=== PATIENT | female | born 1945 | race African-American/Black ===

== ENCOUNTER 2016-11-29 17:57 | Inpatient (IN) | payer MEDICARE, MEDICAID ==
[~2016-11-29] VITALS: Ht 157.5 cm; Wt 49.0 kg
[~2016-11-29 17:57] MED LIST: ACETAMINOPHEN-1 EAC1 ORAL; AMLODIPINE BESYL5 MG ORAL; APRESOLINE50 MG ORAL; ASPIR 8181 MG ORAL; ASPIRIN EC81 MG ORAL; ATIVAN1 MG ORAL; AUGMENTIN 875-1 EAC1 ORAL; CATAPRES0.1 MG ORAL; CLONIDINE 0.2M0.2 MG GT; CLONIDINE HCL0.1 M1 PO; CLOPIDOGREL75 MG ORAL; DILAUDID2 MG ORAL; DIOVAN160 MG ORAL; DIOVAN80 MG ORAL; HYDRALAZINE HC100 MG PO; HYDRALAZINE HCL10 MG ORAL; HYDROCHLOROTH12.5 M2 ORAL; HYDROCHLOROTHIA25 MG ORAL; HYDROCHLOROTHIA50 MG ORAL; HYDROCODON-ACE1 EAC4 ORAL; JANUVIA25 MG ORAL; JANUVIA50 MG PO; LORATADINE10 M1 PO; LORAZEPAM1 MG ORAL; LOSARTAN POTAS100 MG ORAL; LOSARTAN POTASS50 MG ORAL; METOPROLOL SUCC25 MG ORAL; METOPROLOL TAR100 MG ORAL; METOPROLOL TART25 MG ORAL; METOPROLOL TART50 MG ORAL; NORVASC10 MG ORAL; NORVASC2.5 MG ORAL; NORVASC5 MG ORAL; REGLAN10 MG ORAL; RENAGEL400 MG ORAL; TRAMADOL HCL50 MG ORAL; UNOBMED; VANCOMYCIN1 GM/2502 IVPB; ZANTAC150 MG ORAL; [UNRECOGNIZED DRUG - REMARK]
[2016-11-29 20:50] VITALS: BP 166/76
[2016-11-30 00:40] VITALS: BP 147/73
[2016-11-30 04:00] VITALS: BP 180/85
[2016-11-30] MEDS ORDERED: METOPROLOL TART50 M1 ORAL (04:52)
[2016-11-30] MEDS ORDERED: APRESOLINE50 MG ORAL (04:52)
[2016-11-30] MEDS ORDERED: CLONIDINE HCL0.1 MG PO (04:52)
[2016-11-30] MEDS: HydrALAZINE 50mg tab ORAL SCH ×3 (06:22→21:38)
[2016-11-30] MEDS: sitaGLIPtin 25mg tab ORAL SCH (06:23)
[2016-11-30] MEDS: NovoLOG Insulin Flexpen SUBQ SCH ×4 (06:27→20:57)
[2016-11-30 08:01] VITALS: BP 161/87
[2016-11-30] MEDS ORDERED: Metoprolol Tartrate 50mg tab ORAL SCH (09:00)
[2016-11-30] MEDS: Aspirin Baby 81mg ORAL SCH (09:10)
[2016-11-30] MEDS: Dyna-Hex 2% Top Sol 2oz TOPIC SCH (09:11)
[2016-11-30 09:54] LABS: BASOPHILS % (AUTO) 1.6 % (0.0-2.0); EOSINOPHILS % (AUTO) 4.7 % (0.0-3.0); LYMPHOCYTES % (AUTO) 20.5 % (20.0-45.0); MEAN CORPUSCULAR HEMOGLOBIN 32.2 PG (27.0-31.0); MEAN CORPUSCULAR HGB CONC 31.4 G/DL (32.0-36.0); MEAN CORPUSCULAR VOLUME 103 FL (80-99); MEAN PLATELET VOLUME 7.6 FL (6.5-10.1); MONOCYTES % (AUTO) 13.8 % (1.0-10.0); NEUTROPHILS % (AUTO) 59.4 % (45.0-75.0); PLATELET COUNT 151 K/UL (150-450); RED BLOOD COUNT 3.47 M/UL (4.20-5.40); RED CELL DISTRIBUTION WIDTH 15.8 % (11.6-14.8); WHITE BLOOD COUNT 4.5 K/UL (4.8-10.8)
[2016-11-30 10:00] LABS: ALANINE AMINOTRANSFERASE 8 U/L (3-33); ASPARTATE AMINO TRANSFERASE 22 U/L (5-40); CARBON DIOXIDE 22 mEQ/L (20-30); CHLORIDE 95 mEQ/L (98-107); CREATININE 7.1 mg/dL (0.5-0.9); HEMOLYSIS 0; MAGNESIUM 1.9 mg/dL (1.7-2.5); PHOSPHORUS 6.7 mg/dL (2.5-4.8); SODIUM 136 mEQ/L (135-145); TOTAL PROTEIN 7.8 g/dL (6.6-8.7)
[2016-11-30 10:06] LABS: ANION GAP 19 (5-15); POTASSIUM 5.9 mEQ/L (3.4-4.9)
[2016-11-30 10:23] LABS: CALCIUM 10.2 mg/dL (8.6-10.2); CHOLESTEROL 137 mg/dL (< 200); CHOLESTEROL/HDL RATIO 2.3 (3.3-4.4); LDL CHOLESTEROL CALC 61 mg/dL (60-99)
--- NOTE | 2016-11-30 11:25 | History & Physical ---
History and Physical History & Physicial Dictated for Int Med-Dr Alford no. [id number]. JENI SALAS Nov 30, 2016 11:25
[2016-11-30 11:52] VITALS: BP 143/64
--- NOTE | 2016-11-30 12:13 | Consultation ---
History of Present Illness General Date patient seen: Nov 30, 2016 Referring physician: Dr. mcnair Reason for Consultation: chest pain Present Illness HPI 71 year old male with hx of ESRF on HD, HTN, was taken to [facility] with CC of acuute onset of chest pain. she [place] [facility] [place] Pt was recently hospitalized and worked up extensively for chest pain. Allergies: Coded Allergies: No Known Allergies (Verified , 03/07/09) Medication History Scheduled Amlodipine Besylate (Norvasc), 10 MG ORAL DAILY Aspirin* (Aspir 81*), 81 MG ORAL DAILY, (Reported) Clopidogrel* (Clopidogrel*), 75 MG ORAL DAILY, (Reported) Hydralazine HCl (Hydralazine HCl), Unknown Dose ORAL DAILY, (Reported) Metoprolol Tartrate* (Metoprolol Tartrate*), 50 MG ORAL DAILY, (Reported) Sitagliptin* (Januvia*), 25 MG ORAL DAILY, (Reported) Scheduled PRN Clonidine Hcl (Clonidine Hcl), 0.1 MG PO EVERY 6 HOURS PRN for For High Blood Pressure, (Reported) Loratadine (Loratadine), 10 MG PO DAILY PRN for Itching, (Reported) Discontinued Medications Acetaminophen With Codeine (T#3) (Tylenol #3 Tab*), 1 TAB ORAL DAILY PRN for For Pain, (Reported) Discontinued Reason: Pt stopped taking med Amlodipine Besylate (Norvasc), 10 MG ORAL DAILY Discontinued Reason: Pt stopped taking med Clonidine Hcl* (Catapres*), Unknown Dose ORAL EVERY 6 HOURS, (Reported) Discontinued Reason: Medication dose changed Clonidine Hcl* (Catapres*), 0.1 MG ORAL EVERY 8 HOURS Discontinued Reason: Medication dose changed Hydralazine HCl (Hydralazine HCl), 50 MG ORAL Q8HR Discontinued Reason: Medication dose changed Hydralazine Hcl* (Hydralazine Hcl*), 10 MG ORAL EVERY 6 HOURS, (Reported) Discontinued Reason: Medication dose changed Hydrochlorothiazide* (Hydrochlorothiazide*), 50 MG ORAL DAILY, (Reported) Discontinued Reason: MD discontinued med Losartan Potassium* (Losartan Potassium*), 50 MG ORAL DAILY Discontinued Reason: MD discontinued med Metoprolol Tartrate* (Metoprolol Tartrate*), 50 MG ORAL Q12HR Discontinued Reason: Medication dose changed Metoprolol Tartrate* (Metoprolol Tartrate*), 25 MG ORAL EVERY 12 HOURS, ( Reported) Discontinued Reason: Medication dose changed Ranitidine Hcl* (Zantac*), 150 MG ORAL DAILY, (Reported) Discontinued Reason: MD discontinued med Sevelamer HCl (Renagel), 400 MG ORAL THREE TIMES A DAY, (Reported) Discontinued Reason: MD discontinued med Unable to Obtain Medications (Unable To Obtain Meds), (Reported) Discontinued Reason: Medication dose changed Valsartan (Diovan), 160 MG ORAL BID, (Reported) Discontinued Reason: MD discontinued med Patient History Healthcare decision maker N Resuscitation status Full Code Advanced Directive on File Past Medical/Surgical History Past Medical/Surgical History: (1) ESRD (end stage renal disease) on dialysis (2) DM (diabetes mellitus) (3) Congestive heart failure (CHF) Review of Systems All Other Systems: negative except mentioned in HPI Physical Exam General Appearance: cachetic Lines, tubes and drains: peripheral HEENT: normocephalic, atraumatic Neck: non-tender, normal alignment, supple Respiratory/Chest: chest wall non-tender, lungs clear Breasts: no masses Cardiovascular/Chest: normal peripheral pulses Abdomen: normal bowel sounds Genitourinary/Rectal: normal genital exam Skin Exam: normal pigmentation 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 Last 24 Hour Vital Signs Date Time Temp Pulse Resp B/P (MAP) Pulse Ox O2 Delivery O2 Flow Rate FiO2 11/30/16 11:52 96.9 83 18 143/64 100 Room Air 11/30/16 09:00 96 161/87 11/30/16 09:00 96 161/87 11/30/16 08:01 96.1 96 18 161/87 100 Room Air 11/30/16 08:00 88 11/30/16 06:22 149/74 11/30/16 04:15 180/85 11/30/16 04:00 80 11/30/16 04:00 97.0 87 20 180/85 99 Room Air 11/30/16 00:40 97.8 79 20 147/73 98 Room Air 11/30/16 00:00 79 11/29/16 21:00 85 11/29/16 20:50 97.2 82 16 166/76 96 Room Air Intake and Output 11/30/16 12/01/16 19:00 07:00 Intake Total 120 ml Balance 120 ml Intake Oral 120 ml Laboratory Tests Test 11/30/16 09:35 White Blood Count 4.5 K/UL (4.8-10.8) L Red Blood Count 3.47 M/UL (4.20-5.40) L Hemoglobin 11.2 G/DL (12.0-16.0) L Hematocrit 35.6 % (37.0-47.0) L Mean Corpuscular Volume 103 FL (80-99) H Mean Corpuscular Hemoglobin 32.2 PG (27.0-31.0) H Mean Corpuscular Hemoglobin Concent 31.4 G/DL (32.0-36.0) L Red Cell Distribution Width 15.8 % (11.6-14.8) H Platelet Count 151 K/UL (150-450) Mean Platelet Volume 7.6 FL (6.5-10.1) Neutrophils (%) (Auto) 59.4 % (45.0-75.0) Lymphocytes (%) (Auto) 20.5 % (20.0-45.0) Monocytes (%) (Auto) 13.8 % (1.0-10.0) H Eosinophils (%) (Auto) 4.7 % (0.0-3.0) H Basophils (%) (Auto) 1.6 % (0.0-2.0) Sodium Level 136 mEQ/L (135-145) Potassium Level 5.9 mEQ/L (3.4-4.9) H Chloride Level 95 mEQ/L (98-107) L Carbon Dioxide Level 22 mEQ/L (20-30) Anion Gap 19 (5-15) H Blood Urea Nitrogen 50 mg/dL (7-23) H Creatinine 7.1 mg/dL (0.5-0.9) H Estimat Glomerular Filtration Rate mL/min (>60) Glucose Level 117 mg/dL (74-106) H Calcium Level 10.2 mg/dL (8.6-10.2) Phosphorus Level 6.7 mg/dL (2.5-4.8) H Magnesium Level 1.9 mg/dL (1.7-2.5) Total Bilirubin 0.3 mg/dL (0.0-1.2) Aspartate Amino Transf (AST/SGOT) 22 U/L (5-40) Alanine Aminotransferase (ALT/SGPT) 8 U/L (3-33) Alkaline Phosphatase 79 U/L (35-104) Troponin I 0.014 ng/mL (0.000-0.056) Total Protein 7.8 g/dL (6.6-8.7) Albumin 4.0 g/dL (3.5-5.2) Globulin 3.8 g/dL Albumin/Globulin Ratio 1.0 (1.0-2.7) Triglycerides Level 81 mg/dL (< 150) Cholesterol Level 137 mg/dL (< 200) LDL Cholesterol 61 mg/dL (60-99) HDL Cholesterol 60 mg/dL (> 60) Cholesterol/HDL Ratio 2.3 (3.3-4.4) L Height (Feet): 5 Height (Inches): 2.00 Weight (Pounds): 107 Medications Current Medications Medications (Trade) Dose Ordered Sig/Sarwat Route PRN Reason Start Time Stop Time Status Last Admin Dose Admin Acetaminophen (Tylenol) 650 mg Q6H PRN ORAL Mild Pain/Temp > 100.5 11/30/16 00:45 12/30/16 00:44 Amlodipine Besylate (Norvasc) 10 mg DAILY ORAL 11/30/16 09:00 12/30/16 08:59 Aspirin (ASA) 81 mg DAILY ORAL 11/30/16 09:00 12/30/16 08:59 11/30/16 09:10 Chlorhexidine Gluconate (Magaly-Hex 2%) 1 applic DAILY TOPIC 11/30/16 09:00 12/30/16 08:59 11/30/16 09:11 Clonidine HCl (Catapres) 0.1 mg Q6H PRN ORAL For High Blood Pressure 11/30/16 00:45 12/30/16 00:44 11/30/16 04:15 Clopidogrel Bisulfate (Plavix) 75 mg DAILY ORAL 11/30/16 09:00 12/30/16 08:59 11/30/16 09:10 Dextrose (Dextrose 50%) STAT PRN IV Hypoglycemia 11/29/16 23:15 12/29/16 23:14 Fexofenadine HCl (Nunu) 60 mg BID PRN ORAL allergies 11/30/16 01:24 12/30/16 01:23 Heparin Sodium (Porcine) (Heparin 5000 units/ml) 5,000 units EVERY 8 HOURS SUBQ 11/30/16 14:00 12/30/16 13:59 Hydralazine HCl (Apresoline) 50 mg Q8HR ORAL 11/30/16 06:00 12/30/16 05:59 11/30/16 06:22 Insulin Aspart (NovoLOG) BEFORE MEALS AND HS SUBQ 11/30/16 06:30 12/30/16 06:29 Metoprolol Tartrate (Lopressor) 50 mg DAILY ORAL 11/30/16 09:00 12/30/16 08:59 Ondansetron HCl (Zofran) 4 mg EVERY 4 HOURS PRN IVP Nausea & Vomiting 11/29/16 23:15 12/29/16 23:14 Sitagliptin Phosphate (Januvia) 25 mg ACBREAKFAST ORAL 11/30/16 06:30 12/30/16 06:29 11/30/16 06:23 Assessment/Plan Problem List: (1) ACS (acute coronary syndrome) ICD Codes: I24.9 - ACS (acute coronary syndrome) SNOMED: 591979638 (2) DM (diabetes mellitus) ICD Codes: E11.9 - Type 2 diabetes mellitus without complications SNOMED: 06800972 (3) Hypertension (4) ESRD (end stage renal disease) on dialysis ICD Codes: N18.6 - End stage renal disease; Z99.2 - Dependence on renal dialysis SNOMED: 897316763 Assessment/Plan serial ekg, troponin, echo cardiology evaluation sliding scale cardiac diet symptomatic treatment. CATHIE GIL Nov 30, 2016 12:13
[2016-11-30] MEDS: Heparin 5000 units/ml inj SUBQ SCH ×2 (14:00→21:39)
[2016-11-30] MEDS ORDERED: DiphenhydrAMINE 50mg/ml Inj IVP PRN (14:15)
[2016-11-30] MEDS ORDERED: Nitroglycerin Subl 0.4mg tab SL PRN (14:15)
[2016-11-30] MEDS ORDERED: HYDROmorphone 1mg/ml Carpuject IVP PRN (14:15)
--- NOTE | 2016-11-30 14:57 | Cardiac Electrophysiology PN ---
Subjective Subjective Dicated [id number] Objective Last 24 Hour Vital Signs Date Time Temp Pulse Resp B/P (MAP) Pulse Ox O2 Delivery O2 Flow Rate FiO2 11/30/16 14:00 143/64 11/30/16 12:00 81 11/30/16 11:52 96.9 83 18 143/64 100 Room Air 11/30/16 09:00 96 161/87 11/30/16 09:00 96 161/87 11/30/16 08:01 96.1 96 18 161/87 100 Room Air 11/30/16 08:00 88 11/30/16 06:22 149/74 11/30/16 04:15 180/85 11/30/16 04:00 80 11/30/16 04:00 97.0 87 20 180/85 99 Room Air 11/30/16 00:40 97.8 79 20 147/73 98 Room Air 11/30/16 00:00 79 11/29/16 21:00 85 11/29/16 20:50 97.2 82 16 166/76 96 Room Air Intake and Output 11/30/16 12/01/16 19:00 07:00 Intake Total 120 ml Balance 120 ml Intake Oral 120 ml Laboratory Tests Test 11/30/16 09:35 White Blood Count 4.5 K/UL (4.8-10.8) L Red Blood Count 3.47 M/UL (4.20-5.40) L Hemoglobin 11.2 G/DL (12.0-16.0) L Hematocrit 35.6 % (37.0-47.0) L Mean Corpuscular Volume 103 FL (80-99) H Mean Corpuscular Hemoglobin 32.2 PG (27.0-31.0) H Mean Corpuscular Hemoglobin Concent 31.4 G/DL (32.0-36.0) L Red Cell Distribution Width 15.8 % (11.6-14.8) H Platelet Count 151 K/UL (150-450) Mean Platelet Volume 7.6 FL (6.5-10.1) Neutrophils (%) (Auto) 59.4 % (45.0-75.0) Lymphocytes (%) (Auto) 20.5 % (20.0-45.0) Monocytes (%) (Auto) 13.8 % (1.0-10.0) H Eosinophils (%) (Auto) 4.7 % (0.0-3.0) H Basophils (%) (Auto) 1.6 % (0.0-2.0) Sodium Level 136 mEQ/L (135-145) Potassium Level 5.9 mEQ/L (3.4-4.9) H Chloride Level 95 mEQ/L (98-107) L Carbon Dioxide Level 22 mEQ/L (20-30) Anion Gap 19 (5-15) H Blood Urea Nitrogen 50 mg/dL (7-23) H Creatinine 7.1 mg/dL (0.5-0.9) H Estimat Glomerular Filtration Rate mL/min (>60) Glucose Level 117 mg/dL (74-106) H Calcium Level 10.2 mg/dL (8.6-10.2) Phosphorus Level 6.7 mg/dL (2.5-4.8) H Magnesium Level 1.9 mg/dL (1.7-2.5) Total Bilirubin 0.3 mg/dL (0.0-1.2) Aspartate Amino Transf (AST/SGOT) 22 U/L (5-40) Alanine Aminotransferase (ALT/SGPT) 8 U/L (3-33) Alkaline Phosphatase 79 U/L (35-104) Troponin I 0.014 ng/mL (0.000-0.056) Total Protein 7.8 g/dL (6.6-8.7) Albumin 4.0 g/dL (3.5-5.2) Globulin 3.8 g/dL Albumin/Globulin Ratio 1.0 (1.0-2.7) Triglycerides Level 81 mg/dL (< 150) Cholesterol Level 137 mg/dL (< 200) LDL Cholesterol 61 mg/dL (60-99) HDL Cholesterol 60 mg/dL (> 60) Cholesterol/HDL Ratio 2.3 (3.3-4.4) ARTIS GUAMAN Nov 30, 2016 14:57
[2016-11-30 15:42] VITALS: BP 160/77
--- NOTE | 2016-11-30 16:18 | Nephrology Progress Note ---
Assessment/Plan Problem List: (1) Hyperkalemia (2) ESRD (end stage renal disease) on dialysis (3) Hypertension (4) ACS (acute coronary syndrome) (5) DM (diabetes mellitus) (6) Chest pain Plan consult note dictated # [id number] Subjective Constitutional: Denies: no symptoms, chills, diaphoresis, fever, malaise, weakness, other HEENT: Denies: no symptoms, eye pain, blurred vision, tearing, double vision, ear pain, ear discharge, nose pain, nose congestion, throat pain, throat swelling, mouth pain, mouth swelling, other Genitourinary: Denies: no symptoms, burning, discharge, frequency, flank pain, hematuria, incontinence, pain, urgency, other Neurologic/Psychiatric: Denies: no symptoms, anxiety, depressed, emotional problems, headache, numbness, paresthesia, pre-existing deficit, seizure, tingling, tremors, weakness, other Subjective In bed, in no apparent distress Objective Objective Last 24 Hour Vital Signs Date Time Temp Pulse Resp B/P (MAP) Pulse Ox O2 Delivery O2 Flow Rate FiO2 11/30/16 15:42 96.3 100 18 160/77 98 Room Air 11/30/16 14:00 143/64 11/30/16 12:00 81 11/30/16 11:52 96.9 83 18 143/64 100 Room Air 11/30/16 09:00 96 161/87 11/30/16 09:00 96 161/87 11/30/16 08:01 96.1 96 18 161/87 100 Room Air 11/30/16 08:00 88 11/30/16 06:22 149/74 11/30/16 04:15 180/85 11/30/16 04:00 80 11/30/16 04:00 97.0 87 20 180/85 99 Room Air 11/30/16 00:40 97.8 79 20 147/73 98 Room Air 11/30/16 00:00 79 11/29/16 21:00 85 11/29/16 20:50 97.2 82 16 166/76 96 Room Air Intake and Output 11/30/16 12/01/16 19:00 07:00 Intake Total 240 ml Balance 240 ml Intake Oral 240 ml Laboratory Tests 11/30/16 09:35: White Blood Count 4.5L, Red Blood Count 3.47L, Hemoglobin 11.2L, Hematocrit 35.6L, Mean Corpuscular Volume 103H, Mean Corpuscular Hemoglobin 32.2H, Mean Corpuscular Hemoglobin Concent 31.4L, Red Cell Distribution Width 15.8H, Platelet Count 151, Mean Platelet Volume 7.6, Neutrophils (%) (Auto) 59.4, Lymphocytes (%) (Auto) 20.5, Monocytes (%) (Auto) 13.8H, Eosinophils (%) (Auto) 4.7H, Basophils (%) (Auto) 1.6, Sodium Level 136, Potassium Level 5.9H, Chloride Level 95L, Carbon Dioxide Level 22, Anion Gap 19H, Blood Urea Nitrogen 50H, Creatinine 7.1H, Estimat Glomerular Filtration Rate , Glucose Level 117H, Calcium Level 10.2, Phosphorus Level 6.7H, Magnesium Level 1.9, Total Bilirubin 0.3, Aspartate Amino Transf (AST/SGOT) 22, Alanine Aminotransferase (ALT/SGPT) 8 , Alkaline Phosphatase 79, Troponin I 0.014, Total Protein 7.8, Albumin 4.0, Globulin 3.8, Albumin/Globulin Ratio 1.0, Triglycerides Level 81, Cholesterol Level 137, LDL Cholesterol 61, HDL Cholesterol 60, Cholesterol/HDL Ratio 2.3L Height (Feet): 5 Height (Inches): 2.00 Weight (Pounds): 107 General Appearance: no apparent distress, alert EENT: normal ENT inspection Neck: normal alignment Cardiovascular: normal rate, regular rhythm Respiratory/Chest: decreased breath sounds Abdomen: non tender, soft Extremities: non-tender, normal inspection Neurologic: alert, oriented x 3, responsive, normal mood/affect Sharlene Velasco N.P. Nov 30, 2016 16:18
[2016-11-30] MEDS: Metoprolol Tartrate 50mg tab ORAL SCH (17:44)
[2016-11-30] MEDS: Renagel 400mg cap ORAL SCH (18:00)
[2016-11-30 20:00] VITALS: BP_SYST 150; BP_SYST 163; BP_DIAS 77; BP_DIAS 80
--- NOTE | 2016-11-30 21:45 | Consultation ---
DATE OF CONSULTATION: CARDIOLOGY CONSULTATION CONSULTING PHYSICIAN: Nate Magallanes M.D. REFERRING PHYSICIAN: Fidel Alford M.D. REASON FOR CONSULTATION: Chest pain. History Of Present Illness: The patient is a 71-year-old lady with history of hypertension, end-stage renal disease on hemodialysis, as well as anemia, who was just recently at [facility] and underwent a nuclear stress test. Her ejection fraction was 65%. At that time, she was ruled out for myocardial infarction. The patient presented to the emergency room complaining of chest pain at [facility]. The patient was then transferred to [facility] for further evaluation and management. PAST MEDICAL HISTORY: 1. Hypertension. 2. End-stage renal disease, on hemodialysis. 3. Chest pain for which she underwent a nuclear stress test that showed no evidence of ischemia on 11/11/2016. SOCIAL HISTORY: Denies smoking or drinking alcohol. FAMILY HISTORY: Noncontributory. Review Of Systems: Review of systems was performed and was negative other than what was mentioned in the history of present illness. PHYSICAL EXAMINATION: Vital Signs: Blood pressure is 142/64, pulse 81, respirations 18, and temperature 97 degrees. HEAD AND NECK: Showed no JVD or carotid bruits. LUNGS: Clear. Cardiovascular: Shows regular S1 and S2 with no gallop or murmur. Dialysis catheter in the left subclavian. ABDOMEN: Soft. EXTREMITIES: No pitting edema. Laboratory Data: Her labs show a white count of 4.5, hemoglobin 11.2, hematocrit 35.6, and platelet count of 151,000. Sodium 136, potassium 5.9, BUN of , creatinine 7.1, and glucose of 117. ASSESSMENT AND PLAN: 1. Chest pain. The patient had similar presentation on the previous admission. She was ruled out for myocardial infarction. Echocardiogram showed ejection fraction of 70% and nuclear stress test showed no evidence of ischemia. Continue p.r.n. sublingual nitroglycerin. The patient also stays on aspirin, Plavix, and metoprolol. 2. Hypertension, on Norvasc 10 mg daily, metoprolol 50 mg b.i.d., and hydralazine 50 mg every 8 hours. The patient is also on p.r.n. clonidine. 3. End-stage renal disease, on hemodialysis. Thank you very much, Dr. Alford, for allowing me to participate in the care of this patient. Please do not hesitate to contact me for any questions regarding my evaluation. aNte Magallanes M.D. DR: CHAGO JOB#: [id number] CC:
--- NOTE | 2016-11-30 22:15 | History and Physical Report ---
DATE OF ADMISSION: 11/29/2016 Chief Complaint: The patient is a 71-year-old female who presents with chief complaint of chest pain. History Of Present Illness: The patient has a history of end-stage renal disease. The patient is followed as an outpatient by Dr. Blaze Plascencia for dialysis. The patient states on , 11/28/2016, she began to experience chest pain during dialysis. The patient states it then resolved. The patient went home. The patient states the chest pain returned on evening. The patient presented to [facility] emergency room on Friday11/29/2016. The patient was complaining of chest pain. Chest pain is substernal. There is no radiation to the left arm or to the jaw. The patient is transferred to [facility] for insurance purposes. The patient is admitted for chest pain to rule out acute coronary syndrome. Review Of Systems: Constitutional: The patient denies weight loss or weight gain. The patient denies fevers or chills. HEENT: The patient denies ear or throat pain. The patient denies headache. Cardiovascular: The patient complains of chest pain as above. The patient denies palpitations. Chest: The patient denies wheeze or shortness of breath. Abdominal: The patient denies nausea, vomiting, diarrhea, or constipation. Genitourinary: The patient denies dysuria, increased frequency of urination. Neuromuscular: The patient denies seizures or generalized weakness. PAST MEDICAL HISTORY: Significant for: 1. End-stage renal disease, on hemodialysis every Friday, , and Friday. The patient's last dialysis was on 11/28/2016. 2. Hypertension. 3. Diabetes type 2. 4. History of cerebrovascular disease, status post cerebrovascular accident. PAST SURGICAL HISTORY: Significant for left Port-A-Cath placement. CURRENT MEDICATIONS: 1. Aspirin 81 mg one tablet p.o. daily. 2. Amlodipine 10 mg one tablet p.o. daily. 3. Plavix 75 mg one tablet p.o. daily. 4. Januvia 25 mg one tablet p.o. daily. 5. Claritin 10 mg one tablet p.o. daily. 6. Clonidine 0.1 mg one tablet p.o. q.6 hours p.r.n. hypertension. 7. Lopressor 50 mg one tablet p.o. daily. 8. Hydralazine of an unknown dose. ALLERGIES: No known drug allergies. Social History: The patient is and lives with her two grown daughters. The patient denies tobacco or alcohol use. PHYSICAL EXAMINATION: Vital Signs: Temperature 97.0, respirations 20, pulse 80 to 87, blood pressure 180/85. General: The patient is thin-appearing female, in no apparent distress. HEENT: Eyes, pupils are equal and responsive to light and accommodation. Extraocular movements are intact. NECK: Supple without lymphadenopathy. Chest: Lungs are clear to auscultation bilaterally without wheezes or rales. Cardiovascular: Regular rhythm and rate. S1 and S2 are normal without murmurs, rubs, or gallops Abdomen: Soft, nontender, and nondistended. Positive bowel sounds. No evidence of hepatosplenomegaly. Currently, no rebound or guarding noted. EXTREMITIES: Negative for clubbing, cyanosis, or edema. RECTAL/GENITAL: Refused. Neurologic: Cranial nerves II to XII are grossly intact without focal deficits. Motor strength is 5/5 bilaterally. Deep tendon reflexes are 2+ bilaterally. Laboratory Studies: WBC 4.5, hemoglobin 11.2, hematocrit 35.6, platelets 151,000. Sodium 136, potassium 5.9, chloride 95, CO2 22, BUN 50, creatinine 7.1, glucose 117. Troponin 0.014. ASSESSMENT: This is a 71-year-old female. 1. Chest pain. 2. End-stage renal disease. 3. Hypertension. 4. Diabetes type 2. 5. Cerebrovascular disease. TREATMENT: 1. Chest pain. A Cardiology consultation obtained with Dr. Nate Magallanes. Serial troponin levels will be run. The patient may require cardiology stress test. We will follow recommendation of Cardiology. 2. End-stage renal disease. A Nephrology consultation obtained with Dr. Blaze Plascencia. The patient is currently scheduled for dialysis today 11/30/2016. We will follow recommendations of Nephrology. 3. Hypertension. Continue amlodipine as above. Clonidine has been ordered as needed for systolic greater than 150 or diastolic greater than 100. 4. Diabetes type 2. The patient is currently on a NovoLog sliding scale. 5. History of cerebrovascular disease. Continue Plavix and aspirin as above. Bernard Mckeon M.D. DR: Justo JOB#: [id number] CC:
[2016-12-01] VITALS (7 sets, daily range): BP systolic 119–183; BP diastolic 55–92
--- NOTE | 2016-12-01 03:15 | Consultation ---
DATE OF CONSULTATION: 11/30/2016 NEPHROLOGY CONSULTATION REQUESTING PHYSICIAN: Fidel Alford M.D. Reason For Consult: End-stage renal disease, on hemodialysis and hyperkalemia. History Of Present Illness: The patient is a 71-year-old female, well known to me from previous hospitalizations with a past medical history significant for end-stage renal disease, on hemodialysis, hypertension, history of acute coronary syndrome, and diabetes mellitus, who presented to the hospital with chest pain. She stated that the pain started on after hemodialysis and she went home, but the pain got increasingly worse on Friday, which prompted her visit to the hospital. She stated that the pain was radiating to her left shoulder earlier, but is nonradiating at this time. Pain is pressure like. She stated that shortness of breath was minimal. No shortness of breath at this time. She denies fever or chills. No nausea. No vomiting. She denies dizziness or loss of consciousness. She is lying in bed at this time in no apparent distress. Past Medical History: Significant for end-stage renal disease, on hemodialysis every Tuesdays, and Saturdays, history of hypertension, acute coronary syndrome, recurrent chest pains, and diabetes. Home Medications: Includes amlodipine 10 mg p.o. daily, aspirin 81 mg p.o. daily, clonidine 0.1 mg p.o. q.6 hours p.r.n., Plavix 75 mg p.o. daily, hydralazine 50 mg p.o. daily, loratadine 10 mg p.o. daily, metoprolol 50 mg p.o. daily, and Januvia 25 mg p.o. daily. ALLERGIES: She has no known allergies. Social History: She lives at home. Denies any smoking. No alcohol use and no illicit drug use. Review Of Systems: A full 12-point review of system was reviewed with the patient and positives as stated in the history of present illness. PHYSICAL EXAMINATION: General: This is a 71-year-old female, in no apparent distress. Vital Signs: Blood pressure 160/77, heart rate is 100, respiratory rate is 18, temp is 96.3 degrees, and O2 saturation is 98% on room air. HEENT: Head is normocephalic and atraumatic. Pupils are equal, round, and reactive to light and accommodation. NECK: Supple. No jugular venous distention noted. LUNGS: Diminished bilaterally. No crackles. No wheezing. CARDIOVASCULAR: Regular rate and rhythm. Abdomen: Soft, nontender, and nondistended. Positive bowel sounds in all 4 quadrants. EXTREMITIES: No edema. No cyanosis. No clubbing. Neurologic: The patient is awake, alert, and oriented x3 with no focal deficits. Laboratory Data: CBC, white count 4.5, hemoglobin 11.2, hematocrit 35.6, and a platelet count of 151,000. BMP, sodium 136, potassium 5.9, chloride of 95, bicarb 22, BUN 50, creatinine 7.1, and blood glucose is 117. Troponin is negative. Radiologic Findings: None yet on this admission, however, the echocardiogram done on 11/11/2016 showed an estimated ejection fraction to be 60% to 65%. Also Cardiolite stress test impression, nonischemic clinical response to pharmacological stress per cardiology report. No imaging findings to suggest ischemia at the level of stress achieved. Calculated post-stress ejection fraction greater than 70%. This was done on 11/11/2016. ASSESSMENT: 1. Atypical chest pain. 2. End-stage renal disease, on hemodialysis. 3. Accelerated hypertension. 4. Shortness of breath. Plan: We will continue hemodialysis as scheduled. The patient is currently undergoing hemodialysis. We will follow up post procedure. We will monitor electrolytes and correct with hemodialysis. We will monitor hemoglobin and hematocrit and transfuse p.r.n. Pain management as needed. We will follow up with the patient and make further recommendations as necessary. Blaze Plascencia M.D. Sharlene Velasco DR: TUCKER JOB#: [id number] CC:
[2016-12-01] MEDS: NovoLOG Insulin Flexpen SUBQ SCH ×4 (06:30→20:46)
[2016-12-01] MEDS: sitaGLIPtin 25mg tab ORAL SCH (06:37)
[2016-12-01] MEDS: HydrALAZINE 50mg tab ORAL SCH ×3 (06:40→20:47)
[2016-12-01] MEDS: Heparin 5000 units/ml inj SUBQ SCH ×3 (06:42→20:49)
[2016-12-01] MEDS: Aspirin Baby 81mg ORAL SCH (09:00)
[2016-12-01 09:19] LABS: BASOPHILS % (AUTO) 0.5 % (0.0-2.0); EOSINOPHILS % (AUTO) 0.1 % (0.0-3.0); MEAN CORPUSCULAR HEMOGLOBIN 32.8 PG (27.0-31.0); MEAN CORPUSCULAR HGB CONC 31.7 G/DL (32.0-36.0); MEAN CORPUSCULAR VOLUME 104 FL (80-99); MEAN PLATELET VOLUME 7.7 FL (6.5-10.1); NEUTROPHILS % (AUTO) 75.5 % (45.0-75.0); PLATELET COUNT 140 K/UL (150-450); RED BLOOD COUNT 3.72 M/UL (4.20-5.40); RED CELL DISTRIBUTION WIDTH 15.9 % (11.6-14.8); WHITE BLOOD COUNT 3.8 K/UL (4.8-10.8)
[2016-12-01 09:22] LABS: ALANINE AMINOTRANSFERASE 11 U/L (3-33); ALBUMIN/GLOBULIN RATIO 0.8 (1.0-2.7); ANION GAP 19 (5-15); ASPARTATE AMINO TRANSFERASE 18 U/L (5-40); CALCIUM 11.3 mg/dL (8.6-10.2); CARBON DIOXIDE 33 mEQ/L (20-30); CHLORIDE 97 mEQ/L (98-107); CREATININE 4.6 mg/dL (0.5-0.9); HEMOLYSIS 7; POTASSIUM 5.3 mEQ/L (3.4-4.9); SODIUM 149 mEQ/L (135-145); TOTAL PROTEIN 10.5 g/dL (6.6-8.7)
[2016-12-01] MEDS: Dyna-Hex 2% Top Sol 2oz TOPIC SCH (09:55)
[2016-12-01] MEDS: Renagel 400mg cap ORAL SCH ×3 (09:56→17:32)
[2016-12-01] MEDS: Metoprolol Tartrate 50mg tab ORAL SCH ×2 (10:00→17:33)
--- NOTE | 2016-12-01 11:28 | Pulmonology Progress Note ---
Assessment/Plan Problems: (1) ACS (acute coronary syndrome) (2) DM (diabetes mellitus) (3) Hypertension (4) ESRD (end stage renal disease) on dialysis Respiratory: monitor respiratory rate, adjust FIO2, CXR Cardiac: continue to monitor HR/BP Renal: F/U I&O Infectious Disease: check cultures, continue antibiotics Gastrointestinal: hold feedings Endocrine: monitor blood sugar, continue sliding scale insulin Hematologic: monitor H/H, transfuse if hgb<8.5 Neurologic: PRN Ativan, PRN Morphine, keep patient comfortable Affect: PRN ativan Prophylaxis: Protonix Notes Reviewed: cardio Discussed with: consultants, disability case manager Subjective ROS Limited/Unobtainable: No Constitutional: Reports: no symptoms HEENT: Repors: no symptoms Respiratory: Reports: no symptoms Cardiovascular: Reports: no symptoms Allergies: Coded Allergies: No Known Allergies (Verified , 03/07/09) Objective Last 24 Hour Vital Signs Date Time Temp Pulse Resp B/P (MAP) Pulse Ox O2 Delivery O2 Flow Rate FiO2 12/01/16 11:24 98.1 88 18 169/77 98 Room Air 12/01/16 10:00 90 178/92 12/01/16 09:59 90 178/90 12/01/16 07:47 98.1 90 18 178/92 95 Room Air 12/01/16 06:40 177/87 12/01/16 04:00 86 12/01/16 04:00 92.8 90 155/70 Room Air 12/01/16 01:59 150/74 12/01/16 00:22 183/89 12/01/16 00:00 98.1 88 18 183/89 98 Room Air 12/01/16 00:00 80 11/30/16 21:38 157/74 11/30/16 20:00 96.3 89 20 150/80 96 Room Air 11/30/16 20:00 98.2 88 18 163/77 98 Room Air 11/30/16 20:00 81 11/30/16 17:44 106 147/80 11/30/16 17:27 Room Air 11/30/16 16:30 118 11/30/16 15:42 96.3 100 18 160/77 98 Room Air 11/30/16 14:00 143/64 11/30/16 12:00 81 11/30/16 11:52 96.9 83 18 143/64 100 Room Air 11/30/16 11:30 Room Air Intake and Output 12/01/16 12/02/16 19:00 07:00 Intake Total 120 ml Balance 120 ml Intake Oral 120 ml General Appearance: WD/WN HEENT: normocephalic, atraumatic Respiratory/Chest: chest wall non-tender, lungs clear Cardiovascular: normal peripheral pulses Abdomen: normal bowel sounds, soft, non tender Genitourinary: normal external genitalia Skin: no rash 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 Lymphatic: no neck adenopathy Laboratory Tests 12/01/16 08:50: White Blood Count 3.8L, Red Blood Count 3.72L, Hemoglobin 12.2, Hematocrit 38.5 , Mean Corpuscular Volume 104H, Mean Corpuscular Hemoglobin 32.8H, Mean Corpuscular Hemoglobin Concent 31.7L, Red Cell Distribution Width 15.9H, Platelet Count 140L, Mean Platelet Volume 7.7, Neutrophils (%) (Auto) 75.5H, Lymphocytes (%) (Auto) 11.0L, Monocytes (%) (Auto) 13.0H, Eosinophils (%) (Auto ) 0.1, Basophils (%) (Auto) 0.5, Sodium Level 149#H, Potassium Level 5.3H, Chloride Level 97L, Carbon Dioxide Level 33H, Anion Gap 19H, Blood Urea Nitrogen 26H, Creatinine 4.6H, Estimat Glomerular Filtration Rate , Glucose Level 84, Calcium Level 11.3H, Total Bilirubin 0.4, Aspartate Amino Transf (AST/ SGOT) 18, Alanine Aminotransferase (ALT/SGPT) 11, Alkaline Phosphatase 82, Troponin I 0.016, Pro-B-Type Natriuretic Peptide 36084K, Total Protein 10.5#H, Albumin 4.7, Globulin 5.8, Albumin/Globulin Ratio 0.8L Current Medications Medications (Trade) Dose Ordered Sig/Sarwat Route PRN Reason Start Time Stop Time Status Last Admin Dose Admin Acetaminophen (Tylenol) 650 mg Q6H PRN ORAL Mild Pain/Temp > 100.5 11/30/16 00:45 12/30/16 00:44 12/01/16 10:03 Amlodipine Besylate (Norvasc) 10 mg DAILY ORAL 11/30/16 09:00 12/30/16 08:59 12/01/16 09:59 Aspirin (ASA) 81 mg DAILY ORAL 11/30/16 09:00 12/30/16 08:59 12/01/16 09:00 Chlorhexidine Gluconate (Magaly-Hex 2%) 1 applic DAILY@2000 TOPIC 12/02/16 20:00 01/01/17 19:59 Clonidine HCl (Catapres) 0.1 mg Q6H PRN ORAL For High Blood Pressure 11/30/16 00:45 12/30/16 00:44 12/01/16 00:22 Clopidogrel Bisulfate (Plavix) 75 mg DAILY ORAL 11/30/16 09:00 12/30/16 08:59 12/01/16 09:56 Dextrose (Dextrose 50%) STAT PRN IV Hypoglycemia 11/29/16 23:15 12/29/16 23:14 Diphenhydramine HCl (Benadryl) 25 mg Q4HR PRN IVP Itching 11/30/16 14:15 12/30/16 14:14 11/30/16 14:29 Fexofenadine HCl (Nunu) 60 mg BID PRN ORAL allergies 11/30/16 01:24 12/30/16 01:23 12/01/16 10:00 Heparin Sodium (Porcine) (Heparin 5000 units/ml) 5,000 units EVERY 8 HOURS SUBQ 11/30/16 14:00 12/30/16 13:59 12/01/16 06:42 Hydralazine HCl (Apresoline) 50 mg Q8HR ORAL 11/30/16 06:00 12/30/16 05:59 12/01/16 06:40 Hydromorphone HCl (Dilaudid) 1 mg Q4H PRN IVP For Pain 11/30/16 14:30 12/07/16 14:29 11/30/16 21:18 Insulin Aspart (NovoLOG) BEFORE MEALS AND HS SUBQ 11/30/16 06:30 12/30/16 06:29 11/30/16 17:46 Metoprolol Tartrate (Lopressor) 50 mg BID ORAL 11/30/16 18:00 12/30/16 08:59 12/01/16 10:00 Nitroglycerin (Ntg) 0.4 mg Q5M PRN SL Prn Chest Pain 11/30/16 14:15 12/30/16 14:14 Ondansetron HCl (Zofran) 4 mg EVERY 4 HOURS PRN IVP Nausea & Vomiting 11/29/16 23:15 12/29/16 23:14 11/30/16 21:59 Sevelamer HCl (Renagel) 400 mg THREE TIMES A DAY ORAL 11/30/16 18:00 12/30/16 17:59 12/01/16 09:56 Sitagliptin Phosphate (Januvia) 25 mg ACBREAKFAST ORAL 11/30/16 06:30 12/30/16 06:29 12/01/16 06:37 CATHIE GIL Dec 01, 2016 11:28
--- NOTE | 2016-12-01 12:55 | Nephrology Progress Note ---
Assessment/Plan Problem List: (1) Hyperkalemia (2) ESRD (end stage renal disease) on dialysis (3) Hypertension (4) ACS (acute coronary syndrome) (5) DM (diabetes mellitus) (6) Chest pain Plan Continue HD as scheduled Monitor lytes, correct prn with HD Pain management prn Cardio following Echo pending DVT/PPI - prophylaxis AM labs Subjective Constitutional: Denies: no symptoms, chills, diaphoresis, fever, malaise, weakness, other HEENT: Denies: no symptoms, eye pain, blurred vision, tearing, double vision, ear pain, ear discharge, nose pain, nose congestion, throat pain, throat swelling, mouth pain, mouth swelling, other Genitourinary: Denies: no symptoms, burning, discharge, frequency, flank pain, hematuria, incontinence, pain, urgency, other Neurologic/Psychiatric: Denies: no symptoms, anxiety, depressed, emotional problems, headache, numbness, paresthesia, pre-existing deficit, seizure, tingling, tremors, weakness, other Subjective In bed, in no apparent distress, stated that she only wants tylenol for pain because she got sick from the IV pain med Objective Objective Last 24 Hour Vital Signs Date Time Temp Pulse Resp B/P (MAP) Pulse Ox O2 Delivery O2 Flow Rate FiO2 12/01/16 11:24 98.1 88 18 169/77 98 Room Air 12/01/16 10:00 90 178/92 12/01/16 09:59 90 178/90 12/01/16 07:47 98.1 90 18 178/92 95 Room Air 12/01/16 06:40 177/87 12/01/16 04:00 86 12/01/16 04:00 92.8 90 155/70 Room Air 12/01/16 01:59 150/74 12/01/16 00:22 183/89 12/01/16 00:00 98.1 88 18 183/89 98 Room Air 12/01/16 00:00 80 11/30/16 21:38 157/74 11/30/16 20:00 96.3 89 20 150/80 96 Room Air 11/30/16 20:00 98.2 88 18 163/77 98 Room Air 11/30/16 20:00 81 11/30/16 17:44 106 147/80 11/30/16 17:27 Room Air 11/30/16 16:30 118 11/30/16 15:42 96.3 100 18 160/77 98 Room Air 11/30/16 14:00 143/64 Intake and Output 12/01/16 12/02/16 19:00 07:00 Intake Total 120 ml Balance 120 ml Intake Oral 120 ml Laboratory Tests 12/01/16 08:50: White Blood Count 3.8L, Red Blood Count 3.72L, Hemoglobin 12.2, Hematocrit 38.5 , Mean Corpuscular Volume 104H, Mean Corpuscular Hemoglobin 32.8H, Mean Corpuscular Hemoglobin Concent 31.7L, Red Cell Distribution Width 15.9H, Platelet Count 140L, Mean Platelet Volume 7.7, Neutrophils (%) (Auto) 75.5H, Lymphocytes (%) (Auto) 11.0L, Monocytes (%) (Auto) 13.0H, Eosinophils (%) (Auto ) 0.1, Basophils (%) (Auto) 0.5, Sodium Level 149#H, Potassium Level 5.3H, Chloride Level 97L, Carbon Dioxide Level 33H, Anion Gap 19H, Blood Urea Nitrogen 26H, Creatinine 4.6H, Estimat Glomerular Filtration Rate , Glucose Level 84, Calcium Level 11.3H, Total Bilirubin 0.4, Aspartate Amino Transf (AST/ SGOT) 18, Alanine Aminotransferase (ALT/SGPT) 11, Alkaline Phosphatase 82, Troponin I 0.016, Pro-B-Type Natriuretic Peptide 64087D, Total Protein 10.5#H, Albumin 4.7, Globulin 5.8, Albumin/Globulin Ratio 0.8L Height (Feet): 5 Height (Inches): 2.00 Weight (Pounds): 105 General Appearance: no apparent distress, alert EENT: normal ENT inspection Neck: normal alignment, supple Cardiovascular: normal rate, regular rhythm, no JVD Respiratory/Chest: normal breath sounds, no respiratory distress Abdomen: soft, no organomegaly Extremities: non-tender, normal inspection Neurologic: alert, oriented x 3, responsive, normal mood/affect Sharlene Velasco N.P. Dec 01, 2016 12:55
--- NOTE | 2016-12-01 13:15 | Internal Med Progress Note ---
Subjective Date of Service: Dec 01, 2016 Physician Name Jeni Salas Attending Physician Fidel Alford MD Current Medications Medications (Trade) Dose Ordered Sig/Sarwat Route PRN Reason Start Time Stop Time Status Last Admin Dose Admin Acetaminophen (Tylenol) 650 mg Q6H PRN ORAL Mild Pain/Temp > 100.5 11/30/16 00:45 12/30/16 00:44 12/01/16 10:03 Acetaminophen/ Hydrocodone Bitart ([place] 5/325) 1 tab Q4H PRN ORAL Moderate Pain (Pain Scale 4-6) 12/01/16 13:00 12/08/16 12:59 UNV Amlodipine Besylate (Norvasc) 10 mg DAILY ORAL 11/30/16 09:00 12/30/16 08:59 12/01/16 09:59 Aspirin (ASA) 81 mg DAILY ORAL 11/30/16 09:00 12/30/16 08:59 12/01/16 09:00 Chlorhexidine Gluconate (Magaly-Hex 2%) 1 applic DAILY@2000 TOPIC 12/02/16 20:00 01/01/17 19:59 Clonidine HCl (Catapres) 0.1 mg Q6H PRN ORAL For High Blood Pressure 11/30/16 00:45 12/30/16 00:44 12/01/16 13:07 Clopidogrel Bisulfate (Plavix) 75 mg DAILY ORAL 11/30/16 09:00 12/30/16 08:59 12/01/16 09:56 Dextrose (Dextrose 50%) STAT PRN IV Hypoglycemia 11/29/16 23:15 12/29/16 23:14 Diphenhydramine HCl (Benadryl) 25 mg Q4HR PRN IVP Itching 11/30/16 14:15 12/30/16 14:14 11/30/16 14:29 Fexofenadine HCl (Nunu) 60 mg BID PRN ORAL allergies 11/30/16 01:24 12/30/16 01:23 12/01/16 10:00 Heparin Sodium (Porcine) (Heparin 5000 units/ml) 5,000 units EVERY 8 HOURS SUBQ 11/30/16 14:00 12/30/16 13:59 12/01/16 06:42 Hydralazine HCl (Apresoline) 50 mg Q8HR ORAL 11/30/16 06:00 11/6/17 05:59 12/01/16 13:07 Insulin Aspart (NovoLOG) BEFORE MEALS AND HS SUBQ 11/30/16 06:30 12/30/16 06:29 11/30/16 17:46 Metoprolol Tartrate (Lopressor) 50 mg BID ORAL 11/30/16 18:00 12/30/16 08:59 12/01/16 10:00 Nitroglycerin (Ntg) 0.4 mg Q5M PRN SL Prn Chest Pain 11/30/16 14:15 12/30/16 14:14 Ondansetron HCl (Zofran) 4 mg EVERY 4 HOURS PRN IVP Nausea & Vomiting 11/29/16 23:15 12/29/16 23:14 11/30/16 21:59 Ondansetron HCl (Zofran) 4 mg Q6H PRN IVP Nausea & Vomiting 12/01/16 13:00 12/31/16 12:59 UNV Sevelamer HCl (Renagel) 800 mg THREE TIMES A DAY ORAL 12/01/16 13:00 12/31/16 12:59 UNV Sitagliptin Phosphate (Januvia) 25 mg ACBREAKFAST ORAL 11/30/16 06:30 12/30/16 06:29 12/01/16 06:37 Allergies: Coded Allergies: No Known Allergies (Verified , 03/07/09) ROS Limited/Unobtainable: No Constitutional: Reports: no symptoms HEENT: Reports: no symptoms Cardiovascular: Reports: chest pain Respiratory: Reports: no symptoms Gastrointestinal/Abdominal: Reports: no symptoms Genitourinary: Reports: no symptoms Neurologic/Psychiatric: Reports: no symptoms Subjective 71 YO F admitted with chest pain. Cover for Vy Alford. 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, no motor/sensory deficits Skin: normal pigmentation, warm/dry Laboratory Tests Test 12/01/16 08:50 White Blood Count 3.8 K/UL (4.8-10.8) L Red Blood Count 3.72 M/UL (4.20-5.40) L Hemoglobin 12.2 G/DL (12.0-16.0) Hematocrit 38.5 % (37.0-47.0) Mean Corpuscular Volume 104 FL (80-99) H Mean Corpuscular Hemoglobin 32.8 PG (27.0-31.0) H Mean Corpuscular Hemoglobin Concent 31.7 G/DL (32.0-36.0) L Red Cell Distribution Width 15.9 % (11.6-14.8) H Platelet Count 140 K/UL (150-450) L Mean Platelet Volume 7.7 FL (6.5-10.1) Neutrophils (%) (Auto) 75.5 % (45.0-75.0) H Lymphocytes (%) (Auto) 11.0 % (20.0-45.0) L Monocytes (%) (Auto) 13.0 % (1.0-10.0) H Eosinophils (%) (Auto) 0.1 % (0.0-3.0) Basophils (%) (Auto) 0.5 % (0.0-2.0) Sodium Level 149 mEQ/L (135-145) #H Potassium Level 5.3 mEQ/L (3.4-4.9) H Chloride Level 97 mEQ/L (98-107) L Carbon Dioxide Level 33 mEQ/L (20-30) H Anion Gap 19 (5-15) H Blood Urea Nitrogen 26 mg/dL (7-23) H Creatinine 4.6 mg/dL (0.5-0.9) H Estimat Glomerular Filtration Rate mL/min (>60) Glucose Level 84 mg/dL (74-106) Calcium Level 11.3 mg/dL (8.6-10.2) H Total Bilirubin 0.4 mg/dL (0.0-1.2) Aspartate Amino Transf (AST/SGOT) 18 U/L (5-40) Alanine Aminotransferase (ALT/SGPT) 11 U/L (3-33) Alkaline Phosphatase 82 U/L (35-104) Troponin I 0.016 ng/mL (0.000-0.056) Pro-B-Type Natriuretic Peptide 67544 pg/mL (0-125) H Total Protein 10.5 g/dL (6.6-8.7) #H Albumin 4.7 g/dL (3.5-5.2) Globulin 5.8 g/dL Albumin/Globulin Ratio 0.8 (1.0-2.7) L Intake and Output 12/01/16 12/02/16 19:00 07:00 Intake Total 270 ml Balance 270 ml Intake Oral 270 ml Assessment/Plan Problem List: (1) Cerebral vascular disease (2) Congestive heart failure (CHF) Assessment & Plan: Await echocardiogram. See Cardiology note. (3) Chest pain (4) ESRD (end stage renal disease) on dialysis Assessment & Plan: Last hemodialysis 11/30/16. See nephrology note (5) Hypertension Assessment & Plan: Cont metoprolol and norvasc. (6) DM (diabetes mellitus) Assessment & Plan: Cont novolog sliding scale. (7) Hyperkalemia Assessment & Plan: Improving with dialysis JENI SALAS Dec 01, 2016 13:15
[2016-12-01] MEDS ORDERED: Norco 5mg/325mg tab ORAL PRN (13:30)
[2016-12-02 00:13] VITALS: BP 136/67
[2016-12-02 04:00] VITALS: BP 156/74
[2016-12-02] MEDS: HydrALAZINE 50mg tab ORAL SCH ×2 (05:59→14:20)
[2016-12-02] MEDS: sitaGLIPtin 25mg tab ORAL SCH (05:59)
[2016-12-02] MEDS: Heparin 5000 units/ml inj SUBQ SCH ×2 (06:00→14:20)
[2016-12-02] MEDS: NovoLOG Insulin Flexpen SUBQ SCH ×2 (06:00→11:20)
[2016-12-02 07:57] VITALS: BP 156/72
[2016-12-02] MEDS: Metoprolol Tartrate 50mg tab ORAL SCH (08:21)
[2016-12-02] MEDS: Aspirin Baby 81mg ORAL SCH (08:21)
[2016-12-02] MEDS: Renagel 400mg cap ORAL SCH (08:21)
[2016-12-02 09:07] LABS: BASOPHILS % (AUTO) 1.2 % (0.0-2.0); EOSINOPHILS % (AUTO) 2.3 % (0.0-3.0); LYMPHOCYTES % (AUTO) 22.5 % (20.0-45.0); MEAN CORPUSCULAR HEMOGLOBIN 32.8 PG (27.0-31.0); MEAN CORPUSCULAR HGB CONC 32.1 G/DL (32.0-36.0); MEAN CORPUSCULAR VOLUME 102 FL (80-99); MEAN PLATELET VOLUME 10.3 FL (6.5-10.1); MONOCYTES % (AUTO) 12.4 % (1.0-10.0); NEUTROPHILS % (AUTO) 61.6 % (45.0-75.0); PLATELET COUNT 172 K/UL (150-450); RED CELL DISTRIBUTION WIDTH 15.7 % (11.6-14.8); WHITE BLOOD COUNT 5.5 K/UL (4.8-10.8)
[2016-12-02 10:00] LABS: ANION GAP 13 (5-15); CALCIUM 10.4 MG/DL (8.5-10.1); CARBON DIOXIDE 28 MMOL/L (21-32); CHLORIDE 93 MMOL/L (98-107); CREATININE 7.1 MG/DL (0.55-1.30); POTASSIUM 4.9 MMOL/L (3.5-5.1); SODIUM 134 MMOL/L (136-145)
--- NOTE | 2016-12-02 10:12 | Internal Med Progress Note ---
Subjective Date of Service: Dec 02, 2016 Physician Name Jeni Salas Attending Physician Fidel Alford MD Current Medications Medications (Trade) Dose Ordered Sig/Sarwat Route PRN Reason Start Time Stop Time Status Last Admin Dose Admin Acetaminophen (Tylenol) 650 mg Q6H PRN ORAL Mild Pain/Temp > 100.5 11/30/16 00:45 12/30/16 00:44 12/01/16 10:03 Acetaminophen/ Hydrocodone Bitart ([place] 5/325) 1 tab Q4H PRN ORAL Moderate Pain (Pain Scale 4-6) 12/01/16 13:30 12/08/16 13:29 Amlodipine Besylate (Norvasc) 10 mg DAILY ORAL 11/30/16 09:00 12/30/16 08:59 12/02/16 08:21 Aspirin (ASA) 81 mg DAILY ORAL 11/30/16 09:00 12/30/16 08:59 12/02/16 08:21 Chlorhexidine Gluconate (Magaly-Hex 2%) 1 applic DAILY@2000 TOPIC 12/02/16 20:00 01/01/17 19:59 Clonidine HCl (Catapres) 0.1 mg Q6H PRN ORAL For High Blood Pressure 11/30/16 00:45 12/30/16 00:44 12/01/16 13:07 Clopidogrel Bisulfate (Plavix) 75 mg DAILY ORAL 11/30/16 09:00 12/30/16 08:59 12/02/16 08:21 Dextrose (Dextrose 50%) STAT PRN IV Hypoglycemia 11/29/16 23:15 12/29/16 23:14 Diphenhydramine HCl (Benadryl) 25 mg Q4HR PRN IVP Itching 11/30/16 14:15 12/30/16 14:14 11/30/16 14:29 Fexofenadine HCl (Nunu) 60 mg BID PRN ORAL allergies 11/30/16 01:24 12/30/16 01:23 12/01/16 10:00 Heparin Sodium (Porcine) (Heparin 5000 units/ml) 5,000 units EVERY 8 HOURS SUBQ 11/30/16 14:00 12/30/16 13:59 12/02/16 06:00 Hydralazine HCl (Apresoline) 50 mg Q8HR ORAL 11/30/16 06:00 12/30/16 05:59 12/02/16 05:59 Insulin Aspart (NovoLOG) BEFORE MEALS AND HS SUBQ 11/30/16 06:30 12/30/16 06:29 11/30/16 17:46 Metoprolol Tartrate (Lopressor) 50 mg BID ORAL 11/30/16 18:00 12/30/16 08:59 12/02/16 08:21 Nitroglycerin (Ntg) 0.4 mg Q5M PRN SL Prn Chest Pain 11/30/16 14:15 12/30/16 14:14 Ondansetron HCl (Zofran) 4 mg EVERY 4 HOURS PRN IVP Nausea & Vomiting 11/29/16 23:15 12/29/16 23:14 11/30/16 21:59 Ondansetron HCl (Zofran) 4 mg Q6H PRN IVP Nausea & Vomiting 12/01/16 13:30 12/31/16 13:29 Sevelamer HCl (Renagel) 800 mg THREE TIMES A DAY ORAL 12/01/16 13:30 12/31/16 13:29 12/02/16 08:21 Sitagliptin Phosphate (Januvia) 25 mg ACBREAKFAST ORAL 11/30/16 06:30 12/30/16 06:29 12/02/16 05:59 Allergies: Coded Allergies: No Known Allergies (Verified , 03/07/09) ROS Limited/Unobtainable: No Constitutional: Reports: no symptoms HEENT: Reports: no symptoms Cardiovascular: Reports: no symptoms Respiratory: Reports: no symptoms Gastrointestinal/Abdominal: Reports: no symptoms Genitourinary: Reports: no symptoms Neurologic/Psychiatric: Reports: no symptoms Subjective 71 YO F admitted with chest pain. Cover for Int Cristobal-Dr Alford. Objective Last Vital Signs Date Time Temp Pulse Resp B/P (MAP) Pulse Ox O2 Delivery O2 Flow Rate FiO2 12/02/16 08:21 78 156/72 12/02/16 07:57 97.3 18 93 12/02/16 04:00 Room Air Laboratory Tests Test 12/02/16 08:40 White Blood Count 5.5 K/UL (4.8-10.8) Red Blood Count 3.70 M/UL (4.20-5.40) L Hemoglobin 12.1 G/DL (12.0-16.0) Hematocrit 37.7 % (37.0-47.0) Mean Corpuscular Volume 102 FL (80-99) H Mean Corpuscular Hemoglobin 32.8 PG (27.0-31.0) H Mean Corpuscular Hemoglobin Concent 32.1 G/DL (32.0-36.0) Red Cell Distribution Width 15.7 % (11.6-14.8) H Platelet Count 172 K/UL (150-450) Mean Platelet Volume 10.3 FL (6.5-10.1) H Neutrophils (%) (Auto) 61.6 % (45.0-75.0) Lymphocytes (%) (Auto) 22.5 % (20.0-45.0) Monocytes (%) (Auto) 12.4 % (1.0-10.0) H Eosinophils (%) (Auto) 2.3 % (0.0-3.0) Basophils (%) (Auto) 1.2 % (0.0-2.0) Sodium Level 134 MMOL/L (136-145) L Potassium Level 4.9 MMOL/L (3.5-5.1) Chloride Level 93 MMOL/L (98-107) L Carbon Dioxide Level 28 MMOL/L (21-32) Anion Gap 13 (5-15) Blood Urea Nitrogen 39 mg/dL (7-18) H Creatinine 7.1 MG/DL (0.55-1.30) H Estimat Glomerular Filtration Rate mL/min (>60) Glucose Level 138 MG/DL (74-106) H Calcium Level 10.4 MG/DL (8.5-10.1) H Pro-B-Type Natriuretic Peptide 05901 (0-125) H Intake and Output 12/02/16 12/03/16 19:00 07:00 Intake Total 240 ml Balance 240 ml Intake Oral 240 ml Objective General Appearance: alert, mild distress, thin EENT: PERRL/EOMI, normal ENT inspection Neck: non-tender, normal alignment, supple Cardiovascular: normal peripheral pulses, normal rate, regular rhythm, no gallop/murmur, no JVD Respiratory/Chest: chest wall non-tender, lungs clear, normal breath sounds, no respiratory distress, no accessory muscle use Abdomen: normal bowel sounds, non tender, soft, no organomegaly, no mass 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 See Cardiology note. (3) Chest pain Assessment & Plan: See cardiology note. (4) ESRD (end stage renal disease) on dialysis Assessment & Plan: Last hemodialysis 11/30/16. See nephrology note (5) Hypertension Assessment & Plan: Cont metoprolol and norvasc. (6) DM (diabetes mellitus) Assessment & Plan: Cont novolog sliding scale. (7) Hyperkalemia Assessment & Plan: Improving with dialysis Status: unchanged JENI SALAS Dec 02, 2016 10:12
[2016-12-02 11:45] VITALS: BP 125/59
--- NOTE | 2016-12-02 12:26 | Pulmonology Progress Note ---
Assessment/Plan Problems: (1) ACS (acute coronary syndrome) (2) DM (diabetes mellitus) (3) Hypertension (4) ESRD (end stage renal disease) on dialysis Assessment/Plan no new complains BP is still high tolerating diet sliding scale diabetic diet. Subjective ROS Limited/Unobtainable: No Constitutional: Reports: no symptoms HEENT: Repors: no symptoms Respiratory: Reports: no symptoms Allergies: Coded Allergies: No Known Allergies (Verified , 03/07/09) Objective Last 24 Hour Vital Signs Date Time Temp Pulse Resp B/P (MAP) Pulse Ox O2 Delivery O2 Flow Rate FiO2 12/02/16 11:45 98.1 72 18 125/59 97 Room Air 12/02/16 09:00 75 12/02/16 08:21 78 156/72 12/02/16 08:21 78 156/72 12/02/16 07:57 97.3 78 18 156/72 93 12/02/16 05:59 162/75 12/02/16 04:00 97.7 74 20 156/74 94 Room Air 12/02/16 03:42 72 12/02/16 01:32 75 12/02/16 00:13 98.1 78 20 136/67 97 Room Air 78 12/01/16 20:47 147/66 12/01/16 20:11 72 12/01/16 19:58 98.7 73 18 147/66 97 Room Air 73 12/01/16 17:33 76 119/55 12/01/16 16:00 81 12/01/16 15:23 99.0 76 18 119/55 98 Room Air 12/01/16 13:07 166/77 12/01/16 13:07 169/77 Intake and Output 12/02/16 12/03/16 19:00 07:00 Intake Total 240 ml Balance 240 ml Intake Oral 240 ml General Appearance: cachetic HEENT: normocephalic, atraumatic Respiratory/Chest: chest wall non-tender, lungs clear Breasts: no masses Cardiovascular: normal peripheral pulses Abdomen: normal bowel sounds, soft, non tender Genitourinary: normal external genitalia Extremities: no cyanosis 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 Lymphatic: no neck adenopathy Laboratory Tests 12/02/16 08:40: White Blood Count 5.5, Red Blood Count 3.70L, Hemoglobin 12.1, Hematocrit 37.7, Mean Corpuscular Volume 102H, Mean Corpuscular Hemoglobin 32.8H, Mean Corpuscular Hemoglobin Concent 32.1, Red Cell Distribution Width 15.7H, Platelet Count 172, Mean Platelet Volume 10.3H, Neutrophils (%) (Auto) 61.6, Lymphocytes (%) (Auto) 22.5, Monocytes (%) (Auto) 12.4H, Eosinophils (%) (Auto) 2.3, Basophils (%) (Auto) 1.2, Sodium Level 134L, Potassium Level 4.9, Chloride Level 93L, Carbon Dioxide Level 28, Anion Gap 13, Blood Urea Nitrogen 39H, Creatinine 7.1H, Estimat Glomerular Filtration Rate , Glucose Level 138H, Calcium Level 10.4H, Pro-B-Type Natriuretic Peptide 48341J Current Medications Medications (Trade) Dose Ordered Sig/Sarwat Route PRN Reason Start Time Stop Time Status Last Admin Dose Admin Acetaminophen (Tylenol) 650 mg Q6H PRN ORAL Mild Pain/Temp > 100.5 11/30/16 00:45 12/30/16 00:44 12/01/16 10:03 Acetaminophen/ Hydrocodone Bitart ([place] 5/325) 1 tab Q4H PRN ORAL Moderate Pain (Pain Scale 4-6) 12/01/16 13:30 12/08/16 13:29 Amlodipine Besylate (Norvasc) 10 mg DAILY ORAL 11/30/16 09:00 12/30/16 08:59 12/02/16 08:21 Aspirin (ASA) 81 mg DAILY ORAL 11/30/16 09:00 12/30/16 08:59 12/02/16 08:21 Chlorhexidine Gluconate (Magaly-Hex 2%) 1 applic DAILY@2000 TOPIC 12/02/16 20:00 01/01/17 19:59 Clonidine HCl (Catapres) 0.1 mg Q6H PRN ORAL For High Blood Pressure 11/30/16 00:45 12/30/16 00:44 12/01/16 13:07 Clopidogrel Bisulfate (Plavix) 75 mg DAILY ORAL 11/30/16 09:00 12/30/16 08:59 12/02/16 08:21 Dextrose (Dextrose 50%) STAT PRN IV Hypoglycemia 11/29/16 23:15 12/29/16 23:14 Diphenhydramine HCl (Benadryl) 25 mg Q4HR PRN IVP Itching 11/30/16 14:15 12/30/16 14:14 11/30/16 14:29 Fexofenadine HCl (Nunu) 60 mg BID PRN ORAL allergies 11/30/16 01:24 12/30/16 01:23 12/01/16 10:00 Heparin Sodium (Porcine) (Heparin 5000 units/ml) 5,000 units EVERY 8 HOURS SUBQ 11/30/16 14:00 12/30/16 13:59 12/02/16 06:00 Hydralazine HCl (Apresoline) 50 mg Q8HR ORAL 11/30/16 06:00 12/30/16 05:59 12/02/16 05:59 Insulin Aspart (NovoLOG) BEFORE MEALS AND HS SUBQ 11/30/16 06:30 12/30/16 06:29 11/30/16 17:46 Metoprolol Tartrate (Lopressor) 50 mg BID ORAL 11/30/16 18:00 12/30/16 08:59 12/02/16 08:21 Nitroglycerin (Ntg) 0.4 mg Q5M PRN SL Prn Chest Pain 11/30/16 14:15 12/30/16 14:14 Ondansetron HCl (Zofran) 4 mg EVERY 4 HOURS PRN IVP Nausea & Vomiting 11/29/16 23:15 12/29/16 23:14 11/30/16 21:59 Ondansetron HCl (Zofran) 4 mg Q6H PRN IVP Nausea & Vomiting 12/01/16 13:30 12/31/16 13:29 Sevelamer Carbonate (Renvela) 800 mg THREE TIMES A DAY ORAL 12/02/16 13:00 12/31/16 12:59 Sitagliptin Phosphate (Januvia) 25 mg ACBREAKFAST ORAL 11/30/16 06:30 12/30/16 06:29 12/02/16 05:59 CATHIE GIL Dec 02, 2016 12:26
[2016-12-02] MEDS ORDERED: Nitroglycerin Subl 0.4mg tab SL PRN (15:00)
[2016-12-02 16:15] VITALS: BP 163/91
[2016-12-02] MEDS ORDERED: NovoLOG Insulin Flexpen SUBQ SCH (16:30)
--- NOTE | 2016-12-02 16:45 | Cardiac Electrophysiology PN ---
Assessment/Plan Assessment/Plan 1. Chest pain. The patient had similar presentation on the previous admission. She was ruled out for myocardial infarction. Echocardiogram showed ejection fraction of 70% and nuclear stress test showed no evidence of ischemia. Continue p.r.n. sublingual nitroglycerin. Continue aspirin, Plavix, and metoprolol. 2. Hypertension, on Norvasc 10 mg daily, metoprolol 50 mg b.i.d., and hydralazine 50 mg every 8 hours. 3. End-stage renal disease, on hemodialysis. JOHN RN DC to [facility] today Subjective Subjective Comfortable in NAD. DC planning today. Objective Last 24 Hour Vital Signs Date Time Temp Pulse Resp B/P (MAP) Pulse Ox O2 Delivery O2 Flow Rate FiO2 12/02/16 14:20 125/59 12/02/16 12:00 74 12/02/16 11:45 98.1 72 18 125/59 97 Room Air 12/02/16 09:00 75 12/02/16 08:21 78 156/72 12/02/16 08:21 78 156/72 12/02/16 07:57 97.3 78 18 156/72 93 12/02/16 05:59 162/75 12/02/16 04:00 97.7 74 20 156/74 94 Room Air 12/02/16 03:42 72 12/02/16 01:32 75 12/02/16 00:13 98.1 78 20 136/67 97 Room Air 78 12/01/16 20:47 147/66 12/01/16 20:11 72 12/01/16 19:58 98.7 73 18 147/66 97 Room Air 73 12/01/16 17:33 76 119/55 Intake and Output 12/02/16 12/03/16 19:00 07:00 Intake Total 480 ml Balance 480 ml Intake Oral 480 ml Laboratory Tests Test 12/02/16 08:40 White Blood Count 5.5 K/UL (4.8-10.8) Red Blood Count 3.70 M/UL (4.20-5.40) L Hemoglobin 12.1 G/DL (12.0-16.0) Hematocrit 37.7 % (37.0-47.0) Mean Corpuscular Volume 102 FL (80-99) H Mean Corpuscular Hemoglobin 32.8 PG (27.0-31.0) H Mean Corpuscular Hemoglobin Concent 32.1 G/DL (32.0-36.0) Red Cell Distribution Width 15.7 % (11.6-14.8) H Platelet Count 172 K/UL (150-450) Mean Platelet Volume 10.3 FL (6.5-10.1) H Neutrophils (%) (Auto) 61.6 % (45.0-75.0) Lymphocytes (%) (Auto) 22.5 % (20.0-45.0) Monocytes (%) (Auto) 12.4 % (1.0-10.0) H Eosinophils (%) (Auto) 2.3 % (0.0-3.0) Basophils (%) (Auto) 1.2 % (0.0-2.0) Sodium Level 134 MMOL/L (136-145) L Potassium Level 4.9 MMOL/L (3.5-5.1) Chloride Level 93 MMOL/L (98-107) L Carbon Dioxide Level 28 MMOL/L (21-32) Anion Gap 13 (5-15) Blood Urea Nitrogen 39 mg/dL (7-18) H Creatinine 7.1 MG/DL (0.55-1.30) H Estimat Glomerular Filtration Rate mL/min (>60) Glucose Level 138 MG/DL (74-106) H Calcium Level 10.4 MG/DL (8.5-10.1) H Pro-B-Type Natriuretic Peptide 42294 (0-125) H Objective HEAD AND NECK: Showed no JVD or carotid bruits. LUNGS: Clear. Cardiovascular: Shows regular S1 and S2 with no gallop or murmur. Dialysis catheter in the left subclavian. ABDOMEN: Soft. EXTREMITIES: No pitting edema. ARTIS TEE Dec 02, 2016 16:45
--- NOTE | 2016-12-02 16:58 | Nephrology Progress Note ---
Assessment/Plan Problem List: (1) Hyperkalemia (2) ESRD (end stage renal disease) on dialysis (3) Hypertension (4) ACS (acute coronary syndrome) (5) DM (diabetes mellitus) (6) Chest pain Plan Discussed with cardio - ok to dc home Continue home meds Continue HD as scheduled F/U with PCP outpt Subjective Constitutional: Denies: no symptoms, chills, diaphoresis, fever, malaise, weakness, other HEENT: Denies: no symptoms, eye pain, blurred vision, tearing, double vision, ear pain, ear discharge, nose pain, nose congestion, throat pain, throat swelling, mouth pain, mouth swelling, other Genitourinary: Denies: no symptoms, burning, discharge, frequency, flank pain, hematuria, incontinence, pain, urgency, other Neurologic/Psychiatric: Denies: no symptoms, anxiety, depressed, emotional problems, headache, numbness, paresthesia, pre-existing deficit, seizure, tingling, tremors, weakness, other Subjective In bed, in no apparent distress, stated that she only wants tylenol for pain because she got sick from the IV pain med Objective Objective Last 24 Hour Vital Signs Date Time Temp Pulse Resp B/P (MAP) Pulse Ox O2 Delivery O2 Flow Rate FiO2 12/02/16 14:20 125/59 12/02/16 12:00 74 12/02/16 11:45 98.1 72 18 125/59 97 Room Air 12/02/16 09:00 75 12/02/16 08:21 78 156/72 12/02/16 08:21 78 156/72 12/02/16 07:57 97.3 78 18 156/72 93 12/02/16 05:59 162/75 12/02/16 04:00 97.7 74 20 156/74 94 Room Air 12/02/16 03:42 72 12/02/16 01:32 75 12/02/16 00:13 98.1 78 20 136/67 97 Room Air 78 12/01/16 20:47 147/66 12/01/16 20:11 72 12/01/16 19:58 98.7 73 18 147/66 97 Room Air 73 12/01/16 17:33 76 119/55 Intake and Output 12/02/16 12/03/16 19:00 07:00 Intake Total 480 ml Balance 480 ml Intake Oral 480 ml Laboratory Tests 12/02/16 08:40: White Blood Count 5.5, Red Blood Count 3.70L, Hemoglobin 12.1, Hematocrit 37.7, Mean Corpuscular Volume 102H, Mean Corpuscular Hemoglobin 32.8H, Mean Corpuscular Hemoglobin Concent 32.1, Red Cell Distribution Width 15.7H, Platelet Count 172, Mean Platelet Volume 10.3H, Neutrophils (%) (Auto) 61.6, Lymphocytes (%) (Auto) 22.5, Monocytes (%) (Auto) 12.4H, Eosinophils (%) (Auto) 2.3, Basophils (%) (Auto) 1.2, Sodium Level 134L, Potassium Level 4.9, Chloride Level 93L, Carbon Dioxide Level 28, Anion Gap 13, Blood Urea Nitrogen 39H, Creatinine 7.1H, Estimat Glomerular Filtration Rate , Glucose Level 138H, Calcium Level 10.4H, Pro-B-Type Natriuretic Peptide [id number] Height (Feet): 5 Height (Inches): 2.00 Weight (Pounds): 108 General Appearance: no apparent distress, alert EENT: normal ENT inspection Neck: non-tender, normal alignment Cardiovascular: normal rate, regular rhythm, no JVD Respiratory/Chest: normal breath sounds, no respiratory distress Abdomen: non tender, soft, no organomegaly, no mass Extremities: non-tender, normal inspection, no calf tenderness, normal capillary refill Neurologic: alert, oriented x 3, responsive, normal mood/affect Sharlene Velasco N.P. Dec 02, 2016 16:58
[2016-12-02] MEDS ORDERED: DiphenhydrAMINE 50mg/ml Inj IVP PRN (17:00)
[2016-12-02] MEDS ORDERED: Norco 5mg/325mg tab ORAL PRN (17:30)
[2016-12-02 17:43] VITALS: BP 163/91
[2016-12-02] MEDS ORDERED: Metoprolol Tartrate 50mg tab ORAL SCH (18:00)
[2016-12-02] MEDS ORDERED: Dyna-Hex 2% Top Sol 2oz TOPIC SCH ×2 (20:00)
[2016-12-02] MEDS ORDERED: HydrALAZINE 50mg tab ORAL SCH (22:00)
[2016-12-02] MEDS ORDERED: Heparin 5000 units/ml inj SUBQ SCH (22:00)
[2016-12-03] MEDS ORDERED: sitaGLIPtin 25mg tab ORAL SCH (06:30)
[2016-12-03] MEDS ORDERED: Aspirin Baby 81mg ORAL SCH (09:00)
[2016-12-04] MEDS ORDERED: APRESOLINE50 MG ORAL (08:04)
[2016-12-04] MEDS ORDERED: METOPROLOL TART50 M1 ORAL (08:04)
--- NOTE | 2016-12-04 08:43 | Discharge Summary ---
Discharge Summary Hospital Course Date of Admission Nov 29, 2016 at 20:25 Date of Discharge Dec 02, 2016 at 18:53 Admitting Diagnosis HPI Linda Orellana is a 71 year old female who was admitted on Nov 29, 2016 at 20:25 for Chest Pain Hospital Course dc summary #[id number] Discharge Medications Changed Medications: Hydralazine HCl (Hydralazine HCl) 50 Mg Tablet 50 MG ORAL Q8HR, #90 TAB (Changed from: Unknown Dose ; DAILY) Metoprolol Tartrate* (Metoprolol Tartrate*) 50 Mg Tablet 50 MG ORAL BID, #60 TAB (Changed from: DAILY) Continued Medications: Amlodipine Besylate (Norvasc) 10 Mg Tab 10 MG ORAL DAILY, #30 MG Aspirin* (Aspir 81*) 81 Mg Tablet.dr 81 MG ORAL DAILY, TAB Clonidine Hcl (Clonidine Hcl) 0.1 Mg Tablet 0.1 MG PO EVERY 6 HOURS PRN for For High Blood Pressure, TAB Clopidogrel* (Clopidogrel*) 75 Mg Tablet 75 MG ORAL DAILY, TAB Loratadine (Loratadine) 10 Mg Tab.rapdis 10 MG PO DAILY PRN for Itching, TAB Sitagliptin* (Januvia*) 25 Mg Tablet 25 MG ORAL DAILY, TAB Discharge Condition Upon Discharge: stable Discharge Disposition Patient was discharged to Home with Home Health(06) Discharge Diagnoses: Discharge Instructions Discharge Instructions Special Instructions I have been assigned to complete a D/C Summary on this account. I was not involved in the patient management Monica Estrada NP (Vanchtein) Dec 04, 2016 08:43
--- NOTE | 2016-12-05 00:02 | Discharge Summary 2 SIG ---
DATE OF ADMISSION: 11/29/2016 DATE OF DISCHARGE: 12/02/2016 REASON FOR ADMISSION: 71 years old female with past medical history significant for hypertension, diabetes, end-stage renal disease, on hemodialysis, and cerebrovascular disease, presented with chest pain. Initially experienced chest pain on hemodialysis on 11/28/2016, which resolved, then chest pain returned the next day. She was brought by sheet metal supervisor to [facility]. Initial evaluation was negative for acute myocardial infarction. The patient was transferred to [facility] for further workup. Troponin was negative. The patient was admitted for further management. ADMITTING DIAGNOSES: 1. Chest pain. 2. End-stage renal disease. 3. Hypertension. 4. Diabetes. 5. Cerebrovascular disease. HOSPITAL STAY: The patient was admitted to telemetry floor. Cardiology consult was requested. The patient had chest pain with similar presentation on previous admission. At that time, echocardiogram revealed preserved ejection fracture of 60% to 65%, severe tricuspid regurgitation, and severe pulmonary hypertension with right ventricular systolic pressure of 69. Director Of Recruitment closely followed. Stress test was done on previous admission and revealed no evidence of myocardial ischemia. Blood pressure was managed with beta-alfie and calcium-channel alfie and hydralazine. Clonidine added as needed. Blood pressure was overall stable with current medication regimen. There was a question of possible noncompliance with medications at home. Blood sugar was managed with sliding scale of insulin. Pullman Car Clerk followed. Hemodialysis done as per practice business asst orders with close monitoring of renal parameters and electrolytes. Continue with the hemodialysis as outpatient. Aspirin and Plavix were continued. The patient was stable for discharge home with home health services for blood pressure management and to ensure compliance with medication regimen. The patient was reminded to follow up with the primary medical doctor next week. FINAL DIAGNOSES: 1. Chest pain, possibly related to elevated blood pressure. 2. End-stage renal disease. 3. Hypertension. 4. Diabetes. 5. Cerebrovascular disease. DISCHARGE MEDICATIONS: See medication reconciliation list. DISCHARGE INSTRUCTIONS: The patient was discharged home with home health services. Followup with outpatient hemodialysis. The patient was strongly recommended to follow up with the primary medical doctor next week. Fidel Prashanth, M.D. I have been assigned to dictate discharge summary on this account and I was not involved in the patient's management. Monica Estrada N.P. (Vanchtein) DR: GUILLERMO JOB#: [id number] CC: MAHIN
== END 2016-12-02 18:53 | disposition home health service (06) | DRG 682 ==
LOC: MERGE 20:25 → 2E 20:25 → 4E 12-02 15:00
PROC: 5A1D70Z Performance of Urinary Filtration, Intermittent, Less than 6 Hours Per Day (ICD-10-PCS; principal; 2016-11-30)
DX: I12.0 Hypertensive chronic kidney disease with stage 5 chronic kidney disease or end stage renal disease (principal); N18.6 End stage renal disease; E11.22 Type 2 diabetes mellitus with diabetic chronic kidney disease; I50.9 Heart failure, unspecified; I27.20 Pulmonary hypertension, unspecified; I36.1 Nonrheumatic tricuspid (valve) insufficiency; Z99.2 Dependence on renal dialysis; E87.5 Hyperkalemia; Z86.73 Personal history of transient ischemic attack (TIA), and cerebral infarction without residual deficits; Z79.02 Long term (current) use of antithrombotics/antiplatelets; I67.9 Cerebrovascular disease, unspecified; R07.89 Other chest pain
CPT/HCPCS: 36415; 80048; 80053; 80061; 82962; 83735; 83880; 84100; 84484; 85025; 87081; J1815; J2405

== ENCOUNTER 2016-12-24 02:41 | Inpatient (IN) | payer MEDICARE, MEDICAID ==
[2016-12-24] VITALS (10 sets, daily range): BP systolic 115–159; BP diastolic 55–79
[~2016-12-24] VITALS: Ht 157.5 cm; Wt 53.2 kg
[~2016-12-24 02:41] MED LIST changes: +CLONIDINE HCL0.1 MG PO; +METOPROLOL TART50 M1 ORAL
--- NOTE | 2016-12-24 02:53 | Emergency Room Report ---
History of Present Illness General Chief Complaint: Chest Pain Source: Patient, EMS Present Illness HPI The patient is eating this evening. She started having pain in her chest and vomiting. She states she's been taking Pepto-Bismol and her stools have been dark in color but not black and tarry. She denies vomiting any blood or melena. She's been treated here for chest pain in the past. She is a dialysis patient and is status post stroke. Paramedics treated the patient with aspirin 162 and nitroglycerin. The patient' s pain went from a 10 down to a 7. She stills feels nauseated at this time. She denies any fevers, chills, cough. She has not produced urine at this time. She is due to have dialysis today which is Friday. Allergies: Coded Allergies: No Known Allergies (Verified , 03/07/09) Patient History Past Medical History: see triage record, old chart reviewed Past Surgical History: other - dialysis shunt RUE and Vascath Social History: Reports: alcohol use, drug use, Denies: smoking Social History Narrative at home Last Menstrual Period: none Now: No Reviewed Nursing Documentation: PMH: Agreed, PSxH: Agreed Nursing Documentation-PMH Hx Cardiac Problems: Yes - Acute coronary syndrome Hx Hypertension: Yes Hx Pacemaker: No Hx Asthma: No Hx COPD: No Hx Diabetes: Yes Hx Cancer: No Hx Gastrointestinal Problems: No Hx Dialysis: Yes - T, Th, Sat - Shunt on RUE; Kidney Failure Hx Neurological Problems: No Hx Cerebrovascular Accident: Yes Hx Transient Ischemic Attacks: Yes Hx Seizures: No Hx Dizziness: Yes Hx Syncope: Yes Hx Headaches: Yes Hx Weakness: Yes - BILATERAL LOWER EXTREMITIES Hx Fatigue: Yes Hx Neurologic Surgery: No Hx Brain Shunt: No Review of Systems All Other Systems: negative except mentioned in HPI Physical Exam Vital Signs Date Time Temp Pulse Resp B/P (MAP) Pulse Ox O2 Delivery O2 Flow Rate FiO2 12/24/16 02:40 97.0 79 18 141/79 96 Room Air Sp02 EP Interpretation: reviewed, normal General Appearance: no apparent distress, GCS 15, Chronically Ill Head: normocephalic Eyes: bilateral eye normal inspection, bilateral eye PERRL, bilateral eye conjunctivae pale, bilateral eye other - exopthalmous ENT: moist mucus membranes, other - hyperglossia Neck: supple Respiratory: chest non-tender, lungs clear, normal breath sounds, other - Vascath L chest Cardiovascular #1: regular rate, rhythm Cardiovascular #2: 2+ radial (R) Gastrointestinal: normal inspection, normal bowel sounds, non tender, no mass, non-distended Genitourinary: no CVA tenderness Musculoskeletal: back normal, gait/station normal, normal range of motion Neurologic: alert, oriented x3, motor strength/tone normal, DTRs symmetric, sensory intact, other - some athetoid movements, grossly normal Psychiatric: mood/affect normal Skin: normal inspection, warm/dry Medical Decision Making Diagnostic Impression: Primary Impression: Chest pain Qualified Codes: R07.9 - Chest pain, unspecified Additional Impressions: ESRD (end stage renal disease) on dialysis DM (diabetes mellitus) Qualified Codes: E11.8 - Type 2 diabetes mellitus with unspecified complications ER Course Patient with ESRD and high cardiac risk presents with chest pain. DDx: AMI, ACS, chest wall pain, GERD, CHF and electrolyte abnormalities amongst others. Emergent evaluation for cardiac cause with EKG, CXR and labs. Treated in the field with nitrates and aspirin with improvement. Treatment in ED with nitrates and morphine. EJ started by ERMD. EKG without acute injury. CXR with calcifications and Vascath. Labs with negative troponin, low bicarb and ESRD. Improved with treatment, however, needing continued cardiac monitoring and repeat troponins. Admit telemetry Dr. Plascencia (her identified MD). Laboratory Tests Test 12/24/16 03:30 White Blood Count 4.0 K/UL (4.8-10.8) L Red Blood Count 3.36 M/UL (4.20-5.40) L Hemoglobin 10.9 G/DL (12.0-16.0) L Hematocrit 34.1 % (37.0-47.0) L Mean Corpuscular Volume 101 FL (80-99) H Mean Corpuscular Hemoglobin 32.3 PG (27.0-31.0) H Mean Corpuscular Hemoglobin Concent 31.9 G/DL (32.0-36.0) L Red Cell Distribution Width 15.2 % (11.6-14.8) H Platelet Count 151 K/UL (150-450) Mean Platelet Volume 6.9 FL (6.5-10.1) Neutrophils (%) (Auto) 56.3 % (45.0-75.0) Lymphocytes (%) (Auto) 24.0 % (20.0-45.0) Monocytes (%) (Auto) 16.1 % (1.0-10.0) H Eosinophils (%) (Auto) 2.5 % (0.0-3.0) Basophils (%) (Auto) 1.1 % (0.0-2.0) Prothrombin Time 12.7 SEC (9.30-11.50) H Prothrombin Time INR 1.2 (0.9-1.1) H PTT 28 SEC (23-33) Sodium Level 135 MMOL/L (136-145) L Potassium Level 4.7 MMOL/L (3.5-5.1) Chloride Level 98 MMOL/L (98-107) Carbon Dioxide Level 17 MMOL/L (21-32) L Anion Gap 20 mmol/L (5-15) H Blood Urea Nitrogen 49 mg/dL (7-18) H Creatinine 9.2 MG/DL (0.55-1.30) H Estimate Glomerular Filtration Rate mL/min (>60) Glucose Level 91 MG/DL (74-106) Calcium Level 10.5 MG/DL (8.5-10.1) H Total Bilirubin 0.4 MG/DL (0.2-1.0) Aspartate Amino Transferase (AST) 15 U/L (15-37) Alanine Aminotransferase (ALT) 12 U/L (12-78) Alkaline Phosphatase 64 U/L (46-116) Total Creatine Kinase 24 U/L (26-308) L Troponin I 0.016 ng/mL (0.000-0.056) Pro-B-Type Natriuretic Peptide 54204 pg/mL (0-125) H Total Protein 7.6 G/DL (6.4-8.2) Albumin 3.8 G/DL (3.4-5.0) Globulin 3.8 g/dL Albumin/Globulin Ratio 1.0 (1.0-2.7) EKG Diagnostic Results Rate: normal Rhythm: NSR ST Segments: no acute changes ASA given to the pt in ED: No - given by EMS Rhythm Strip Diag. Results EP Interpretation: yes Rhythm: NSR, no PVC's, no ectopy Chest X-Ray Diagnostic Results Chest X-Ray Diagnostic Results : Chest X-Ray Ordered: Yes # of Views/Limited/Complete: 1 View Indication: Chest Pain EP Interpretation: Yes Interpretation: no consolidation, no effusion, no pneumothorax, other - Vas- Cath, tortuous aorta, aortic calcifications Impression: Other Electronically Signed by: Electronically signed by Kam Card MD Status: improved Disposition: ADMITTED INPATIENT Condition: Serious Kam Card M.D. Dec 24, 2016 02:53
[2016-12-24] MEDS ORDERED: Nitroglycerin 2% oint pkt TOPIC ONE (03:00)
[2016-12-24] MEDS ORDERED: Morphine Sulfate 4mg/ml Inj IVP ONE (03:00)
[2016-12-24 04:23] LABS: BASOPHILS % (AUTO) 1.1 % (0.0-2.0); EOSINOPHILS % (AUTO) 2.5 % (0.0-3.0); HEMATOCRIT 34.1 % (37.0-47.0); HEMOGLOBIN 10.9 G/DL (12.0-16.0); MEAN CORPUSCULAR VOLUME 101 FL (80-99); MONOCYTES % (AUTO) 16.1 % (1.0-10.0); NEUTROPHILS % (AUTO) 56.3 % (45.0-75.0); PLATELET COUNT 151 K/UL (150-450); RED BLOOD COUNT 3.36 M/UL (4.20-5.40); RED CELL DISTRIBUTION WIDTH 15.2 % (11.6-14.8)
[2016-12-24 04:40] LABS: INR 1.2 (0.9-1.1)
[2016-12-24 05:11] LABS: ALANINE AMINOTRANSFERASE 12 U/L (12-78); ALBUMIN 3.8 G/DL (3.4-5.0); ALKALINE PHOSPHATASE 64 U/L (46-116); ANION GAP 20 mmol/L (5-15); ASPARTATE AMINO TRANSFERASE 15 U/L (15-37); BILIRUBIN,TOTAL 0.4 MG/DL (0.2-1.0); BLOOD UREA NITROGEN 49 mg/dL (7-18); CALCIUM 10.5 MG/DL (8.5-10.1); CARBON DIOXIDE 17 MMOL/L (21-32); CHLORIDE 98 MMOL/L (98-107); CREATINE KINASE 24 U/L (26-308); CREATININE 9.2 MG/DL (0.55-1.30); POTASSIUM 4.7 MMOL/L (3.5-5.1); SODIUM 135 MMOL/L (136-145)
--- NOTE | 2016-12-24 10:22 | Cardiac Electrophysiology PN ---
Subjective Subjective Dictated [id number] 1. Chest pain. The patient had similar presentation on the previous admission. Will rule out for myocardial infarction. Echocardiogram showed ejection fraction of 70% and nuclear stress test in past showed no evidence of ischemia. Continue p.r.n. sublingual nitroglycerin. Continue aspirin, Plavix, and metoprolol. 2. Hypertension, on Norvasc 10 mg daily, metoprolol 50 mg b.i.d., and hydralazine 50 mg every 8 hours. 3. End-stage renal disease, on hemodialysis. Objective Last 24 Hour Vital Signs Date Time Temp Pulse Resp B/P (MAP) Pulse Ox O2 Delivery O2 Flow Rate FiO2 12/24/16 08:00 97.7 78 20 132/71 97 Room Air 12/24/16 06:46 97.5 75 18 146/74 100 Room Air 12/24/16 05:58 97.0 71 15 136/57 96 Room Air 96 12/24/16 05:45 97.0 71 15 136/57 96 Room Air 12/24/16 05:00 97.0 73 18 150/55 96 Room Air 12/24/16 04:00 97.0 70 13 159/67 97 Room Air 12/24/16 03:36 165/75 12/24/16 03:00 79 18 Room Air 96 12/24/16 03:00 97.0 79 18 141/79 96 Room Air 12/24/16 02:40 97.0 79 18 141/79 96 Room Air Laboratory Tests Test 12/24/16 03:30 White Blood Count 4.0 K/UL (4.8-10.8) L Red Blood Count 3.36 M/UL (4.20-5.40) L Hemoglobin 10.9 G/DL (12.0-16.0) L Hematocrit 34.1 % (37.0-47.0) L Mean Corpuscular Volume 101 FL (80-99) H Mean Corpuscular Hemoglobin 32.3 PG (27.0-31.0) H Mean Corpuscular Hemoglobin Concent 31.9 G/DL (32.0-36.0) L Red Cell Distribution Width 15.2 % (11.6-14.8) H Platelet Count 151 K/UL (150-450) Mean Platelet Volume 6.9 FL (6.5-10.1) Neutrophils (%) (Auto) 56.3 % (45.0-75.0) Lymphocytes (%) (Auto) 24.0 % (20.0-45.0) Monocytes (%) (Auto) 16.1 % (1.0-10.0) H Eosinophils (%) (Auto) 2.5 % (0.0-3.0) Basophils (%) (Auto) 1.1 % (0.0-2.0) Prothrombin Time 12.7 SEC (9.30-11.50) H Prothromb Time International Ratio 1.2 (0.9-1.1) H Activated Partial Thromboplast Time 28 SEC (23-33) Sodium Level 135 MMOL/L (136-145) L Potassium Level 4.7 MMOL/L (3.5-5.1) Chloride Level 98 MMOL/L (98-107) Carbon Dioxide Level 17 MMOL/L (21-32) L Anion Gap 20 mmol/L (5-15) H Blood Urea Nitrogen 49 mg/dL (7-18) H Creatinine 9.2 MG/DL (0.55-1.30) H Estimat Glomerular Filtration Rate mL/min (>60) Glucose Level 91 MG/DL (74-106) Calcium Level 10.5 MG/DL (8.5-10.1) H Total Bilirubin 0.4 MG/DL (0.2-1.0) Aspartate Amino Transf (AST/SGOT) 15 U/L (15-37) Alanine Aminotransferase (ALT/SGPT) 12 U/L (12-78) Alkaline Phosphatase 64 U/L (46-116) Total Creatine Kinase 24 U/L (26-308) L Troponin I 0.016 ng/mL (0.000-0.056) Pro-B-Type Natriuretic Peptide 68835 pg/mL (0-125) H Total Protein 7.6 G/DL (6.4-8.2) Albumin 3.8 G/DL (3.4-5.0) Globulin 3.8 g/dL Albumin/Globulin Ratio 1.0 (1.0-2.7) ARTIS TEE Dec 24, 2016 10:22
--- NOTE | 2016-12-24 11:05 | Diagnostic Imaging Report ---
Indication: Chest pain Comparison: 09/03/16 A single view chest radiograph was obtained. Findings: There is a left jugular permacath in good position. There is a SVC stent noted. Cardiomegaly is stable. Lungs remain clear. Cholecystectomy clips noted. Impression: No acute disease
--- NOTE | 2016-12-24 15:30 | Cardiology Report ---
APPROVED REPORT EKG Measurement Heart [id number] Normal sinus rhythm Normal ECG
--- NOTE | 2016-12-24 15:30 | Cardiology Report ---
APPROVED REPORT EKG Measurement Heart [id number] 186P70 [id number] Normal sinus rhythm Normal ECG
--- NOTE | 2016-12-24 15:30 | Cardiology Report ---
APPROVED REPORT EKG Measurement Heart [id number] CT [id number] Normal sinus rhythm Normal ECG
[2016-12-24] MEDS ORDERED: HYDROmorphone 1mg/ml Carpuject IVP PRN (16:15)
[2016-12-24] MEDS: Metoprolol Tartrate 50mg tab ORAL SCH (21:00)
[2016-12-24] MEDS: HydrALAZINE 50mg tab ORAL SCH (22:00)
[2016-12-24] MEDS: Acetaminophen 500mg (ES) tab ORAL PRN (23:11)
[2016-12-25] VITALS: BP 136/72
[2016-12-25 04:00] VITALS: BP 145/81
[2016-12-25] MEDS: sitaGLIPtin 25mg tab ORAL SCH (06:24)
[2016-12-25] MEDS: HydrALAZINE 50mg tab ORAL SCH ×3 (06:24→22:15)
--- NOTE | 2016-12-25 09:45 | Consultation ---
DATE OF CONSULTATION: 12/24/2016 CARDIOLOGY CONSULTATION CONSULTING PHYSICIAN: Nate Magallanes M.D. REFERRING PHYSICIAN: Blaze Plascencia M.D. ATTENDING PHYSICIAN: REASON FOR CONSULTATION: Chest pain. HISTORY OF PRESENT ILLNESS: The patient is a 71-year-old lady, who came to the emergency room complaining of chest pain. The patient has been here in the hospital before for chest pain. The patient also has end-stage renal disease, on hemodialysis and has a history of prior stroke. Apparently, the patient received aspirin and nitroglycerin and pain went from 10 to 7. The patient was admitted to telemetry and a Cardiology consultation was obtained for further evaluation and management. PAST MEDICAL HISTORY: 1. Hypertension. 2. End-stage renal disease, on hemodialysis. 3. History of chest pain, for which she underwent a nuclear stress test, which showed no evidence of ischemia and echocardiogram showed ejection fraction of 70%. FAMILY HISTORY: Noncontributory. SOCIAL HISTORY: She lives in a skilled nursing. Does not smoke or drink alcohol. REVIEW OF SYSTEMS: Review of systems was thoroughly performed and was negative other than what was mentioned in the history of present illness. PHYSICAL EXAMINATION: VITAL SIGNS: Blood pressure is 132/71, pulse 70, respirations 18, and temperature 97.7 degrees. HEAD AND NECK: No JVD. LUNGS: Clear. CARDIOVASCULAR: Regular. S1 and S2 with no gallop or murmur. ABDOMEN: Soft. EXTREMITIES: Pitting edema. Dialysis access in the right arm, and also she has a PermCath in the left chest. LABORATORY AND DIAGNOSTIC DATA: Her EKG showed normal sinus rhythm, normal electrocardiogram. Her labs show white count of 4, hemoglobin of 10.9, hematocrit of 34, and platelet count is 151,000. Sodium is 135, potassium 4.7, BUN of 49, and creatinine 9.2. Troponin is negative. BNP is 10,465. INR is 1.2. ASSESSMENT AND PLAN: 1. Chest pain. First set of cardiac enzymes are negative and EKG is nonischemic and is completely normal. Her last stress test showed no evidence of ischemia. Ejection fraction is within normal range of 70%. We will completely rule out myocardial infarction protocol and give aspirin and nitroglycerin. 2. Hypertension. I will resume metoprolol 50 mg b.i.d., Norvasc 10 mg daily, and hydralazine 50 mg every 8 hours. 3. End-stage renal disease, on hemodialysis. Thank you very much, Dr. Plascencia, for allowing me to participate in the care of this patient. Please do not hesitate to contact me if you have any questions regarding my evaluation. Nate Magallanes M.D. DR: JHONY JOB#: [id number] CC:
--- NOTE | 2016-12-25 10:05 | Diagnostic Imaging Report ---
Indication: Abdominal pain Technique: Supine view of the abdomen Comparison: 06/28/2013 Findings: Bowel gas pattern is unremarkable. Calcifications in the pelvis are consistent with degenerative fibroids, also evident previously. There are right upper quadrant surgical clips. Findings are unchanged Impression: No acute process
--- NOTE | 2016-12-25 10:25 | GI Initial Consult Note ---
Chrissie Artis N.P. 12/25/16 1025: History of Present Illness General Date patient seen: Dec 25, 2016 Time patient seen: 10:13 Reason for Hospitalization: Chest Pain Referring physician: TIGRE FULLER Reason for Consultation: VOMITTING Present Illness HPI The patient is eating this evening. She started having pain in her chest and vomiting. She states she's been taking Pepto-Bismol in her stools have been dark in color but not black and tarry. She denies vomiting any blood. She's been treated here for chest pain in the past. She is a dialysis patient and is status post stroke. Paramedics treated the patient with aspirin 162 and nitroglycerin. The patient' s pain went from a 10 down to a 7. She stills feels nauseated at this time. She denies any fevers, chills, cough. She has not produced urine at this time. She is due to have dialysis today which is Friday. GI consulted for vomiting. HPI as noted above. Pt seen on floor, awake A&Ox4 NAD with no active s/sx of N/V/D. Patient denies any CP at this time, c/o of abdominal pain. Abdomen soft, non tender to touch. Last BM yesterday. Patient presents with history of anemia, previous work up unremarkable. Patient had KUB today also unremarkable. The patient cannot remember her last endoscopy/colonoscopy. Home Meds Active Scripts Metoprolol Tartrate* (METOPROLOL TARTRATE*) 50 Mg Tablet, 50 MG ORAL BID, #60 TAB Prov:Sean (Jayla)Monica NP 12/04/16 Hydralazine HCl (Hydralazine HCl) 50 Mg Tablet, 50 MG ORAL Q8HR, #90 TAB Prov:Sean (DuyhtMonica garza NP 12/04/16 Amlodipine Besylate (Norvasc) 10 Mg Tab, 10 MG ORAL DAILY, #30 MG Prov:ABELARDO AGEE P.Krystal 06/30/13 Reported Medications Clonidine Hcl (CLONIDINE HCL) 0.1 Mg Tablet, 0.1 MG PO EVERY 6 HOURS Y for For High Blood Pressure, TAB 11/30/16 Sitagliptin* (JANUVIA*) 25 Mg Tablet, 25 MG ORAL DAILY, TAB 09/03/16 Loratadine (LORATADINE) 10 Mg Tab.rapdis, 10 MG PO DAILY Y for Itching, TAB 09/03/16 Clopidogrel* (CLOPIDOGREL*) 75 Mg Tablet, 75 MG ORAL DAILY, TAB 09/03/16 Aspirin* (ASPIR 81*) 81 Mg Tablet.dr, 81 MG ORAL DAILY, TAB 03/24/16 Med list reviewed/reconciled: Yes Allergies: Coded Allergies: No Known Allergies (Verified , 03/07/09) Patient History Limited by: age History Provided By: Patient, Medical Record PMH Narrative Hx Cardiac Problems: Yes - Acute coronary syndrome Hx Hypertension: Yes Hx Pacemaker: No Hx Asthma: No Hx COPD: No Hx Diabetes: Yes Hx Cancer: No Hx Gastrointestinal Problems: No Hx Dialysis: Yes - T, Th, Sat - Shunt on RUE; Kidney Failure Hx Neurological Problems: No Hx Cerebrovascular Accident: Yes Hx Transient Ischemic Attacks: Yes Hx Seizures: No Hx Dizziness: Yes Hx Syncope: Yes Hx Headaches: Yes Hx Weakness: Yes - BILATERAL LOWER EXTREMITIES Hx Fatigue: Yes Hx Neurologic Surgery: No Hx Brain Shunt: No Social History: Denies: smoking, alcohol use, drug use, other Review of Systems All Other Systems: limited Physical Exam Vital Signs Date Time Temp Pulse Resp B/P (MAP) Pulse Ox O2 Delivery O2 Flow Rate FiO2 12/24/16 02:40 97.0 79 18 141/79 96 Room Air 12/24/16 03:00 96 Sp02 EP Interpretation: reviewed, normal Labs Laboratory Tests Test 12/25/16 05:40 Troponin I 0.017 ng/mL (0.000-0.056) Pro-B-Type Natriuretic Peptide 74666 pg/mL (0-125) H General Appearance: well appearing, no apparent distress, alert, thin Head: normocephalic EENT: PERRL/EOMI, normal ENT inspection Neck: supple Respiratory: normal breath sounds, no respiratory distress Cardiovascular: normal rate Gastrointestinal: normal inspection, non tender, soft, normal bowel sounds, non -distended Rectal: deferred Neurologic: normal inspection, alert, oriented x3, responsive Psychiatric: normal inspection, judgement/insight normal, memory normal Skin: normal inspection, normal color, no rash, warm/dry, palpation normal, well hydrated Lymphatic: normal inspection, no adenopathy Current Medications Current Medications Medications (Trade) Dose Ordered Sig/Sarwat Route PRN Reason Start Time Stop Time Status Last Admin Dose Admin Acetaminophen (Tylenol) 500 mg Q6H PRN ORAL Mild Pain/Temp > 100.5 12/24/16 22:45 01/23/17 22:44 12/24/16 23:11 Amlodipine Besylate (Norvasc) 10 mg DAILY ORAL 12/25/16 09:00 01/24/17 08:59 Aspirin (ASA) 81 mg DAILY ORAL 12/25/16 09:00 01/24/17 08:59 Clonidine HCl (Catapres) 0.1 mg Q6H PRN ORAL SBP > 160 12/24/16 14:30 01/23/17 14:29 Clopidogrel Bisulfate (Plavix) 75 mg DAILY ORAL 12/25/16 09:00 01/24/17 08:59 Hydralazine HCl (Apresoline) 50 mg Q8HR ORAL 12/24/16 22:00 01/23/17 21:59 12/25/16 06:24 Hydromorphone HCl (Dilaudid) 1 mg Q4H PRN IVP For Moderate to Severe Pain 12/24/16 16:15 12/31/16 16:14 Metoprolol Tartrate (Lopressor) 50 mg Q12HR ORAL 12/24/16 21:00 01/23/17 20:59 Ondansetron HCl (Zofran) 4 mg Q4H PRN IVP Nausea & Vomiting 12/24/16 16:15 01/23/17 16:14 12/24/16 17:12 Sitagliptin Phosphate (Januvia) 25 mg ACBREAKFAST ORAL 12/25/16 06:30 01/24/17 06:29 12/25/16 06:24 GI: Plan Problems: (1) Abdominal pain (2) Vomiting (3) Nausea (4) ESRD (end stage renal disease) on dialysis (5) Anemia in chronic kidney disease (CKD) Plan KUB reviewed >> no acute process symptomatic treatment at this time zofran prn bowel regime >> colace + miralax fu labs note pt on plavix, must be dc min 48-72 hours prior any procedure Discussed with Dr. English. Thank you for this patient referral, we will follow. CESAR ENGLISH 12/27/16 0935: History of Present Illness General Reason for Hospitalization: Chest Pain Present Illness Home Meds Active Scripts Metoprolol Tartrate* (METOPROLOL TARTRATE*) 50 Mg Tablet, 50 MG ORAL BID, #60 TAB Prov:Sean (Jayla)Monica CUSTOMER EXPERIENCE ANALYST 12/04/16 Hydralazine HCl (Hydralazine HCl) 50 Mg Tablet, 50 MG ORAL Q8HR, #90 TAB Prov:Sean (Duyhtein),Monica CUSTOMER EXPERIENCE ANALYST 12/04/16 Amlodipine Besylate (Norvasc) 10 Mg Tab, 10 MG ORAL DAILY, #30 MG Prov:ANUELABELARDO P.A. 06/30/13 Reported Medications Clonidine Hcl (CLONIDINE HCL) 0.1 Mg Tablet, 0.1 MG PO EVERY 6 HOURS Y for For High Blood Pressure, TAB 11/30/16 Sitagliptin* (JANUVIA*) 25 Mg Tablet, 25 MG ORAL DAILY, TAB 09/03/16 Loratadine (LORATADINE) 10 Mg Tab.rapdis, 10 MG PO DAILY Y for Itching, TAB 09/03/16 Clopidogrel* (CLOPIDOGREL*) 75 Mg Tablet, 75 MG ORAL DAILY, TAB 09/03/16 Aspirin* (ASPIR 81*) 81 Mg Tablet.dr, 81 MG ORAL DAILY, TAB 03/24/16 Allergies: Coded Allergies: No Known Allergies (Verified , 03/07/09) GI: Plan Plan The patient was seen and examined at bedside and all new and available data was reviewed in the patients chart. I agree with the above findings, impression and plan. (Patient seen earlier today. Signature stamp does not reflect patient encounter time.). - MD Ste[facility] Roberto NLuPLu Dec 25, 2016 10:25 CESAR ENGLISH Dec 27, 2016 09:35
[2016-12-25] MEDS: Aspirin Baby 81mg ORAL SCH (11:10)
[2016-12-25] MEDS: Acetaminophen 500mg (ES) tab ORAL PRN (11:11)
[2016-12-25] MEDS: Metoprolol Tartrate 50mg tab ORAL SCH ×2 (11:22→21:13)
[2016-12-25] MEDS: Docusate 100mg cap ORAL SCH ×2 (13:00→17:49)
--- NOTE | 2016-12-25 13:35 | Cardiac Electrophysiology PN ---
Assessment/Plan Assessment/Plan 1. Chest pain. Ruled out for [place]. EKG is nonischemic and is completely normal. Her last stress test showed no evidence of ischemia. Ejection fraction is within normal range of 70%. 2. Hypertension. On metoprolol 50 mg b.i.d., Norvasc 10 mg daily, and hydralazine 50 mg every 8 hours. 3. End-stage renal disease, on hemodialysis. 4. Vomiting and abdominal pain. Follow up Dr Diana LOPEZ rN Subjective Subjective Is having projectile vomitus. Expecting HD today. RN at bedside. Objective Last 24 Hour Vital Signs Date Time Temp Pulse Resp B/P (MAP) Pulse Ox O2 Delivery O2 Flow Rate FiO2 12/25/16 11:23 79 154/68 12/25/16 11:22 79 154/68 12/25/16 06:24 164/77 12/25/16 04:00 97.9 76 18 145/81 96 Room Air 12/25/16 04:00 69 12/25/16 00:00 97.8 72 18 136/72 98 Room Air 12/25/16 00:00 75 12/24/16 22:00 115/61 12/24/16 20:00 98.0 65 21 115/64 99 Room Air 12/24/16 20:00 70 12/24/16 16:00 97.2 75 21 133/66 97 Room Air 12/24/16 16:00 78 Laboratory Tests Test 12/25/16 05:40 Troponin I 0.017 ng/mL (0.000-0.056) Pro-B-Type Natriuretic Peptide 42320 pg/mL (0-125) H Objective HEAD AND NECK: No JVD. LUNGS: Clear. CARDIOVASCULAR: Regular. S1 and S2 with no gallop or murmur. ABDOMEN: Soft. EXTREMITIES: Pitting edema. Dialysis access in the right arm, and also she has a PermCath in the left chest. ARTIS TEE Dec 25, 2016 13:35
--- NOTE | 2016-12-25 13:35 | Cardiac Electrophysiology PN ---
Assessment/Plan Assessment/Plan 1. Chest pain. Ruled out for [place]. EKG is nonischemic and is completely normal. Her last stress test showed no evidence of ischemia. Ejection fraction is within normal range of 70%. 2. Hypertension. On metoprolol 50 mg b.i.d., Norvasc 10 mg daily, and hydralazine 50 mg every 8 hours. 3. End-stage renal disease, on hemodialysis. 4. Vomiting and abdominal pain. Follow up Dr Diana LOPEZ rN Subjective Subjective Is having projectile vomitus. Expecting HD today. RN at bedside. Objective Last 24 Hour Vital Signs Date Time Temp Pulse Resp B/P (MAP) Pulse Ox O2 Delivery O2 Flow Rate FiO2 12/25/16 11:23 79 154/68 12/25/16 11:22 79 154/68 12/25/16 06:24 164/77 12/25/16 04:00 97.9 76 18 145/81 96 Room Air 12/25/16 04:00 69 12/25/16 00:00 97.8 72 18 136/72 98 Room Air 12/25/16 00:00 75 12/24/16 22:00 115/61 12/24/16 20:00 98.0 65 21 115/64 99 Room Air 12/24/16 20:00 70 12/24/16 16:00 97.2 75 21 133/66 97 Room Air 12/24/16 16:00 78 Laboratory Tests Test 12/25/16 05:40 Troponin I 0.017 ng/mL (0.000-0.056) Pro-B-Type Natriuretic Peptide 02824 pg/mL (0-125) H Objective HEAD AND NECK: No JVD. LUNGS: Clear. CARDIOVASCULAR: Regular. S1 and S2 with no gallop or murmur. ABDOMEN: Soft. EXTREMITIES: Pitting edema. Dialysis access in the right arm, and also she has a PermCath in the left chest. ARTIS TEE Dec 25, 2016 13:35
--- NOTE | 2016-12-25 13:35 | Cardiac Electrophysiology PN ---
Assessment/Plan Assessment/Plan 1. Chest pain. Ruled out for [place]. EKG is nonischemic and is completely normal. Her last stress test showed no evidence of ischemia. Ejection fraction is within normal range of 70%. 2. Hypertension. On metoprolol 50 mg b.i.d., Norvasc 10 mg daily, and hydralazine 50 mg every 8 hours. 3. End-stage renal disease, on hemodialysis. 4. Vomiting and abdominal pain. Follow up Dr Diana LOPEZ rN Subjective Subjective Is having projectile vomitus. Expecting HD today. RN at bedside. Objective Last 24 Hour Vital Signs Date Time Temp Pulse Resp B/P (MAP) Pulse Ox O2 Delivery O2 Flow Rate FiO2 12/25/16 11:23 79 154/68 12/25/16 11:22 79 154/68 12/25/16 06:24 164/77 12/25/16 04:00 97.9 76 18 145/81 96 Room Air 12/25/16 04:00 69 12/25/16 00:00 97.8 72 18 136/72 98 Room Air 12/25/16 00:00 75 12/24/16 22:00 115/61 12/24/16 20:00 98.0 65 21 115/64 99 Room Air 12/24/16 20:00 70 12/24/16 16:00 97.2 75 21 133/66 97 Room Air 12/24/16 16:00 78 Laboratory Tests Test 12/25/16 05:40 Troponin I 0.017 ng/mL (0.000-0.056) Pro-B-Type Natriuretic Peptide 11134 pg/mL (0-125) H Objective HEAD AND NECK: No JVD. LUNGS: Clear. CARDIOVASCULAR: Regular. S1 and S2 with no gallop or murmur. ABDOMEN: Soft. EXTREMITIES: Pitting edema. Dialysis access in the right arm, and also she has a PermCath in the left chest. ARTIS TEE Dec 25, 2016 13:35
[2016-12-25 16:00] VITALS: BP 149/44
[2016-12-25 20:00] VITALS: BP 149/71
[2016-12-25] MEDS: Miralax 17gm pkt ORAL SCH (21:13)
--- NOTE | 2016-12-25 22:33 | History and Physical ---
History of Present Illness General Reason for Hospitalization: Chest Pain Present Illness HPI Ms Calzada is a 71 yrs old AA female well known to me from previous admissions with a PMHx significant for ESRD on HD, HTN, recurrent cp, who presented to the ED with chest pain and vomiting.Apparently, the patient received aspirin and nitroglycerin. The patient was admitted to telemetry for further evaluation, Cardiology consultation was requested for further evaluation. Allergies: Coded Allergies: No Known Allergies (Verified , 03/07/09) Medication History Scheduled Amlodipine Besylate (Norvasc), 10 MG ORAL DAILY Aspirin* (Aspir 81*), 81 MG ORAL DAILY, (Reported) Clopidogrel* (Clopidogrel*), 75 MG ORAL DAILY, (Reported) Hydralazine HCl (Hydralazine HCl), 50 MG ORAL Q8HR Metoprolol Tartrate* (Metoprolol Tartrate*), 50 MG ORAL BID Sitagliptin* (Januvia*), 25 MG ORAL DAILY, (Reported) Scheduled PRN Clonidine Hcl (Clonidine Hcl), 0.1 MG PO EVERY 6 HOURS PRN for For High Blood Pressure, (Reported) Loratadine (Loratadine), 10 MG PO DAILY PRN for Itching, (Reported) Patient History Healthcare decision maker Resuscitation status Full Code Advanced Directive on File Past Medical/Surgical History Past Medical/Surgical History: (1) Pulmonary edema (2) Syncope (3) Arrhythmia (4) Generalized weakness (5) ESRD (end stage renal disease) on dialysis (6) Hypertension (7) Cerebral vascular disease (8) Anemia in chronic kidney disease (CKD) (9) Accelerated hypertension (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 infection (11) Chest pain Social History Social History: (1) Non-smoker (2) No history of alcohol use (3) No illicit drug use Review of Systems All Other Systems: negative except mentioned in HPI Physical Exam General Appearance: no apparent distress, alert Lines, tubes and drains: peripheral HEENT: normocephalic, atraumatic Neck: normal alignment, supple, normal inspection Respiratory/Chest: normal breath sounds, no respiratory distress Cardiovascular/Chest: normal rate, regular rhythm Abdomen: soft, no organomegaly, no mass Genitourinary/Rectal: other - anuric Neurologic: alert, oriented x 3, responsive, normal mood/affect Last 24 Hour Vital Signs Date Time Temp Pulse Resp B/P (MAP) Pulse Ox O2 Delivery O2 Flow Rate FiO2 11/1/17 22:15 158/79 12/25/16 21:13 85 165/78 12/25/16 20:00 98.1 93 22 149/71 97 Room Air 12/25/16 18:00 Room Air 12/25/16 16:00 97 12/25/16 16:00 97.0 78 20 149/44 98 Room Air 12/25/16 13:55 Room Air 12/25/16 11:23 79 154/68 12/25/16 11:22 79 154/68 12/25/16 06:24 164/77 12/25/16 04:00 97.9 76 18 145/81 96 Room Air 12/25/16 04:00 69 12/25/16 00:00 97.8 72 18 136/72 98 Room Air 12/25/16 00:00 75 Intake and Output 12/25/16 12/26/16 19:00 07:00 Output Total 2777 ml Balance -2777 ml Output Hemodialysis UF 2777 ml Laboratory Tests Test 12/25/16 05:40 Troponin I 0.017 ng/mL (0.000-0.056) Pro-B-Type Natriuretic Peptide 96440 pg/mL (0-125) H Height (Feet): 5 Height (Inches): 2.00 Weight (Pounds): 110 Medications Current Medications Medications (Trade) Dose Ordered Sig/Sarwat Route PRN Reason Start Time Stop Time Status Last Admin Dose Admin Acetaminophen (Tylenol) 500 mg Q6H PRN ORAL Mild Pain/Temp > 100.5 12/24/16 22:45 01/23/17 22:44 12/25/16 11:11 Amlodipine Besylate (Norvasc) 10 mg DAILY ORAL 12/25/16 09:00 01/24/17 08:59 12/25/16 11:23 Aspirin (ASA) 81 mg DAILY ORAL 12/25/16 09:00 01/24/17 08:59 12/25/16 11:10 Clonidine HCl (Catapres) 0.1 mg Q6H PRN ORAL SBP > 160 12/24/16 14:30 01/23/17 14:29 Clopidogrel Bisulfate (Plavix) 75 mg DAILY ORAL 12/25/16 09:00 01/24/17 08:59 12/25/16 11:10 Docusate Sodium (Colace) 100 mg THREE TIMES A DAY ORAL 12/25/16 13:00 01/24/17 12:59 12/25/16 17:49 Hydralazine HCl (Apresoline) 50 mg Q8HR ORAL 12/24/16 22:00 01/23/17 21:59 12/25/16 22:15 Hydromorphone HCl (Dilaudid) 1 mg Q4H PRN IVP For Moderate to Severe Pain 12/24/16 16:15 12/31/16 16:14 Lorazepam (Ativan 2mg/ml 1ml) 2 mg Q4H PRN IV For Anxiety 12/25/16 19:15 01/01/17 19:14 Metoprolol Tartrate (Lopressor) 50 mg Q12HR ORAL 12/24/16 21:00 01/23/17 20:59 12/25/16 21:13 Ondansetron HCl (Zofran) 4 mg Q4H PRN IVP Nausea & Vomiting 12/24/16 16:15 01/23/17 16:14 12/25/16 13:25 Polyethylene Glycol (Miralax) 17 gm BEDTIME ORAL 12/25/16 21:00 01/24/17 20:59 12/25/16 21:13 Sitagliptin Phosphate (Januvia) 25 mg ACBREAKFAST ORAL 12/25/16 06:30 01/24/17 06:29 12/25/16 06:24 Assessment/Plan Problem List: (1) Hypertension ICD Codes: I10 - Essential (primary) hypertension SNOMED: 00463318 (2) ESRD (end stage renal disease) on dialysis ICD Codes: N18.6 - End stage renal disease; Z99.2 - Dependence on renal dialysis SNOMED: 119686680 (3) Congestive heart failure (CHF) ICD Codes: I50.9 - Heart failure, unspecified SNOMED: 71568175 (4) Chest pain ICD Codes: R07.9 - Chest pain, unspecified SNOMED: 47566145 Qualifiers: Qualified Codes: R07.9 - Chest pain, unspecified (5) ESRD (end stage renal disease) on dialysis ICD Codes: N18.6 - End stage renal disease; Z99.2 - Dependence on renal dialysis SNOMED: 027139422 (6) Nausea ICD Codes: R11.0 - Nausea SNOMED: 045100007 (7) Vomiting (8) Anemia in chronic kidney disease (CKD) ICD Codes: D63.1 - Anemia in chronic kidney disease; N03.9 - Anemia in chronic kidney disease (CKD) SNOMED: 797412398 (9) Generalized weakness ICD Codes: R53.1 - Weakness SNOMED: 75848748 Assessment/Plan Admit to telemetry Pain management Cardio following, f/u with recs Continue home meds Monitor lytes, correct prn Continue HD as scheduled Monitor H&H, correct prn PPI, DVT prophylaxis AM labs Sharlene Velasco N.P. Dec 25, 2016 22:33
--- NOTE | 2016-12-25 22:33 | History and Physical ---
History of Present Illness General Reason for Hospitalization: Chest Pain Present Illness HPI Ms Calzada is a 71 yrs old AA female well known to me from previous admissions with a PMHx significant for ESRD on HD, HTN, recurrent cp, who presented to the ED with chest pain and vomiting.Apparently, the patient received aspirin and nitroglycerin. The patient was admitted to telemetry for further evaluation, Cardiology consultation was requested for further evaluation. Allergies: Coded Allergies: No Known Allergies (Verified , 03/07/09) Medication History Scheduled Amlodipine Besylate (Norvasc), 10 MG ORAL DAILY Aspirin* (Aspir 81*), 81 MG ORAL DAILY, (Reported) Clopidogrel* (Clopidogrel*), 75 MG ORAL DAILY, (Reported) Hydralazine HCl (Hydralazine HCl), 50 MG ORAL Q8HR Metoprolol Tartrate* (Metoprolol Tartrate*), 50 MG ORAL BID Sitagliptin* (Januvia*), 25 MG ORAL DAILY, (Reported) Scheduled PRN Clonidine Hcl (Clonidine Hcl), 0.1 MG PO EVERY 6 HOURS PRN for For High Blood Pressure, (Reported) Loratadine (Loratadine), 10 MG PO DAILY PRN for Itching, (Reported) Patient History Healthcare decision maker Resuscitation status Full Code Advanced Directive on File Past Medical/Surgical History Past Medical/Surgical History: (1) Pulmonary edema (2) Syncope (3) Arrhythmia (4) Generalized weakness (5) ESRD (end stage renal disease) on dialysis (6) Hypertension (7) Cerebral vascular disease (8) Anemia in chronic kidney disease (CKD) (9) Accelerated hypertension (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 infection (11) Chest pain Social History Social History: (1) Non-smoker (2) No history of alcohol use (3) No illicit drug use Review of Systems All Other Systems: negative except mentioned in HPI Physical Exam General Appearance: no apparent distress, alert Lines, tubes and drains: peripheral HEENT: normocephalic, atraumatic Neck: normal alignment, supple, normal inspection Respiratory/Chest: normal breath sounds, no respiratory distress Cardiovascular/Chest: normal rate, regular rhythm Abdomen: soft, no organomegaly, no mass Genitourinary/Rectal: other - anuric Neurologic: alert, oriented x 3, responsive, normal mood/affect Last 24 Hour Vital Signs Date Time Temp Pulse Resp B/P (MAP) Pulse Ox O2 Delivery O2 Flow Rate FiO2 11/1/17 22:15 158/79 12/25/16 21:13 85 165/78 12/25/16 20:00 98.1 93 22 149/71 97 Room Air 12/25/16 18:00 Room Air 12/25/16 16:00 97 12/25/16 16:00 97.0 78 20 149/44 98 Room Air 12/25/16 13:55 Room Air 12/25/16 11:23 79 154/68 12/25/16 11:22 79 154/68 12/25/16 06:24 164/77 12/25/16 04:00 97.9 76 18 145/81 96 Room Air 12/25/16 04:00 69 12/25/16 00:00 97.8 72 18 136/72 98 Room Air 12/25/16 00:00 75 Intake and Output 12/25/16 12/26/16 19:00 07:00 Output Total 2777 ml Balance -2777 ml Output Hemodialysis UF 2777 ml Laboratory Tests Test 12/25/16 05:40 Troponin I 0.017 ng/mL (0.000-0.056) Pro-B-Type Natriuretic Peptide 71917 pg/mL (0-125) H Height (Feet): 5 Height (Inches): 2.00 Weight (Pounds): 110 Medications Current Medications Medications (Trade) Dose Ordered Sig/Sarwat Route PRN Reason Start Time Stop Time Status Last Admin Dose Admin Acetaminophen (Tylenol) 500 mg Q6H PRN ORAL Mild Pain/Temp > 100.5 12/24/16 22:45 01/23/17 22:44 12/25/16 11:11 Amlodipine Besylate (Norvasc) 10 mg DAILY ORAL 12/25/16 09:00 01/24/17 08:59 12/25/16 11:23 Aspirin (ASA) 81 mg DAILY ORAL 12/25/16 09:00 01/24/17 08:59 12/25/16 11:10 Clonidine HCl (Catapres) 0.1 mg Q6H PRN ORAL SBP > 160 12/24/16 14:30 01/23/17 14:29 Clopidogrel Bisulfate (Plavix) 75 mg DAILY ORAL 12/25/16 09:00 01/24/17 08:59 12/25/16 11:10 Docusate Sodium (Colace) 100 mg THREE TIMES A DAY ORAL 12/25/16 13:00 01/24/17 12:59 12/25/16 17:49 Hydralazine HCl (Apresoline) 50 mg Q8HR ORAL 12/24/16 22:00 01/23/17 21:59 12/25/16 22:15 Hydromorphone HCl (Dilaudid) 1 mg Q4H PRN IVP For Moderate to Severe Pain 12/24/16 16:15 12/31/16 16:14 Lorazepam (Ativan 2mg/ml 1ml) 2 mg Q4H PRN IV For Anxiety 12/25/16 19:15 01/01/17 19:14 Metoprolol Tartrate (Lopressor) 50 mg Q12HR ORAL 12/24/16 21:00 01/23/17 20:59 12/25/16 21:13 Ondansetron HCl (Zofran) 4 mg Q4H PRN IVP Nausea & Vomiting 12/24/16 16:15 01/23/17 16:14 12/25/16 13:25 Polyethylene Glycol (Miralax) 17 gm BEDTIME ORAL 12/25/16 21:00 01/24/17 20:59 12/25/16 21:13 Sitagliptin Phosphate (Januvia) 25 mg ACBREAKFAST ORAL 12/25/16 06:30 01/24/17 06:29 12/25/16 06:24 Assessment/Plan Problem List: (1) Hypertension ICD Codes: I10 - Essential (primary) hypertension SNOMED: 12058416 (2) ESRD (end stage renal disease) on dialysis ICD Codes: N18.6 - End stage renal disease; Z99.2 - Dependence on renal dialysis SNOMED: 404697148 (3) Congestive heart failure (CHF) ICD Codes: I50.9 - Heart failure, unspecified SNOMED: 54592329 (4) Chest pain ICD Codes: R07.9 - Chest pain, unspecified SNOMED: 52521680 Qualifiers: Qualified Codes: R07.9 - Chest pain, unspecified (5) ESRD (end stage renal disease) on dialysis ICD Codes: N18.6 - End stage renal disease; Z99.2 - Dependence on renal dialysis SNOMED: 990677560 (6) Nausea ICD Codes: R11.0 - Nausea SNOMED: 122116805 (7) Vomiting (8) Anemia in chronic kidney disease (CKD) ICD Codes: D63.1 - Anemia in chronic kidney disease; N03.9 - Anemia in chronic kidney disease (CKD) SNOMED: 572205892 (9) Generalized weakness ICD Codes: R53.1 - Weakness SNOMED: 93299957 Assessment/Plan Admit to telemetry Pain management Cardio following, f/u with recs Continue home meds Monitor lytes, correct prn Continue HD as scheduled Monitor H&H, correct prn PPI, DVT prophylaxis AM labs Sharlene Velasco N.P. Dec 25, 2016 22:33
--- NOTE | 2016-12-25 22:33 | History and Physical ---
History of Present Illness General Reason for Hospitalization: Chest Pain Present Illness HPI Ms Calzada is a 71 yrs old AA female well known to me from previous admissions with a PMHx significant for ESRD on HD, HTN, recurrent cp, who presented to the ED with chest pain and vomiting.Apparently, the patient received aspirin and nitroglycerin. The patient was admitted to telemetry for further evaluation, Cardiology consultation was requested for further evaluation. Allergies: Coded Allergies: No Known Allergies (Verified , 03/07/09) Medication History Scheduled Amlodipine Besylate (Norvasc), 10 MG ORAL DAILY Aspirin* (Aspir 81*), 81 MG ORAL DAILY, (Reported) Clopidogrel* (Clopidogrel*), 75 MG ORAL DAILY, (Reported) Hydralazine HCl (Hydralazine HCl), 50 MG ORAL Q8HR Metoprolol Tartrate* (Metoprolol Tartrate*), 50 MG ORAL BID Sitagliptin* (Januvia*), 25 MG ORAL DAILY, (Reported) Scheduled PRN Clonidine Hcl (Clonidine Hcl), 0.1 MG PO EVERY 6 HOURS PRN for For High Blood Pressure, (Reported) Loratadine (Loratadine), 10 MG PO DAILY PRN for Itching, (Reported) Patient History Healthcare decision maker Resuscitation status Full Code Advanced Directive on File Past Medical/Surgical History Past Medical/Surgical History: (1) Pulmonary edema (2) Syncope (3) Arrhythmia (4) Generalized weakness (5) ESRD (end stage renal disease) on dialysis (6) Hypertension (7) Cerebral vascular disease (8) Anemia in chronic kidney disease (CKD) (9) Accelerated hypertension (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 infection (11) Chest pain Social History Social History: (1) Non-smoker (2) No history of alcohol use (3) No illicit drug use Review of Systems All Other Systems: negative except mentioned in HPI Physical Exam General Appearance: no apparent distress, alert Lines, tubes and drains: peripheral HEENT: normocephalic, atraumatic Neck: normal alignment, supple, normal inspection Respiratory/Chest: normal breath sounds, no respiratory distress Cardiovascular/Chest: normal rate, regular rhythm Abdomen: soft, no organomegaly, no mass Genitourinary/Rectal: other - anuric Neurologic: alert, oriented x 3, responsive, normal mood/affect Last 24 Hour Vital Signs Date Time Temp Pulse Resp B/P (MAP) Pulse Ox O2 Delivery O2 Flow Rate FiO2 11/1/17 22:15 158/79 12/25/16 21:13 85 165/78 12/25/16 20:00 98.1 93 22 149/71 97 Room Air 12/25/16 18:00 Room Air 12/25/16 16:00 97 12/25/16 16:00 97.0 78 20 149/44 98 Room Air 12/25/16 13:55 Room Air 12/25/16 11:23 79 154/68 12/25/16 11:22 79 154/68 12/25/16 06:24 164/77 12/25/16 04:00 97.9 76 18 145/81 96 Room Air 12/25/16 04:00 69 12/25/16 00:00 97.8 72 18 136/72 98 Room Air 12/25/16 00:00 75 Intake and Output 12/25/16 12/26/16 19:00 07:00 Output Total 2777 ml Balance -2777 ml Output Hemodialysis UF 2777 ml Laboratory Tests Test 12/25/16 05:40 Troponin I 0.017 ng/mL (0.000-0.056) Pro-B-Type Natriuretic Peptide 28253 pg/mL (0-125) H Height (Feet): 5 Height (Inches): 2.00 Weight (Pounds): 110 Medications Current Medications Medications (Trade) Dose Ordered Sig/Sarwat Route PRN Reason Start Time Stop Time Status Last Admin Dose Admin Acetaminophen (Tylenol) 500 mg Q6H PRN ORAL Mild Pain/Temp > 100.5 12/24/16 22:45 01/23/17 22:44 12/25/16 11:11 Amlodipine Besylate (Norvasc) 10 mg DAILY ORAL 12/25/16 09:00 01/24/17 08:59 12/25/16 11:23 Aspirin (ASA) 81 mg DAILY ORAL 12/25/16 09:00 01/24/17 08:59 12/25/16 11:10 Clonidine HCl (Catapres) 0.1 mg Q6H PRN ORAL SBP > 160 12/24/16 14:30 01/23/17 14:29 Clopidogrel Bisulfate (Plavix) 75 mg DAILY ORAL 12/25/16 09:00 01/24/17 08:59 12/25/16 11:10 Docusate Sodium (Colace) 100 mg THREE TIMES A DAY ORAL 12/25/16 13:00 01/24/17 12:59 12/25/16 17:49 Hydralazine HCl (Apresoline) 50 mg Q8HR ORAL 12/24/16 22:00 01/23/17 21:59 12/25/16 22:15 Hydromorphone HCl (Dilaudid) 1 mg Q4H PRN IVP For Moderate to Severe Pain 12/24/16 16:15 12/31/16 16:14 Lorazepam (Ativan 2mg/ml 1ml) 2 mg Q4H PRN IV For Anxiety 12/25/16 19:15 01/01/17 19:14 Metoprolol Tartrate (Lopressor) 50 mg Q12HR ORAL 12/24/16 21:00 01/23/17 20:59 12/25/16 21:13 Ondansetron HCl (Zofran) 4 mg Q4H PRN IVP Nausea & Vomiting 12/24/16 16:15 01/23/17 16:14 12/25/16 13:25 Polyethylene Glycol (Miralax) 17 gm BEDTIME ORAL 12/25/16 21:00 01/24/17 20:59 12/25/16 21:13 Sitagliptin Phosphate (Januvia) 25 mg ACBREAKFAST ORAL 12/25/16 06:30 01/24/17 06:29 12/25/16 06:24 Assessment/Plan Problem List: (1) Hypertension ICD Codes: I10 - Essential (primary) hypertension SNOMED: 85058888 (2) ESRD (end stage renal disease) on dialysis ICD Codes: N18.6 - End stage renal disease; Z99.2 - Dependence on renal dialysis SNOMED: 221678714 (3) Congestive heart failure (CHF) ICD Codes: I50.9 - Heart failure, unspecified SNOMED: 24709217 (4) Chest pain ICD Codes: R07.9 - Chest pain, unspecified SNOMED: 39942631 Qualifiers: Qualified Codes: R07.9 - Chest pain, unspecified (5) ESRD (end stage renal disease) on dialysis ICD Codes: N18.6 - End stage renal disease; Z99.2 - Dependence on renal dialysis SNOMED: 594625698 (6) Nausea ICD Codes: R11.0 - Nausea SNOMED: 340586304 (7) Vomiting (8) Anemia in chronic kidney disease (CKD) ICD Codes: D63.1 - Anemia in chronic kidney disease; N03.9 - Anemia in chronic kidney disease (CKD) SNOMED: 386574280 (9) Generalized weakness ICD Codes: R53.1 - Weakness SNOMED: 65620456 Assessment/Plan Admit to telemetry Pain management Cardio following, f/u with recs Continue home meds Monitor lytes, correct prn Continue HD as scheduled Monitor H&H, correct prn PPI, DVT prophylaxis AM labs Sharlene Velasco N.P. Dec 25, 2016 22:33
[2016-12-26 00:39] VITALS: BP 159/79
[2016-12-26] MEDS: LORazepam Inj 2mg/ml 1ml IV PRN (02:30)
[2016-12-26 04:00] VITALS: BP 140/72
[2016-12-26] MEDS: sitaGLIPtin 25mg tab ORAL SCH (06:20)
[2016-12-26] MEDS: HydrALAZINE 50mg tab ORAL SCH ×3 (06:20→21:53)
[2016-12-26 08:00] VITALS: BP 155/77
[2016-12-26 08:41] LABS: BASOPHILS % (AUTO) 0.8 % (0.0-2.0); EOSINOPHILS % (AUTO) 1.3 % (0.0-3.0); HEMATOCRIT 39.7 % (37.0-47.0); HEMOGLOBIN 12.8 G/DL (12.0-16.0); LYMPHOCYTES % (AUTO) 14.5 % (20.0-45.0); MEAN CORPUSCULAR VOLUME 101 FL (80-99); MONOCYTES % (AUTO) 15.1 % (1.0-10.0); NEUTROPHILS % (AUTO) 68.4 % (45.0-75.0); PLATELET COUNT 169 K/UL (150-450); RED BLOOD COUNT 3.92 M/UL (4.20-5.40); RED CELL DISTRIBUTION WIDTH 14.6 % (11.6-14.8); WHITE BLOOD COUNT 6.5 K/UL (4.8-10.8)
[2016-12-26 09:00] LABS: ANION GAP 12 mmol/L (5-15); BLOOD UREA NITROGEN 30 mg/dL (7-18); CALCIUM 10.5 MG/DL (8.5-10.1); CARBON DIOXIDE 30 MMOL/L (21-32); CHLORIDE 94 MMOL/L (98-107); CREATININE 6.8 MG/DL (0.55-1.30); SODIUM 135 MMOL/L (136-145)
--- NOTE | 2016-12-26 10:18 | GI Progress Note ---
Assessment/Plan Problems: (1) DM (diabetes mellitus) ICD Codes: E11.9 - Type 2 diabetes mellitus without complications SNOMED: 75181484 Qualifiers: Qualified Codes: E11.8 - Type 2 diabetes mellitus with unspecified complications (2) ESRD (end stage renal disease) on dialysis ICD Codes: N18.6 - End stage renal disease; Z99.2 - Dependence on renal dialysis SNOMED: 688393973 (3) Congestive heart failure (CHF) ICD Codes: I50.9 - Heart failure, unspecified SNOMED: 00854165 (4) ESRD (end stage renal disease) on dialysis ICD Codes: N18.6 - ESRD (end stage renal disease) on dialysis; Z99.2 - Dependence on renal dialysis SNOMED: 875829392 (5) Anemia in chronic kidney disease (CKD) ICD Codes: D63.1 - Anemia in chronic kidney disease; N03.9 - Anemia in chronic kidney disease (CKD) SNOMED: 494327027 (6) Failure to thrive in adult ICD Codes: R62.7 - Adult failure to thrive SNOMED: 528582306 Status: unchanged Status Narrative Discussed with Dr. Ortiz. Assessment/Plan KUB reviewed >> no acute process symptomatic treatment at this time hold reglan/erythromycin given renal hx, zofran prn bowel regime >> colace + miralax pain mgmt fu labs note pt on plavix, must be dc min 48-72 hours prior any procedure Subjective Subjective had an episode of vomiting last night abdominal pain still present, but improved Objective Last 24 Hour Vital Signs Date Time Temp Pulse Resp B/P (MAP) Pulse Ox O2 Delivery O2 Flow Rate FiO2 12/26/16 08:00 96.8 78 19 155/77 96 Room Air 12/26/16 06:20 139/100 12/26/16 04:00 97.6 82 20 140/72 100 Room Air 140.0 12/26/16 04:00 80 12/26/16 00:39 98.0 81 20 159/79 99 Room Air 12/26/16 00:00 84 12/25/16 22:15 158/79 12/25/16 21:13 85 165/78 12/25/16 20:00 80 12/25/16 20:00 98.1 93 22 149/71 97 Room Air 12/25/16 18:00 Room Air 12/25/16 16:00 97 12/25/16 16:00 97.0 78 20 149/44 98 Room Air 12/25/16 13:55 Room Air 12/25/16 11:23 79 154/68 12/25/16 11:22 79 154/68 Laboratory Tests Test 12/26/16 07:50 White Blood Count 6.5 K/UL (4.8-10.8) Red Blood Count 3.92 M/UL (4.20-5.40) L Hemoglobin 12.8 G/DL (12.0-16.0) Hematocrit 39.7 % (37.0-47.0) Mean Corpuscular Volume 101 FL (80-99) H Mean Corpuscular Hemoglobin 32.7 PG (27.0-31.0) H Mean Corpuscular Hemoglobin Concent 32.3 G/DL (32.0-36.0) Red Cell Distribution Width 14.6 % (11.6-14.8) Platelet Count 169 K/UL (150-450) Mean Platelet Volume 9.2 FL (6.5-10.1) Neutrophils (%) (Auto) 68.4 % (45.0-75.0) Lymphocytes (%) (Auto) 14.5 % (20.0-45.0) L Monocytes (%) (Auto) 15.1 % (1.0-10.0) H Eosinophils (%) (Auto) 1.3 % (0.0-3.0) Basophils (%) (Auto) 0.8 % (0.0-2.0) Sodium Level 135 MMOL/L (136-145) L Potassium Level 5.0 MMOL/L (3.5-5.1) Chloride Level 94 MMOL/L (98-107) L Carbon Dioxide Level 30 MMOL/L (21-32) Anion Gap 12 mmol/L (5-15) Blood Urea Nitrogen 30 mg/dL (7-18) H Creatinine 6.8 MG/DL (0.55-1.30) H Estimat Glomerular Filtration Rate mL/min (>60) Glucose Level 78 MG/DL (74-106) Calcium Level 10.5 MG/DL (8.5-10.1) H Height (Feet): 5 Height (Inches): 2.00 Weight (Pounds): 110 General Appearance: WD/WN, no apparent distress, alert, thin Cardiovascular: normal rate Respiratory/Chest: normal breath sounds, no respiratory distress Abdominal Exam: normal bowel sounds, non tender, soft Chrissie Artis N.P. Dec 26, 2016 10:18
--- NOTE | 2016-12-26 10:18 | GI Progress Note ---
Assessment/Plan Problems: (1) DM (diabetes mellitus) ICD Codes: E11.9 - Type 2 diabetes mellitus without complications SNOMED: 25473039 Qualifiers: Qualified Codes: E11.8 - Type 2 diabetes mellitus with unspecified complications (2) ESRD (end stage renal disease) on dialysis ICD Codes: N18.6 - End stage renal disease; Z99.2 - Dependence on renal dialysis SNOMED: 579374343 (3) Congestive heart failure (CHF) ICD Codes: I50.9 - Heart failure, unspecified SNOMED: 76714808 (4) ESRD (end stage renal disease) on dialysis ICD Codes: N18.6 - ESRD (end stage renal disease) on dialysis; Z99.2 - Dependence on renal dialysis SNOMED: 670119715 (5) Anemia in chronic kidney disease (CKD) ICD Codes: D63.1 - Anemia in chronic kidney disease; N03.9 - Anemia in chronic kidney disease (CKD) SNOMED: 633849947 (6) Failure to thrive in adult ICD Codes: R62.7 - Adult failure to thrive SNOMED: 980263545 Status: unchanged Status Narrative Discussed with Dr. Ortiz. Assessment/Plan KUB reviewed >> no acute process symptomatic treatment at this time hold reglan/erythromycin given renal hx, zofran prn bowel regime >> colace + miralax pain mgmt fu labs note pt on plavix, must be dc min 48-72 hours prior any procedure Subjective Subjective had an episode of vomiting last night abdominal pain still present, but improved Objective Last 24 Hour Vital Signs Date Time Temp Pulse Resp B/P (MAP) Pulse Ox O2 Delivery O2 Flow Rate FiO2 12/26/16 08:00 96.8 78 19 155/77 96 Room Air 12/26/16 06:20 139/100 12/26/16 04:00 97.6 82 20 140/72 100 Room Air 140.0 12/26/16 04:00 80 12/26/16 00:39 98.0 81 20 159/79 99 Room Air 12/26/16 00:00 84 12/25/16 22:15 158/79 12/25/16 21:13 85 165/78 12/25/16 20:00 80 12/25/16 20:00 98.1 93 22 149/71 97 Room Air 12/25/16 18:00 Room Air 12/25/16 16:00 97 12/25/16 16:00 97.0 78 20 149/44 98 Room Air 12/25/16 13:55 Room Air 12/25/16 11:23 79 154/68 12/25/16 11:22 79 154/68 Laboratory Tests Test 12/26/16 07:50 White Blood Count 6.5 K/UL (4.8-10.8) Red Blood Count 3.92 M/UL (4.20-5.40) L Hemoglobin 12.8 G/DL (12.0-16.0) Hematocrit 39.7 % (37.0-47.0) Mean Corpuscular Volume 101 FL (80-99) H Mean Corpuscular Hemoglobin 32.7 PG (27.0-31.0) H Mean Corpuscular Hemoglobin Concent 32.3 G/DL (32.0-36.0) Red Cell Distribution Width 14.6 % (11.6-14.8) Platelet Count 169 K/UL (150-450) Mean Platelet Volume 9.2 FL (6.5-10.1) Neutrophils (%) (Auto) 68.4 % (45.0-75.0) Lymphocytes (%) (Auto) 14.5 % (20.0-45.0) L Monocytes (%) (Auto) 15.1 % (1.0-10.0) H Eosinophils (%) (Auto) 1.3 % (0.0-3.0) Basophils (%) (Auto) 0.8 % (0.0-2.0) Sodium Level 135 MMOL/L (136-145) L Potassium Level 5.0 MMOL/L (3.5-5.1) Chloride Level 94 MMOL/L (98-107) L Carbon Dioxide Level 30 MMOL/L (21-32) Anion Gap 12 mmol/L (5-15) Blood Urea Nitrogen 30 mg/dL (7-18) H Creatinine 6.8 MG/DL (0.55-1.30) H Estimat Glomerular Filtration Rate mL/min (>60) Glucose Level 78 MG/DL (74-106) Calcium Level 10.5 MG/DL (8.5-10.1) H Height (Feet): 5 Height (Inches): 2.00 Weight (Pounds): 110 General Appearance: WD/WN, no apparent distress, alert, thin Cardiovascular: normal rate Respiratory/Chest: normal breath sounds, no respiratory distress Abdominal Exam: normal bowel sounds, non tender, soft Chrissie Artsi N.P. Dec 26, 2016 10:18
--- NOTE | 2016-12-26 10:18 | GI Progress Note ---
Assessment/Plan Problems: (1) DM (diabetes mellitus) ICD Codes: E11.9 - Type 2 diabetes mellitus without complications SNOMED: 38715684 Qualifiers: Qualified Codes: E11.8 - Type 2 diabetes mellitus with unspecified complications (2) ESRD (end stage renal disease) on dialysis ICD Codes: N18.6 - End stage renal disease; Z99.2 - Dependence on renal dialysis SNOMED: 314011022 (3) Congestive heart failure (CHF) ICD Codes: I50.9 - Heart failure, unspecified SNOMED: 81358338 (4) ESRD (end stage renal disease) on dialysis ICD Codes: N18.6 - ESRD (end stage renal disease) on dialysis; Z99.2 - Dependence on renal dialysis SNOMED: 276703935 (5) Anemia in chronic kidney disease (CKD) ICD Codes: D63.1 - Anemia in chronic kidney disease; N03.9 - Anemia in chronic kidney disease (CKD) SNOMED: 015693095 (6) Failure to thrive in adult ICD Codes: R62.7 - Adult failure to thrive SNOMED: 870979429 Status: unchanged Status Narrative Discussed with Dr. Ortiz. Assessment/Plan KUB reviewed >> no acute process symptomatic treatment at this time hold reglan/erythromycin given renal hx, zofran prn bowel regime >> colace + miralax pain mgmt fu labs note pt on plavix, must be dc min 48-72 hours prior any procedure Subjective Subjective had an episode of vomiting last night abdominal pain still present, but improved Objective Last 24 Hour Vital Signs Date Time Temp Pulse Resp B/P (MAP) Pulse Ox O2 Delivery O2 Flow Rate FiO2 12/26/16 08:00 96.8 78 19 155/77 96 Room Air 12/26/16 06:20 139/100 12/26/16 04:00 97.6 82 20 140/72 100 Room Air 140.0 12/26/16 04:00 80 12/26/16 00:39 98.0 81 20 159/79 99 Room Air 12/26/16 00:00 84 12/25/16 22:15 158/79 12/25/16 21:13 85 165/78 12/25/16 20:00 80 12/25/16 20:00 98.1 93 22 149/71 97 Room Air 12/25/16 18:00 Room Air 12/25/16 16:00 97 12/25/16 16:00 97.0 78 20 149/44 98 Room Air 12/25/16 13:55 Room Air 12/25/16 11:23 79 154/68 12/25/16 11:22 79 154/68 Laboratory Tests Test 12/26/16 07:50 White Blood Count 6.5 K/UL (4.8-10.8) Red Blood Count 3.92 M/UL (4.20-5.40) L Hemoglobin 12.8 G/DL (12.0-16.0) Hematocrit 39.7 % (37.0-47.0) Mean Corpuscular Volume 101 FL (80-99) H Mean Corpuscular Hemoglobin 32.7 PG (27.0-31.0) H Mean Corpuscular Hemoglobin Concent 32.3 G/DL (32.0-36.0) Red Cell Distribution Width 14.6 % (11.6-14.8) Platelet Count 169 K/UL (150-450) Mean Platelet Volume 9.2 FL (6.5-10.1) Neutrophils (%) (Auto) 68.4 % (45.0-75.0) Lymphocytes (%) (Auto) 14.5 % (20.0-45.0) L Monocytes (%) (Auto) 15.1 % (1.0-10.0) H Eosinophils (%) (Auto) 1.3 % (0.0-3.0) Basophils (%) (Auto) 0.8 % (0.0-2.0) Sodium Level 135 MMOL/L (136-145) L Potassium Level 5.0 MMOL/L (3.5-5.1) Chloride Level 94 MMOL/L (98-107) L Carbon Dioxide Level 30 MMOL/L (21-32) Anion Gap 12 mmol/L (5-15) Blood Urea Nitrogen 30 mg/dL (7-18) H Creatinine 6.8 MG/DL (0.55-1.30) H Estimat Glomerular Filtration Rate mL/min (>60) Glucose Level 78 MG/DL (74-106) Calcium Level 10.5 MG/DL (8.5-10.1) H Height (Feet): 5 Height (Inches): 2.00 Weight (Pounds): 110 General Appearance: WD/WN, no apparent distress, alert, thin Cardiovascular: normal rate Respiratory/Chest: normal breath sounds, no respiratory distress Abdominal Exam: normal bowel sounds, non tender, soft Chrissie Artis N.P. Dec 26, 2016 10:18
[2016-12-26] MEDS: Aspirin Baby 81mg ORAL SCH (10:34)
[2016-12-26] MEDS: Metoprolol Tartrate 50mg tab ORAL SCH ×2 (10:34→21:14)
[2016-12-26] MEDS: Docusate 100mg cap ORAL SCH ×3 (10:34→17:40)
--- NOTE | 2016-12-26 10:42 | Cardiac Electrophysiology PN ---
Assessment/Plan Assessment/Plan 1. Chest pain. Ruled out for DE. EKG is nonischemic and is completely normal. Her last stress test showed no evidence of ischemia. Ejection fraction is within normal range of 70%. 2. Hypertension. On metoprolol 50 mg b.i.d., Norvasc 10 mg daily, and hydralazine 50 mg every 8 hours. 3. End-stage renal disease, on hemodialysis. 4. Vomiting and abdominal pain. Resolved. Follow up Dr Diana LOPEZ RN Subjective Subjective Had HD yesterday and feeling better. Not vomiting today. RN at bedside. Objective Last 24 Hour Vital Signs Date Time Temp Pulse Resp B/P (MAP) Pulse Ox O2 Delivery O2 Flow Rate FiO2 12/26/16 10:34 78 155/77 12/26/16 10:33 78 155/77 12/26/16 08:00 96.8 78 19 155/77 96 Room Air 12/26/16 06:20 139/100 12/26/16 04:00 97.6 82 20 140/72 100 Room Air 140.0 12/26/16 04:00 80 12/26/16 00:39 98.0 81 20 159/79 99 Room Air 12/26/16 00:00 84 12/25/16 22:15 158/79 12/25/16 21:13 85 165/78 12/25/16 20:00 80 12/25/16 20:00 98.1 93 22 149/71 97 Room Air 12/25/16 18:00 Room Air 12/25/16 16:00 97 12/25/16 16:00 97.0 78 20 149/44 98 Room Air 12/25/16 13:55 Room Air 12/25/16 11:23 79 154/68 12/25/16 11:22 79 154/68 Laboratory Tests Test 12/26/16 07:50 White Blood Count 6.5 K/UL (4.8-10.8) Red Blood Count 3.92 M/UL (4.20-5.40) L Hemoglobin 12.8 G/DL (12.0-16.0) Hematocrit 39.7 % (37.0-47.0) Mean Corpuscular Volume 101 FL (80-99) H Mean Corpuscular Hemoglobin 32.7 PG (27.0-31.0) H Mean Corpuscular Hemoglobin Concent 32.3 G/DL (32.0-36.0) Red Cell Distribution Width 14.6 % (11.6-14.8) Platelet Count 169 K/UL (150-450) Mean Platelet Volume 9.2 FL (6.5-10.1) Neutrophils (%) (Auto) 68.4 % (45.0-75.0) Lymphocytes (%) (Auto) 14.5 % (20.0-45.0) L Monocytes (%) (Auto) 15.1 % (1.0-10.0) H Eosinophils (%) (Auto) 1.3 % (0.0-3.0) Basophils (%) (Auto) 0.8 % (0.0-2.0) Sodium Level 135 MMOL/L (136-145) L Potassium Level 5.0 MMOL/L (3.5-5.1) Chloride Level 94 MMOL/L (98-107) L Carbon Dioxide Level 30 MMOL/L (21-32) Anion Gap 12 mmol/L (5-15) Blood Urea Nitrogen 30 mg/dL (7-18) H Creatinine 6.8 MG/DL (0.55-1.30) H Estimat Glomerular Filtration Rate mL/min (>60) Glucose Level 78 MG/DL (74-106) Calcium Level 10.5 MG/DL (8.5-10.1) H Microbiology Date/Time Source Procedure Growth Status 12/24/16 06:00 Nasal Nares MRSA Culture - Final NO METHICILLIN RESISTANT STAPH AUREUS... Complete 12/24/16 06:00 Rectum VRE Culture - Final NO VANCOMYCIN RESISTANT ENTEROCOCCUS ... Complete Objective HEAD AND NECK: No JVD. LUNGS: Clear. CARDIOVASCULAR: Regular. S1 and S2 with no gallop or murmur. ABDOMEN: Soft. EXTREMITIES: Pitting edema. Dialysis access in the right arm, and also she has a PermCath in the left chest. ARTIS TEE Dec 26, 2016 10:42
[2016-12-26 12:00] VITALS: BP 146/77
[2016-12-26 16:00] VITALS: BP 151/58
[2016-12-26 20:00] VITALS: BP 161/80
[2016-12-26] MEDS: Miralax 17gm pkt ORAL SCH (21:14)
--- NOTE | 2016-12-26 23:07 | Consultation ---
History of Present Illness General Date patient seen: Dec 25, 2016 Chief Complaint: Chest Pain Referring physician: TIGRE FULLER Reason for Consultation: VOMITTING Present Illness HPI 71 yrs old AA female well known to me from previous admissions with a PMHx significant for ESRD on HD, HTN, recurrent cp, who presented to the ED with chest pain and vomiting.Apparently, the patient received aspirin and nitroglycerin. the pt was alert and oriented to self and year. she has been agitated and pw waxing and waning of consciousness. the pt has memory impairment Allergies: Coded Allergies: No Known Allergies (Verified , 03/07/09) Medication History Scheduled Amlodipine Besylate (Norvasc), 10 MG ORAL DAILY Aspirin* (Aspir 81*), 81 MG ORAL DAILY, (Reported) Clopidogrel* (Clopidogrel*), 75 MG ORAL DAILY, (Reported) Hydralazine HCl (Hydralazine HCl), 50 MG ORAL Q8HR Metoprolol Tartrate* (Metoprolol Tartrate*), 50 MG ORAL BID Sitagliptin* (Januvia*), 25 MG ORAL DAILY, (Reported) Scheduled PRN Clonidine Hcl (Clonidine Hcl), 0.1 MG PO EVERY 6 HOURS PRN for For High Blood Pressure, (Reported) Loratadine (Loratadine), 10 MG PO DAILY PRN for Itching, (Reported) Patient History Healthcare decision maker Resuscitation status Full Code Advanced Directive on File Past Medical/Surgical History Past Medical/Surgical History: (1) Diverticulosis (2) Gastritis (3) Hypotension (4) Head trauma (5) Internal hemorrhoid (6) Tubular adenoma of colon (7) Elevated lipase (8) [id number] (9) [id number] (10) Gastritis (11) Infection of arteriovenous fistula (12) Sinusitis (13) 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, not intractable, without status epilepticus (14) Infection of arteriovenous fistula (15) Headache (16) Hypertensive urgency, malignant (17) Renal failure (18) Seizure disorder, complex partial (19) Abdominal pain (20) Headache (21) Headache (22) Renal failure (23) Headache (24) Headache (25) Injury of upper extremity (26) Cellulitis (27) Hypertension (28) ESRD (end stage renal disease) on dialysis (29) Cellulitis (30) ESRD (end stage renal disease) on dialysis (31) Thrombocytopenia (32) Dizziness (33) Dizziness (34) Diabetes (35) Renal failure (36) Weakness (37) Unable to ambulate (38) Hypertensive urgency, malignant (39) General medical exam (40) Dyspnea (41) Weakness (42) Hypertension (43) Pancytopenia (44) Hyperkalemia (45) Hypertension (46) ACS (acute coronary syndrome) (47) Hypertension (48) Abdominal pain (49) Nausea (50) Vomiting (51) ESRD (end stage renal disease) on dialysis (52) Anemia in chronic kidney disease (CKD) (53) Arrhythmia (54) Generalized weakness (55) Pulmonary edema (56) Syncope (57) Chest pain (58) Hypertension (59) Accelerated hypertension (60) Cerebral vascular disease (61) ESRD (end stage renal disease) on dialysis (62) AV fistula infection (63) Hypertension (64) Congestive heart failure (CHF) (65) ESRD (end stage renal disease) on dialysis (66) Chest pain (67) DM (diabetes mellitus) (68) ESRD (end stage renal disease) on dialysis (69) Failure to thrive in adult Review of Systems Psychiatric: Reports: prior hx, anxiety, depressed feelings, emotional problems , hallucinations Physical Exam General Appearance: alert, confused, agitated Neurologic: alert, responsive, disoriented, depressed affect Last 24 Hour Vital Signs Date Time Temp Pulse Resp B/P (MAP) Pulse Ox O2 Delivery O2 Flow Rate FiO2 12/26/16 21:53 161/80 12/26/16 21:14 79 161/80 12/26/16 20:00 97.3 79 16 161/80 100 79 12/26/16 20:00 76 12/26/16 16:00 97.1 75 19 151/58 95 Room Air 12/26/16 16:00 77 12/26/16 13:35 146/77 12/26/16 12:00 77 12/26/16 12:00 97.9 77 20 146/77 95 Room Air 12/26/16 10:34 78 155/77 12/26/16 10:33 78 155/77 12/26/16 08:00 96.8 78 19 155/77 96 Room Air 12/26/16 08:00 77 12/26/16 06:20 139/100 12/26/16 04:00 97.6 82 20 140/72 100 Room Air 140.0 12/26/16 04:00 80 12/26/16 00:39 98.0 81 20 159/79 99 Room Air 12/26/16 00:00 84 Intake and Output 12/26/16 12/27/16 19:00 07:00 Intake Total 450 ml Balance 450 ml Intake Oral 450 ml Laboratory Tests Test 12/26/16 07:50 White Blood Count 6.5 K/UL (4.8-10.8) Red Blood Count 3.92 M/UL (4.20-5.40) L Hemoglobin 12.8 G/DL (12.0-16.0) Hematocrit 39.7 % (37.0-47.0) Mean Corpuscular Volume 101 FL (80-99) H Mean Corpuscular Hemoglobin 32.7 PG (27.0-31.0) H Mean Corpuscular Hemoglobin Concent 32.3 G/DL (32.0-36.0) Red Cell Distribution Width 14.6 % (11.6-14.8) Platelet Count 169 K/UL (150-450) Mean Platelet Volume 9.2 FL (6.5-10.1) Neutrophils (%) (Auto) 68.4 % (45.0-75.0) Lymphocytes (%) (Auto) 14.5 % (20.0-45.0) L Monocytes (%) (Auto) 15.1 % (1.0-10.0) H Eosinophils (%) (Auto) 1.3 % (0.0-3.0) Basophils (%) (Auto) 0.8 % (0.0-2.0) Sodium Level 135 MMOL/L (136-145) L Potassium Level 5.0 MMOL/L (3.5-5.1) Chloride Level 94 MMOL/L (98-107) L Carbon Dioxide Level 30 MMOL/L (21-32) Anion Gap 12 mmol/L (5-15) Blood Urea Nitrogen 30 mg/dL (7-18) H Creatinine 6.8 MG/DL (0.55-1.30) H Estimat Glomerular Filtration Rate mL/min (>60) Glucose Level 78 MG/DL (74-106) Calcium Level 10.5 MG/DL (8.5-10.1) H Height (Feet): 5 Height (Inches): 2.00 Weight (Pounds): 110 Medications Current Medications Medications (Trade) Dose Ordered Sig/Sarwat Route PRN Reason Start Time Stop Time Status Last Admin Dose Admin Acetaminophen (Tylenol) 500 mg Q6H PRN ORAL Mild Pain/Temp > 100.5 12/24/16 22:45 01/23/17 22:44 12/25/16 11:11 Amlodipine Besylate (Norvasc) 10 mg DAILY ORAL 12/25/16 09:00 01/24/17 08:59 12/26/16 10:33 Aspirin (ASA) 81 mg DAILY ORAL 12/25/16 09:00 01/24/17 08:59 12/26/16 10:34 Clonidine HCl (Catapres) 0.1 mg Q6H PRN ORAL SBP > 160 12/24/16 14:30 01/23/17 14:29 Clopidogrel Bisulfate (Plavix) 75 mg DAILY ORAL 12/25/16 09:00 01/24/17 08:59 12/26/16 10:32 Docusate Sodium (Colace) 100 mg THREE TIMES A DAY ORAL 12/25/16 13:00 01/24/17 12:59 12/26/16 17:40 Hydralazine HCl (Apresoline) 50 mg Q8HR ORAL 12/24/16 22:00 01/23/17 21:59 12/26/16 21:53 Hydromorphone HCl (Dilaudid) 1 mg Q4H PRN IVP For Moderate to Severe Pain 12/24/16 16:15 12/31/16 16:14 Lorazepam (Ativan 2mg/ml 1ml) 2 mg Q4H PRN IV For Anxiety 12/25/16 19:15 01/01/17 19:14 12/26/16 02:30 Metoprolol Tartrate (Lopressor) 50 mg Q12HR ORAL 12/24/16 21:00 01/23/17 20:59 12/26/16 21:14 Ondansetron HCl (Zofran) 4 mg Q4H PRN IVP Nausea & Vomiting 12/24/16 16:15 01/23/17 16:14 12/26/16 22:16 Pantoprazole (Protonix) 40 mg DAILY ORAL 12/26/16 09:00 12/2/17 08:59 12/26/16 10:33 Polyethylene Glycol (Miralax) 17 gm BEDTIME ORAL 12/25/16 21:00 01/24/17 20:59 12/26/16 21:14 Sitagliptin Phosphate (Januvia) 25 mg ACBREAKFAST ORAL 12/25/16 06:30 01/24/17 06:29 12/26/16 06:20 Assessment/Plan Status: stable Assessment/Plan encephalopathy -ativan prn -risperdal 1mg po qhs Maritza López M.D. Dec 26, 2016 23:07
--- NOTE | 2016-12-26 23:16 | General Progress Note ---
Assessment/Plan Status: stable, progressing Subjective Date patient seen: Dec 26, 2016 Neurologic/Psychiatric: Reports: anxiety Allergies: Coded Allergies: No Known Allergies (Verified , 03/07/09) Subjective the pt is calmer today. Ativan helps nausea Objective Last 24 Hour Vital Signs Date Time Temp Pulse Resp B/P (MAP) Pulse Ox O2 Delivery O2 Flow Rate FiO2 12/26/16 21:53 161/80 12/26/16 21:14 79 161/80 12/26/16 20:00 97.3 79 16 161/80 100 79 12/26/16 20:00 76 12/26/16 16:00 97.1 75 19 151/58 95 Room Air 12/26/16 16:00 77 12/26/16 13:35 146/77 12/26/16 12:00 77 12/26/16 12:00 97.9 77 20 146/77 95 Room Air 12/26/16 10:34 78 155/77 12/26/16 10:33 78 155/77 12/26/16 08:00 96.8 78 19 155/77 96 Room Air 12/26/16 08:00 77 12/26/16 06:20 139/100 12/26/16 04:00 97.6 82 20 140/72 100 Room Air 140.0 12/26/16 04:00 80 12/26/16 00:39 98.0 81 20 159/79 99 Room Air 12/26/16 00:00 84 Intake and Output 12/26/16 12/27/16 19:00 07:00 Intake Total 450 ml Balance 450 ml Intake Oral 450 ml Laboratory Tests 12/26/16 07:50: White Blood Count 6.5, Red Blood Count 3.92L, Hemoglobin 12.8, Hematocrit 39.7, Mean Corpuscular Volume 101H, Mean Corpuscular Hemoglobin 32.7H, Mean Corpuscular Hemoglobin Concent 32.3, Red Cell Distribution Width 14.6, Platelet Count 169, Mean Platelet Volume 9.2, Neutrophils (%) (Auto) 68.4, Lymphocytes (% ) (Auto) 14.5L, Monocytes (%) (Auto) 15.1H, Eosinophils (%) (Auto) 1.3, Basophils (%) (Auto) 0.8, Sodium Level 135L, Potassium Level 5.0, Chloride Level 94L, Carbon Dioxide Level 30, Anion Gap 12, Blood Urea Nitrogen 30H, Creatinine 6.8H, Estimat Glomerular Filtration Rate , Glucose Level 78, Calcium Level 10.5H Height (Feet): 5 Height (Inches): 2.00 Weight (Pounds): 110 General Appearance: no apparent distress, alert Neurologic: alert, responsive, disoriented, depressed affect Maritza López M.D. Dec 26, 2016 23:16
[2016-12-27] VITALS (8 sets, daily range): BP systolic 110–170; BP diastolic 53–80
[2016-12-27] MEDS: Acetaminophen 500mg (ES) tab ORAL PRN (00:22)
[2016-12-27] MEDS: sitaGLIPtin 25mg tab ORAL SCH (06:24)
[2016-12-27] MEDS: HydrALAZINE 50mg tab ORAL SCH ×3 (06:24→22:00)
[2016-12-27] MEDS: Metoprolol Tartrate 50mg tab ORAL SCH ×3 (09:00→21:00)
[2016-12-27] MEDS: Docusate 100mg cap ORAL SCH ×3 (09:13→17:38)
[2016-12-27] MEDS: Aspirin Baby 81mg ORAL SCH (09:14)
[2016-12-27 09:58] LABS: BASOPHILS % (AUTO) 0.9 % (0.0-2.0); EOSINOPHILS % (AUTO) 2.5 % (0.0-3.0); HEMATOCRIT 42.7 % (37.0-47.0); HEMOGLOBIN 13.3 G/DL (12.0-16.0); LYMPHOCYTES % (AUTO) 21.3 % (20.0-45.0); MEAN CORPUSCULAR VOLUME 102 FL (80-99); MONOCYTES % (AUTO) 14.4 % (1.0-10.0); NEUTROPHILS % (AUTO) 60.9 % (45.0-75.0); PLATELET COUNT 171 K/UL (150-450); RED BLOOD COUNT 4.17 M/UL (4.20-5.40); RED CELL DISTRIBUTION WIDTH 14.6 % (11.6-14.8); WHITE BLOOD COUNT 5.3 K/UL (4.8-10.8)
[2016-12-27 10:36] LABS: ANION GAP 15 mmol/L (5-15); BLOOD UREA NITROGEN 45 mg/dL (7-18); CALCIUM 10.7 MG/DL (8.5-10.1); CARBON DIOXIDE 29 MMOL/L (21-32); CHLORIDE 93 MMOL/L (98-107); CREATININE 9.5 MG/DL (0.55-1.30); POTASSIUM 5.7 MMOL/L (3.5-5.1); SODIUM 137 MMOL/L (136-145)
--- NOTE | 2016-12-27 10:36 | GI Progress Note ---
Assessment/Plan Problems: (1) DM (diabetes mellitus) ICD Codes: E11.9 - Type 2 diabetes mellitus without complications SNOMED: 32126413 Qualifiers: Qualified Codes: E11.8 - Type 2 diabetes mellitus with unspecified complications (2) ESRD (end stage renal disease) on dialysis ICD Codes: N18.6 - End stage renal disease; Z99.2 - Dependence on renal dialysis SNOMED: 418311642 (3) Congestive heart failure (CHF) ICD Codes: I50.9 - Heart failure, unspecified SNOMED: 44136259 (4) ESRD (end stage renal disease) on dialysis ICD Codes: N18.6 - ESRD (end stage renal disease) on dialysis; Z99.2 - Dependence on renal dialysis SNOMED: 270318578 (5) Anemia in chronic kidney disease (CKD) ICD Codes: D63.1 - Anemia in chronic kidney disease; N03.9 - Anemia in chronic kidney disease (CKD) SNOMED: 475656720 (6) Failure to thrive in adult ICD Codes: R62.7 - Adult failure to thrive SNOMED: 938022664 Status: stable Status Narrative Discussed with Dr. Ortiz. Assessment/Plan KUB reviewed >> no acute process okay for DC per GI standpoint symptomatic treatment at this time hold reglan/erythromycin given renal hx, zofran prn bowel regime >> colace + miralax pain mgmt fu labs note pt on plavix, must be dc min 48-72 hours prior any procedure The patient was seen and examined at bedside and all new and available data was reviewed in the patients chart. I agree with the above findings, impression and plan. (Patient seen earlier today. Signature stamp does not reflect patient encounter time.). - Briseyda Ortiz MD Subjective Subjective emesis resolved abdominal pain improved Objective Last 24 Hour Vital Signs Date Time Temp Pulse Resp B/P (MAP) Pulse Ox O2 Delivery O2 Flow Rate FiO2 12/27/16 09:37 83 132/66 12/27/16 09:37 83 132/66 12/27/16 08:00 97.5 83 19 132/66 99 Room Air 12/27/16 06:24 148/71 12/27/16 05:01 78 12/27/16 04:51 170/80 12/27/16 04:00 97.5 76 16 170/80 100 Room Air 76 12/27/16 04:00 78 12/27/16 00:00 82 12/27/16 00:00 97.0 74 16 155/75 100 Room Air 74 12/26/16 21:53 161/80 12/26/16 21:14 79 161/80 12/26/16 20:00 97.3 79 16 161/80 100 79 12/26/16 20:00 76 12/26/16 16:00 97.1 75 19 151/58 95 Room Air 12/26/16 16:00 77 12/26/16 13:35 146/77 12/26/16 12:00 77 12/26/16 12:00 97.9 77 20 146/77 95 Room Air Laboratory Tests Test 12/27/16 09:05 White Blood Count 5.3 K/UL (4.8-10.8) Red Blood Count 4.17 M/UL (4.20-5.40) L Hemoglobin 13.3 G/DL (12.0-16.0) Hematocrit 42.7 % (37.0-47.0) Mean Corpuscular Volume 102 FL (80-99) H Mean Corpuscular Hemoglobin 31.8 PG (27.0-31.0) H Mean Corpuscular Hemoglobin Concent 31.0 G/DL (32.0-36.0) L Red Cell Distribution Width 14.6 % (11.6-14.8) Platelet Count 171 K/UL (150-450) Mean Platelet Volume 8.4 FL (6.5-10.1) Neutrophils (%) (Auto) 60.9 % (45.0-75.0) Lymphocytes (%) (Auto) 21.3 % (20.0-45.0) Monocytes (%) (Auto) 14.4 % (1.0-10.0) H Eosinophils (%) (Auto) 2.5 % (0.0-3.0) Basophils (%) (Auto) 0.9 % (0.0-2.0) Sodium Level Pending Potassium Level Pending Chloride Level Pending Carbon Dioxide Level Pending Blood Urea Nitrogen Pending Creatinine Pending Estimat Glomerular Filtration Rate Pending Glucose Level Pending Calcium Level Pending Height (Feet): 5 Height (Inches): 2.00 Weight (Pounds): 106 General Appearance: WD/WN, no apparent distress, alert, thin Cardiovascular: normal rate Respiratory/Chest: normal breath sounds, no respiratory distress Abdominal Exam: normal bowel sounds, non tender, soft Extremities: non-tender Chrissie Artis N.P. Dec 27, 2016 10:36 CESAR ORTIZ Dec 30, 2016 09:20
--- NOTE | 2016-12-27 10:36 | GI Progress Note ---
Assessment/Plan Problems: (1) DM (diabetes mellitus) ICD Codes: E11.9 - Type 2 diabetes mellitus without complications SNOMED: 31045029 Qualifiers: Qualified Codes: E11.8 - Type 2 diabetes mellitus with unspecified complications (2) ESRD (end stage renal disease) on dialysis ICD Codes: N18.6 - End stage renal disease; Z99.2 - Dependence on renal dialysis SNOMED: 291085883 (3) Congestive heart failure (CHF) ICD Codes: I50.9 - Heart failure, unspecified SNOMED: 11969455 (4) ESRD (end stage renal disease) on dialysis ICD Codes: N18.6 - ESRD (end stage renal disease) on dialysis; Z99.2 - Dependence on renal dialysis SNOMED: 800632808 (5) Anemia in chronic kidney disease (CKD) ICD Codes: D63.1 - Anemia in chronic kidney disease; N03.9 - Anemia in chronic kidney disease (CKD) SNOMED: 840027363 (6) Failure to thrive in adult ICD Codes: R62.7 - Adult failure to thrive SNOMED: 918531828 Status: stable Status Narrative Discussed with Dr. Ortiz. Assessment/Plan KUB reviewed >> no acute process okay for DC per GI standpoint symptomatic treatment at this time hold reglan/erythromycin given renal hx, zofran prn bowel regime >> colace + miralax pain mgmt fu labs note pt on plavix, must be dc min 48-72 hours prior any procedure The patient was seen and examined at bedside and all new and available data was reviewed in the patients chart. I agree with the above findings, impression and plan. (Patient seen earlier today. Signature stamp does not reflect patient encounter time.). - Briseyda Ortiz MD Subjective Subjective emesis resolved abdominal pain improved Objective Last 24 Hour Vital Signs Date Time Temp Pulse Resp B/P (MAP) Pulse Ox O2 Delivery O2 Flow Rate FiO2 12/27/16 09:37 83 132/66 12/27/16 09:37 83 132/66 12/27/16 08:00 97.5 83 19 132/66 99 Room Air 12/27/16 06:24 148/71 12/27/16 05:01 78 12/27/16 04:51 170/80 12/27/16 04:00 97.5 76 16 170/80 100 Room Air 76 12/27/16 04:00 78 12/27/16 00:00 82 12/27/16 00:00 97.0 74 16 155/75 100 Room Air 74 12/26/16 21:53 161/80 12/26/16 21:14 79 161/80 12/26/16 20:00 97.3 79 16 161/80 100 79 12/26/16 20:00 76 12/26/16 16:00 97.1 75 19 151/58 95 Room Air 12/26/16 16:00 77 12/26/16 13:35 146/77 12/26/16 12:00 77 12/26/16 12:00 97.9 77 20 146/77 95 Room Air Laboratory Tests Test 12/27/16 09:05 White Blood Count 5.3 K/UL (4.8-10.8) Red Blood Count 4.17 M/UL (4.20-5.40) L Hemoglobin 13.3 G/DL (12.0-16.0) Hematocrit 42.7 % (37.0-47.0) Mean Corpuscular Volume 102 FL (80-99) H Mean Corpuscular Hemoglobin 31.8 PG (27.0-31.0) H Mean Corpuscular Hemoglobin Concent 31.0 G/DL (32.0-36.0) L Red Cell Distribution Width 14.6 % (11.6-14.8) Platelet Count 171 K/UL (150-450) Mean Platelet Volume 8.4 FL (6.5-10.1) Neutrophils (%) (Auto) 60.9 % (45.0-75.0) Lymphocytes (%) (Auto) 21.3 % (20.0-45.0) Monocytes (%) (Auto) 14.4 % (1.0-10.0) H Eosinophils (%) (Auto) 2.5 % (0.0-3.0) Basophils (%) (Auto) 0.9 % (0.0-2.0) Sodium Level Pending Potassium Level Pending Chloride Level Pending Carbon Dioxide Level Pending Blood Urea Nitrogen Pending Creatinine Pending Estimat Glomerular Filtration Rate Pending Glucose Level Pending Calcium Level Pending Height (Feet): 5 Height (Inches): 2.00 Weight (Pounds): 106 General Appearance: WD/WN, no apparent distress, alert, thin Cardiovascular: normal rate Respiratory/Chest: normal breath sounds, no respiratory distress Abdominal Exam: normal bowel sounds, non tender, soft Extremities: non-tender Chrissie Artis N.P. Dec 27, 2016 10:36 CESAR ORTIZ Dec 30, 2016 09:20
--- NOTE | 2016-12-27 10:36 | GI Progress Note ---
Assessment/Plan Problems: (1) DM (diabetes mellitus) ICD Codes: E11.9 - Type 2 diabetes mellitus without complications SNOMED: 01671406 Qualifiers: Qualified Codes: E11.8 - Type 2 diabetes mellitus with unspecified complications (2) ESRD (end stage renal disease) on dialysis ICD Codes: N18.6 - End stage renal disease; Z99.2 - Dependence on renal dialysis SNOMED: 881822994 (3) Congestive heart failure (CHF) ICD Codes: I50.9 - Heart failure, unspecified SNOMED: 80830356 (4) ESRD (end stage renal disease) on dialysis ICD Codes: N18.6 - ESRD (end stage renal disease) on dialysis; Z99.2 - Dependence on renal dialysis SNOMED: 290305708 (5) Anemia in chronic kidney disease (CKD) ICD Codes: D63.1 - Anemia in chronic kidney disease; N03.9 - Anemia in chronic kidney disease (CKD) SNOMED: 805727685 (6) Failure to thrive in adult ICD Codes: R62.7 - Adult failure to thrive SNOMED: 702238575 Status: stable Status Narrative Discussed with Dr. Ortiz. Assessment/Plan KUB reviewed >> no acute process okay for DC per GI standpoint symptomatic treatment at this time hold reglan/erythromycin given renal hx, zofran prn bowel regime >> colace + miralax pain mgmt fu labs note pt on plavix, must be dc min 48-72 hours prior any procedure The patient was seen and examined at bedside and all new and available data was reviewed in the patients chart. I agree with the above findings, impression and plan. (Patient seen earlier today. Signature stamp does not reflect patient encounter time.). - Briseyda Ortiz MD Subjective Subjective emesis resolved abdominal pain improved Objective Last 24 Hour Vital Signs Date Time Temp Pulse Resp B/P (MAP) Pulse Ox O2 Delivery O2 Flow Rate FiO2 12/27/16 09:37 83 132/66 12/27/16 09:37 83 132/66 12/27/16 08:00 97.5 83 19 132/66 99 Room Air 12/27/16 06:24 148/71 12/27/16 05:01 78 12/27/16 04:51 170/80 12/27/16 04:00 97.5 76 16 170/80 100 Room Air 76 12/27/16 04:00 78 12/27/16 00:00 82 12/27/16 00:00 97.0 74 16 155/75 100 Room Air 74 12/26/16 21:53 161/80 12/26/16 21:14 79 161/80 12/26/16 20:00 97.3 79 16 161/80 100 79 12/26/16 20:00 76 12/26/16 16:00 97.1 75 19 151/58 95 Room Air 12/26/16 16:00 77 12/26/16 13:35 146/77 12/26/16 12:00 77 12/26/16 12:00 97.9 77 20 146/77 95 Room Air Laboratory Tests Test 12/27/16 09:05 White Blood Count 5.3 K/UL (4.8-10.8) Red Blood Count 4.17 M/UL (4.20-5.40) L Hemoglobin 13.3 G/DL (12.0-16.0) Hematocrit 42.7 % (37.0-47.0) Mean Corpuscular Volume 102 FL (80-99) H Mean Corpuscular Hemoglobin 31.8 PG (27.0-31.0) H Mean Corpuscular Hemoglobin Concent 31.0 G/DL (32.0-36.0) L Red Cell Distribution Width 14.6 % (11.6-14.8) Platelet Count 171 K/UL (150-450) Mean Platelet Volume 8.4 FL (6.5-10.1) Neutrophils (%) (Auto) 60.9 % (45.0-75.0) Lymphocytes (%) (Auto) 21.3 % (20.0-45.0) Monocytes (%) (Auto) 14.4 % (1.0-10.0) H Eosinophils (%) (Auto) 2.5 % (0.0-3.0) Basophils (%) (Auto) 0.9 % (0.0-2.0) Sodium Level Pending Potassium Level Pending Chloride Level Pending Carbon Dioxide Level Pending Blood Urea Nitrogen Pending Creatinine Pending Estimat Glomerular Filtration Rate Pending Glucose Level Pending Calcium Level Pending Height (Feet): 5 Height (Inches): 2.00 Weight (Pounds): 106 General Appearance: WD/WN, no apparent distress, alert, thin Cardiovascular: normal rate Respiratory/Chest: normal breath sounds, no respiratory distress Abdominal Exam: normal bowel sounds, non tender, soft Extremities: non-tender Chrissie Artis N.P. Dec 27, 2016 10:36 CESAR ORTIZ Dec 30, 2016 09:20
--- NOTE | 2016-12-27 12:09 | Cardiac Electrophysiology PN ---
Assessment/Plan Assessment/Plan 1. Chest pain. Ruled out for PA. EKG is completely normal. Her last stress test showed no evidence of ischemia. Ejection fraction is within normal range of 70%. 2. Hypertension. On metoprolol 50 mg b.i.d., Norvasc 10 mg daily, and hydralazine 50 mg every 8 hours. 3. End-stage renal disease, on hemodialysis. 4. Vomiting and abdominal pain. Resolved. Follow up Dr Diana LOPEZ RN OK to DC from cardiac standpoint Subjective Subjective Expecting HD today and DC afterwards. Not vomiting today. RN at bedside. Objective Last 24 Hour Vital Signs Date Time Temp Pulse Resp B/P (MAP) Pulse Ox O2 Delivery O2 Flow Rate FiO2 12/27/16 11:51 97.7 67 20 113/66 93 Room Air 12/27/16 09:37 83 132/66 12/27/16 09:37 83 132/66 12/27/16 08:00 97.5 83 19 132/66 99 Room Air 12/27/16 06:24 148/71 12/27/16 05:01 78 12/27/16 04:51 170/80 12/27/16 04:00 97.5 76 16 170/80 100 Room Air 76 12/27/16 04:00 78 12/27/16 00:00 82 12/27/16 00:00 97.0 74 16 155/75 100 Room Air 74 12/26/16 21:53 161/80 12/26/16 21:14 79 161/80 12/26/16 20:00 97.3 79 16 161/80 100 79 12/26/16 20:00 76 12/26/16 16:00 97.1 75 19 151/58 95 Room Air 12/26/16 16:00 77 12/26/16 13:35 146/77 Laboratory Tests Test 12/27/16 09:05 White Blood Count 5.3 K/UL (4.8-10.8) Red Blood Count 4.17 M/UL (4.20-5.40) L Hemoglobin 13.3 G/DL (12.0-16.0) Hematocrit 42.7 % (37.0-47.0) Mean Corpuscular Volume 102 FL (80-99) H Mean Corpuscular Hemoglobin 31.8 PG (27.0-31.0) H Mean Corpuscular Hemoglobin Concent 31.0 G/DL (32.0-36.0) L Red Cell Distribution Width 14.6 % (11.6-14.8) Platelet Count 171 K/UL (150-450) Mean Platelet Volume 8.4 FL (6.5-10.1) Neutrophils (%) (Auto) 60.9 % (45.0-75.0) Lymphocytes (%) (Auto) 21.3 % (20.0-45.0) Monocytes (%) (Auto) 14.4 % (1.0-10.0) H Eosinophils (%) (Auto) 2.5 % (0.0-3.0) Basophils (%) (Auto) 0.9 % (0.0-2.0) Sodium Level 137 MMOL/L (136-145) Potassium Level 5.7 MMOL/L (3.5-5.1) H Chloride Level 93 MMOL/L (98-107) L Carbon Dioxide Level 29 MMOL/L (21-32) Anion Gap 15 mmol/L (5-15) Blood Urea Nitrogen 45 mg/dL (7-18) H Creatinine 9.5 MG/DL (0.55-1.30) H Estimat Glomerular Filtration Rate mL/min (>60) Glucose Level 136 MG/DL (74-106) H Calcium Level 10.7 MG/DL (8.5-10.1) H Objective HEAD AND NECK: No JVD. LUNGS: Clear. CARDIOVASCULAR: Regular. S1 and S2 with no gallop or murmur. ABDOMEN: Soft. EXTREMITIES: Pitting edema. Dialysis access in the right arm and PermCath in the left chest. ARTIS TEE Dec 27, 2016 12:09
[2016-12-27] MEDS: LORazepam Inj 2mg/ml 1ml IV PRN (15:30)
[2016-12-27] MEDS: Miralax 17gm pkt ORAL SCH (22:16)
--- NOTE | 2016-12-27 23:22 | General Progress Note ---
Subjective Neurologic/Psychiatric: Reports: anxiety, depressed, emotional problems Allergies: Coded Allergies: No Known Allergies (Verified , 03/07/09) Subjective the pt is calmer today. Objective Last 24 Hour Vital Signs Date Time Temp Pulse Resp B/P (MAP) Pulse Ox O2 Delivery O2 Flow Rate FiO2 12/27/16 22:00 112/59 12/27/16 21:07 96.8 72 20 110/55 Room Air 12/27/16 21:01 Room Air 12/27/16 21:00 79 125/62 12/27/16 20:00 70 12/27/16 20:00 97.0 70 18 116/53 91 Room Air 12/27/16 16:00 73 12/27/16 16:00 97.0 63 18 134/59 94 Room Air 12/27/16 16:00 97.0 69 20 125/60 Room Air 12/27/16 12:00 66 12/27/16 11:51 97.7 67 20 113/66 93 Room Air 12/27/16 09:37 83 132/66 12/27/16 09:37 83 132/66 12/27/16 08:00 74 12/27/16 08:00 97.5 83 19 132/66 99 Room Air 12/27/16 06:24 148/71 12/27/16 05:01 78 12/27/16 04:51 170/80 12/27/16 04:00 97.5 76 16 170/80 100 Room Air 76 12/27/16 04:00 78 12/27/16 00:00 82 12/27/16 00:00 97.0 74 16 155/75 100 Room Air 74 Intake and Output 12/27/16 12/28/16 19:00 07:00 Intake Total 240 ml Output Total 2180 ml Balance 240 ml -2180 ml Intake Oral 240 ml Output Hemodialysis UF 2180 ml Laboratory Tests 12/27/16 09:05: White Blood Count 5.3, Red Blood Count 4.17L, Hemoglobin 13.3, Hematocrit 42.7, Mean Corpuscular Volume 102H, Mean Corpuscular Hemoglobin 31.8H, Mean Corpuscular Hemoglobin Concent 31.0L, Red Cell Distribution Width 14.6, Platelet Count 171, Mean Platelet Volume 8.4, Neutrophils (%) (Auto) 60.9, Lymphocytes (%) (Auto) 21.3, Monocytes (%) (Auto) 14.4H, Eosinophils (%) (Auto) 2.5, Basophils (%) (Auto) 0.9, Sodium Level 137, Potassium Level 5.7H, Chloride Level 93L, Carbon Dioxide Level 29, Anion Gap 15, Blood Urea Nitrogen 45H, Creatinine 9.5H, Estimat Glomerular Filtration Rate , Glucose Level 136H, Calcium Level 10.7H Height (Feet): 5 Height (Inches): 2.00 Weight (Pounds): 106 General Appearance: no apparent distress, alert, confused Maritza López M.D. Dec 27, 2016 23:22
[2016-12-27] MEDS ORDERED: DiphenhydrAMINE 50mg/ml Inj IVP PRN (23:30)
--- NOTE | 2016-12-27 23:58 | Nephrology Progress Note ---
Assessment/Plan Problem List: (1) Hypertension (2) ESRD (end stage renal disease) on dialysis (3) Congestive heart failure (CHF) (4) Chest pain (5) ESRD (end stage renal disease) on dialysis (6) Nausea (7) Vomiting (8) Anemia in chronic kidney disease (CKD) (9) Generalized weakness Plan Pain management prn Cardio following, f/u with recs Psychiatrist following Continue home meds Monitor lytes, correct prn Continue HD as scheduled Monitor H&H, correct prn PPI, DVT prophylaxis AM labs Subjective Constitutional: Denies: no symptoms, chills, diaphoresis, fever, malaise, weakness, other HEENT: Denies: no symptoms, eye pain, blurred vision, tearing, double vision, ear pain, ear discharge, nose pain, nose congestion, throat pain, throat swelling, mouth pain, mouth swelling, other Genitourinary: Denies: no symptoms, burning, discharge, frequency, flank pain, hematuria, incontinence, pain, urgency, other Neurologic/Psychiatric: Denies: no symptoms, anxiety, depressed, emotional problems, headache, numbness, paresthesia, pre-existing deficit, seizure, tingling, tremors, weakness, other Subjective In no apparent distress Objective Objective Last 24 Hour Vital Signs Date Time Temp Pulse Resp B/P (MAP) Pulse Ox O2 Delivery O2 Flow Rate FiO2 12/27/16 23:47 97.3 87 18 127/71 91 Room Air 12/27/16 22:00 112/59 12/27/16 21:07 96.8 72 20 110/55 Room Air 12/27/16 21:01 Room Air 12/27/16 21:00 79 125/62 12/27/16 20:00 70 12/27/16 20:00 97.0 70 18 116/53 91 Room Air 12/27/16 16:00 73 12/27/16 16:00 97.0 63 18 134/59 94 Room Air 12/27/16 16:00 97.0 69 20 125/60 Room Air 12/27/16 12:00 66 12/27/16 11:51 97.7 67 20 113/66 93 Room Air 12/27/16 09:37 83 132/66 12/27/16 09:37 83 132/66 12/27/16 08:00 74 12/27/16 08:00 97.5 83 19 132/66 99 Room Air 12/27/16 06:24 148/71 12/27/16 05:01 78 12/27/16 04:51 170/80 12/27/16 04:00 97.5 76 16 170/80 100 Room Air 76 12/27/16 04:00 78 12/27/16 00:00 82 12/27/16 00:00 97.0 74 16 155/75 100 Room Air 74 Intake and Output 12/27/16 12/28/16 19:00 07:00 Intake Total 240 ml Output Total 2180 ml Balance 240 ml -2180 ml Intake Oral 240 ml Output Hemodialysis UF 2180 ml Laboratory Tests 12/27/16 09:05: White Blood Count 5.3, Red Blood Count 4.17L, Hemoglobin 13.3, Hematocrit 42.7, Mean Corpuscular Volume 102H, Mean Corpuscular Hemoglobin 31.8H, Mean Corpuscular Hemoglobin Concent 31.0L, Red Cell Distribution Width 14.6, Platelet Count 171, Mean Platelet Volume 8.4, Neutrophils (%) (Auto) 60.9, Lymphocytes (%) (Auto) 21.3, Monocytes (%) (Auto) 14.4H, Eosinophils (%) (Auto) 2.5, Basophils (%) (Auto) 0.9, Sodium Level 137, Potassium Level 5.7H, Chloride Level 93L, Carbon Dioxide Level 29, Anion Gap 15, Blood Urea Nitrogen 45H, Creatinine 9.5H, Estimat Glomerular Filtration Rate , Glucose Level 136H, Calcium Level 10.7H Height (Feet): 5 Height (Inches): 2.00 Weight (Pounds): 106 General Appearance: no apparent distress, alert EENT: normal ENT inspection Neck: normal alignment, supple Cardiovascular: normal rate, regular rhythm, no JVD Respiratory/Chest: normal breath sounds, no respiratory distress Abdomen: soft Extremities: non-tender Neurologic: alert, oriented x 3, responsive Sharlene Velasco N.P. Dec 27, 2016 23:58
[2016-12-28] MEDS: LORazepam Inj 2mg/ml 1ml IV PRN (01:11)
[2016-12-28 04:00] VITALS: BP 119/60
[2016-12-28] MEDS: HydrALAZINE 50mg tab ORAL SCH (06:42)
[2016-12-28] MEDS: sitaGLIPtin 25mg tab ORAL SCH (06:42)
[2016-12-28 08:39] VITALS: BP 122/63
--- NOTE | 2016-12-28 22:09 | General Progress Note ---
Subjective Allergies: Coded Allergies: No Known Allergies (Verified , 03/07/09) Subjective the pt is calmer today. Objective Last 24 Hour Vital Signs Date Time Temp Pulse Resp B/P (MAP) Pulse Ox O2 Delivery O2 Flow Rate FiO2 12/28/16 08:39 97.5 91 20 122/63 95 Room Air 12/28/16 06:42 123/59 12/28/16 04:00 97.0 71 18 119/60 91 Room Air 12/27/16 23:47 97.3 87 18 127/71 91 Room Air Intake and Output 12/28/16 12/29/16 19:00 07:00 Intake Total 120 ml Balance 120 ml Intake Oral 120 ml Height (Feet): 5 Height (Inches): 2.00 Weight (Pounds): 117 Maritza López M.D. Dec 28, 2016 22:08
--- NOTE | 2016-12-30 15:02 | Discharge Summary ---
Discharge Summary Hospital Course Date of Admission Dec 24, 2016 at 03:09 Date of Discharge Dec 28, 2016 at 09:00 Admitting Diagnosis Chest pain HPI Lindaphil Orellana is a 71 year old female who was admitted on Dec 24, 2016 at 03:09 for Chest Pain Hospital Course dc summary #[id number] Discharge Medications Continued Medications: Amlodipine Besylate (Norvasc) 10 Mg Tab 10 MG ORAL DAILY, #30 MG Aspirin* (Aspir 81*) 81 Mg Tablet.dr 81 MG ORAL DAILY, TAB Clonidine Hcl (Clonidine Hcl) 0.1 Mg Tablet 0.1 MG PO EVERY 6 HOURS PRN for For High Blood Pressure, TAB Clopidogrel* (Clopidogrel*) 75 Mg Tablet 75 MG ORAL DAILY, TAB Hydralazine HCl (Hydralazine HCl) 50 Mg Tablet 50 MG ORAL Q8HR, #90 TAB Loratadine (Loratadine) 10 Mg Tab.rapdis 10 MG PO DAILY PRN for Itching, TAB Metoprolol Tartrate* (Metoprolol Tartrate*) 50 Mg Tablet 50 MG ORAL BID, #60 TAB Sitagliptin* (Januvia*) 25 Mg Tablet 25 MG ORAL DAILY, TAB Discharge Condition Upon Discharge: stable Discharge Disposition Patient was discharged to Home (01) Discharge Diagnoses: Discharge Instructions Discharge Instructions Special Instructions I have been assigned to complete a D/C Summary on this account. I was not involved in the patient management Monica Estrada NP ([place]te[place]) Dec 30, 2016 15:02
--- NOTE | 2016-12-31 00:15 | Discharge Summary 2 SIG ---
DATE OF ADMISSION: 12/24/2016 DATE OF DISCHARGE: 12/28/2016 REASON FOR ADMISSION: 71-year-old female with past medical history of end-stage renal disease, on hemodialysis, diabetes, CVA, CHF, and hypertension, presented to the emergency department with complaint of chest pain. She also reported nausea and vomiting after having episodes of chest pain. She denies any blood in the stool. She denies any blood in the emesis. She was taking Pepto-Bismol and reported dark colored stools, but not black or tarry. The patient was given aspirin and nitroglycerin by paramedics with improvement in chest pain. However, the patient still felt nauseated. Workup in the emergency room revealed stable vital signs. Pulse oximetry was stable on room air. The patient was normotensive. Initial troponin was negative. Hemoglobin and hematocrit with mild anemia, hemoglobin - 10.9 and hematocrit -34.1. Troponin was negative. Pro BNP -10,465. EKG revealed no acute changes. Chest x-ray showed aortic calcification with tortuous aorta, otherwise no acute cardiopulmonary issues. The patient was admitted for further management for chest pain, end-stage renal disease, and diabetes. HOSPITAL COURSE: The patient was admitted to the telemetry floor. Cardiology consult along with GI and psychiatric consults were requested. Serial troponin were negative. EKG revealed no acute ischemic changes, therefore the patient was ruled out for acute myocardial infarction. Echocardiogram revealed preserved ejection fraction of 60% to 65%, right ventricular systolic pressure of 69 consistent with severe pulmonary hypertension as well as severe tricuspid regurgitation. The patient was treated for chest pain in the past. Last chest x-ray revealed no evidence of ischemia. Blood pressure was managed with beta-alfie, calcium channel alfie, and hydralazine, and was stable. Vomiting and abdominal pain resolved. GI specialist closely followed. KUB was negative. GI specialist recommended symptomatic treatment. Bowel regimen was instituted. GI recommended to hold Reglan and erythromycin, given chronic end-stage renal disease and continue with Zofran as needed. Hemoglobin and hematocrit were closely monitored. Remained at baseline. Pain management was provided. Hemodialysis was provided as per professional services consultant/primary care provider orders. The patient was on aspirin and Plavix. Pain was managed with morphine and nitroglycerin and was effective. Blood sugar was managed with Januvia. Psychiatrist seen and evaluated the patient and diagnosed the patient with encephalopathy. Psychiatrist optimized psychiatric medication regimen. Supervisor Power Reactor cleared for discharge. Chest pain probably atypical. GI cleared for discharge, recommended symptomatic treatment. The patient was stable for discharge home. DISCHARGE DIAGNOSES: 1. Chest pain, likely atypical 2. End-stage renal disease, on hemodialysis. 3. Diabetes mellitus. 4. Hypertension. 5. Encephalopathy. 6. Congestive heart failure with diastolic dysfunction. 7. Anemia of chronic renal disease. DISCHARGE MEDICATIONS: See medication reconciliation list. DISCHARGE INSTRUCTIONS: The patient was discharged home. Follow up with primary medical doctor next week, follow up with outpatient hemodialysis, encouraged compliance. . Blaze Plascencia M.D. I have been assigned to dictate discharge summary on this account and I was not involved in the patient's management. Monica HawkN[facility] HospitalJeromy N.PLu DR: DAQUAN JOB#: [id number] CC: MAHIN
--- NOTE | 2016-12-31 00:15 | Discharge Summary 2 SIG ---
DATE OF ADMISSION: 12/24/2016 DATE OF DISCHARGE: 12/28/2016 REASON FOR ADMISSION: 71-year-old female with past medical history of end-stage renal disease, on hemodialysis, diabetes, CVA, CHF, and hypertension, presented to the emergency department with complaint of chest pain. She also reported nausea and vomiting after having episodes of chest pain. She denies any blood in the stool. She denies any blood in the emesis. She was taking Pepto-Bismol and reported dark colored stools, but not black or tarry. The patient was given aspirin and nitroglycerin by paramedics with improvement in chest pain. However, the patient still felt nauseated. Workup in the emergency room revealed stable vital signs. Pulse oximetry was stable on room air. The patient was normotensive. Initial troponin was negative. Hemoglobin and hematocrit with mild anemia, hemoglobin - 10.9 and hematocrit -34.1. Troponin was negative. Pro BNP -10,465. EKG revealed no acute changes. Chest x-ray showed aortic calcification with tortuous aorta, otherwise no acute cardiopulmonary issues. The patient was admitted for further management for chest pain, end-stage renal disease, and diabetes. HOSPITAL COURSE: The patient was admitted to the telemetry floor. Cardiology consult along with GI and psychiatric consults were requested. Serial troponin were negative. EKG revealed no acute ischemic changes, therefore the patient was ruled out for acute myocardial infarction. Echocardiogram revealed preserved ejection fraction of 60% to 65%, right ventricular systolic pressure of 69 consistent with severe pulmonary hypertension as well as severe tricuspid regurgitation. The patient was treated for chest pain in the past. Last chest x-ray revealed no evidence of ischemia. Blood pressure was managed with beta-alfie, calcium channel alfie, and hydralazine, and was stable. Vomiting and abdominal pain resolved. GI specialist closely followed. KUB was negative. GI specialist recommended symptomatic treatment. Bowel regimen was instituted. GI recommended to hold Reglan and erythromycin, given chronic end-stage renal disease and continue with Zofran as needed. Hemoglobin and hematocrit were closely monitored. Remained at baseline. Pain management was provided. Hemodialysis was provided as per backside grinder/primary care provider orders. The patient was on aspirin and Plavix. Pain was managed with morphine and nitroglycerin and was effective. Blood sugar was managed with Januvia. Psychiatrist seen and evaluated the patient and diagnosed the patient with encephalopathy. Psychiatrist optimized psychiatric medication regimen. Chief Of Hospital Medicine cleared for discharge. Chest pain probably atypical. GI cleared for discharge, recommended symptomatic treatment. The patient was stable for discharge home. DISCHARGE DIAGNOSES: 1. Chest pain, likely atypical 2. End-stage renal disease, on hemodialysis. 3. Diabetes mellitus. 4. Hypertension. 5. Encephalopathy. 6. Congestive heart failure with diastolic dysfunction. 7. Anemia of chronic renal disease. DISCHARGE MEDICATIONS: See medication reconciliation list. DISCHARGE INSTRUCTIONS: The patient was discharged home. Follow up with primary medical doctor next week, follow up with outpatient hemodialysis, encouraged compliance. . Blaze Plascencia M.D. I have been assigned to dictate discharge summary on this account and I was not involved in the patient's management. Monica HawkMaria [facility] HospitalJeromy N.PLu DR: DAQUAN JOB#: [id number] CC: MAHIN
== END 2016-12-28 09:00 | disposition home or self-care (01) | DRG 313 ==
LOC: EDBD 02:41 → EMR 03:04 → MERGE 03:09 → 2E 03:09 → EDBEDREQ 03:38 → 2E 12-25 14:08
PROC: 5A1D70Z Performance of Urinary Filtration, Intermittent, Less than 6 Hours Per Day (ICD-10-PCS; principal; 2016-12-25)
DX: R07.89 Other chest pain (principal); G93.40 Encephalopathy, unspecified; I50.30 Unspecified diastolic (congestive) heart failure; I12.0 Hypertensive chronic kidney disease with stage 5 chronic kidney disease or end stage renal disease; N18.6 End stage renal disease; I27.20 Pulmonary hypertension, unspecified; E11.22 Type 2 diabetes mellitus with diabetic chronic kidney disease; Z99.2 Dependence on renal dialysis; D63.1 Anemia in chronic kidney disease; K57.90 Diverticulosis of intestine, part unspecified, without perforation or abscess without bleeding; R11.2 Nausea with vomiting, unspecified; R10.9 Unspecified abdominal pain; I36.1 Nonrheumatic tricuspid (valve) insufficiency; I70.0 Atherosclerosis of aorta; R62.7 Adult failure to thrive; Z79.82 Long term (current) use of aspirin; I67.9 Cerebrovascular disease, unspecified
CPT/HCPCS: 36415; 71010; 74020; 80048; 80053; 82550; 82962; 83880; 84484; 85025; 85610; 85730; 87081; 93005; 99285; J2405

== ENCOUNTER 2017-03-03 00:18 | Inpatient (IN) | payer MEDICARE, MEDICAID ==
[~2017-03-03] VITALS: Ht 157.5 cm; Wt 40.8 kg
[2017-03-03] VITALS (8 sets, daily range): BP systolic 107–171; BP diastolic 49–74
[2017-03-03 01:55] LABS: ANION GAP 14 mmol/L (5-15); BLOOD UREA NITROGEN 40 mg/dL (7-18); CARBON DIOXIDE 24 MMOL/L (21-32); CHLORIDE 96 MMOL/L (98-107); CREATININE 7.1 MG/DL (0.55-1.30); POTASSIUM 5.1 MMOL/L (3.5-5.1); SODIUM 134 MMOL/L (136-145)
[2017-03-03 02:10] LABS: ALANINE AMINOTRANSFERASE 21 U/L (12-78); ALBUMIN 4.1 G/DL (3.4-5.0); ALBUMIN/GLOBULIN RATIO 0.8 (1.0-2.7); ALKALINE PHOSPHATASE 75 U/L (46-116); ASPARTATE AMINO TRANSFERASE 23 U/L (15-37); BILIRUBIN,TOTAL 0.4 MG/DL (0.2-1.0); CREATINE KINASE 53 U/L (26-308)
[2017-03-03 02:14] LABS: BASOPHILS % (AUTO) 1.4 % (0.0-2.0); EOSINOPHILS % (AUTO) 2.6 % (0.0-3.0); HEMATOCRIT 42.7 % (37.0-47.0); HEMOGLOBIN 13.3 G/DL (12.0-16.0); LYMPHOCYTES % (AUTO) 22.3 % (20.0-45.0); MEAN CORPUSCULAR VOLUME 98 FL (80-99); MONOCYTES % (AUTO) 13.3 % (1.0-10.0); NEUTROPHILS % (AUTO) 60.5 % (45.0-75.0); PLATELET COUNT 156 K/UL (150-450); RED BLOOD COUNT 4.33 M/UL (4.20-5.40); RED CELL DISTRIBUTION WIDTH 13.8 % (11.6-14.8); WHITE BLOOD COUNT 4.5 K/UL (4.8-10.8)
[2017-03-03] MEDS ORDERED: Nitroglycerin Subl 0.4mg tab SL PRN (02:30)
--- NOTE | 2017-03-03 05:16 | Emergency Room Report ---
History of Present Illness General Chief Complaint: Chest Pain Source: Patient Present Illness HPI Patient is a 71-year-old female presented after increased chest pain. Patient gradual onset of symptoms. She associated shortness of breath. Patient prior history of end-stage renal disease. She is normally dialyzed Friday and Friday. The patient followed by Dr. Blaze Boswell. Patient any cough. She reported having some epigastric abdominal pain. Allergies: Coded Allergies: No Known Allergies (Verified , 03/07/09) Patient History Past Medical History: see triage record Now: No Reviewed Nursing Documentation: PMH: Agreed, PSxH: Agreed Nursing Documentation-PMH Past Medical History: No History, Except For Hx Cardiac Problems: Yes - Acute coronary syndrome Hx Hypertension: Yes Hx Pacemaker: No Hx Asthma: No Hx COPD: No Hx Diabetes: Yes Hx Cancer: Yes Hx Gastrointestinal Problems: No Hx Dialysis: Yes - T, Th, Sat - Shunt on RUE; Kidney Failure Hx Neurological Problems: Yes Hx Cerebrovascular Accident: Yes Hx Transient Ischemic Attacks: Yes Hx Seizures: No Hx Dizziness: Yes Hx Syncope: Yes Hx Headaches: Yes Hx Weakness: Yes - BILATERAL LOWER EXTREMITIES Hx Fatigue: Yes Hx Neurologic Surgery: No Hx Brain Shunt: No Review of Systems All Other Systems: negative except mentioned in HPI Physical Exam Vital Signs Date Time Temp Pulse Resp B/P (MAP) Pulse Ox O2 Delivery O2 Flow Rate FiO2 03/03/17 00:24 97.5 112 18 158/79 96 Room Air Sp02 EP Interpretation: reviewed, normal General Appearance: normal inspection, well appearing, alert, GCS 15, mild distress Head: atraumatic ENT: normal ENT inspection, hearing grossly normal, normal voice, tonsillar swelling Neck: normal inspection, full range of motion, supple, no bony tend Respiratory: normal inspection, lungs clear, normal breath sounds, no respiratory distress, no retraction, no wheezing Cardiovascular #1: regular rate, rhythm, no edema Gastrointestinal: normal inspection, normal bowel sounds, non tender, soft, no guarding, no hernia Genitourinary: no CVA tenderness Musculoskeletal: normal inspection, back normal, normal range of motion Neurologic: normal inspection, alert, oriented x3, responsive, speech normal Psychiatric: normal inspection, judgement/insight normal, mood/affect normal Skin: normal inspection, normal color, no rash Medical Decision Making Diagnostic Impression: Primary Impression: Anemia in chronic kidney disease (CKD) Additional Impressions: ACS (acute coronary syndrome) Hyperkalemia ESRD (end stage renal disease) on dialysis ER Course Patient is a for chest pain. Differential diagnosis included but was not limited to acute coronary syndrome, pulmonary embolism, pneumonia, aortic dissection, shingles, pneumothorax, aortic dissection, esophageal rupture, pericarditis. Because of complexity of patient's case laboratory testing and imaging studies were ordered. EKG interpreted by me showed normal sinus rhythm with a rate of [address] or T wave changes. The patient noted have hyperkalemia. Patient was noted to have evidence of pancreatitis on laboratory testing. Due to patient's comorbidities patient will be admitted as an inpatient. Dr. Blaze Boswell was contacted for inpatient management Labs Test 03/03/17 01:10 03/03/17 02:00 Sodium Level 134 MMOL/L (136-145) Potassium Level 5.1 MMOL/L (3.5-5.1) Chloride Level 96 MMOL/L (98-107) Carbon Dioxide Level 24 MMOL/L (21-32) Anion Gap 14 mmol/L (5-15) Blood Urea Nitrogen 40 mg/dL (7-18) Creatinine 7.1 MG/DL (0.55-1.30) Estimat Glomerular Filtration Rate mL/min (>60) Glucose Level 87 MG/DL (74-106) Calcium Level 11.0 MG/DL (8.5-10.1) Total Bilirubin 0.4 MG/DL (0.2-1.0) Aspartate Amino Transf (AST/SGOT) 23 U/L (15-37) Alanine Aminotransferase (ALT/SGPT) 21 U/L (12-78) Alkaline Phosphatase 75 U/L (46-116) Total Creatine Kinase 53 U/L (26-308) Creatine Kinase MB 1.0 NG/ML (0.0-3.6) Creatine Kinase MB Relative Index 1.8 Troponin I 0.017 ng/mL (0.000-0.056) Pro-B-Type Natriuretic Peptide 9656 pg/mL (0-125) Total Protein 9.4 G/DL (6.4-8.2) Albumin 4.1 G/DL (3.4-5.0) Globulin 5.3 g/dL Albumin/Globulin Ratio 0.8 (1.0-2.7) Lipase 586 U/L (73-393) White Blood Count 4.5 K/UL (4.8-10.8) Red Blood Count 4.33 M/UL (4.20-5.40) Hemoglobin 13.3 G/DL (12.0-16.0) Hematocrit 42.7 % (37.0-47.0) Mean Corpuscular Volume 98 FL (80-99) Mean Corpuscular Hemoglobin 30.7 PG (27.0-31.0) Mean Corpuscular Hemoglobin Concent 31.2 G/DL (32.0-36.0) Red Cell Distribution Width 13.8 % (11.6-14.8) Platelet Count 156 K/UL (150-450) Mean Platelet Volume 7.9 FL (6.5-10.1) Neutrophils (%) (Auto) 60.5 % (45.0-75.0) Lymphocytes (%) (Auto) 22.3 % (20.0-45.0) Monocytes (%) (Auto) 13.3 % (1.0-10.0) Eosinophils (%) (Auto) 2.6 % (0.0-3.0) Basophils (%) (Auto) 1.4 % (0.0-2.0) EKG Diagnostic Results Rate: normal Rhythm: NSR ST Segments: no acute changes Rhythm Strip Diag. Results EP Interpretation: yes Rhythm: NSR, no PVC's Last Vital Signs Date Time Temp Pulse Resp B/P (MAP) Pulse Ox O2 Delivery O2 Flow Rate FiO2 03/03/17 03:56 97.5 98 24 153/70 96 Room Air Status: unchanged Disposition: ADMITTED INPATIENT Condition: Serious Referrals: NON PHYSICIAN (PCP) Geoffrey Cote Mar 03, 2017 05:16
[2017-03-03] MEDS: Metoprolol Tartrate 50mg tab ORAL SCH ×2 (10:27→18:34)
[2017-03-03] MEDS: Aspirin EC 81mg tab ORAL SCH (10:28)
[2017-03-03] MEDS: sitaGLIPtin 25mg tab ORAL SCH (10:35)
--- NOTE | 2017-03-03 13:24 | Cardiac Electrophysiology PN ---
Subjective Subjective [id number] Objective Last 24 Hour Vital Signs Date Time Temp Pulse Resp B/P (MAP) Pulse Ox O2 Delivery O2 Flow Rate FiO2 03/03/17 12:55 96.4 76 20 142/74 98 Room Air 03/03/17 12:32 79 20 148/62 100 Room Air 03/03/17 12:08 79 20 148/62 100 Room Air 03/03/17 10:27 79 150/57 03/03/17 10:27 79 150/57 03/03/17 10:08 78 22 150/57 100 Room Air 03/03/17 03:56 97.5 98 24 153/70 96 Room Air 03/03/17 02:33 97.5 87 18 171/66 96 Room Air 03/03/17 02:32 171/66 03/03/17 01:44 112 18 Room Air 03/03/17 00:24 97.5 112 18 158/79 96 Room Air Laboratory Tests Test 03/03/17 01:10 03/03/17 02:00 Sodium Level 134 MMOL/L (136-145) L Potassium Level 5.1 MMOL/L (3.5-5.1) Chloride Level 96 MMOL/L (98-107) L Carbon Dioxide Level 24 MMOL/L (21-32) Anion Gap 14 mmol/L (5-15) Blood Urea Nitrogen 40 mg/dL (7-18) H Creatinine 7.1 MG/DL (0.55-1.30) H Estimat Glomerular Filtration Rate mL/min (>60) Glucose Level 87 MG/DL (74-106) Calcium Level 11.0 MG/DL (8.5-10.1) H Total Bilirubin 0.4 MG/DL (0.2-1.0) Aspartate Amino Transf (AST/SGOT) 23 U/L (15-37) Alanine Aminotransferase (ALT/SGPT) 21 U/L (12-78) Alkaline Phosphatase 75 U/L (46-116) Total Creatine Kinase 53 U/L (26-308) Creatine Kinase MB 1.0 NG/ML (0.0-3.6) Creatine Kinase MB Relative Index 1.8 Troponin I 0.017 ng/mL (0.000-0.056) Pro-B-Type Natriuretic Peptide 9656 pg/mL (0-125) H Total Protein 9.4 G/DL (6.4-8.2) H Albumin 4.1 G/DL (3.4-5.0) Globulin 5.3 g/dL Albumin/Globulin Ratio 0.8 (1.0-2.7) L Lipase 586 U/L (73-393) H White Blood Count 4.5 K/UL (4.8-10.8) L Red Blood Count 4.33 M/UL (4.20-5.40) Hemoglobin 13.3 G/DL (12.0-16.0) Hematocrit 42.7 % (37.0-47.0) Mean Corpuscular Volume 98 FL (80-99) Mean Corpuscular Hemoglobin 30.7 PG (27.0-31.0) Mean Corpuscular Hemoglobin Concent 31.2 G/DL (32.0-36.0) L Red Cell Distribution Width 13.8 % (11.6-14.8) Platelet Count 156 K/UL (150-450) Mean Platelet Volume 7.9 FL (6.5-10.1) Neutrophils (%) (Auto) 60.5 % (45.0-75.0) Lymphocytes (%) (Auto) 22.3 % (20.0-45.0) Monocytes (%) (Auto) 13.3 % (1.0-10.0) H Eosinophils (%) (Auto) 2.6 % (0.0-3.0) Basophils (%) (Auto) 1.4 % (0.0-2.0) ARTIS TEE Mar 03, 2017 13:24
[2017-03-03] MEDS: HydrALAZINE 50mg tab ORAL SCH ×2 (15:22→22:28)
--- NOTE | 2017-03-03 17:00 | Consultation ---
DATE OF CONSULTATION: 03/03/2017 CARDIAC ELECTROPHYSIOLOGY CONSULTATION CONSULTING PHYSICIAN: Nate Magallanes M.D. REFERRING PHYSICIAN: Blaze Plascencia M.D. REASON FOR CONSULTATION: Chest pain. HISTORY OF PRESENT ILLNESS: The patient is a 71-year-old lady with history of hypertension and end-stage renal disease, on hemodialysis who presented to the emergency room with increasing sudden chest pain associated with shortness of breath. The patient usually dialyzed on Friday, Friday, and Friday. The patient had an EKG that was completely normal and was admitted to telemetry for further evaluation and management. PAST MEDICAL HISTORY: 1. Hypertension. 2. End-stage renal disease, on hemodialysis. 3. History of hyperkalemia. MEDICATIONS: Her medications at home include metoprolol 50 mg b.i.d., Norvasc 10 mg, and hydralazine 50 mg every 8 hours. FAMILY HISTORY: Noncontributory. SOCIAL HISTORY: She lives in a residential home. Does not smoke or drink alcohol. REVIEW OF SYSTEMS: Review of systems was performed and was negative other than what was mentioned in the history of present illness. PHYSICAL EXAMINATION: VITAL SIGNS: Blood pressure is 142/74, pulse 76, respirations 20, and she is afebrile. HEAD AND NECK: Shows no JVD or carotid bruits. LUNGS: Clear. CARDIOVASCULAR: Shows regular S1 and S2 with no gallop or murmur. The dialysis line is in the left subclavian. ABDOMEN: Soft. EXTREMITIES: No pitting edema. It is of note, the patient's most recent echocardiogram in December showed EF of 70%. Her most recent stress test on previous admission also showed no evidence of ischemia. LABORATORY AND DIAGNOSTIC DATA: Her labs show white count of 4.5, hemoglobin of 13.7, hematocrit 42.7, and platelet count of 156. Sodium is 134, potassium 5.1, BUN of 40, creatinine 7.1, and glucose of 87. Troponin is 0.17. ASSESSMENT AND PLAN: 1. Chest pain. The pain is atypical. The patient will be ruled out for myocardial infarction. The patient had a stress test on her last admission that showed no evidence of ischemia and her EKG is completely normal. Her echocardiogram also showed ejection fraction of 60%. Pain may be due to the patient's uncontrolled hypertension. 2. Hypertension. Resume the patient's antihypertensive agents including hydralazine 50 mg every 8 hours, Norvasc 10 mg daily, and metoprolol 50 mg b.i.d. 3. End-stage renal disease, on hemodialysis. 4. It is of note that the patient is also on aspirin and Plavix. Thank you very much, Dr. Plascencia, for allowing me to participate in the care of this patient. Please do not hesitate to contact me for any questions regarding my evaluation. Nate Magallanes M.D. DR: SWETA JOB#: [id number] CC:
--- NOTE | 2017-03-03 17:12 | Nephrology Progress Note ---
Assessment/Plan Problem List: (1) ESRD (end stage renal disease) on dialysis (2) Chest pain (3) Hypertension (4) Congestive heart failure (CHF) (5) DM (diabetes mellitus) (6) Chest pain (7) ACS (acute coronary syndrome) Plan H&P dictated # [id number] Subjective Constitutional: Denies: no symptoms, chills, diaphoresis, fever, malaise, weakness, other HEENT: Denies: no symptoms, eye pain, blurred vision, tearing, double vision, ear pain, ear discharge, nose pain, nose congestion, throat pain, throat swelling, mouth pain, mouth swelling, other Genitourinary: Denies: no symptoms, burning, discharge, frequency, flank pain, hematuria, incontinence, pain, urgency, other Neurologic/Psychiatric: Denies: no symptoms, anxiety, depressed, emotional problems, headache, numbness, paresthesia, pre-existing deficit, seizure, tingling, tremors, weakness, other Subjective In no apparent distress Objective Objective Last 24 Hour Vital Signs Date Time Temp Pulse Resp B/P (MAP) Pulse Ox O2 Delivery O2 Flow Rate FiO2 03/03/17 15:22 142/74 03/03/17 12:55 96.4 76 20 142/74 98 Room Air 03/03/17 12:32 79 20 148/62 100 Room Air 03/03/17 12:08 79 20 148/62 100 Room Air 03/03/17 10:27 79 150/57 03/03/17 10:27 79 150/57 03/03/17 10:08 78 22 150/57 100 Room Air 03/03/17 03:56 97.5 98 24 153/70 96 Room Air 03/03/17 02:33 97.5 87 18 171/66 96 Room Air 03/03/17 02:32 171/66 03/03/17 01:44 112 18 Room Air 03/03/17 00:24 97.5 112 18 158/79 96 Room Air Laboratory Tests 03/03/17 01:10: Sodium Level 134L, Potassium Level 5.1, Chloride Level 96L, Carbon Dioxide Level 24, Anion Gap 14, Blood Urea Nitrogen 40H, Creatinine 7.1H, Estimat Glomerular Filtration Rate , Glucose Level 87, Calcium Level 11.0H, Total Bilirubin 0.4, Aspartate Amino Transf (AST/SGOT) 23, Alanine Aminotransferase ( ALT/SGPT) 21, Alkaline Phosphatase 75, Total Creatine Kinase 53, Creatine Kinase MB 1.0, Creatine Kinase MB Relative Index 1.8, Troponin I 0.017, Pro-B- Type Natriuretic Peptide 9656H, Total Protein 9.4H, Albumin 4.1, Globulin 5.3, Albumin/Globulin Ratio 0.8L, Lipase 586H 03/03/17 02:00: White Blood Count 4.5L, Red Blood Count 4.33, Hemoglobin 13.3, Hematocrit 42.7, Mean Corpuscular Volume 98, Mean Corpuscular Hemoglobin 30.7, Mean Corpuscular Hemoglobin Concent 31.2L, Red Cell Distribution Width 13.8, Platelet Count 156, Mean Platelet Volume 7.9, Neutrophils (%) (Auto) 60.5, Lymphocytes (%) (Auto) 22.3, Monocytes (%) (Auto) 13.3H, Eosinophils (%) (Auto) 2.6, Basophils (%) ( Auto) 1.4 Height (Feet): 5 Height (Inches): 2.00 Weight (Pounds): 90 General Appearance: no apparent distress, alert EENT: normal ENT inspection Neck: normal alignment, supple Cardiovascular: regular rhythm, no JVD Respiratory/Chest: normal breath sounds, no respiratory distress Abdomen: soft, no organomegaly Extremities: non-tender, normal inspection Neurologic: alert, oriented x 3, responsive, normal mood/affect Sharlene Velasco N.P. Mar 03, 2017 17:12
--- NOTE | 2017-03-03 18:15 | HX and Phyl Repo 2 Sig ---
DATE OF ADMISSION: 03/03/2017 HISTORY OF PRESENT ILLNESS: The patient is a 71-year-old female, well known to me from previous hospitalization, who presented to the emergency room with the chest pain, left-sided, nonradiating. The patient has been having recurrent chest pain, which has resulted in frequent admissions. She has also a history of congestive heart failure, end-stage renal disease, on hemodialysis every Mondays, Wednesdays, and Friday and history of hypertension. According to the patient, the chest pain started yesterday, which got increasingly worse, but she stated that she has been having chest pain off and on with shortness of breath. She stated that she has been compliant with her hemodialysis, stated that the pain is 4/10 at this time and is constant. She denies any fever or chills. Denies nausea or vomiting. Denies abdominal pain. She stated that she is not short of breath at this time. She is lying comfortably in bed at this time in no apparent distress. PAST MEDICAL HISTORY: Significant for recurrent chest pain, end-stage renal disease, on hemodialysis, congestive heart failure and hypertension. MEDICATIONS: Home medications includes amlodipine 10 mg p.o. daily, aspirin 81 mg p.o. daily, clonidine 0.1 mg p.o. q.6 h. p.r.n., Plavix 75 mg p.o. daily, hydralazine 50 mg p.o. t.i.d., Claritin 10 mg p.o. daily, metoprolol tartrate 50 mg p.o. b.i.d., and Januvia 25 mg p.o. daily. ALLERGIES: She has no known allergies. SOCIAL HISTORY: She lives at home with family. Denies any smoking. No history of alcohol use and no illicit drug use. FAMILY HISTORY: Noncontributory. REVIEW OF SYSTEMS: A full 12-point review of system was reviewed with the patient and positives as stated in history of present illness. PHYSICAL EXAMINATION: GENERAL: This is a 71-year-old female, in no apparent distress, lying comfortably in bed. VITAL SIGNS: Blood pressure 142/74, heart rate is 76, respiratory rate 20, temperature is 96.4 degrees, and O2 saturation is 98% on room air. HEENT: Head is normocephalic and atraumatic with moist mucous membranes. Pupils are equal, round, and reactive to light and accommodation. NECK: Supple. No JVD noted. LUNGS: Clear to auscultation bilaterally. No wheezing. No crackles. CARDIOVASCULAR: Regular. ABDOMEN: Soft, nontender, and nondistended. Positive bowel sounds in all four quadrants. EXTREMITIES: No edema. No cyanosis. No clubbing. NEUROLOGIC: She is awake, alert, and oriented x3 with no focal deficits. LABORATORY AND DIAGNOSTIC DATA: CBC, white count 4.5, hemoglobin 13.3, hematocrit 42.7, and a platelet count of 156. BMP, sodium 134, potassium 5.1, chloride 96, bicarbonate 24, BUN 40, creatinine 7.1, and blood glucose is 87. Troponin is negative at 0.017. BNP 9656. Radiologic findings none at this time. ASSESSMENT: 1. Chest pain, rule out acute coronary syndrome. 2. Shortness of breath. 3. Congestive heart failure. 4. End-stage renal disease, on hemodialysis. 5. Hyponatremia. 6. Hypertension. 7. Diabetes. PLAN: We will continue hemodialysis as scheduled. The patient is currently being dialyzed at this time. We will follow up postprocedure. Dr. Magallanes has been asked to see this patient is to follow up with this consult. We will monitor electrolytes and correct with hemodialysis. We will continue hemodialysis every Mondays, Wednesdays, and Fridays. We will monitor vitals. Glycemic control. Pain management as needed. We will monitor the patient's overall response to treatment. Blaze Plascencia M.D. Sharlene Velasco DR: HARSHIL JOB#: [id number] CC:
--- NOTE | 2017-03-03 21:47 | Diagnostic Imaging Report ---
Indication: Dyspnea Comparison: 12/24/2016 A single view chest radiograph was obtained. Findings: Lungs are clear. The heart is enlarged. Surgical clips in the right upper quadrant abdomen. Left permacath noted. There is a SVC stent present. IMPRESSION: No acute disease
--- NOTE | 2017-03-03 21:49 | Cardiology Report ---
APPROVED REPORT EXAM: Two-dimensional and M-mode echocardiogram with Doppler and color Doppler. INDICATION Chest Pain M-Mode DIMENSIONS IVSd1.6 (0.7-1.1cm)Left Atrium (MM)3.6 (1.6-4.0cm) LVDd3.5 (3.5-5.6cm)Aortic Root2.0 (2.0-3.7cm) PWd1.0 (0.7-1.1cm)Aortic Cusp Exc.1.6 (1.5-2.0cm) LVDs1.9 (2.5-4.0cm) PWs1.8 cm Normal left ventricular chamber size, systolic function and wall motion. Left ventricular ejection fraction estimated to be 65 %. Mild left ventricular hypertrophy. No evidence of pericardial effusion. All other cardiac chamber sizes are within normal limits. Mild focal aortic valve sclerosis with adequate cusp excursion. Heavy thickened mitral valve leaflets with normal excursion. Echogenic material noted on anterior mitral valve leaflet, likely calcification. Heavy mitral annulus and aortic root calcification. Pulmonic valve not visualized. Normal tricuspid valve structure. IVC at normal size with physiologic collapse. A color flow and spectral Doppler study was performed and revealed: Trace aortic regurgitation. Peak aortic valve gradient of 18 mmHg and a mean of 7 mmHg. Aortic valve area 1.6 cm2 calculated by continuity equation. Trace mitral regurgitation. Mitral diastolic velocities suggest moderate left ventricular dysfunction or pseudo-normal LV pattern (Grade II ). Moderate tricuspid regurgitation. Tricuspid systolic velocities suggests peak right ventricular systolic pressure of 82 mmHg, consistent with severe pulmonary hypertension. No pulmonic regurgitation present.
--- NOTE | 2017-03-03 21:49 | Cardiology Report ---
APPROVED REPORT EKG Measurement Heart [id number] Normal sinus rhythm Normal ECG
[2017-03-04] VITALS (7 sets, daily range): BP systolic 98–149; BP diastolic 53–83
[2017-03-04] MEDS ORDERED: DiphenhydrAMINE 50mg/ml Inj IVP PRN (02:45)
[2017-03-04] MEDS ORDERED: Zolpidem 5mg tab ORAL PRN (02:45)
[2017-03-04] MEDS: HydrALAZINE 50mg tab ORAL SCH ×3 (06:23→21:42)
[2017-03-04] MEDS: Heparin 5000 units/ml inj SUBQ SCH ×3 (09:00→21:43)
[2017-03-04] MEDS: Metoprolol Tartrate 50mg tab ORAL SCH ×2 (09:15→18:00)
[2017-03-04] MEDS: Aspirin EC 81mg tab ORAL SCH (09:15)
[2017-03-04] MEDS: sitaGLIPtin 25mg tab ORAL SCH (09:16)
--- NOTE | 2017-03-04 12:27 | Nephrology Progress Note ---
Assessment/Plan Problem List: (1) ESRD (end stage renal disease) on dialysis (2) DM (diabetes mellitus) (3) Hypertension (4) Chest pain (5) ACS (acute coronary syndrome) (6) Anemia in chronic kidney disease (CKD) Plan HD as scheduled. monitor labs. PT/OT. Subjective Subjective had HD yesterday. feels ok. C/o itchiness. Also has intermittent back pain. Objective Objective Last 24 Hour Vital Signs Date Time Temp Pulse Resp B/P (MAP) Pulse Ox O2 Delivery O2 Flow Rate FiO2 03/04/17 09:16 84 131/69 03/04/17 09:15 84 131/69 03/04/17 08:00 97.1 84 18 131/69 100 Room Air 03/04/17 08:00 92 03/04/17 06:23 138/69 03/04/17 04:46 97.7 84 21 149/62 94 Room Air 84 03/04/17 04:00 89 03/04/17 00:00 96.8 87 20 129/58 97 Room Air 03/04/17 00:00 88 03/03/17 22:28 130/68 03/03/17 20:32 Room Air 03/03/17 20:30 98.8 88 20 107/49 Room Air 03/03/17 20:00 77 03/03/17 20:00 97.0 60 24 107/49 89 Room Air 03/03/17 18:34 77 124/65 03/03/17 17:00 99.5 77 20 124/65 Room Air 03/03/17 17:00 Room Air 03/03/17 16:00 74 03/03/17 15:22 142/74 03/03/17 12:55 96.4 76 20 142/74 98 Room Air 03/03/17 12:48 80 03/03/17 12:32 79 20 148/62 100 Room Air Intake and Output 03/03/17 03/04/17 19:00 07:00 Intake Total 120 ml Output Total 1758 ml Balance 120 ml -1758 ml Intake Oral 120 ml Output Urine Total 300 ml Hemodialysis UF 1458 ml # Bowel Movements 1 Laboratory Tests 03/04/17 08:50: Troponin I 0.027 Height (Feet): 5 Height (Inches): 2.00 Weight (Pounds): 90 General Appearance: no apparent distress Cardiovascular: normal rate, regular rhythm Respiratory/Chest: lungs clear Abdomen: non tender, soft Extremities: non-pitting Neurologic: alert, oriented x 3 ABELARDO AGEE Mar 04, 2017 12:27
--- NOTE | 2017-03-04 15:26 | Cardiac Electrophysiology PN ---
Assessment/Plan Assessment/Plan 1. Chest pain. The pain is atypical. Ruled out for myocardial infarction. The patient had a stress test on her last admission that showed no evidence of ischemia and her EKG is completely normal. Her echocardiogram also showed ejection fraction of 60%. Pain may be due to the patient's uncontrolled hypertension.On Aspirin, Plavix, Lopressor 2. Hypertension. Better on hydralazine 50 mg every 8 hours, Norvasc 10 mg daily , and metoprolol 50 mg b.i.d. 3. End-stage renal disease, on hemodialysis. DC tele RN Subjective Subjective Feeling better. No chest pain or SOB. Objective Last 24 Hour Vital Signs Date Time Temp Pulse Resp B/P (MAP) Pulse Ox O2 Delivery O2 Flow Rate FiO2 03/04/17 14:31 144/83 03/04/17 12:00 97.3 72 18 144/83 100 Room Air 03/04/17 09:16 84 131/69 03/04/17 09:15 84 131/69 03/04/17 08:00 97.1 84 18 131/69 100 Room Air 03/04/17 08:00 92 03/04/17 06:23 138/69 03/04/17 04:46 97.7 84 21 149/62 94 Room Air 84 03/04/17 04:00 89 03/04/17 00:00 96.8 87 20 129/58 97 Room Air 03/04/17 00:00 88 03/03/17 22:28 130/68 03/03/17 20:32 Room Air 03/03/17 20:30 98.8 88 20 107/49 Room Air 03/03/17 20:00 77 03/03/17 20:00 97.0 60 24 107/49 89 Room Air 03/03/17 18:34 77 124/65 03/03/17 17:00 99.5 77 20 124/65 Room Air 03/03/17 17:00 Room Air 03/03/17 16:00 74 Intake and Output 03/03/17 03/04/17 19:00 07:00 Intake Total 120 ml Output Total 1758 ml Balance 120 ml -1758 ml Intake Oral 120 ml Output Urine Total 300 ml Hemodialysis UF 1458 ml # Bowel Movements 1 Laboratory Tests Test 03/04/17 08:50 Troponin I 0.027 ng/mL (0.000-0.056) Objective HEAD AND NECK: No JVD or carotid bruits. LUNGS: Clear. CARDIOVASCULAR: Regular S1 and S2 with no gallop or murmur. The dialysis line is in the left subclavian. ABDOMEN: Soft. EXTREMITIES: No pitting edema. ARTIS TEE Mar 04, 2017 15:26
[2017-03-04] MEDS ORDERED: Hydromorphone 0.5mg/0.5ml inj IVP PRN ×2 (20:00→20:30)
[2017-03-04] MEDS ORDERED: LORazepam Inj 2mg/ml 1ml IV PRN (20:00)
[2017-03-05] VITALS (8 sets, daily range): BP systolic 128–170; BP diastolic 56–82
[2017-03-05] MEDS: HydrALAZINE 50mg tab ORAL SCH ×3 (06:10→22:00)
[2017-03-05] MEDS: sitaGLIPtin 25mg tab ORAL SCH (08:04)
[2017-03-05] MEDS: Aspirin EC 81mg tab ORAL SCH (08:04)
[2017-03-05] MEDS: Heparin 5000 units/ml inj SUBQ SCH ×3 (08:05→20:02)
[2017-03-05] MEDS: Metoprolol Tartrate 50mg tab ORAL SCH ×2 (08:33→18:00)
[2017-03-05] MEDS ORDERED: Zolpidem 5mg tab ORAL PRN (10:00)
[2017-03-05] MEDS ORDERED: LORazepam Inj 2mg/ml 1ml IV PRN (10:00)
--- NOTE | 2017-03-05 13:10 | Internal Med Progress Note ---
Subjective Date of Service: Mar 05, 2017 Physician Name Bernard Mckeon Attending Physician Blaze Plascencia Current Medications Medications (Trade) Dose Ordered Sig/[place] Route PRN Reason Start Time Stop Time Status Last Admin Dose Admin Acetaminophen (Tylenol) 650 mg Q4H PRN ORAL Mild Pain (Pain Scale 1-3) 03/05/17 10:00 04/02/17 09:59 Amlodipine Besylate (Norvasc) 10 mg DAILY ORAL 03/06/17 09:00 04/05/17 08:59 Aspirin (Ecotrin) 81 mg DAILY ORAL 03/06/17 09:00 04/05/17 08:59 Clonidine HCl (Catapres Tab) 0.1 mg Q6H PRN ORAL SBP>160 03/05/17 10:00 04/02/17 09:59 Clopidogrel Bisulfate (Plavix) 75 mg DAILY ORAL 03/06/17 09:00 04/05/17 08:59 Dextrose (Dextrose 50%) STAT PRN IV Hypoglycemia 03/06/17 08:30 04/02/17 08:29 Diphenhydramine HCl (Benadryl) 25 mg Q6H PRN IVP Itching 03/05/17 10:00 04/03/17 09:59 Heparin Sodium (Porcine) (Heparin 5000 units/ml) 5,000 units Q12HR SUBQ 03/05/17 09:00 04/03/17 08:59 Hydralazine HCl (Apresoline) 50 mg Q8HR ORAL 03/05/17 14:00 04/02/17 13:59 Hydromorphone HCl (Dilaudid) 1 mg Q6H PRN IVP PAIN 4-10 03/05/17 10:00 03/11/17 09:59 Lorazepam (Ativan 2mg/ml 1ml) 1 mg Q6H PRN IV For Anxiety 03/05/17 10:00 03/11/17 09:59 Metoprolol Tartrate (Lopressor) 50 mg BID ORAL 03/05/17 18:00 04/04/17 17:59 Ondansetron HCl (Zofran) 4 mg Q6H PRN IVP Nausea & Vomiting 03/05/17 10:00 04/02/17 09:59 Sitagliptin Phosphate (Januvia) 25 mg DAILY ORAL 03/06/17 09:00 04/05/17 08:59 Zolpidem Tartrate (Ambien) 5 mg HSPRN PRN ORAL Insomnia 03/05/17 10:00 03/12/17 09:59 Allergies: Coded Allergies: No Known Allergies (Unverified , 10/24/14) ROS Limited/Unobtainable: No HEENT: Reports: no symptoms Cardiovascular: Reports: chest pain Respiratory: Reports: shortness of breath Gastrointestinal/Abdominal: Reports: no symptoms Genitourinary: Reports: no symptoms Neurologic/Psychiatric: Reports: no symptoms Subjective 71 YO F admitted with chest pain. Cover for Internal medicine-Dr Alford Objective Last Vital Signs Date Time Temp Pulse Resp B/P (MAP) Pulse Ox O2 Delivery O2 Flow Rate FiO2 03/05/17 11:13 98.1 71 21 128/56 92 Room Air General Appearance: WD/WN, no apparent distress, alert EENT: PERRL/EOMI, normal ENT inspection Neck: non-tender, normal alignment, supple, normal inspection Cardiovascular: normal peripheral pulses, normal rate, regular rhythm, no gallop/murmur, no JVD Respiratory/Chest: chest wall non-tender, lungs clear, normal breath sounds, no respiratory distress, no accessory muscle use Abdomen: normal bowel sounds, non tender, soft, no organomegaly, no mass Extremities: normal range of motion 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 Complete 03/03/17 05:12 Rectum VRE Culture - Final NO VANCOMYCIN RESISTANT ENTEROCOCCUS ... Complete Intake and Output 03/04/17 03/05/17 19:00 07:00 Intake Total 510 ml Output Total 0 ml Balance 510 ml 0 ml Intake Oral 510 ml Stool Total 0 ml Assessment/Plan Problem List: (1) ESRD (end stage renal disease) on dialysis Assessment & Plan: Last dialysis Friday03/03/17. Next dialysis today 03/05/17- see nephrology note. (2) Congestive heart failure (CHF) Assessment & Plan: See cardiology note. (3) Hypertension Assessment & Plan: continue amlodipine, hydralazine and lopressor (4) Chest pain Assessment & Plan: Ruled out for acute myocardial infarction-see cardiology note. (5) DM (diabetes mellitus) Assessment & Plan: continue BERNARD Nunn Mar 05, 2017 13:10
[2017-03-05] MEDS: Hydromorphone 0.5mg/0.5ml inj IVP PRN (15:39)
--- NOTE | 2017-03-05 16:14 | Nephrology Progress Note ---
Assessment/Plan Problem List: (1) ESRD (end stage renal disease) on dialysis (2) Chest pain (3) Hypertension (4) Congestive heart failure (CHF) (5) DM (diabetes mellitus) (6) Chest pain (7) ACS (acute coronary syndrome) Plan Continue HD every MWF Monitor lytes, correct with HD Pt is scheduled for HD today 03/05/17 Cardio following Monitor H&H, transfuse prn Pain management prn Free water restriction DVT proph PPI daily AM labs Subjective Constitutional: Denies: no symptoms, chills, diaphoresis, fever, malaise, weakness, other HEENT: Denies: no symptoms, eye pain, blurred vision, tearing, double vision, ear pain, ear discharge, nose pain, nose congestion, throat pain, throat swelling, mouth pain, mouth swelling, other Genitourinary: Denies: no symptoms, burning, discharge, frequency, flank pain, hematuria, incontinence, pain, urgency, other Neurologic/Psychiatric: Denies: no symptoms, anxiety, depressed, emotional problems, headache, numbness, paresthesia, pre-existing deficit, seizure, tingling, tremors, weakness, other Subjective In no apparent distress, denies chest pain at this time, no SOB Objective Objective Last 24 Hour Vital Signs Date Time Temp Pulse Resp B/P (MAP) Pulse Ox O2 Delivery O2 Flow Rate FiO2 03/05/17 13:53 145/67 03/05/17 13:51 72 145/67 03/05/17 11:13 98.1 71 21 128/56 92 Room Air 03/05/17 08:33 80 130/60 03/05/17 08:33 80 130/60 03/05/17 08:14 97.3 80 24 130/60 94 Room Air 03/05/17 06:10 132/67 03/05/17 04:26 97.3 78 24 132/67 94 Room Air 03/05/17 04:26 Room Air 03/05/17 00:58 97.7 Room Air 03/05/17 00:48 100.0 75 20 130/57 90 Room Air 03/04/17 21:42 138/54 03/04/17 20:43 Room Air 03/04/17 20:43 97.2 75 21 138/54 95 Room Air 03/04/17 20:42 97.0 128 22 98/53 100 Room Air 03/04/17 18:00 75 113/55 Intake and Output 03/04/17 03/05/17 19:00 07:00 Intake Total 510 ml Output Total 0 ml Balance 510 ml 0 ml Intake Oral 510 ml Stool Total 0 ml Laboratory Tests 03/05/17 05:10: Troponin I 0.029 03/05/17 05:30: Hemoglobin A1c 5.5 Height (Feet): 5 Height (Inches): 2.00 Weight (Pounds): 90 General Appearance: no apparent distress EENT: normal ENT inspection Neck: normal alignment, supple Cardiovascular: normal rate Respiratory/Chest: normal breath sounds, no respiratory distress Abdomen: soft Extremities: non-tender Neurologic: alert, oriented x 3, responsive, normal mood/affect Sharlene Velasco N.P. Mar 05, 2017 16:14
[2017-03-05] MEDS: NovoLOG Insulin Flexpen SUBQ SCH ×2 (16:30→21:00)
--- NOTE | 2017-03-05 16:57 | Cardiac Electrophysiology PN ---
Assessment/Plan Assessment/Plan 1. Atypical Chest pain. Ruled out for myocardial infarction.Stress test on her last admission showed no evidence of ischemia and her EKG is completely normal. Her echocardiogram also showed ejection fraction of 60%. On Aspirin, Plavix, Lopressor 2. Hypertension. Better on hydralazine 50 mg every 8 hours, Norvasc 10 mg daily , and metoprolol 50 mg b.i.d. 3. End-stage renal disease, on hemodialysis. JOHN RN Subjective Subjective Feeling better. No chest pain or SOB.Awaiting HD today. Objective Last 24 Hour Vital Signs Date Time Temp Pulse Resp B/P (MAP) Pulse Ox O2 Delivery O2 Flow Rate FiO2 03/05/17 16:00 97.6 71 20 136/56 95 Room Air 03/05/17 13:53 145/67 03/05/17 13:51 72 145/67 03/05/17 11:13 98.1 71 21 128/56 92 Room Air 03/05/17 08:33 80 130/60 03/05/17 08:33 80 130/60 03/05/17 08:14 97.3 80 24 130/60 94 Room Air 03/05/17 06:10 132/67 03/05/17 04:26 97.3 78 24 132/67 94 Room Air 03/05/17 04:26 Room Air 03/05/17 00:58 97.7 Room Air 03/05/17 00:48 100.0 75 20 130/57 90 Room Air 03/04/17 21:42 138/54 03/04/17 20:43 Room Air 03/04/17 20:43 97.2 75 21 138/54 95 Room Air 03/04/17 20:42 97.0 128 22 98/53 100 Room Air 03/04/17 18:00 75 113/55 Intake and Output 03/04/17 03/05/17 19:00 07:00 Intake Total 510 ml Output Total 0 ml Balance 510 ml 0 ml Intake Oral 510 ml Stool Total 0 ml Laboratory Tests Test 03/05/17 05:10 03/05/17 05:30 Troponin I 0.029 ng/mL (0.000-0.056) Hemoglobin A1c 5.5 % (4.3-6.0) Microbiology Date/Time Source Procedure Growth Status 03/03/17 05:12 Nasal Nares MRSA Culture - Final NO METHICILLIN RESISTANT STAPH AUREUS... Complete 03/03/17 05:12 Rectum VRE Culture - Final NO VANCOMYCIN RESISTANT ENTEROCOCCUS ... Complete Objective HEAD AND NECK: No JVD or carotid bruits. LUNGS: Clear. CARDIOVASCULAR: Regular S1 and S2 with no gallop or murmur. The dialysis line is in the left subclavian. ABDOMEN: Soft. EXTREMITIES: No pitting edema. ARTIS TEE Mar 05, 2017 16:57
--- NOTE | 2017-03-05 21:00 | Consultation ---
DATE OF CONSULTATION: 03/05/2017 MEDICAL CONSULTATION TIME SEEN: 11 a.m. CONSULTING PHYSICIAN: Lavell Santana M.D. CHIEF COMPLAINT: Chest pain and shortness of breath. BRIEF HISTORY: This is a 71-year-old female, who presents to the [facility] with history of chest pain and shortness of breath from one day, substernal. No loss of consciousness. The patient was diagnosed with above and admitted to the medical floor for further treatment. Currently, calm in bed. Slight chest pain. Slight short of breath. No other complaint. REVIEW OF SYSTEMS: Slight chest pain. Slight short of breath. No nausea, vomiting, or diarrhea. PAST MEDICAL HISTORY: ESRD, hyperkalemia, hypertension, and diabetes. PAST SURGICAL HISTORY: Shunt placement. ALLERGIES: Denies. MEDICATIONS: Norvasc, Ecotrin, Plavix, Januvia, Lopressor, Apresoline, Catapres, Benadryl, Ativan, and Zofran. SOCIAL HISTORY: No smoking. No alcohol. No intravenous drug abuse. FAMILY HISTORY: Noncontributory. PHYSICAL EXAMINATION: GENERAL: Slightly anxious in bed, oriented x2, in no acute distress. VITAL SIGNS: Temperature is 98 degrees, pulse 71, respiratory rate 21, and blood pressure 128/56. CARDIOVASCULAR: No murmur. LUNGS: Poor air exchange. ABDOMEN: Bowel sounds distant. EXTREMITIES: No cyanosis, clubbing, or edema. NEUROLOGIC: The patient moves all extremities, slightly weak. LABORATORY DATA: Labs at this time show a white count 4.5, otherwise CBC is normal. BMP shows sodium 134, chloride 96, BUN and creatinine 40/7.1, and glucose 87. Troponin 0.017, 0.027, and 0.029. BNP is 9656. ASSESSMENT: 1. Chest pain. 2. End-stage renal disease. 3. Hyperkalemia. 4. Hypertension. 5. Diabetes. PLAN: Blood pressure and blood sugar control. Pain control. Dietary followup. Dialysis p.r.n. OT/PT. Dietary evaluation. CBC and BMP in morning. Cardiology followup. Troponin q.8 h. x3. Lavell Santana D.O. DR: GABRIELLE JOB#: [id number] CC:
[2017-03-05] MEDS: DiphenhydrAMINE 50mg/ml Inj IVP PRN (23:33)
[2017-03-06] VITALS (7 sets, daily range): BP systolic 118–148; BP diastolic 69–86
[2017-03-06] MEDS: Hydromorphone 0.5mg/0.5ml inj IVP PRN (01:05)
[2017-03-06] MEDS: HydrALAZINE 50mg tab ORAL SCH ×3 (05:43→21:42)
[2017-03-06] MEDS: NovoLOG Insulin Flexpen SUBQ SCH ×4 (06:03→20:32)
[2017-03-06 07:29] LABS: BASOPHILS % (AUTO) 0.5 % (0.0-2.0); EOSINOPHILS % (AUTO) 0.2 % (0.0-3.0); HEMATOCRIT 47.9 % (37.0-47.0); HEMOGLOBIN 15.1 G/DL (12.0-16.0); MEAN CORPUSCULAR VOLUME 100 FL (80-99); MONOCYTES % (AUTO) 12.3 % (1.0-10.0); PLATELET COUNT 208 K/UL (150-450); WHITE BLOOD COUNT 8.6 K/UL (4.8-10.8)
[2017-03-06 08:03] LABS: ANION GAP 14 mmol/L (5-15); BLOOD UREA NITROGEN 26 mg/dL (7-18); CARBON DIOXIDE 34 MMOL/L (21-32); CHLORIDE 94 MMOL/L (98-107); CREATININE 5.7 MG/DL (0.55-1.30); POTASSIUM 4.2 MMOL/L (3.5-5.1); SODIUM 142 MMOL/L (136-145)
[2017-03-06] MEDS: sitaGLIPtin 25mg tab ORAL SCH (08:41)
[2017-03-06] MEDS: Aspirin EC 81mg tab ORAL SCH (08:41)
[2017-03-06] MEDS: Metoprolol Tartrate 50mg tab ORAL SCH ×2 (08:41→18:08)
[2017-03-06] MEDS: Heparin 5000 units/ml inj SUBQ SCH ×2 (08:43→20:05)
--- NOTE | 2017-03-06 13:40 | General Progress Note ---
Assessment/Plan Problem List: (1) ESRD (end stage renal disease) on dialysis ICD Codes: N18.6 - End stage renal disease; Z99.2 - Dependence on renal dialysis SNOMED: 629972288 (2) Hypertension ICD Codes: I10 - Essential (primary) hypertension SNOMED: 48785556 (3) Hyperkalemia ICD Codes: E87.5 - Hyperkalemia SNOMED: 52044352 (4) ACS (acute coronary syndrome) ICD Codes: I24.9 - ACS (acute coronary syndrome) SNOMED: 305731169 (5) DM (diabetes mellitus) ICD Codes: E11.9 - Type 2 diabetes mellitus without complications SNOMED: 64928578 Status: stable, progressing, tolerating diet Assessment/Plan ot pt diet dialysis cardio f/u cbc bmp am Subjective Constitutional: Reports: weakness Allergies: Coded Allergies: No Known Allergies (Unverified , 10/24/14) All Systems: reviewed and negative except above Subjective sleepy calm in bed Objective Last 24 Hour Vital Signs Date Time Temp Pulse Resp B/P (MAP) Pulse Ox O2 Delivery O2 Flow Rate FiO2 03/06/17 12:53 129/72 03/06/17 12:00 97.5 86 18 129/72 94 03/06/17 08:00 97.7 84 20 138/86 94 03/06/17 05:43 131/74 03/06/17 04:00 97.6 95 18 131/74 92 03/06/17 01:35 96.8 03/06/17 00:00 96.8 90 19 148/84 100 03/05/17 23:00 Room Air 03/05/17 23:00 96.2 74 20 170/82 Room Air 03/05/17 22:00 159/69 03/05/17 19:59 98.0 75 18 153/69 100 03/05/17 16:00 97.6 71 20 136/56 95 Room Air 03/05/17 13:53 145/67 03/05/17 13:51 72 145/67 Intake and Output 03/05/17 03/06/17 19:00 07:00 Intake Total 150 ml Output Total 40 ml Balance 110 ml Intake Oral 150 ml Emesis 40 ml # Voids 2 Laboratory Tests 03/06/17 05:10: White Blood Count 8.6, Red Blood Count 4.80, Hemoglobin 15.1, Hematocrit 47.9H, Mean Corpuscular Volume 100H, Mean Corpuscular Hemoglobin 31.4H, Mean Corpuscular Hemoglobin Concent 31.4L, Red Cell Distribution Width 14.0, Platelet Count 208, Mean Platelet Volume 8.0, Neutrophils (%) (Auto) 79.0H, Lymphocytes (%) (Auto) 8.0L, Monocytes (%) (Auto) 12.3H, Eosinophils (%) (Auto) 0.2, Basophils (%) (Auto) 0.5, Sodium Level 142, Potassium Level 4.2, Chloride Level 94L, Carbon Dioxide Level 34H, Anion Gap 14, Blood Urea Nitrogen 26H, Creatinine 5.7H, Estimat Glomerular Filtration Rate , Glucose Level 118H, Calcium Level 11.0H Height (Feet): 5 Height (Inches): 2.00 Weight (Pounds): 90 General Appearance: lethargic EENT: normal ENT inspection Neck: normal alignment Cardiovascular: normal peripheral pulses, normal rate, regular rhythm Respiratory/Chest: chest wall non-tender, lungs clear, normal breath sounds Abdomen: normal bowel sounds, non tender, soft Extremities: normal inspection Edema: no edema noted Arm (L), no edema noted Arm (R), no edema noted Leg (L), no edema noted Leg (R), no edema noted Pedal (L), no edema noted Pedal (R), no edema noted Generalized Neurologic: motor weakness Skin: normal pigmentation, warm/dry SHIELA GALEANA Mar 06, 2017 13:40
--- NOTE | 2017-03-06 16:45 | Cardiac Electrophysiology PN ---
Assessment/Plan Assessment/Plan 1. Atypical Chest pain. Ruled out for myocardial infarction.Stress test last admission showed no evidence of ischemia and her EKG is completely normal. Echocardiogram also showed ejection fraction of 60%. On Aspirin, Plavix, Lopressor 2. Hypertension. Better on hydralazine 50 mg every 8 hours, Norvasc 10 mg daily , and metoprolol 50 mg b.i.d. 3. End-stage renal disease, on hemodialysis. JOHN RN Subjective Subjective . No chest pain or SOB.Had HD . Awaiting SNIF Objective Last 24 Hour Vital Signs Date Time Temp Pulse Resp B/P (MAP) Pulse Ox O2 Delivery O2 Flow Rate FiO2 03/06/17 16:00 97.7 95 18 133/72 94 03/06/17 12:53 129/72 03/06/17 12:00 97.5 86 18 129/72 94 03/06/17 08:00 97.7 84 20 138/86 94 03/06/17 05:43 131/74 03/06/17 04:00 97.6 95 18 131/74 92 03/06/17 01:35 96.8 03/06/17 00:00 96.8 90 19 148/84 100 03/05/17 23:00 Room Air 03/05/17 23:00 96.2 74 20 170/82 Room Air 03/05/17 22:00 159/69 03/05/17 19:59 98.0 75 18 153/69 100 Intake and Output 03/05/17 03/06/17 19:00 07:00 Intake Total 150 ml Output Total 40 ml Balance 110 ml Intake Oral 150 ml Emesis 40 ml # Voids 2 Laboratory Tests Test 03/06/17 05:10 White Blood Count 8.6 K/UL (4.8-10.8) Red Blood Count 4.80 M/UL (4.20-5.40) Hemoglobin 15.1 G/DL (12.0-16.0) Hematocrit 47.9 % (37.0-47.0) H Mean Corpuscular Volume 100 FL (80-99) H Mean Corpuscular Hemoglobin 31.4 PG (27.0-31.0) H Mean Corpuscular Hemoglobin Concent 31.4 G/DL (32.0-36.0) L Red Cell Distribution Width 14.0 % (11.6-14.8) Platelet Count 208 K/UL (150-450) Mean Platelet Volume 8.0 FL (6.5-10.1) Neutrophils (%) (Auto) 79.0 % (45.0-75.0) H Lymphocytes (%) (Auto) 8.0 % (20.0-45.0) L Monocytes (%) (Auto) 12.3 % (1.0-10.0) H Eosinophils (%) (Auto) 0.2 % (0.0-3.0) Basophils (%) (Auto) 0.5 % (0.0-2.0) Sodium Level 142 MMOL/L (136-145) Potassium Level 4.2 MMOL/L (3.5-5.1) Chloride Level 94 MMOL/L (98-107) L Carbon Dioxide Level 34 MMOL/L (21-32) H Anion Gap 14 mmol/L (5-15) Blood Urea Nitrogen 26 mg/dL (7-18) H Creatinine 5.7 MG/DL (0.55-1.30) H Estimat Glomerular Filtration Rate mL/min (>60) Glucose Level 118 MG/DL (74-106) H Calcium Level 11.0 MG/DL (8.5-10.1) H Objective HEAD AND NECK: No JVD or carotid bruits. LUNGS: Clear. CARDIOVASCULAR: Regular S1 and S2 with no gallop or murmur. The dialysis line is in the left subclavian. ABDOMEN: Soft. EXTREMITIES: No pitting edema. ARTIS TEE Mar 06, 2017 16:45
--- NOTE | 2017-03-06 17:55 | GI Initial Consult Note ---
SteffChrissie Singhoi N.P. 03/06/17 1755: History of Present Illness General Date patient seen: Mar 06, 2017 Time patient seen: 17:42 Reason for Hospitalization: Chest Pain Referring physician: BLAZE FULLER Reason for Consultation: COFFEE GROUNDS Present Illness HPI Patient is a 71-year-old female presented after increased chest pain. Patient gradual onset of symptoms. She associated shortness of breath. Patient prior history of end-stage renal disease. She is normally dialyzed Friday and Friday. The patient followed by Dr. Blaze Boswell. Patient any cough. She reported having some epigastric abdominal pain. GI consulted for coffee grounds. HPI noted above. Pt seen on floor, awake A& Ox4 NAD with no active s/sx of N/V/D. Per RN report, the patient had multiple episodes of coffee ground emesis and was placed NPO. Unknown history of endoscopies / colonoscopies. Home Meds Active Scripts Metoprolol Tartrate* (METOPROLOL TARTRATE*) 50 Mg Tablet, 50 MG ORAL BID, #60 TAB Prov:Sean (Vanchtein)Monica [employer] 12/04/16 Hydralazine HCl (Hydralazine HCl) 50 Mg Tablet, 50 MG ORAL Q8HR, #90 TAB Prov:Sean HudsonhtMonica garza NP 12/04/16 Amlodipine Besylate (Norvasc) 10 Mg Tab, 10 MG ORAL DAILY, #30 MG Prov:ABELARDO AGEE 06/30/13 Reported Medications Clonidine Hcl (CLONIDINE HCL) 0.1 Mg Tablet, 0.1 MG PO EVERY 6 HOURS Y for For High Blood Pressure, TAB 11/30/16 Sitagliptin* (JANUVIA*) 25 Mg Tablet, 25 MG ORAL DAILY, TAB 09/03/16 Loratadine (LORATADINE) 10 Mg Tab.rapdis, 10 MG PO DAILY Y for Itching, TAB 09/03/16 Clopidogrel* (CLOPIDOGREL*) 75 Mg Tablet, 75 MG ORAL DAILY, TAB 09/03/16 Aspirin* (ASPIR 81*) 81 Mg Tablet.dr 81 MG ORAL DAILY, TAB 03/24/16 Sitagliptin* (JANUVIA*) 25 Mg Tablet, 25 MG ORAL DAILY, TAB 08/19/15 Amlodipine Besylate (Norvasc) 10 Mg Tablet, 10 MG ORAL DAILY, TAB 08/19/15 Hydrochlorothiazide* (HYDROCHLOROTHIAZIDE*) 12.5 Mg Capsule, ORAL DAILY, CAP 08/19/15 Clonidine HCl (Clonidine HCl ER) 0.1 Mg Tab.er.12h, 0.1 MG PO, TAB 08/19/15 Med list reviewed/reconciled: Yes Allergies: Coded Allergies: No Known Allergies (Unverified , 10/24/14) Patient History History Provided By: Patient, Medical Record PMH Narrative Past Medical History: see triage record Now: No Reviewed Nursing Documentation: PMH: Agreed, PSxH: Agreed Nursing Documentation-PMH Past Medical History: No History, Except For Hx Cardiac Problems: Yes - Acute coronary syndrome Hx Hypertension: Yes Hx Pacemaker: No Hx Asthma: No Hx COPD: No Hx Diabetes: Yes Hx Cancer: Yes Hx Gastrointestinal Problems: No Hx Dialysis: Yes - T, Th, Sat - Shunt on RUE; Kidney Failure Hx Neurological Problems: Yes Hx Cerebrovascular Accident: Yes Hx Transient Ischemic Attacks: Yes Hx Seizures: No Hx Dizziness: Yes Hx Syncope: Yes Hx Headaches: Yes Hx Weakness: Yes - BILATERAL LOWER EXTREMITIES Hx Fatigue: Yes Hx Neurologic Surgery: No Hx Brain Shunt: No Review of Systems All Other Systems: negative except mentioned in HPI Physical Exam Vital Signs Date Time Temp Pulse Resp B/P (MAP) Pulse Ox O2 Delivery O2 Flow Rate FiO2 03/03/17 00:24 97.5 112 18 158/79 96 Room Air Sp02 EP Interpretation: reviewed, normal Labs Laboratory Tests Test 03/06/17 05:10 White Blood Count 8.6 K/UL (4.8-10.8) Red Blood Count 4.80 M/UL (4.20-5.40) Hemoglobin 15.1 G/DL (12.0-16.0) Hematocrit 47.9 % (37.0-47.0) H Mean Corpuscular Volume 100 FL (80-99) H Mean Corpuscular Hemoglobin 31.4 PG (27.0-31.0) H Mean Corpuscular Hemoglobin Concent 31.4 G/DL (32.0-36.0) L Red Cell Distribution Width 14.0 % (11.6-14.8) Platelet Count 208 K/UL (150-450) Mean Platelet Volume 8.0 FL (6.5-10.1) Neutrophils (%) (Auto) 79.0 % (45.0-75.0) H Lymphocytes (%) (Auto) 8.0 % (20.0-45.0) L Monocytes (%) (Auto) 12.3 % (1.0-10.0) H Eosinophils (%) (Auto) 0.2 % (0.0-3.0) Basophils (%) (Auto) 0.5 % (0.0-2.0) Sodium Level 142 MMOL/L (136-145) Potassium Level 4.2 MMOL/L (3.5-5.1) Chloride Level 94 MMOL/L (98-107) L Carbon Dioxide Level 34 MMOL/L (21-32) H Anion Gap 14 mmol/L (5-15) Blood Urea Nitrogen 26 mg/dL (7-18) H Creatinine 5.7 MG/DL (0.55-1.30) H Estimat Glomerular Filtration Rate mL/min (>60) Glucose Level 118 MG/DL (74-106) H Calcium Level 11.0 MG/DL (8.5-10.1) H General Appearance: well appearing, no apparent distress, alert, thin Head: normocephalic EENT: PERRL/EOMI, normal ENT inspection Neck: supple Respiratory: normal breath sounds, no respiratory distress Cardiovascular: normal rate Gastrointestinal: normal inspection, non tender, soft, normal bowel sounds, non -distended Rectal: deferred Genitourinary: no CVA tenderness Musculoskeletal: normal inspection, back normal Neurologic: normal inspection, alert, oriented x3, responsive Psychiatric: normal inspection, judgement/insight normal, memory normal Skin: normal inspection, normal color, no rash, warm/dry, palpation normal, well hydrated Lymphatic: normal inspection, no adenopathy Current Medications Current Medications Medications (Trade) Dose Ordered Sig/Sarwat Route PRN Reason Start Time Stop Time Status Last Admin Dose Admin Acetaminophen (Tylenol) 650 mg Q4H PRN ORAL Mild Pain (Pain Scale 1-3) 03/05/17 10:00 04/02/17 09:59 Amlodipine Besylate (Norvasc) 10 mg DAILY ORAL 03/06/17 09:00 04/05/17 08:59 Aspirin (Ecotrin) 81 mg DAILY ORAL 03/06/17 09:00 04/05/17 08:59 Clonidine HCl (Catapres Tab) 0.1 mg Q6H PRN ORAL SBP>160 03/05/17 10:00 04/02/17 09:59 Dextrose (Dextrose 50%) STAT PRN IV Hypoglycemia 03/05/17 13:15 04/04/17 13:14 Diphenhydramine HCl (Benadryl) 25 mg Q6H PRN IVP Itching 03/05/17 10:00 04/03/17 09:59 03/05/17 23:33 Heparin Sodium (Porcine) (Heparin 5000 units/ml) 5,000 units Q12HR SUBQ 03/05/17 09:00 04/03/17 08:59 Hydralazine HCl (Apresoline) 50 mg Q8HR ORAL 03/05/17 14:00 04/02/17 13:59 03/06/17 12:53 Hydromorphone HCl (Dilaudid) 1 mg Q6H PRN IVP PAIN 4-10 03/05/17 10:00 03/11/17 09:59 03/06/17 01:05 Insulin Aspart (NovoLOG) BEFORE MEALS AND HS SUBQ 03/05/17 16:30 04/04/17 16:29 Lorazepam (Ativan 2mg/ml 1ml) 1 mg Q6H PRN IV For Anxiety 03/05/17 10:00 03/11/17 09:59 Metoprolol Tartrate (Lopressor) 50 mg BID ORAL 03/05/17 18:00 04/04/17 17:59 Ondansetron HCl (Zofran) 4 mg Q6H PRN IVP Nausea & Vomiting 03/05/17 10:00 04/02/17 09:59 03/06/17 08:30 Pantoprazole (Protonix) 40 mg DAILY ORAL 03/05/17 16:30 04/04/17 16:29 Sitagliptin Phosphate (Januvia) 25 mg DAILY ORAL 03/06/17 09:00 04/05/17 08:59 Zolpidem Tartrate (Ambien) 5 mg HSPRN PRN ORAL Insomnia 03/05/17 10:00 03/12/17 09:59 GI: Plan Problems: (1) Coffee ground emesis (2) Abdominal pain (3) Generalized weakness (4) Nausea Plan EGD scheduled for tomorrow. - CLD now, NPO @ [facility]. - hold plavix. monitor H&H, prn transfusions ppi fu labs Discussed with Dr. English. Thank you for this patient referral, we will follow. SOOARMANIStacieJUANITOD 03/10/17 1015: History of Present Illness General Reason for Hospitalization: Chest Pain Present Illness Home Meds Active Scripts Metoprolol Tartrate* (METOPROLOL TARTRATE*) 50 Mg Tablet, 50 MG ORAL BID, #60 TAB Prov:Sean (Vanchtein)Monica [employer] 12/04/16 Hydralazine HCl (Hydralazine HCl) 50 Mg Tablet, 50 MG ORAL Q8HR, #90 TAB Prov:Sean (Vanchtein)Monica [employer] 12/04/16 Amlodipine Besylate (Norvasc) 10 Mg Tab, 10 MG ORAL DAILY, #30 MG Prov:ABELARDO AGEE P.ALu 06/30/13 Reported Medications Clonidine Hcl (CLONIDINE HCL) 0.1 Mg Tablet, 0.1 MG PO EVERY 6 HOURS Y for For High Blood Pressure, TAB 11/30/16 Sitagliptin* (JANUVIA*) 25 Mg Tablet, 25 MG ORAL DAILY, TAB 09/03/16 Loratadine (LORATADINE) 10 Mg Tab.rapdis, 10 MG PO DAILY Y for Itching, TAB 09/03/16 Clopidogrel* (CLOPIDOGREL*) 75 Mg Tablet, 75 MG ORAL DAILY, TAB 09/03/16 Aspirin* (ASPIR 81*) 81 Mg Tablet.dr, 81 MG ORAL DAILY, TAB 03/24/16 Sitagliptin* (JANUVIA*) 25 Mg Tablet, 25 MG ORAL DAILY, TAB 08/19/15 Amlodipine Besylate (Norvasc) 10 Mg Tablet, 10 MG ORAL DAILY, TAB 08/19/15 Hydrochlorothiazide* (HYDROCHLOROTHIAZIDE*) 12.5 Mg Capsule, ORAL DAILY, CAP 08/19/15 Clonidine HCl (Clonidine HCl ER) 0.1 Mg Tab.er.12h, 0.1 MG PO, TAB 08/19/15 Allergies: Coded Allergies: No Known Allergies (Unverified , 10/24/14) GI: Plan Plan The patient was seen and examined at bedside and all new and available data was reviewed in the patients chart. I agree with the above findings, impression and plan. (Patient seen earlier today. Signature stamp does not reflect patient encounter time.). - [facility] Roberto Klein Mar 06, 2017 17:55 CESAR ENGLISH Mar 10, 2017 10:15
--- NOTE | 2017-03-06 19:39 | Internal Med Progress Note ---
Subjective Date of Service: Mar 06, 2017 Physician Name Bernard Salas Attending Physician Blaze Plascencia Current Medications Medications (Trade) Dose Ordered Sig/Sarwat Route PRN Reason Start Time Stop Time Status Last Admin Dose Admin Acetaminophen (Tylenol) 650 mg Q4H PRN ORAL Mild Pain (Pain Scale 1-3) 03/05/17 10:00 04/02/17 09:59 Amlodipine Besylate (Norvasc) 10 mg DAILY ORAL 03/06/17 09:00 04/05/17 08:59 Aspirin (Ecotrin) 81 mg DAILY ORAL 03/06/17 09:00 04/05/17 08:59 Clonidine HCl (Catapres Tab) 0.1 mg Q6H PRN ORAL SBP>160 03/05/17 10:00 04/02/17 09:59 Dextrose (Dextrose 50%) STAT PRN IV Hypoglycemia 03/05/17 13:15 04/04/17 13:14 Diphenhydramine HCl (Benadryl) 25 mg Q6H PRN IVP Itching 03/05/17 10:00 04/03/17 09:59 03/05/17 23:33 Heparin Sodium (Porcine) (Heparin 5000 units/ml) 5,000 units Q12HR SUBQ 03/05/17 09:00 04/03/17 08:59 Hydralazine HCl (Apresoline) 50 mg Q8HR ORAL 03/05/17 14:00 04/02/17 13:59 03/06/17 12:53 Hydromorphone HCl (Dilaudid) 1 mg Q6H PRN IVP PAIN 4-10 03/05/17 10:00 03/11/17 09:59 03/06/17 01:05 Insulin Aspart (NovoLOG) BEFORE MEALS AND HS SUBQ 03/05/17 16:30 04/04/17 16:29 Lorazepam (Ativan 2mg/ml 1ml) 1 mg Q6H PRN IV For Anxiety 03/05/17 10:00 03/11/17 09:59 Metoprolol Tartrate (Lopressor) 50 mg BID ORAL 03/05/17 18:00 04/04/17 17:59 03/06/17 18:08 Ondansetron HCl (Zofran) 4 mg Q6H PRN IVP Nausea & Vomiting 03/05/17 10:00 2/7/18 09:59 03/06/17 08:30 Pantoprazole (Protonix) 40 mg DAILY ORAL 03/05/17 16:30 04/04/17 16:29 Sitagliptin Phosphate (Januvia) 25 mg DAILY ORAL 03/06/17 09:00 04/05/17 08:59 Zolpidem Tartrate (Ambien) 5 mg HSPRN PRN ORAL Insomnia 03/05/17 10:00 03/12/17 09:59 Allergies: Coded Allergies: No Known Allergies (Unverified , 10/24/14) ROS Limited/Unobtainable: No Constitutional: Reports: no symptoms HEENT: Reports: no symptoms Cardiovascular: Reports: chest pain Respiratory: Reports: shortness of breath Gastrointestinal/Abdominal: Reports: no symptoms Genitourinary: Reports: no symptoms Neurologic/Psychiatric: Reports: no symptoms Subjective 71 YO F admitted with chest pain. Cover for Internal medicine-Dr Alford Objective Last Vital Signs Date Time Temp Pulse Resp B/P (MAP) Pulse Ox O2 Delivery O2 Flow Rate FiO2 03/06/17 18:08 95 133/72 03/06/17 16:00 97.7 18 94 03/05/17 23:00 Room Air Laboratory Tests Test 03/06/17 05:10 White Blood Count 8.6 K/UL (4.8-10.8) Red Blood Count 4.80 M/UL (4.20-5.40) Hemoglobin 15.1 G/DL (12.0-16.0) Hematocrit 47.9 % (37.0-47.0) H Mean Corpuscular Volume 100 FL (80-99) H Mean Corpuscular Hemoglobin 31.4 PG (27.0-31.0) H Mean Corpuscular Hemoglobin Concent 31.4 G/DL (32.0-36.0) L Red Cell Distribution Width 14.0 % (11.6-14.8) Platelet Count 208 K/UL (150-450) Mean Platelet Volume 8.0 FL (6.5-10.1) Neutrophils (%) (Auto) 79.0 % (45.0-75.0) H Lymphocytes (%) (Auto) 8.0 % (20.0-45.0) L Monocytes (%) (Auto) 12.3 % (1.0-10.0) H Eosinophils (%) (Auto) 0.2 % (0.0-3.0) Basophils (%) (Auto) 0.5 % (0.0-2.0) Sodium Level 142 MMOL/L (136-145) Potassium Level 4.2 MMOL/L (3.5-5.1) Chloride Level 94 MMOL/L (98-107) L Carbon Dioxide Level 34 MMOL/L (21-32) H Anion Gap 14 mmol/L (5-15) Blood Urea Nitrogen 26 mg/dL (7-18) H Creatinine 5.7 MG/DL (0.55-1.30) H Estimat Glomerular Filtration Rate mL/min (>60) Glucose Level 118 MG/DL (74-106) H Calcium Level 11.0 MG/DL (8.5-10.1) H Intake and Output 03/05/17 03/06/17 19:00 07:00 Intake Total 150 ml Output Total 40 ml Balance 110 ml Intake Oral 150 ml Emesis 40 ml # Voids 2 Objective General Appearance: WD/WN, no apparent distress, alert EENT: PERRL/EOMI, normal ENT inspection Neck: non-tender, normal alignment, supple, normal inspection Cardiovascular: normal peripheral pulses, normal rate, regular rhythm, no gallop/murmur, no JVD Respiratory/Chest: chest wall non-tender, lungs clear, normal breath sounds, no respiratory distress, no accessory muscle use Abdomen: normal bowel sounds, non tender, soft, no organomegaly, no mass Extremities: normal range of motion Neurologic: business mgr II-XII grossly normal, other - facial weakness Assessment/Plan Problem List: (1) ESRD (end stage renal disease) on dialysis Assessment & Plan: Last dialysis Friday03/03/17. Next dialysis today 03/05/17- see nephrology note. (2) Congestive heart failure (CHF) Assessment & Plan: See cardiology note. (3) Hypertension Assessment & Plan: continue amlodipine, hydralazine and lopressor (4) Chest pain Assessment & Plan: Ruled out for acute myocardial infarction-see cardiology note. (5) DM (diabetes mellitus) Assessment & Plan: continue febuv Status: not improved BERNARD SALAS Mar 06, 2017 19:39
--- NOTE | 2017-03-06 22:20 | Nephrology Progress Note ---
Assessment/Plan Problem List: (1) Coffee ground emesis (2) Nausea (3) Abdominal pain (4) Generalized weakness (5) ESRD (end stage renal disease) on dialysis (6) Hypertension (7) Hyperkalemia (8) ESRD (end stage renal disease) on dialysis Plan Pending EGD. Monitor labs. HD as scheduled. Subjective Subjective doing ok Objective Objective Last 24 Hour Vital Signs Date Time Temp Pulse Resp B/P (MAP) Pulse Ox O2 Delivery O2 Flow Rate FiO2 03/06/17 21:42 133/69 03/06/17 20:00 97.7 78 18 133/69 98 Room Air 03/06/17 20:00 Room Air 03/06/17 18:08 95 133/72 03/06/17 16:00 97.7 95 18 133/72 94 03/06/17 12:53 129/72 03/06/17 12:00 97.5 86 18 129/72 94 03/06/17 08:00 97.7 84 20 138/86 94 03/06/17 05:43 131/74 03/06/17 04:00 97.6 95 18 131/74 92 03/06/17 01:35 96.8 03/06/17 00:00 96.8 90 19 148/84 100 03/05/17 23:00 Room Air 03/05/17 23:00 96.2 74 20 170/82 Room Air Intake and Output 03/05/17 03/06/17 19:00 07:00 Intake Total 150 ml Output Total 40 ml Balance 110 ml Intake Oral 150 ml Emesis 40 ml # Voids 2 Laboratory Tests 03/06/17 05:10: White Blood Count 8.6, Red Blood Count 4.80, Hemoglobin 15.1, Hematocrit 47.9H, Mean Corpuscular Volume 100H, Mean Corpuscular Hemoglobin 31.4H, Mean Corpuscular Hemoglobin Concent 31.4L, Red Cell Distribution Width 14.0, Platelet Count 208, Mean Platelet Volume 8.0, Neutrophils (%) (Auto) 79.0H, Lymphocytes (%) (Auto) 8.0L, Monocytes (%) (Auto) 12.3H, Eosinophils (%) (Auto) 0.2, Basophils (%) (Auto) 0.5, Sodium Level 142, Potassium Level 4.2, Chloride Level 94L, Carbon Dioxide Level 34H, Anion Gap 14, Blood Urea Nitrogen 26H, Creatinine 5.7H, Estimat Glomerular Filtration Rate , Glucose Level 118H, Calcium Level 11.0H Height (Feet): 5 Height (Inches): 2.00 Weight (Pounds): 90 General Appearance: no apparent distress Cardiovascular: normal rate, regular rhythm Respiratory/Chest: lungs clear Abdomen: non tender, soft TIGRE FULLER Mar 06, 2017 22:20
[2017-03-07] VITALS (10 sets, daily range): BP systolic 136–186; BP diastolic 63–102
[2017-03-07] MEDS: DiphenhydrAMINE 50mg/ml Inj IVP PRN (00:17)
[2017-03-07] MEDS: HydrALAZINE 50mg tab ORAL SCH ×3 (05:55→21:16)
[2017-03-07 06:20] LABS: BASOPHILS % (AUTO) 0.6 % (0.0-2.0); EOSINOPHILS % (AUTO) 0.5 % (0.0-3.0); HEMATOCRIT 41.7 % (37.0-47.0); HEMOGLOBIN 13.9 G/DL (12.0-16.0); LYMPHOCYTES % (AUTO) 13.7 % (20.0-45.0); MEAN CORPUSCULAR VOLUME 97 FL (80-99); NEUTROPHILS % (AUTO) 71.2 % (45.0-75.0); PLATELET COUNT 201 K/UL (150-450); RED BLOOD COUNT 4.28 M/UL (4.20-5.40); RED CELL DISTRIBUTION WIDTH 13.7 % (11.6-14.8)
[2017-03-07] MEDS: NovoLOG Insulin Flexpen SUBQ SCH ×4 (06:29→20:22)
[2017-03-07 06:30] LABS: ANION GAP 15 mmol/L (5-15); BLOOD UREA NITROGEN 44 mg/dL (7-18); CALCIUM 11.5 MG/DL (8.5-10.1); CARBON DIOXIDE 31 MMOL/L (21-32); CHLORIDE 91 MMOL/L (98-107); CREATININE 7.2 MG/DL (0.55-1.30); POTASSIUM 4.2 MMOL/L (3.5-5.1); SODIUM 137 MMOL/L (136-145)
--- NOTE | 2017-03-07 07:00 | Anethesia Preoperative Eval ---
Anesthesia Pre-op PMH/ROS General Date of Evaluation: Mar 07, 2017 Time of Evaluation: 06:56 Anesthesiologist: rey ASA Score: ASA 4 Mallampati Score Class I : Soft palate, uvula, fauces, pillars visible Class II: Soft palate, uvula, fauces visible Class III: Soft palate, base of uvula visible Class IV: Only hard plate visible Mallampati Classification: Class II Surgeon: mo Diagnosis: coffee ground emesis Surgical Procedure: egd Anesthesia History: none Social History: alcohol use, drug use Family History: no anesthesia problems Allergies: Coded Allergies: No Known Allergies (Unverified , 10/24/14) Medications: see eMAR Past Medical History Cardiovascular: Reports: HTN, other - chest pain, acute coronary syndrome Gastrointestinal/Genitourinary: Reports: ESRD Neurologic/Psychiatric: Reports: CVA, other - headache, syncope, ble weakness, Endocrine: Reports: DM Hematology/Immune: Reports: other - cancer Anesthesia Pre-op Phys. Exam Physician Exam Last Vital Signs Date Time Temp Pulse Resp B/P (MAP) Pulse Ox O2 Delivery O2 Flow Rate FiO2 03/07/17 05:55 154/74 03/07/17 04:52 97.7 91 18 97 Room Air Constitutional: NAD Neurologic: CN 2-12 intact Cardiovascular: RRR Respiratory: CTA Gastrointestinal: S/NT/ND Airway Exam Mallampati Score: Class II MO: full Neck: supple TMD: 2fb ROM: limited Anesthesia Pre-op A/P Labs Hematology Test 03/07/17 03:15 White Blood Count 8.0 K/UL (4.8-10.8) Red Blood Count 4.28 M/UL (4.20-5.40) Hemoglobin 13.9 G/DL (12.0-16.0) Hematocrit 41.7 % (37.0-47.0) Mean Corpuscular Volume 97 FL (80-99) Mean Corpuscular Hemoglobin 32.6 PG (27.0-31.0) H Mean Corpuscular Hemoglobin Concent 33.5 G/DL (32.0-36.0) Red Cell Distribution Width 13.7 % (11.6-14.8) Platelet Count 201 K/UL (150-450) Mean Platelet Volume 8.1 FL (6.5-10.1) Neutrophils (%) (Auto) 71.2 % (45.0-75.0) Lymphocytes (%) (Auto) 13.7 % (20.0-45.0) L Monocytes (%) (Auto) 14.0 % (1.0-10.0) H Eosinophils (%) (Auto) 0.5 % (0.0-3.0) Basophils (%) (Auto) 0.6 % (0.0-2.0) Coagulation Test 03/07/17 03:15 Prothrombin Time Pending Prothromb Time International Ratio Pending Activated Partial Thromboplast Time Pending Chemistry Test 03/07/17 03:15 Sodium Level 137 MMOL/L (136-145) Potassium Level 4.2 MMOL/L (3.5-5.1) Chloride Level 91 MMOL/L (98-107) L Carbon Dioxide Level 31 MMOL/L (21-32) Anion Gap 15 mmol/L (5-15) Blood Urea Nitrogen 44 mg/dL (7-18) H Creatinine 7.2 MG/DL (0.55-1.30) H Estimat Glomerular Filtration Rate mL/min (>60) Glucose Level 86 MG/DL (74-106) Calcium Level 11.5 MG/DL (8.5-10.1) H Risk Assessment & Plan Assessment: asa4 Plan: mac Status Change Before Surgery: No Pre-Antibiotics Drug: LEONARDO Day Mar 07, 2017 07:00
[2017-03-07 07:16] LABS: INR 1.2 (0.9-1.1)
[2017-03-07] MEDS: Metoprolol Tartrate 50mg tab ORAL SCH ×2 (09:00→18:50)
[2017-03-07] MEDS ORDERED: Propofol 200mg/20ml IV ONE (09:00)
[2017-03-07] MEDS ORDERED: Lidocaine 1% MPF 10mg/ml 5ml ONE (09:00)
[2017-03-07] MEDS: sitaGLIPtin 25mg tab ORAL SCH (09:00)
[2017-03-07] MEDS ORDERED: NS 500ML ONE (09:00)
[2017-03-07] MEDS: Heparin 5000 units/ml inj SUBQ SCH ×2 (09:00→21:00)
[2017-03-07] MEDS: Aspirin EC 81mg tab ORAL SCH (09:00)
--- NOTE | 2017-03-07 10:26 | Pre-Procedure Note/Attestation ---
Pre-Procedure Note/Attestation Complete Prior to Procedure Planned Procedure: not applicable Procedure Narrative: egd Indications for Procedure Pre-Operative Diagnosis: gib Attestation I attest that I discussed the nature of the procedure; its benefits; risks and complications; and alternatives (and the risks and benefits of such alternatives ), prior to the procedure, with the patient (or the patient's legal contact center representative). I attest that, if there was a reasonable possibility of needing a blood transfusion, the patient (or the patient's legal contact center representative) was given the [facility] standardized written summary, pursuant to the [employer] Blood Safety Act ([place] Health and Safety Code # 1645, as amended). I attest that I re-evaluated the patient just prior to the surgery and that there has been no change in the patient's H&P, except as documented below: CESAR ENGLISH Mar 07, 2017 10:26
--- NOTE | 2017-03-07 10:27 | General Progress Note ---
Assessment/Plan Problem List: (1) Coffee ground emesis ICD Codes: K92.0 - Hematemesis SNOMED: 78251514, 313723764 (2) Abdominal pain ICD Codes: R10.9 - Unspecified abdominal pain SNOMED: 52562701 (3) ESRD (end stage renal disease) on dialysis ICD Codes: N18.6 - End stage renal disease; Z99.2 - Dependence on renal dialysis SNOMED: 393355256 (4) Hypertension ICD Codes: I10 - Essential (primary) hypertension SNOMED: 45019834 Assessment/Plan plan EGd today Subjective ROS Limited/Unobtainable: No Allergies: Coded Allergies: No Known Allergies (Unverified , 10/24/14) Objective Last 24 Hour Vital Signs Date Time Temp Pulse Resp B/P (MAP) Pulse Ox O2 Delivery O2 Flow Rate FiO2 03/07/17 09:00 99 136/69 03/07/17 09:00 99 136/69 03/07/17 08:00 97.9 99 18 136/69 97 03/07/17 05:55 154/74 03/07/17 04:52 97.7 91 18 154/74 97 Room Air 03/07/17 04:00 Room Air 03/07/17 00:00 Room Air 03/06/17 23:45 97.7 90 18 118/78 99 03/06/17 21:42 133/69 03/06/17 20:00 97.7 78 18 133/69 98 Room Air 03/06/17 20:00 Room Air 03/06/17 18:08 95 133/72 03/06/17 16:00 97.7 95 18 133/72 94 03/06/17 12:53 129/72 03/06/17 12:00 97.5 86 18 129/72 94 Intake and Output 03/06/17 03/07/17 19:00 07:00 Intake Total 50 ml Output Total 50 ml 0 ml Balance -50 ml 50 ml Intake Oral 50 ml Output Urine Total 0 ml Emesis 50 ml Laboratory Tests 03/07/17 03:15: White Blood Count 8.0, Red Blood Count 4.28, Hemoglobin 13.9, Hematocrit 41.7, Mean Corpuscular Volume 97, Mean Corpuscular Hemoglobin 32.6H, Mean Corpuscular Hemoglobin Concent 33.5, Red Cell Distribution Width 13.7, Platelet Count 201, Mean Platelet Volume 8.1, Neutrophils (%) (Auto) 71.2, Lymphocytes (%) (Auto) 13.7L, Monocytes (%) (Auto) 14.0H, Eosinophils (%) (Auto) 0.5, Basophils (%) ( Auto) 0.6, Prothrombin Time 12.7H, Prothromb Time International Ratio 1.2H, Activated Partial Thromboplast Time 27, Sodium Level 137, Potassium Level 4.2, Chloride Level 91L, Carbon Dioxide Level 31, Anion Gap 15, Blood Urea Nitrogen 44H, Creatinine 7.2H, Estimat Glomerular Filtration Rate , Glucose Level 86, Calcium Level 11.5H Height (Feet): 5 Height (Inches): 2.00 Weight (Pounds): 90 General Appearance: no apparent distress EENT: normal ENT inspection Neck: supple Cardiovascular: normal rate Respiratory/Chest: decreased breath sounds Abdomen: normal bowel sounds, non tender, soft Extremities: non-tender CESAR ENGLISH Mar 07, 2017 10:27
[2017-03-07] MEDS ORDERED: Atropine Inj 1mg/10ml Syr IV PRN (13:00)
[2017-03-07] MEDS ORDERED: DiphenhydrAMINE 50mg/ml Inj IVP PRN (13:00)
[2017-03-07] MEDS ORDERED: fentaNYL 100 mcg/2 mL IV PRN (13:00)
[2017-03-07] MEDS ORDERED: Midazolam 2mg/2ml Inj IVP PRN (13:00)
[2017-03-07] MEDS ORDERED: NS 500ML IV ONE (13:25)
--- NOTE | 2017-03-07 13:45 | Endoscopy Procedure Note ---
Endoscopy Procedure Note Indication for Procedure: GIB Procedures Performed: EGD Operative Findings/Diagnosis: GASTRITIS Specimen: yes Pt Tolerated Procedure Well: Yes Estimated Blood Loss: none Anesthesiologist: SERGEY Anesthesia: MAC Implant(s) used?: No 50 yrs or older w/o bx or poly: Not Applicable 10yrs. F/U not recommended: Not Applicable CESAR ENGLSIH Mar 07, 2017 13:45
--- NOTE | 2017-03-07 14:24 | Cardiac Electrophysiology PN ---
Assessment/Plan Assessment/Plan 1. Atypical Chest pain. Ruled out for myocardial infarction.Stress test last admission showed no evidence of ischemia and her EKG is completely normal. Echocardiogram showed ejection fraction of 60%. On Aspirin, Plavix, Lopressor 2. Hypertension. Better on hydralazine 50 mg every 8 hours, Norvasc 10 mg daily , and metoprolol 50 mg b.i.d. 3. End-stage renal disease, on hemodialysis. 4. [place] ground emesis. S/P EGD by Dr Ortiz today that showed gastritis DW RN Subjective Subjective Had EGD today that showed Gastritis. HD cancelled as pt was going for EGD. Objective Last 24 Hour Vital Signs Date Time Temp Pulse Resp B/P (MAP) Pulse Ox O2 Delivery O2 Flow Rate FiO2 03/07/17 14:02 98 13 148/74 99 Nasal Cannula 3.0 03/07/17 13:57 96 13 145/65 99 Nasal Cannula 3.0 03/07/17 13:52 97.8 104 19 142/63 99 Nasal Cannula 3.0 03/07/17 12:00 97.9 99 19 147/73 94 03/07/17 09:00 99 136/69 03/07/17 09:00 99 136/69 03/07/17 08:00 97.9 99 18 136/69 97 03/07/17 05:55 154/74 03/07/17 04:52 97.7 91 18 154/74 97 Room Air 03/07/17 04:00 Room Air 03/07/17 00:00 Room Air 03/06/17 23:45 97.7 90 18 118/78 99 03/06/17 21:42 133/69 03/06/17 20:00 97.7 78 18 133/69 98 Room Air 03/06/17 20:00 Room Air 03/06/17 18:08 95 133/72 03/06/17 16:00 97.7 95 18 133/72 94 Intake and Output 03/06/17 03/07/17 19:00 07:00 Intake Total 50 ml Output Total 50 ml 0 ml Balance -50 ml 50 ml Intake Oral 50 ml Output Urine Total 0 ml Emesis 50 ml Laboratory Tests Test 03/07/17 03:15 White Blood Count 8.0 K/UL (4.8-10.8) Red Blood Count 4.28 M/UL (4.20-5.40) Hemoglobin 13.9 G/DL (12.0-16.0) Hematocrit 41.7 % (37.0-47.0) Mean Corpuscular Volume 97 FL (80-99) Mean Corpuscular Hemoglobin 32.6 PG (27.0-31.0) H Mean Corpuscular Hemoglobin Concent 33.5 G/DL (32.0-36.0) Red Cell Distribution Width 13.7 % (11.6-14.8) Platelet Count 201 K/UL (150-450) Mean Platelet Volume 8.1 FL (6.5-10.1) Neutrophils (%) (Auto) 71.2 % (45.0-75.0) Lymphocytes (%) (Auto) 13.7 % (20.0-45.0) L Monocytes (%) (Auto) 14.0 % (1.0-10.0) H Eosinophils (%) (Auto) 0.5 % (0.0-3.0) Basophils (%) (Auto) 0.6 % (0.0-2.0) Prothrombin Time 12.7 SEC (9.30-11.50) H Prothromb Time International Ratio 1.2 (0.9-1.1) H Activated Partial Thromboplast Time 27 SEC (23-33) Sodium Level 137 MMOL/L (136-145) Potassium Level 4.2 MMOL/L (3.5-5.1) Chloride Level 91 MMOL/L (98-107) L Carbon Dioxide Level 31 MMOL/L (21-32) Anion Gap 15 mmol/L (5-15) Blood Urea Nitrogen 44 mg/dL (7-18) H Creatinine 7.2 MG/DL (0.55-1.30) H Estimat Glomerular Filtration Rate mL/min (>60) Glucose Level 86 MG/DL (74-106) Calcium Level 11.5 MG/DL (8.5-10.1) H Objective HEAD AND NECK: No JVD LUNGS: Clear. CARDIOVASCULAR: Regular S1 and S2 with no gallop or murmur. The dialysis line is in the left subclavian. ABDOMEN: Soft. EXTREMITIES: No pitting edema. ARTIS TEE Mar 07, 2017 14:23
--- NOTE | 2017-03-07 15:25 | General Progress Note ---
Assessment/Plan Problem List: (1) ESRD (end stage renal disease) on dialysis ICD Codes: N18.6 - End stage renal disease; Z99.2 - Dependence on renal dialysis SNOMED: 608480102 (2) Hypertension ICD Codes: I10 - Essential (primary) hypertension SNOMED: 11346130 (3) Hyperkalemia ICD Codes: E87.5 - Hyperkalemia SNOMED: 88877526 (4) ACS (acute coronary syndrome) ICD Codes: I24.9 - ACS (acute coronary syndrome) SNOMED: 411960090 (5) DM (diabetes mellitus) ICD Codes: E11.9 - Type 2 diabetes mellitus without complications SNOMED: 92156117 Status: stable, progressing, tolerating diet Assessment/Plan ot pt diet dialysis cardio f/u cbc bmp am Subjective Constitutional: Reports: weakness Allergies: Coded Allergies: No Known Allergies (Unverified , 10/24/14) All Systems: reviewed and negative except above Subjective 02nc calm in bed Objective Last 24 Hour Vital Signs Date Time Temp Pulse Resp B/P (MAP) Pulse Ox O2 Delivery O2 Flow Rate FiO2 03/07/17 15:03 98 16 186/82 99 Nasal Cannula 2.0 03/07/17 14:23 Room Air 3.0 03/07/17 14:02 98 13 148/74 99 Nasal Cannula 3.0 03/07/17 13:57 96 13 145/65 99 Nasal Cannula 3.0 03/07/17 13:52 97.8 104 19 142/63 99 Nasal Cannula 3.0 03/07/17 12:00 97.9 99 19 147/73 94 03/07/17 12:00 Room Air 03/07/17 11:15 Room Air 03/07/17 11:15 Room Air 03/07/17 09:00 99 136/69 03/07/17 09:00 99 136/69 03/07/17 08:00 97.9 99 18 136/69 97 03/07/17 08:00 Room Air 03/07/17 05:55 154/74 03/07/17 04:52 97.7 91 18 154/74 97 Room Air 03/07/17 04:00 Room Air 03/07/17 00:00 Room Air 03/06/17 23:45 97.7 90 18 118/78 99 03/06/17 21:42 133/69 03/06/17 20:00 97.7 78 18 133/69 98 Room Air 03/06/17 20:00 Room Air 03/06/17 18:08 95 133/72 03/06/17 16:00 97.7 95 18 133/72 94 Intake and Output 03/06/17 03/07/17 19:00 07:00 Intake Total 50 ml Output Total 50 ml 0 ml Balance -50 ml 50 ml Intake Oral 50 ml Output Urine Total 0 ml Emesis 50 ml Laboratory Tests 03/07/17 03:15: White Blood Count 8.0, Red Blood Count 4.28, Hemoglobin 13.9, Hematocrit 41.7, Mean Corpuscular Volume 97, Mean Corpuscular Hemoglobin 32.6H, Mean Corpuscular Hemoglobin Concent 33.5, Red Cell Distribution Width 13.7, Platelet Count 201, Mean Platelet Volume 8.1, Neutrophils (%) (Auto) 71.2, Lymphocytes (%) (Auto) 13.7L, Monocytes (%) (Auto) 14.0H, Eosinophils (%) (Auto) 0.5, Basophils (%) ( Auto) 0.6, Prothrombin Time 12.7H, Prothromb Time International Ratio 1.2H, Activated Partial Thromboplast Time 27, Sodium Level 137, Potassium Level 4.2, Chloride Level 91L, Carbon Dioxide Level 31, Anion Gap 15, Blood Urea Nitrogen 44H, Creatinine 7.2H, Estimat Glomerular Filtration Rate , Glucose Level 86, Calcium Level 11.5H Height (Feet): 5 Height (Inches): 2.00 Weight (Pounds): 90 General Appearance: lethargic EENT: normal ENT inspection Neck: normal alignment Cardiovascular: normal peripheral pulses, normal rate, regular rhythm Respiratory/Chest: decreased breath sounds Abdomen: normal bowel sounds, non tender, soft Extremities: normal inspection Edema: no edema noted Arm (L), no edema noted Arm (R), no edema noted Leg (L), no edema noted Leg (R), no edema noted Pedal (L), no edema noted Pedal (R), no edema noted Generalized Neurologic: responsive, motor weakness Skin: normal pigmentation, warm/dry SHIELA GALEANA Mar 07, 2017 15:25
--- NOTE | 2017-03-07 15:27 | Immediate Post-Op Evaluation ---
Immediate Post-Op Evalulation Immediate Post-Op Evalulation Procedure: egd Date of Evaluation: Mar 07, 2017 Time of Evaluation: 14:04 IV Fluids: 100 ml 0.9ns Blood Products: none Estimated Blood Loss: negligible Blood Pressure Systolic: 142 Blood Pressure Diastolic: 67 Pulse Rate: 103 Respiratory Rate: 18 O2 Sat by Pulse Oximetry: 99 Temperature (Fahrenheit): 97.8 Pain Score (1-10): 0 Nausea: No Vomiting: No Complications none Patient Status: awake, reacts, patent Hydration Status: adequate Drug: LEONARDO Day Mar 07, 2017 15:27
--- NOTE | 2017-03-07 15:30 | 48 Hour Post Anesthesia Eval ---
Post Anesthesia Evaluation Procedure: egd Date of Evaluation: Mar 07, 2017 Time of Evaluation: 14:06 Blood Pressure Systolic: 148 0: 71 Pulse Rate: 99 Respiratory Rate: 18 Temperature (Fahrenheit): 97.8 O2 Sat by Pulse Oximetry: 99 Airway: patent Nausea: No Vomiting: No Pain Intensity: 0 Hydration Status: adequate Cardiopulmonary Status: stable Mental Status/LOC: patient returned to baseline Post-Anesthesia Complications: none Follow-up care needed: N/A LEONARDO ORNELAS Mar 07, 2017 15:30
--- NOTE | 2017-03-07 16:12 | Nephrology Progress Note ---
Assessment/Plan Problem List: (1) ESRD (end stage renal disease) on dialysis (2) Chest pain (3) Hypertension (4) Congestive heart failure (CHF) (5) DM (diabetes mellitus) (6) Chest pain (7) ACS (acute coronary syndrome) Plan Continue HD every MWF rescheduled HD tomorrow 03/08/16 due to EGD Monitor lytes, correct with HD Cardio following Monitor H&H, transfuse prn Pain management prn Free water restriction DVT proph PPI daily Continue PT/OT AM labs Subjective Constitutional: Denies: no symptoms, chills, diaphoresis, fever, malaise, weakness, other HEENT: Denies: no symptoms, eye pain, blurred vision, tearing, double vision, ear pain, ear discharge, nose pain, nose congestion, throat pain, throat swelling, mouth pain, mouth swelling, other Genitourinary: Denies: no symptoms, burning, discharge, frequency, flank pain, hematuria, incontinence, pain, urgency, other Neurologic/Psychiatric: Denies: no symptoms, anxiety, depressed, emotional problems, headache, numbness, paresthesia, pre-existing deficit, seizure, tingling, tremors, weakness, other Subjective In no apparent distress, denies chest pain at this time, no SOB, s/p EGD Objective Objective Last 24 Hour Vital Signs Date Time Temp Pulse Resp B/P (MAP) Pulse Ox O2 Delivery O2 Flow Rate FiO2 03/07/17 16:06 97.7 102 18 144/102 99 Nasal Cannula 2.0 03/07/17 15:30 99 18 99 03/07/17 15:27 103 18 99 03/07/17 15:03 98 16 186/82 99 Nasal Cannula 2.0 03/07/17 14:23 Room Air 3.0 03/07/17 14:02 98 13 148/74 99 Nasal Cannula 3.0 03/07/17 13:57 96 13 145/65 99 Nasal Cannula 3.0 03/07/17 13:52 97.8 104 19 142/63 99 Nasal Cannula 3.0 03/07/17 12:00 97.9 99 19 147/73 94 03/07/17 12:00 Room Air 03/07/17 11:15 Room Air 03/07/17 11:15 Room Air 03/07/17 09:00 99 136/69 03/07/17 09:00 99 136/69 03/07/17 08:00 97.9 99 18 136/69 97 03/07/17 08:00 Room Air 03/07/17 05:55 154/74 03/07/17 04:52 97.7 91 18 154/74 97 Room Air 03/07/17 04:00 Room Air 03/07/17 00:00 Room Air 03/06/17 23:45 97.7 90 18 118/78 99 03/06/17 21:42 133/69 03/06/17 20:00 97.7 78 18 133/69 98 Room Air 03/06/17 20:00 Room Air 03/06/17 18:08 95 133/72 Intake and Output 03/06/17 03/07/17 19:00 07:00 Intake Total 50 ml Output Total 50 ml 0 ml Balance -50 ml 50 ml Intake Oral 50 ml Output Urine Total 0 ml Emesis 50 ml Laboratory Tests 03/07/17 03:15: White Blood Count 8.0, Red Blood Count 4.28, Hemoglobin 13.9, Hematocrit 41.7, Mean Corpuscular Volume 97, Mean Corpuscular Hemoglobin 32.6H, Mean Corpuscular Hemoglobin Concent 33.5, Red Cell Distribution Width 13.7, Platelet Count 201, Mean Platelet Volume 8.1, Neutrophils (%) (Auto) 71.2, Lymphocytes (%) (Auto) 13.7L, Monocytes (%) (Auto) 14.0H, Eosinophils (%) (Auto) 0.5, Basophils (%) ( Auto) 0.6, Prothrombin Time 12.7H, Prothromb Time International Ratio 1.2H, Activated Partial Thromboplast Time 27, Sodium Level 137, Potassium Level 4.2, Chloride Level 91L, Carbon Dioxide Level 31, Anion Gap 15, Blood Urea Nitrogen 44H, Creatinine 7.2H, Estimat Glomerular Filtration Rate , Glucose Level 86, Calcium Level 11.5H Height (Feet): 5 Height (Inches): 2.00 Weight (Pounds): 90 General Appearance: no apparent distress, alert EENT: normal ENT inspection Neck: normal alignment Cardiovascular: normal rate, no JVD Respiratory/Chest: normal breath sounds, no respiratory distress Abdomen: non tender, soft Extremities: non-tender, normal inspection Neurologic: alert, oriented x 3, responsive, normal mood/affect Sharlene Velasco N.P. Mar 07, 2017 16:12
--- NOTE | 2017-03-07 18:56 | Internal Med Progress Note ---
Subjective Date of Service: Mar 07, 2017 Physician Name Bernard Salas Attending Physician Blaze Plascencia Current Medications Medications (Trade) Dose Ordered Sig/Sarwat Route PRN Reason Start Time Stop Time Status Last Admin Dose Admin Acetaminophen (Tylenol) 650 mg Q4H PRN ORAL Mild Pain (Pain Scale 1-3) 03/05/17 10:00 04/02/17 09:59 Al Hydroxide/Mg Hydroxide (Mylanta) 15 ml Q1H PRN ORAL gi upset 03/07/17 13:00 03/07/17 19:00 Amlodipine Besylate (Norvasc) 10 mg DAILY ORAL 03/06/17 09:00 04/05/17 08:59 Aspirin (Ecotrin) 81 mg DAILY ORAL 03/06/17 09:00 04/05/17 08:59 Atropine Sulfate (Atropine) 0.5 mg Q5M PRN IV bpm less than 45 03/07/17 13:00 03/07/17 19:00 Clonidine HCl (Catapres Tab) 0.1 mg Q6H PRN ORAL SBP>160 03/05/17 10:00 04/02/17 09:59 Dextrose (Dextrose 50%) STAT PRN IV Hypoglycemia 03/05/17 13:15 04/04/17 13:14 Diphenhydramine HCl (Benadryl) 25 mg Q15M PRN IVP Itching 03/07/17 13:00 03/07/17 19:00 Diphenhydramine HCl (Benadryl) 25 mg Q6H PRN IVP Itching 03/05/17 10:00 04/03/17 09:59 03/05/17 23:33 Fentanyl Citrate (Sublimaze 100 mcg/2 mL) 25 mcg Q10M PRN IV Moderate Pain (Pain Scale 4-6) 03/07/17 13:00 03/07/17 19:00 Heparin Sodium (Porcine) (Heparin 5000 units/ml) 5,000 units Q12HR SUBQ 03/05/17 09:00 04/03/17 08:59 Hydralazine HCl (Apresoline) 5 mg Q30M PRN IV SBP>160 OR___/DBP>90 OR___ 03/07/17 13:00 03/07/17 19:00 Hydralazine HCl (Apresoline) 50 mg Q8HR ORAL 03/05/17 14:00 04/02/17 13:59 03/07/17 05:55 Hydromorphone HCl (Dilaudid) 1 mg Q6H PRN IVP PAIN 4-10 03/05/17 10:00 03/11/17 09:59 03/06/17 01:05 Insulin Aspart (NovoLOG) BEFORE MEALS AND HS SUBQ 03/05/17 16:30 04/04/17 16:29 Lorazepam (Ativan 2mg/ml 1ml) 1 mg Q6H PRN IV For Anxiety 03/05/17 10:00 03/11/17 09:59 Metoprolol Tartrate (Lopressor) 50 mg BID ORAL 03/05/17 18:00 04/04/17 17:59 03/07/17 18:50 Midazolam HCl (Versed 2mg/2ml vial) 1 mg Q15M PRN IVP For Anxiety 03/07/17 13:00 03/07/17 19:00 Ondansetron HCl (Zofran) 4 mg Q1H PRN IVP Nausea & Vomiting 03/07/17 13:00 03/07/17 19:00 Ondansetron HCl (Zofran) 4 mg Q6H PRN IVP Nausea & Vomiting 03/05/17 10:00 04/02/17 09:59 03/07/17 14:53 Pantoprazole (Protonix) 40 mg DAILY ORAL 03/05/17 16:30 04/04/17 16:29 Sitagliptin Phosphate (Januvia) 25 mg DAILY ORAL 03/06/17 09:00 04/05/17 08:59 Zolpidem Tartrate (Ambien) 5 mg HSPRN PRN ORAL Insomnia 03/05/17 10:00 03/12/17 09:59 Allergies: Coded Allergies: No Known Allergies (Unverified , 10/24/14) ROS Limited/Unobtainable: No Constitutional: Reports: no symptoms HEENT: Reports: no symptoms Cardiovascular: Reports: no symptoms Respiratory: Reports: shortness of breath Gastrointestinal/Abdominal: Reports: no symptoms Genitourinary: Reports: no symptoms Neurologic/Psychiatric: Reports: no symptoms Subjective 71 YO F admitted with chest pain. Cover for Internal medicine-Dr Alford. S/P endoscopy today 03/07/17. Objective Last Vital Signs Date Time Temp Pulse Resp B/P (MAP) Pulse Ox O2 Delivery O2 Flow Rate FiO2 03/07/17 18:50 102 144/102 03/07/17 16:06 97.7 18 99 Nasal Cannula 2.0 Laboratory Tests Test 03/07/17 03:15 White Blood Count 8.0 K/UL (4.8-10.8) Red Blood Count 4.28 M/UL (4.20-5.40) Hemoglobin 13.9 G/DL (12.0-16.0) Hematocrit 41.7 % (37.0-47.0) Mean Corpuscular Volume 97 FL (80-99) Mean Corpuscular Hemoglobin 32.6 PG (27.0-31.0) H Mean Corpuscular Hemoglobin Concent 33.5 G/DL (32.0-36.0) Red Cell Distribution Width 13.7 % (11.6-14.8) Platelet Count 201 K/UL (150-450) Mean Platelet Volume 8.1 FL (6.5-10.1) Neutrophils (%) (Auto) 71.2 % (45.0-75.0) Lymphocytes (%) (Auto) 13.7 % (20.0-45.0) L Monocytes (%) (Auto) 14.0 % (1.0-10.0) H Eosinophils (%) (Auto) 0.5 % (0.0-3.0) Basophils (%) (Auto) 0.6 % (0.0-2.0) Prothrombin Time 12.7 SEC (9.30-11.50) H Prothromb Time International Ratio 1.2 (0.9-1.1) H Activated Partial Thromboplast Time 27 SEC (23-33) Sodium Level 137 MMOL/L (136-145) Potassium Level 4.2 MMOL/L (3.5-5.1) Chloride Level 91 MMOL/L (98-107) L Carbon Dioxide Level 31 MMOL/L (21-32) Anion Gap 15 mmol/L (5-15) Blood Urea Nitrogen 44 mg/dL (7-18) H Creatinine 7.2 MG/DL (0.55-1.30) H Estimat Glomerular Filtration Rate mL/min (>60) Glucose Level 86 MG/DL (74-106) Calcium Level 11.5 MG/DL (8.5-10.1) H Intake and Output 03/06/17 03/07/17 19:00 07:00 Intake Total 50 ml Output Total 50 ml 0 ml Balance -50 ml 50 ml Intake Oral 50 ml Output Urine Total 0 ml Emesis 50 ml Objective General Appearance: WD/WN, no apparent distress, alert EENT: PERRL/EOMI, normal ENT inspection Neck: non-tender, normal alignment, supple, normal inspection Cardiovascular: normal peripheral pulses, normal rate, regular rhythm, no gallop/murmur, no JVD Respiratory/Chest: chest wall non-tender, lungs clear, normal breath sounds, no respiratory distress, no accessory muscle use Abdomen: normal bowel sounds, non tender, soft, no organomegaly, no mass Extremities: normal range of motion Neurologic: outfitter cabin II-XII grossly normal, other - facial weakness Assessment/Plan Problem List: (1) ESRD (end stage renal disease) on dialysis Assessment & Plan: Last dialysis Friday03/05/17. Next dialysis 03/08/17-see nephrology note. (2) Congestive heart failure (CHF) Assessment & Plan: See cardiology note. (3) Hypertension Assessment & Plan: continue amlodipine, hydralazine and lopressor (4) Chest pain Assessment & Plan: Ruled out for acute myocardial infarction-see cardiology note. (5) DM (diabetes mellitus) Assessment & Plan: continue januvia (6) Gastritis Assessment & Plan: S/P endoscopy 03/07/17-see GI note BERNARD SALAS Mar 07, 2017 18:56
[2017-03-08] VITALS: BP 138/49
[2017-03-08 04:57] VITALS: BP 139/76
[2017-03-08] MEDS: HydrALAZINE 50mg tab ORAL SCH ×3 (05:35→21:00)
[2017-03-08] MEDS: NovoLOG Insulin Flexpen SUBQ SCH ×4 (06:02→21:00)
[2017-03-08 07:07] LABS: BASOPHILS % (AUTO) 1.2 % (0.0-2.0); EOSINOPHILS % (AUTO) 1.4 % (0.0-3.0); HEMATOCRIT 39.5 % (37.0-47.0); HEMOGLOBIN 12.7 G/DL (12.0-16.0); LYMPHOCYTES % (AUTO) 22.3 % (20.0-45.0); MEAN CORPUSCULAR VOLUME 99 FL (80-99); MONOCYTES % (AUTO) 14.5 % (1.0-10.0); NEUTROPHILS % (AUTO) 60.6 % (45.0-75.0); PLATELET COUNT 186 K/UL (150-450); RED BLOOD COUNT 3.99 M/UL (4.20-5.40); RED CELL DISTRIBUTION WIDTH 13.6 % (11.6-14.8); WHITE BLOOD COUNT 7.3 K/UL (4.8-10.8)
--- NOTE | 2017-03-08 07:41 | General Progress Note ---
Assessment/Plan Problem List: (1) ESRD (end stage renal disease) on dialysis ICD Codes: N18.6 - End stage renal disease; Z99.2 - Dependence on renal dialysis SNOMED: 532474955 (2) Hypertension ICD Codes: I10 - Essential (primary) hypertension SNOMED: 99792987 (3) Hyperkalemia ICD Codes: E87.5 - Hyperkalemia SNOMED: 93593138 (4) ACS (acute coronary syndrome) ICD Codes: I24.9 - ACS (acute coronary syndrome) SNOMED: 280642840 (5) DM (diabetes mellitus) ICD Codes: E11.9 - Type 2 diabetes mellitus without complications SNOMED: 95277831 Status: unchanged Assessment/Plan ot pt diet dialysis cardio f/u cbc bmp am Subjective Constitutional: Reports: weakness Allergies: Coded Allergies: No Known Allergies (Unverified , 10/24/14) All Systems: reviewed and negative except above Subjective 02nc calm in bed Objective Last 24 Hour Vital Signs Date Time Temp Pulse Resp B/P (MAP) Pulse Ox O2 Delivery O2 Flow Rate FiO2 03/08/17 04:57 97.5 65 18 139/76 96 Room Air 03/08/17 00:00 98.0 87 18 138/49 98 Room Air 03/07/17 21:16 141/78 03/07/17 20:00 97.9 84 18 141/78 100 Nasal Cannula 2.0 03/07/17 18:50 102 144/102 03/07/17 16:06 97.7 102 18 144/102 99 Nasal Cannula 2.0 03/07/17 15:30 99 18 99 03/07/17 15:27 103 18 99 03/07/17 15:03 98 16 186/82 99 Nasal Cannula 2.0 03/07/17 14:23 Room Air 3.0 03/07/17 14:10 97.9 94 22 160/73 99 Nasal Cannula 3.0 03/07/17 14:02 98 13 148/74 99 Nasal Cannula 3.0 03/07/17 13:57 96 13 145/65 99 Nasal Cannula 3.0 03/07/17 13:52 97.8 104 19 142/63 99 Nasal Cannula 3.0 03/07/17 12:00 97.9 99 19 147/73 94 03/07/17 12:00 Room Air 03/07/17 11:15 Room Air 03/07/17 11:15 Room Air 03/07/17 09:00 99 136/69 03/07/17 09:00 99 136/69 03/07/17 08:00 97.9 99 18 136/69 97 03/07/17 08:00 Room Air Intake and Output 03/07/17 03/08/17 19:00 07:00 Intake Total 100 ml 120 ml Output Total 300 ml Balance -200 ml 120 ml Intake Oral 120 ml IV Total 100 ml Hemodialysis UF 300 ml Laboratory Tests 03/08/17 04:40: White Blood Count 7.3, Red Blood Count 3.99L, Hemoglobin 12.7, Hematocrit 39.5, Mean Corpuscular Volume 99, Mean Corpuscular Hemoglobin 31.9H, Mean Corpuscular Hemoglobin Concent 32.2, Red Cell Distribution Width 13.6, Platelet Count 186, Mean Platelet Volume 8.6, Neutrophils (%) (Auto) 60.6, Lymphocytes (%) (Auto) 22.3, Monocytes (%) (Auto) 14.5H, Eosinophils (%) (Auto) 1.4, Basophils (%) ( Auto) 1.2, Sodium Level [Pending], Potassium Level [Pending], Chloride Level [ Pending], Carbon Dioxide Level [Pending], Blood Urea Nitrogen [Pending], Creatinine [Pending], Estimat Glomerular Filtration Rate [Pending], Glucose Level [Pending], Calcium Level [Pending] Height (Feet): 5 Height (Inches): 2.00 Weight (Pounds): 90 General Appearance: lethargic EENT: normal ENT inspection Neck: normal alignment Cardiovascular: normal peripheral pulses, normal rate, regular rhythm Respiratory/Chest: decreased breath sounds Abdomen: normal bowel sounds, non tender, soft Extremities: normal inspection Edema: no edema noted Arm (L), no edema noted Arm (R), no edema noted Leg (L), no edema noted Leg (R), no edema noted Pedal (L), no edema noted Pedal (R), no edema noted Generalized Neurologic: motor weakness Skin: normal pigmentation, warm/dry SHIELA GALEANA Mar 08, 2017 07:40
[2017-03-08 07:54] LABS: ANION GAP 15 mmol/L (5-15); BLOOD UREA NITROGEN 53 mg/dL (7-18); CALCIUM 11.2 MG/DL (8.5-10.1); CARBON DIOXIDE 28 MMOL/L (21-32); CHLORIDE 91 MMOL/L (98-107); CREATININE 8.9 MG/DL (0.55-1.30); SODIUM 133 MMOL/L (136-145)
[2017-03-08 08:42] VITALS: BP 129/76
[2017-03-08] MEDS: Heparin 5000 units/ml inj SUBQ SCH ×3 (09:00→21:00)
[2017-03-08] MEDS: Metoprolol Tartrate 50mg tab ORAL SCH ×3 (09:00→18:00)
[2017-03-08] MEDS: Aspirin EC 81mg tab ORAL SCH (09:21)
[2017-03-08] MEDS: sitaGLIPtin 25mg tab ORAL SCH (09:21)
[2017-03-08 11:42] VITALS: BP 143/76
[2017-03-08] MEDS: DiphenhydrAMINE 50mg/ml Inj IVP PRN (14:01)
[2017-03-08] MEDS ORDERED: NS 500ML ONE ×3 (15:27→18:28)
[2017-03-08 16:12] VITALS: BP 99/48
[2017-03-08] MEDS ORDERED: Tubing IV Secondary IV ONE ×2 (17:00→18:28)
--- NOTE | 2017-03-08 17:54 | Cardiac Electrophysiology PN ---
Assessment/Plan Assessment/Plan 1. Atypical Chest pain. Ruled out for myocardial infarction.Stress test last admission showed no evidence of ischemia and her EKG is completely normal. Echocardiogram showed ejection fraction of 60%. On Aspirin, Plavix, Lopressor 2. Hypertension. Better on hydralazine 50 mg every 8 hours, Norvasc 10 mg daily , and metoprolol 50 mg b.i.d. 3. End-stage renal disease, had hemodialysis today. 4. Coffee ground emesis. S/P EGD by Dr Ortiz that showed gastritis DW RN Subjective Subjective Had HD today. No chest pain. Objective Last 24 Hour Vital Signs Date Time Temp Pulse Resp B/P (MAP) Pulse Ox O2 Delivery O2 Flow Rate FiO2 03/08/17 16:12 98.0 95 20 99/48 95 03/08/17 16:12 Room Air 2.0 03/08/17 14:00 143/76 03/08/17 11:42 98.2 80 20 143/76 95 03/08/17 11:15 Room Air 2.0 03/08/17 09:00 83 129/76 03/08/17 09:00 83 129/76 03/08/17 08:42 97.7 83 20 129/76 97 03/08/17 04:57 97.5 65 18 139/76 96 Room Air 03/08/17 00:00 98.0 87 18 138/49 98 Room Air 03/07/17 21:16 141/78 03/07/17 20:00 97.9 84 18 141/78 100 Nasal Cannula 2.0 03/07/17 18:50 102 144/102 Intake and Output 03/07/17 03/08/17 19:00 07:00 Intake Total 100 ml 120 ml Output Total 300 ml Balance -200 ml 120 ml Intake Oral 120 ml IV Total 100 ml Hemodialysis UF 300 ml Laboratory Tests Test 03/08/17 04:40 White Blood Count 7.3 K/UL (4.8-10.8) Red Blood Count 3.99 M/UL (4.20-5.40) L Hemoglobin 12.7 G/DL (12.0-16.0) Hematocrit 39.5 % (37.0-47.0) Mean Corpuscular Volume 99 FL (80-99) Mean Corpuscular Hemoglobin 31.9 PG (27.0-31.0) H Mean Corpuscular Hemoglobin Concent 32.2 G/DL (32.0-36.0) Red Cell Distribution Width 13.6 % (11.6-14.8) Platelet Count 186 K/UL (150-450) Mean Platelet Volume 8.6 FL (6.5-10.1) Neutrophils (%) (Auto) 60.6 % (45.0-75.0) Lymphocytes (%) (Auto) 22.3 % (20.0-45.0) Monocytes (%) (Auto) 14.5 % (1.0-10.0) H Eosinophils (%) (Auto) 1.4 % (0.0-3.0) Basophils (%) (Auto) 1.2 % (0.0-2.0) Sodium Level 133 MMOL/L (136-145) L Potassium Level 5.0 MMOL/L (3.5-5.1) Chloride Level 91 MMOL/L (98-107) L Carbon Dioxide Level 28 MMOL/L (21-32) Anion Gap 15 mmol/L (5-15) Blood Urea Nitrogen 53 mg/dL (7-18) H Creatinine 8.9 MG/DL (0.55-1.30) H Estimat Glomerular Filtration Rate mL/min (>60) Glucose Level 91 MG/DL (74-106) Calcium Level 11.2 MG/DL (8.5-10.1) H Objective HEAD AND NECK: No JVD LUNGS: Clear. CARDIOVASCULAR: Regular S1 and S2 with no gallop or murmur. The dialysis line is in the left subclavian. ABDOMEN: Soft. EXTREMITIES: No pitting edema. ARTIS TEE Mar 08, 2017 17:54
--- NOTE | 2017-03-08 19:13 | Nephrology Progress Note ---
Assessment/Plan Problem List: (1) ESRD (end stage renal disease) on dialysis (2) Chest pain (3) Hypertension (4) Congestive heart failure (CHF) (5) DM (diabetes mellitus) (6) Chest pain (7) ACS (acute coronary syndrome) Plan Continue HD every MWF Monitor lytes, correct with HD Cardio following Monitor H&H, transfuse prn Pain management prn Free water restriction DVT proph PPI daily Continue PT/OT AM labs Subjective Subjective In no apparent distress, denies chest pain at this time, no SOB Objective Objective Last 24 Hour Vital Signs Date Time Temp Pulse Resp B/P (MAP) Pulse Ox O2 Delivery O2 Flow Rate FiO2 03/08/17 18:00 95 99/48 03/08/17 16:12 98.0 95 20 99/48 95 03/08/17 16:12 Room Air 2.0 03/08/17 14:00 143/76 03/08/17 11:42 98.2 80 20 143/76 95 03/08/17 11:15 Room Air 2.0 03/08/17 09:00 83 129/76 03/08/17 09:00 83 129/76 03/08/17 08:42 97.7 83 20 129/76 97 03/08/17 04:57 97.5 65 18 139/76 96 Room Air 03/08/17 00:00 98.0 87 18 138/49 98 Room Air 03/07/17 21:16 141/78 03/07/17 20:00 97.9 84 18 141/78 100 Nasal Cannula 2.0 Intake and Output 03/07/17 03/08/17 19:00 07:00 Intake Total 100 ml 120 ml Output Total 300 ml Balance -200 ml 120 ml Intake Oral 120 ml IV Total 100 ml Hemodialysis UF 300 ml Laboratory Tests 03/08/17 04:40: White Blood Count 7.3, Red Blood Count 3.99L, Hemoglobin 12.7, Hematocrit 39.5, Mean Corpuscular Volume 99, Mean Corpuscular Hemoglobin 31.9H, Mean Corpuscular Hemoglobin Concent 32.2, Red Cell Distribution Width 13.6, Platelet Count 186, Mean Platelet Volume 8.6, Neutrophils (%) (Auto) 60.6, Lymphocytes (%) (Auto) 22.3, Monocytes (%) (Auto) 14.5H, Eosinophils (%) (Auto) 1.4, Basophils (%) ( Auto) 1.2, Sodium Level 133L, Potassium Level 5.0, Chloride Level 91L, Carbon Dioxide Level 28, Anion Gap 15, Blood Urea Nitrogen 53H, Creatinine 8.9H, Estimat Glomerular Filtration Rate , Glucose Level 91, Calcium Level 11.2H Height (Feet): 5 Height (Inches): 2.00 Weight (Pounds): 90 General Appearance: no apparent distress, alert EENT: normal ENT inspection Neck: normal alignment, supple Cardiovascular: regular rhythm Respiratory/Chest: normal breath sounds, no respiratory distress Abdomen: soft, no organomegaly Extremities: non-tender, normal inspection, no calf tenderness Neurologic: alert, oriented x 3, responsive, normal mood/affect Sharlene Velasco N.P. Mar 08, 2017 19:12
[2017-03-08 19:51] VITALS: BP 134/61
[2017-03-09 00:16] VITALS: BP 132/99
[2017-03-09] MEDS: Hydromorphone 0.5mg/0.5ml inj IVP PRN (01:31)
[2017-03-09 04:00] VITALS: BP 153/73
[2017-03-09] MEDS: NovoLOG Insulin Flexpen SUBQ SCH ×4 (05:59→20:45)
[2017-03-09] MEDS: HydrALAZINE 50mg tab ORAL SCH ×3 (05:59→20:43)
[2017-03-09 07:49] LABS: ANION GAP 10 mmol/L (5-15); BLOOD UREA NITROGEN 36 mg/dL (7-18); CALCIUM 10.8 MG/DL (8.5-10.1); CARBON DIOXIDE 31 MMOL/L (21-32); CHLORIDE 94 MMOL/L (98-107); POTASSIUM 4.4 MMOL/L (3.5-5.1); SODIUM 135 MMOL/L (136-145)
[2017-03-09 07:54] LABS: BASOPHILS % (AUTO) 1.2 % (0.0-2.0); EOSINOPHILS % (AUTO) 3.5 % (0.0-3.0); HEMATOCRIT 40.4 % (37.0-47.0); HEMOGLOBIN 12.8 G/DL (12.0-16.0); LYMPHOCYTES % (AUTO) 19.9 % (20.0-45.0); MEAN CORPUSCULAR VOLUME 100 FL (80-99); MONOCYTES % (AUTO) 16.5 % (1.0-10.0); NEUTROPHILS % (AUTO) 58.9 % (45.0-75.0); PLATELET COUNT 120 K/UL (150-450); RED BLOOD COUNT 4.03 M/UL (4.20-5.40); RED CELL DISTRIBUTION WIDTH 13.8 % (11.6-14.8); WHITE BLOOD COUNT 6.4 K/UL (4.8-10.8)
--- NOTE | 2017-03-09 07:58 | General Progress Note ---
Assessment/Plan Problem List: (1) ESRD (end stage renal disease) on dialysis ICD Codes: N18.6 - End stage renal disease; Z99.2 - Dependence on renal dialysis SNOMED: 449483281 (2) Hypertension ICD Codes: I10 - Essential (primary) hypertension SNOMED: 61317090 (3) Hyperkalemia ICD Codes: E87.5 - Hyperkalemia SNOMED: 88858116 (4) ACS (acute coronary syndrome) ICD Codes: I24.9 - ACS (acute coronary syndrome) SNOMED: 945329356 (5) DM (diabetes mellitus) ICD Codes: E11.9 - Type 2 diabetes mellitus without complications SNOMED: 75991655 Status: unchanged Assessment/Plan ot pt diet dialysis cardio f/u cbc bmp am Subjective Constitutional: Reports: weakness Allergies: Coded Allergies: No Known Allergies (Unverified , 10/24/14) All Systems: reviewed and negative except above Subjective 02nc calm in bed Objective Last 24 Hour Vital Signs Date Time Temp Pulse Resp B/P (MAP) Pulse Ox O2 Delivery O2 Flow Rate FiO2 03/09/17 05:59 153/73 03/09/17 04:00 98.2 96 18 153/73 96 Room Air 03/09/17 02:01 98.2 03/09/17 00:27 94 Room Air 03/09/17 00:16 98.2 108 18 132/99 94 03/08/17 21:00 134/61 03/08/17 20:00 96 Room Air 03/08/17 19:51 98.6 95 18 134/61 03/08/17 18:00 95 99/48 03/08/17 16:12 98.0 95 20 99/48 95 03/08/17 16:12 Room Air 2.0 03/08/17 14:00 143/76 03/08/17 11:42 98.2 80 20 143/76 95 03/08/17 11:15 Room Air 2.0 03/08/17 09:00 83 129/76 03/08/17 09:00 83 129/76 03/08/17 08:42 97.7 83 20 129/76 97 Intake and Output 03/08/17 03/09/17 19:00 07:00 Intake Total 600 ml 100 ml Output Total 2500 ml Balance -1900 ml 100 ml Intake Oral 600 ml 100 ml Hemodialysis UF 2500 ml Laboratory Tests 03/09/17 06:20: White Blood Count 6.4, Red Blood Count 4.03L, Hemoglobin 12.8, Hematocrit 40.4, Mean Corpuscular Volume 100H, Mean Corpuscular Hemoglobin 31.8H, Mean Corpuscular Hemoglobin Concent 31.8L, Red Cell Distribution Width 13.8, Platelet Count 120L, Mean Platelet Volume 8.6, Neutrophils (%) (Auto) 58.9, Lymphocytes (%) (Auto) 19.9L, Monocytes (%) (Auto) 16.5H, Eosinophils (%) (Auto ) 3.5H, Basophils (%) (Auto) 1.2, Sodium Level 135L, Potassium Level 4.4, Chloride Level 94L, Carbon Dioxide Level 31, Anion Gap 10, Blood Urea Nitrogen 36H, Creatinine 7.0H, Estimat Glomerular Filtration Rate , Glucose Level 101, Calcium Level 10.8H Height (Feet): 5 Height (Inches): 2.00 Weight (Pounds): 90 General Appearance: lethargic EENT: normal ENT inspection Neck: normal alignment Cardiovascular: normal peripheral pulses, normal rate, regular rhythm Respiratory/Chest: chest wall non-tender, lungs clear, normal breath sounds Abdomen: normal bowel sounds, non tender, soft Extremities: normal inspection Edema: no edema noted Arm (L), no edema noted Arm (R), no edema noted Leg (L), no edema noted Leg (R), no edema noted Pedal (L), no edema noted Pedal (R), no edema noted Generalized Neurologic: motor weakness Skin: normal pigmentation, warm/dry SHIELA GALEANA Mar 09, 2017 07:58
[2017-03-09 08:00] VITALS: BP_SYST 139; BP_SYST 152; BP_SYST 154; BP_DIAS 61; BP_DIAS 86; BP_DIAS 87
[2017-03-09] MEDS: Heparin 5000 units/ml inj SUBQ SCH ×2 (09:00→20:45)
[2017-03-09] MEDS: Metoprolol Tartrate 50mg tab ORAL SCH ×2 (09:12→17:31)
[2017-03-09] MEDS: sitaGLIPtin 25mg tab ORAL SCH (09:15)
[2017-03-09] MEDS: Aspirin EC 81mg tab ORAL SCH (09:15)
[2017-03-09 12:00] VITALS: BP 137/94
[2017-03-09 15:54] VITALS: BP 95/55
--- NOTE | 2017-03-09 17:39 | Nephrology Progress Note ---
Assessment/Plan Problem List: (1) ESRD (end stage renal disease) on dialysis (2) Chest pain (3) Hypertension (4) Congestive heart failure (CHF) (5) DM (diabetes mellitus) (6) Chest pain (7) ACS (acute coronary syndrome) Plan Continue HD every MWF Monitor lytes, correct with HD Cardio following Monitor H&H, transfuse prn Pain management prn Free water restriction DVT proph PPI daily Continue PT/OT AM labs Subjective Constitutional: Denies: no symptoms, chills, diaphoresis, fever, malaise, weakness, other HEENT: Denies: no symptoms, eye pain, blurred vision, tearing, double vision, ear pain, ear discharge, nose pain, nose congestion, throat pain, throat swelling, mouth pain, mouth swelling, other Genitourinary: Denies: no symptoms, burning, discharge, frequency, flank pain, hematuria, incontinence, pain, urgency, other Neurologic/Psychiatric: Denies: no symptoms, anxiety, depressed, emotional problems, headache, numbness, paresthesia, pre-existing deficit, seizure, tingling, tremors, weakness, other Subjective In no apparent distress, denies chest pain at this time, no SOB Objective Objective Last 24 Hour Vital Signs Date Time Temp Pulse Resp B/P (MAP) Pulse Ox O2 Delivery O2 Flow Rate FiO2 03/09/17 17:31 75 95/55 03/09/17 15:54 96.6 75 18 95/55 91 Nasal Cannula 2.0 03/09/17 14:15 137/94 03/09/17 12:00 98.0 73 18 137/94 98 Room Air 03/09/17 09:13 101 139/86 03/09/17 09:12 101 139/86 03/09/17 08:00 97.5 101 24 139/86 100 Nasal Cannula 2.0 03/09/17 08:00 97.3 95 20 154/61 98 Room Air 03/09/17 05:59 153/73 03/09/17 04:00 98.2 96 18 153/73 96 Room Air 03/09/17 02:01 98.2 03/09/17 00:27 94 Room Air 03/09/17 00:16 98.2 108 18 132/99 94 03/08/17 21:00 134/61 03/08/17 20:00 96 Room Air 03/08/17 19:51 98.6 95 18 134/61 03/08/17 18:00 95 99/48 Intake and Output 03/08/17 03/09/17 19:00 07:00 Intake Total 600 ml 100 ml Output Total 2500 ml Balance -1900 ml 100 ml Intake Oral 600 ml 100 ml Hemodialysis UF 2500 ml Laboratory Tests 03/09/17 06:20: White Blood Count 6.4, Red Blood Count 4.03L, Hemoglobin 12.8, Hematocrit 40.4, Mean Corpuscular Volume 100H, Mean Corpuscular Hemoglobin 31.8H, Mean Corpuscular Hemoglobin Concent 31.8L, Red Cell Distribution Width 13.8, Platelet Count 120L, Mean Platelet Volume 8.6, Neutrophils (%) (Auto) 58.9, Lymphocytes (%) (Auto) 19.9L, Monocytes (%) (Auto) 16.5H, Eosinophils (%) (Auto ) 3.5H, Basophils (%) (Auto) 1.2, Sodium Level 135L, Potassium Level 4.4, Chloride Level 94L, Carbon Dioxide Level 31, Anion Gap 10, Blood Urea Nitrogen 36H, Creatinine 7.0H, Estimat Glomerular Filtration Rate , Glucose Level 101, Calcium Level 10.8H Height (Feet): 5 Height (Inches): 2.00 Weight (Pounds): 90 General Appearance: no apparent distress, alert EENT: normal ENT inspection Neck: supple Cardiovascular: normal rate Respiratory/Chest: normal breath sounds, no respiratory distress Abdomen: soft, no organomegaly Extremities: non-tender, normal inspection Neurologic: alert, oriented x 3, responsive, normal mood/affect Sharlene Velasco N.P. Mar 09, 2017 17:39
[2017-03-09 20:00] VITALS: BP 135/63
[2017-03-10] VITALS (9 sets, daily range): BP systolic 112–152; BP diastolic 56–85
[2017-03-10] MEDS: NovoLOG Insulin Flexpen SUBQ SCH ×4 (05:41→21:13)
[2017-03-10] MEDS: HydrALAZINE 50mg tab ORAL SCH ×4 (05:41→22:47)
[2017-03-10 07:43] LABS: BASOPHILS % (AUTO) 1.1 % (0.0-2.0); EOSINOPHILS % (AUTO) 5.3 % (0.0-3.0); HEMATOCRIT 38.7 % (37.0-47.0); HEMOGLOBIN 12.4 G/DL (12.0-16.0); LYMPHOCYTES % (AUTO) 19.2 % (20.0-45.0); MEAN CORPUSCULAR VOLUME 99 FL (80-99); NEUTROPHILS % (AUTO) 56.4 % (45.0-75.0); PLATELET COUNT 170 K/UL (150-450); RED BLOOD COUNT 3.92 M/UL (4.20-5.40); RED CELL DISTRIBUTION WIDTH 13.5 % (11.6-14.8); WHITE BLOOD COUNT 7.3 K/UL (4.8-10.8)
--- NOTE | 2017-03-10 07:56 | General Progress Note ---
Assessment/Plan Problem List: (1) ESRD (end stage renal disease) on dialysis ICD Codes: N18.6 - End stage renal disease; Z99.2 - Dependence on renal dialysis SNOMED: 683630681 (2) Hypertension ICD Codes: I10 - Essential (primary) hypertension SNOMED: 67948439 (3) Hyperkalemia ICD Codes: E87.5 - Hyperkalemia SNOMED: 76217504 (4) ACS (acute coronary syndrome) ICD Codes: I24.9 - ACS (acute coronary syndrome) SNOMED: 805292214 (5) DM (diabetes mellitus) ICD Codes: E11.9 - Type 2 diabetes mellitus without complications SNOMED: 33055601 Status: unchanged Assessment/Plan ot pt diet dialysis cardio f/u cbc bmp am Subjective Constitutional: Reports: weakness Allergies: Coded Allergies: No Known Allergies (Unverified , 10/24/14) All Systems: reviewed and negative except above Subjective calm in bed Objective Last 24 Hour Vital Signs Date Time Temp Pulse Resp B/P (MAP) Pulse Ox O2 Delivery O2 Flow Rate FiO2 03/10/17 05:41 152/84 03/10/17 04:43 97.7 77 18 152/84 98 Nasal Cannula 2.0 03/09/17 20:43 131/63 03/09/17 20:00 97.3 87 18 135/63 100 Nasal Cannula 2.0 03/09/17 19:11 94 Nasal Cannula 2.0 28 03/09/17 19:11 Nasal Cannula 2.0 03/09/17 17:31 75 95/55 03/09/17 15:54 96.6 75 18 95/55 91 Nasal Cannula 2.0 03/09/17 14:15 137/94 03/09/17 12:00 98.0 73 18 137/94 98 Room Air 03/09/17 09:13 101 139/86 03/09/17 09:12 101 139/86 03/09/17 08:00 97.5 101 24 139/86 100 Nasal Cannula 2.0 03/09/17 08:00 97.3 95 20 154/61 98 Room Air Intake and Output 03/09/17 03/10/17 19:00 07:00 Intake Total 360 ml 200 ml Balance 360 ml 200 ml Intake Oral 360 ml 200 ml Laboratory Tests 03/10/17 05:15: White Blood Count 7.3, Red Blood Count 3.92L, Hemoglobin 12.4, Hematocrit 38.7, Mean Corpuscular Volume 99, Mean Corpuscular Hemoglobin 31.6H, Mean Corpuscular Hemoglobin Concent 32.0, Red Cell Distribution Width 13.5, Platelet Count 170, Mean Platelet Volume 8.3, Neutrophils (%) (Auto) 56.4, Lymphocytes (%) (Auto) 19.2L, Monocytes (%) (Auto) 18.0H, Eosinophils (%) (Auto) 5.3H, Basophils (%) ( Auto) 1.1, Sodium Level [Pending], Potassium Level [Pending], Chloride Level [ Pending], Carbon Dioxide Level [Pending], Blood Urea Nitrogen [Pending], Creatinine [Pending], Estimat Glomerular Filtration Rate [Pending], Glucose Level [Pending], Calcium Level [Pending] Height (Feet): 5 Height (Inches): 2.00 Weight (Pounds): 90 General Appearance: lethargic EENT: normal ENT inspection Neck: normal alignment Cardiovascular: normal peripheral pulses, normal rate, regular rhythm Respiratory/Chest: chest wall non-tender, lungs clear, normal breath sounds Abdomen: normal bowel sounds, non tender, soft Extremities: normal inspection Edema: no edema noted Arm (L), no edema noted Arm (R), no edema noted Leg (L), no edema noted Leg (R), no edema noted Pedal (L), no edema noted Pedal (R), no edema noted Generalized Neurologic: motor weakness Skin: normal pigmentation, warm/dry SHIELA GALEANA Mar 10, 2017 07:55
[2017-03-10] MEDS: Metoprolol Tartrate 50mg tab ORAL SCH ×2 (08:25→17:37)
[2017-03-10] MEDS: sitaGLIPtin 25mg tab ORAL SCH (08:25)
[2017-03-10] MEDS: Aspirin EC 81mg tab ORAL SCH (08:25)
[2017-03-10] MEDS: Heparin 5000 units/ml inj SUBQ SCH ×2 (08:26→20:40)
[2017-03-10 08:30] LABS: ANION GAP 15 mmol/L (5-15); BLOOD UREA NITROGEN 44 mg/dL (7-18); CARBON DIOXIDE 29 MMOL/L (21-32); CHLORIDE 91 MMOL/L (98-107); CREATININE 8.9 MG/DL (0.55-1.30); SODIUM 135 MMOL/L (136-145)
[2017-03-10] MEDS: DiphenhydrAMINE 50mg/ml Inj IVP PRN (11:24)
--- NOTE | 2017-03-10 12:24 | Cardiac Electrophysiology PN ---
Assessment/Plan Assessment/Plan 1. Atypical Chest pain. Ruled out for myocardial infarction.Stress test last admission showed no evidence of ischemia and her EKG is completely normal. Echocardiogram EF of 60%. On Aspirin, Plavix, Lopressor 2. Hypertension. Better on hydralazine 50 mg every 8 hours, Norvasc 10 mg daily , metoprolol 50 mg b.i.d. and HD 3. End-stage renal disease, getting hemodialysis today with goal of 3 liters removal. 4. Coffee ground emesis. S/P EGD by Dr. Ortiz that showed gastritis DW RN Subjective Subjective Comfortable in NAD getting HD . No chest pain.or SOB. Objective Last 24 Hour Vital Signs Date Time Temp Pulse Resp B/P (MAP) Pulse Ox O2 Delivery O2 Flow Rate FiO2 03/10/17 08:25 65 142/67 03/10/17 08:25 65 142/67 03/10/17 08:00 98.1 65 20 142/67 96 Room Air 03/10/17 05:41 152/84 03/10/17 04:43 97.7 77 18 152/84 98 Nasal Cannula 2.0 03/09/17 20:43 131/63 03/09/17 20:00 97.3 87 18 135/63 100 Nasal Cannula 2.0 03/09/17 19:11 94 Nasal Cannula 2.0 28 03/09/17 19:11 Nasal Cannula 2.0 03/09/17 17:31 75 95/55 03/09/17 15:54 96.6 75 18 95/55 91 Nasal Cannula 2.0 03/09/17 14:15 137/94 Intake and Output 03/09/17 03/10/17 19:00 07:00 Intake Total 360 ml 200 ml Balance 360 ml 200 ml Intake Oral 360 ml 200 ml Laboratory Tests Test 03/10/17 05:15 White Blood Count 7.3 K/UL (4.8-10.8) Red Blood Count 3.92 M/UL (4.20-5.40) L Hemoglobin 12.4 G/DL (12.0-16.0) Hematocrit 38.7 % (37.0-47.0) Mean Corpuscular Volume 99 FL (80-99) Mean Corpuscular Hemoglobin 31.6 PG (27.0-31.0) H Mean Corpuscular Hemoglobin Concent 32.0 G/DL (32.0-36.0) Red Cell Distribution Width 13.5 % (11.6-14.8) Platelet Count 170 K/UL (150-450) Mean Platelet Volume 8.3 FL (6.5-10.1) Neutrophils (%) (Auto) 56.4 % (45.0-75.0) Lymphocytes (%) (Auto) 19.2 % (20.0-45.0) L Monocytes (%) (Auto) 18.0 % (1.0-10.0) H Eosinophils (%) (Auto) 5.3 % (0.0-3.0) H Basophils (%) (Auto) 1.1 % (0.0-2.0) Sodium Level 135 MMOL/L (136-145) L Potassium Level 4.0 MMOL/L (3.5-5.1) Chloride Level 91 MMOL/L (98-107) L Carbon Dioxide Level 29 MMOL/L (21-32) Anion Gap 15 mmol/L (5-15) Blood Urea Nitrogen 44 mg/dL (7-18) H Creatinine 8.9 MG/DL (0.55-1.30) H Estimat Glomerular Filtration Rate mL/min (>60) Glucose Level 94 MG/DL (74-106) Calcium Level 11.0 MG/DL (8.5-10.1) H Objective HEAD AND NECK: No JVD LUNGS: Clear. CARDIOVASCULAR: Regular S1 and S2 with no gallop or murmur. The dialysis line is in the left subclavian. ABDOMEN: Soft. EXTREMITIES: No pitting edema. ARTIS TEE Mar 10, 2017 12:24
--- NOTE | 2017-03-10 12:50 | GI Progress Note ---
Assessment/Plan Problems: (1) Gastritis ICD Codes: K29.70 - Gastritis SNOMED: 3374086 (2) Coffee ground emesis ICD Codes: K92.0 - Hematemesis SNOMED: 51731699, 761046660 (3) Nausea ICD Codes: R11.0 - Nausea SNOMED: 614858319 (4) Abdominal pain ICD Codes: R10.9 - Unspecified abdominal pain SNOMED: 88266530 (5) Generalized weakness ICD Codes: R53.1 - Weakness SNOMED: 01267743 Status: stable Status Narrative Discussed with Dr. Ortiz. Assessment/Plan Endoscopy Procedure Note Indication for Procedure: GIB Procedures Performed: EGD Operative Findings/Diagnosis: GASTRITIS okay for DC per GI standpoint monitor H&H, prn transfusions ppi fu labs Subjective Gastrointestinal/Abdominal: Reports: no symptoms Objective Last 24 Hour Vital Signs Date Time Temp Pulse Resp B/P (MAP) Pulse Ox O2 Delivery O2 Flow Rate FiO2 03/10/17 08:25 65 142/67 03/10/17 08:25 65 142/67 03/10/17 08:00 98.1 65 20 142/67 96 Room Air 03/10/17 05:41 152/84 03/10/17 04:43 97.7 77 18 152/84 98 Nasal Cannula 2.0 03/09/17 20:43 131/63 03/09/17 20:00 97.3 87 18 135/63 100 Nasal Cannula 2.0 03/09/17 19:11 94 Nasal Cannula 2.0 28 03/09/17 19:11 Nasal Cannula 2.0 03/09/17 17:31 75 95/55 03/09/17 15:54 96.6 75 18 95/55 91 Nasal Cannula 2.0 03/09/17 14:15 137/94 Intake and Output 03/09/17 03/10/17 19:00 07:00 Intake Total 360 ml 200 ml Balance 360 ml 200 ml Intake Oral 360 ml 200 ml Laboratory Tests Test 03/10/17 05:15 White Blood Count 7.3 K/UL (4.8-10.8) Red Blood Count 3.92 M/UL (4.20-5.40) L Hemoglobin 12.4 G/DL (12.0-16.0) Hematocrit 38.7 % (37.0-47.0) Mean Corpuscular Volume 99 FL (80-99) Mean Corpuscular Hemoglobin 31.6 PG (27.0-31.0) H Mean Corpuscular Hemoglobin Concent 32.0 G/DL (32.0-36.0) Red Cell Distribution Width 13.5 % (11.6-14.8) Platelet Count 170 K/UL (150-450) Mean Platelet Volume 8.3 FL (6.5-10.1) Neutrophils (%) (Auto) 56.4 % (45.0-75.0) Lymphocytes (%) (Auto) 19.2 % (20.0-45.0) L Monocytes (%) (Auto) 18.0 % (1.0-10.0) H Eosinophils (%) (Auto) 5.3 % (0.0-3.0) H Basophils (%) (Auto) 1.1 % (0.0-2.0) Sodium Level 135 MMOL/L (136-145) L Potassium Level 4.0 MMOL/L (3.5-5.1) Chloride Level 91 MMOL/L (98-107) L Carbon Dioxide Level 29 MMOL/L (21-32) Anion Gap 15 mmol/L (5-15) Blood Urea Nitrogen 44 mg/dL (7-18) H Creatinine 8.9 MG/DL (0.55-1.30) H Estimat Glomerular Filtration Rate mL/min (>60) Glucose Level 94 MG/DL (74-106) Calcium Level 11.0 MG/DL (8.5-10.1) H Height (Feet): 5 Height (Inches): 2.00 Weight (Pounds): 90 General Appearance: WD/WN, no apparent distress, alert Cardiovascular: normal rate Respiratory/Chest: normal breath sounds, no respiratory distress Abdominal Exam: normal bowel sounds, non tender, soft Extremities: normal range of motion, non-tender Chrissie Artis N.P. Mar 10, 2017 12:50
--- NOTE | 2017-03-10 16:45 | Procedure Note ---
DATE OF PROCEDURE: 03/07/2017 SURGEON: Fortino Ortiz M.D. ANESTHESIOLOGIST: Emily Ahuja M.D. INSTRUMENT: Olympus adult flexible upper endoscope. INDICATION: Upper gastrointestinal bleeding. REASON FOR PROCEDURE: The procedure, risks, benefits, and possible consequences, including hemorrhage, aspiration, perforation and infection, and alternative treatments, were explained to the patient/legal guardian by Dr. Fortino Ortiz and the patient/legal guardian understood and accepted these risks. DESCRIPTION OF PROCEDURE: After informed consent was obtained and the patient was adequately sedated, first Olympus upper endoscope was advanced from the mouth into the second portion of the duodenum and retroflexion was performed of the stomach. The patient had evidence of small hiatal hernia. In the stomach, there was diffuse atrophic gastritis. In the antrum of the stomach, there was evidence of inflammation and few small shallow gastric ulcerations/erosions. No active bleeding at this time. Random biopsy from antrum was obtained to rule out H. pylori infection. The patient tolerated the procedure well without any complication. SUMMARY OF FINDINGS: 1. Small hiatal hernia. 2. Atrophic gastritis. 3. Few shallow gastric ulcerations. 4. Gastritis. RECOMMENDATIONS: 1. Follow biopsies and treat accordingly. 2. Resume diet. 3. Continue on PPI daily. 4. Follow biopsy results. I want to thank, Dr. Plascencia, for this kind referral. Fortino Ortiz M.D. DR: KRYSTAL JOB#: [id number] CC:
[2017-03-11] MEDS: Hydromorphone 0.5mg/0.5ml inj IVP PRN (00:46)
[2017-03-11 03:15] VITALS: BP 169/76
[2017-03-11 04:12] VITALS: BP 158/77
[2017-03-11] MEDS: NovoLOG Insulin Flexpen SUBQ SCH ×2 (05:46→11:59)
[2017-03-11] MEDS: HydrALAZINE 50mg tab ORAL SCH (06:27)
[2017-03-11 07:26] LABS: BASOPHILS % (AUTO) 0.8 % (0.0-2.0); EOSINOPHILS % (AUTO) 4.5 % (0.0-3.0); HEMATOCRIT 34.8 % (37.0-47.0); HEMOGLOBIN 10.8 G/DL (12.0-16.0); LYMPHOCYTES % (AUTO) 22.6 % (20.0-45.0); MEAN CORPUSCULAR VOLUME 102 FL (80-99); MONOCYTES % (AUTO) 14.7 % (1.0-10.0); NEUTROPHILS % (AUTO) 57.4 % (45.0-75.0); PLATELET COUNT 165 K/UL (150-450); RED BLOOD COUNT 3.43 M/UL (4.20-5.40); RED CELL DISTRIBUTION WIDTH 14.2 % (11.6-14.8); WHITE BLOOD COUNT 7.8 K/UL (4.8-10.8)
[2017-03-11 08:00] VITALS: BP 133/64
[2017-03-11 08:15] LABS: ANION GAP 10 mmol/L (5-15); BLOOD UREA NITROGEN 26 mg/dL (7-18); CALCIUM 10.9 MG/DL (8.5-10.1); CARBON DIOXIDE 36 MMOL/L (21-32); CHLORIDE 95 MMOL/L (98-107); CREATININE 6.6 MG/DL (0.55-1.30); SODIUM 141 MMOL/L (136-145)
[2017-03-11] MEDS: Aspirin EC 81mg tab ORAL SCH (08:49)
[2017-03-11] MEDS: sitaGLIPtin 25mg tab ORAL SCH (08:49)
[2017-03-11] MEDS: Metoprolol Tartrate 50mg tab ORAL SCH (08:50)
[2017-03-11] MEDS: Heparin 5000 units/ml inj SUBQ SCH (08:51)
[2017-03-11 11:31] VITALS: BP 125/45
--- NOTE | 2017-03-11 13:17 | General Progress Note ---
Assessment/Plan Problem List: (1) ESRD (end stage renal disease) on dialysis ICD Codes: N18.6 - End stage renal disease; Z99.2 - Dependence on renal dialysis SNOMED: 383677578 (2) Hypertension ICD Codes: I10 - Essential (primary) hypertension SNOMED: 87604758 (3) Hyperkalemia ICD Codes: E87.5 - Hyperkalemia SNOMED: 27949317 (4) ACS (acute coronary syndrome) ICD Codes: I24.9 - ACS (acute coronary syndrome) SNOMED: 949484248 (5) DM (diabetes mellitus) ICD Codes: E11.9 - Type 2 diabetes mellitus without complications SNOMED: 63518390 Status: stable, progressing, tolerating diet Assessment/Plan ot pt diet dialysis cardio f/u cbc bmp am Subjective Constitutional: Reports: weakness Allergies: Coded Allergies: No Known Allergies (Unverified , 10/24/14) All Systems: reviewed and negative except above Subjective calm in bed Objective Last 24 Hour Vital Signs Date Time Temp Pulse Resp B/P (MAP) Pulse Ox O2 Delivery O2 Flow Rate FiO2 03/11/17 11:31 97.3 80 21 125/45 93 03/11/17 08:50 80 158/77 03/11/17 08:50 80 158/77 03/11/17 08:00 96.3 74 20 133/64 91 03/11/17 06:27 158/77 03/11/17 04:12 80 158/77 Room Air 03/11/17 03:15 97.5 83 20 169/76 98 Room Air 03/11/17 01:16 97.3 03/11/17 00:02 Room Air 03/10/17 23:12 97.3 81 20 151/73 95 Room Air 03/10/17 22:48 79 146/75 03/10/17 20:59 97.5 84 18 112/78 100 Room Air 03/10/17 17:37 85 125/67 03/10/17 16:00 97.3 85 20 125/67 96 Room Air 03/10/17 14:09 97.5 69 20 122/56 96 Room Air 20.0 03/10/17 14:00 Room Air 03/10/17 14:00 97.6 69 122/56 Room Air Intake and Output 03/10/17 03/11/17 19:00 07:00 Intake Total 950 ml 240 ml Output Total 2644 ml Balance -1694 ml 240 ml Intake Oral 950 ml 240 ml Hemodialysis UF 2644 ml # Voids 3 Laboratory Tests 03/11/17 04:50: White Blood Count 7.8, Red Blood Count 3.43L, Hemoglobin 10.8L, Hematocrit 34.8L , Mean Corpuscular Volume 102H, Mean Corpuscular Hemoglobin 31.4H, Mean Corpuscular Hemoglobin Concent 30.9L, Red Cell Distribution Width 14.2, Platelet Count 165, Mean Platelet Volume 8.8, Neutrophils (%) (Auto) 57.4, Lymphocytes (%) (Auto) 22.6, Monocytes (%) (Auto) 14.7H, Eosinophils (%) (Auto) 4.5H, Basophils (%) (Auto) 0.8, Sodium Level 141, Potassium Level 4.0, Chloride Level 95L, Carbon Dioxide Level 36H, Anion Gap 10, Blood Urea Nitrogen 26H, Creatinine 6.6H, Estimat Glomerular Filtration Rate , Glucose Level 106, Calcium Level 10.9H Height (Feet): 5 Height (Inches): 2.00 Weight (Pounds): 90 General Appearance: lethargic EENT: normal ENT inspection Neck: normal alignment Cardiovascular: normal peripheral pulses, normal rate, regular rhythm Respiratory/Chest: chest wall non-tender, lungs clear, normal breath sounds Abdomen: normal bowel sounds, non tender, soft Extremities: normal inspection Edema: no edema noted Arm (L), no edema noted Arm (R), no edema noted Leg (L), no edema noted Leg (R), no edema noted Pedal (L), no edema noted Pedal (R), no edema noted Generalized Neurologic: responsive, motor weakness Skin: normal pigmentation, warm/dry SHIELA GALEANA Mar 11, 2017 13:17
--- NOTE | 2017-03-11 17:36 | GI Progress Note ---
Assessment/Plan Problems: (1) Gastritis ICD Codes: K29.70 - Gastritis SNOMED: 5127641 (2) Coffee ground emesis ICD Codes: K92.0 - Hematemesis SNOMED: 79571565, 621120370 (3) Nausea ICD Codes: R11.0 - Nausea SNOMED: 715578756 (4) Abdominal pain ICD Codes: R10.9 - Unspecified abdominal pain SNOMED: 21075175 (5) Generalized weakness ICD Codes: R53.1 - Weakness SNOMED: 17733290 Status: stable Status Narrative Discussed with Dr. Ortiz. Assessment/Plan Endoscopy Procedure Note Indication for Procedure: GIB Procedures Performed: EGD Operative Findings/Diagnosis: GASTRITIS okay for DC per GI standpoint monitor H&H, prn transfusions ppi fu labs Subjective Gastrointestinal/Abdominal: Reports: no symptoms Objective Last 24 Hour Vital Signs Date Time Temp Pulse Resp B/P (MAP) Pulse Ox O2 Delivery O2 Flow Rate FiO2 03/11/17 11:31 97.3 80 21 125/45 93 03/11/17 08:50 80 158/77 03/11/17 08:50 80 158/77 03/11/17 08:00 96.3 74 20 133/64 91 03/11/17 06:27 158/77 03/11/17 04:12 80 158/77 Room Air 03/11/17 03:15 97.5 83 20 169/76 98 Room Air 03/11/17 01:16 97.3 03/11/17 00:02 Room Air 03/10/17 23:12 97.3 81 20 151/73 95 Room Air 03/10/17 22:48 79 146/75 03/10/17 20:59 97.5 84 18 112/78 100 Room Air 03/10/17 17:37 85 125/67 Intake and Output 03/10/17 03/11/17 19:00 07:00 Intake Total 950 ml 240 ml Output Total 2644 ml Balance -1694 ml 240 ml Intake Oral 950 ml 240 ml Hemodialysis UF 2644 ml # Voids 3 Laboratory Tests Test 03/11/17 04:50 White Blood Count 7.8 K/UL (4.8-10.8) Red Blood Count 3.43 M/UL (4.20-5.40) L Hemoglobin 10.8 G/DL (12.0-16.0) L Hematocrit 34.8 % (37.0-47.0) L Mean Corpuscular Volume 102 FL (80-99) H Mean Corpuscular Hemoglobin 31.4 PG (27.0-31.0) H Mean Corpuscular Hemoglobin Concent 30.9 G/DL (32.0-36.0) L Red Cell Distribution Width 14.2 % (11.6-14.8) Platelet Count 165 K/UL (150-450) Mean Platelet Volume 8.8 FL (6.5-10.1) Neutrophils (%) (Auto) 57.4 % (45.0-75.0) Lymphocytes (%) (Auto) 22.6 % (20.0-45.0) Monocytes (%) (Auto) 14.7 % (1.0-10.0) H Eosinophils (%) (Auto) 4.5 % (0.0-3.0) H Basophils (%) (Auto) 0.8 % (0.0-2.0) Sodium Level 141 MMOL/L (136-145) Potassium Level 4.0 MMOL/L (3.5-5.1) Chloride Level 95 MMOL/L (98-107) L Carbon Dioxide Level 36 MMOL/L (21-32) H Anion Gap 10 mmol/L (5-15) Blood Urea Nitrogen 26 mg/dL (7-18) H Creatinine 6.6 MG/DL (0.55-1.30) H Estimat Glomerular Filtration Rate mL/min (>60) Glucose Level 106 MG/DL (74-106) Calcium Level 10.9 MG/DL (8.5-10.1) H Height (Feet): 5 Height (Inches): 2.00 Weight (Pounds): 90 General Appearance: WD/WN, no apparent distress, alert, thin Cardiovascular: normal rate Respiratory/Chest: normal breath sounds, no respiratory distress Abdominal Exam: normal bowel sounds, non tender, soft Extremities: non-tender Chrissie Artis N.P. Mar 11, 2017 17:36
[2017-03-12] MEDS ORDERED: TYLENOL325 MG ORAL (19:55)
--- NOTE | 2017-03-25 14:53 | Discharge Summary ---
Discharge Summary Hospital Course Date of Admission Mar 03, 2017 at 02:35 Date of Discharge Mar 11, 2017 at 13:10 Admitting Diagnosis chest pain, esrd, hyperkalemia,pancreatitis HPI Lindaphil Orellana is a 71 year old female who was admitted on Mar 03, 2017 at 02:35 for Chest Pain,End Stage Renal Failure,Hyperkalemia Hospital Course dc summary #[id number] Discharge Medications Continued Medications: Amlodipine Besylate (Norvasc) 10 Mg Tab 10 MG ORAL DAILY, #30 MG Amlodipine Besylate (Norvasc) 10 Mg Tablet 10 MG ORAL DAILY, TAB Aspirin* (Aspir 81*) 81 Mg Tablet.dr 81 MG ORAL DAILY, TAB Clonidine HCl (Clonidine HCl ER) 0.1 Mg Tab.er.12h 0.1 MG PO, TAB Clonidine Hcl (Clonidine Hcl) 0.1 Mg Tablet 0.1 MG PO EVERY 6 HOURS PRN for For High Blood Pressure, TAB Clopidogrel* (Clopidogrel*) 75 Mg Tablet 75 MG ORAL DAILY, TAB Hydralazine HCl (Hydralazine HCl) 50 Mg Tablet 50 MG ORAL Q8HR, #90 TAB Hydrochlorothiazide* (Hydrochlorothiazide*) 12.5 Mg Capsule Unknown Dose ORAL DAILY, CAP Loratadine (Loratadine) 10 Mg Tab.rapdis 10 MG PO DAILY PRN for Itching, TAB Metoprolol Tartrate* (Metoprolol Tartrate*) 50 Mg Tablet 50 MG ORAL BID, #60 TAB Sitagliptin* (Januvia*) 25 Mg Tablet 25 MG ORAL DAILY, TAB Sitagliptin* (Januvia*) 25 Mg Tablet 25 MG ORAL DAILY, TAB Discharge Condition Upon Discharge: stable Discharge Disposition Patient was discharged to Home () Discharge Diagnoses: Discharge Instructions Discharge Instructions Special Instructions I have been assigned to complete a D/C Summary on this account. I was not involved in the patient management Monica Estrada NP (Vanchtein) Mar 25, 2017 14:53
--- NOTE | 2017-03-27 23:11 | Physician Query ---
--------- THIS DOCUMENT IS A PERMANENT PART OF THE MEDICAL RECORD --------- PLEASE COMPLETE DOCUMENT BEFORE SIGNING Dear Dr. 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 Questions asked do not imply a particular answer is desired or expected. We greatly appreciate your clarification on this issue. CLINICAL DOCUMENTATION STATES: HISTORY OF PRESENT ILLNESS: The patient is a 71-year-old female, well known to me from previous hospitalization, who presented to the emergency room with the chest pain, left-sided, nonradiating. Dr Magallanes Consultation: Ruled out for myocardial infarction The patient had a stress test on her last admission that showed no evidence of ischemia and her EKG is completely normal. Her echocardiogram also showed ejection fraction of 60%. Pain may be due to the patient's uncontrolled hypertension. GI consultation: GI: Plan Problems: (1) Coffee ground emesis (2) Abdominal pain (3) Generalized weakness (4) Nausea EGD performed on 03/07/17 results: SUMMARY OF FINDINGS: 1. Small hiatal hernia. 2. Atrophic gastritis. 3. Few shallow gastric ulcerations. 4. Gastritis. Please respond to the following question: Is there a source identified for the Chest Pain? If so please state below: PHYSICIAN RESPONSE: Please also document in your Progress Notes and/or Discharge Summary and indicate if the condition was present on admission. TIGRE FULLER M.D. [facility]
--- NOTE | 2017-03-28 12:55 | Discharge Summary 2 SIG ---
DATE OF ADMISSION: 03/03/2017 DATE OF DISCHARGE: 03/11/2017 REASON FOR ADMISSION: 71-year-old female with past medical history significant for end-stage renal disease, on hemodialysis, diabetes, hypertension, and anemia, presented to emergency department with complaint of chest pain. The patient described gradual onset of symptoms. Chest pain was associated with shortness of breath. She denied any cough, reported epigastric abdominal pain. Vital signs showed tachycardia at 112 and pulse oximetry was stable on room air. No fever. Potassium -5.1, BUN- 40 and creatinine- 7.1 consistent with known history of end-stage renal disease, and sodium -134. Troponin negative - 0.017. ProBNP -9656. EKG showed sinus tachycardia. No acute ischemic changes. The patient was admitted with diagnosis of chest pain, rule out acute coronary syndrome, end-stage renal disease, on hemodialysis, hypertension, diabetes, congestive heart failure, hyponatremia and shortness of breath. HOSPITAL COURSE: The patient admitted. Hemodialysis was arranged as scheduled, three times a week. A Cardiology consult was requested. Electrolytes were closely monitored. Nephrotoxics were avoided. Pain management was addressed. Glycemic control was closely watched. According to driver/sales workers, the patient was ruled out for myocardial infarction with three negative serial troponin and EKG without any ischemic changes. Echocardiogram revealed preserved ejection fraction of 60% and right ventricular systolic pressure of 82 consistent with severe pulmonary hypertension. The patient had a stress test on the previous admission, which showed no evidence of ischemia. Chest pain could be due to the uncontrolled hypertension as per driver/sales workers. Antihypertensive regimen was optimized including hydralazine, Norvasc and metoprolol, those were up titrated by driver/sales workers. Blood pressure was better controlled. The patient noted to have coffee-grounds emesis. GI consult was requested. The patient subsequently undergone EGD. Biopsy of stomach antrum revealed moderate chronic gastritis, but was negative for Helicobacter. The patient was on PPI. Hemoglobin and hematocrit were closely monitored. No need for transfusion. GI cleared the patient for discharge. DVT and GI prophylaxis provided. The patient was working with physical and occupational therapists. Blood sugar was managed with Januvia and sliding scale of insulin on as needed basis. Prior to discharge, no further nausea and no vomiting. Chest pain resolved. Pulse oximetry stable on room air. Blood pressure controlled -125/45. FINAL DIAGNOSES: 1. Atypical chest pain likely secondary to uncontrolled blood pressure. 2. Hypertension 3. Gastrointestinal bleeding. 4. Status post esophagogastroduodenoscopy. 5. Gastritis. 6. End-stage renal disease, on hemodialysis. 7. Diabetes mellitus. DISCHARGE MEDICATIONS: See medication reconciliation list. DISCHARGE INSTRUCTIONS: The patient discharged home. Follow up with the primary medical doctor. Follow up with outpatient hemodialysis. Blaze Plascencia M.D. I have been assigned to dictate discharge summary on this account and I was not involved in the patient's management. Monica HawkLong Island College HospitalJeromy N.P. DR: GLADIS JOB#: [id number] CC: MAHIN
== END 2017-03-11 13:10 | disposition home or self-care (01) | DRG 377 ==
LOC: EMR 01:47 → EDBEDREQ 02:28 → MERGE 02:35 → 2E 02:35 → EDBEDREQ 12:18 → 4W 03-05 09:00
PROC: 0DB78ZX Excision of Stomach, Pylorus, Via Natural or Artificial Opening Endoscopic, Diagnostic (ICD-10-PCS; principal; 2017-03-07 13:38)
DX: K29.41 Chronic atrophic gastritis with bleeding (principal); N18.6 End stage renal disease; I13.2 Hypertensive heart and chronic kidney disease with heart failure and with stage 5 chronic kidney disease, or end stage renal disease; I24.9 Acute ischemic heart disease, unspecified; E11.22 Type 2 diabetes mellitus with diabetic chronic kidney disease; E87.1 Hypo-osmolality and hyponatremia; E87.5 Hyperkalemia; I50.9 Heart failure, unspecified; D63.1 Anemia in chronic kidney disease; Z99.2 Dependence on renal dialysis; Z79.02 Long term (current) use of antithrombotics/antiplatelets; K44.9 Diaphragmatic hernia without obstruction or gangrene; R11.2 Nausea with vomiting, unspecified; R10.9 Unspecified abdominal pain; Z86.73 Personal history of transient ischemic attack (TIA), and cerebral infarction without residual deficits; Z79.82 Long term (current) use of aspirin
CPT/HCPCS: 36415; 71045; 80048; 80053; 82550; 82553; 82962; 83036; 83690; 83880; 84484; 85025; 85610; 85730; 87081; 93005; 93306; 94003; 94150; 94760; 99285; J1815; J2405

== ENCOUNTER 2017-03-12 19:23 | Emergency (ER) | payer MEDICARE, MEDICAID ==
[~2017-03-12] VITALS: Ht 157.5 cm; Wt 45.4 kg
[2017-03-12 19:47] VITALS: BP 153/128
--- NOTE | 2017-03-12 19:53 | Emergency Room Report ---
History of Present Illness General Chief Complaint: Chest Pain Source: Patient, Medical Record Present Illness HPI 71-year-old female walked in with left-sided chest pain. no associated shortness of breath, nausea vomiting or sweating. She states the pain is worse with movement, worse when she pushes on it Has been taking Tylenol for pain with improvement Patient was just discharged yesterday after multi-day stay for chest pain Patient was evaluated by cardiology, had unchanged Echo with retained EF All serial troponin all within normal limits Patient's pain thought due to 2 atypical chest pain from high blood pressure She states she had dialysis yesterday Allergies: Coded Allergies: No Known Allergies (Unverified , 10/24/14) Patient History Past Medical History: old chart reviewed, HTN, renal disease, dialysis Past Surgical History: none Pertinent Family History: none Social History: Denies: smoking, alcohol use, drug use Last Menstrual Period: na Now: No Immunizations: UTD Reviewed Nursing Documentation: PMH: Agreed, PSxH: Agreed Nursing Documentation-PMH Hx Cardiac Problems: Yes - Acute coronary syndrome Hx Hypertension: Yes Hx Pacemaker: No Hx Asthma: No Hx COPD: No Hx Diabetes: Yes Hx Cancer: Yes Hx Gastrointestinal Problems: No Hx Dialysis: Yes - T,TH,S Hx Neurological Problems: Yes Hx Cerebrovascular Accident: Yes Hx Transient Ischemic Attacks: Yes Hx Seizures: No Hx Speech Problem: Yes - Tongue protrusion Hx Dizziness: Yes Hx Syncope: Yes Hx Headaches: Yes Hx Weakness: Yes - BILATERAL LOWER EXTREMITIES Hx Fatigue: Yes Hx Neurologic Surgery: No Hx Brain Shunt: No Review of Systems All Other Systems: negative except mentioned in HPI Physical Exam Vital Signs Date Time Temp Pulse Resp B/P (MAP) Pulse Ox O2 Delivery O2 Flow Rate FiO2 03/12/17 19:34 97.9 102 16 153/128 97 Room Air Sp02 EP Interpretation: reviewed, normal General Appearance: normal inspection, well appearing, no apparent distress, alert, GCS 15, non-toxic, other - very anxious Head: normocephalic, atraumatic Eyes: bilateral eye PERRL, bilateral eye EOMI ENT: normal ENT inspection, hearing grossly normal, normal pharynx, no angioedema, normal voice, TMs + canals normal, uvula midline, moist mucus membranes Neck: normal inspection, full range of motion, supple, thyroid normal, no meningismus, no bony tend Respiratory: normal inspection, lungs clear, normal breath sounds, no rhonchi, no respiratory distress, no retraction, no accessory muscle use, no wheezing, speaking full sentences, other - Palpation of chest pain reproduces pain, chest symmetrical Cardiovascular #1: regular rate, rhythm, no edema, no JVD, normal capillary refill Gastrointestinal: normal inspection, normal bowel sounds, non tender, soft, no mass, no peritonitis, non-distended, no guarding, no hernia, no pulsatile mass Genitourinary: no CVA tenderness Musculoskeletal: normal inspection, back normal, normal range of motion, no calf tenderness, pelvis stable, Radha's Sign negative Neurologic: normal inspection, alert, oriented x3, responsive, stakes player III-XII nml as tested, motor strength/tone normal, cerebellar normal, normal gait, speech normal Psychiatric: normal inspection, judgement/insight normal, mood/affect normal, no suicidal/homicidal ideation, no delusions Skin: normal inspection, normal color, no rash Lymphatic: normal inspection, no adenopathy Medical Decision Making Diagnostic Impression: Primary Impression: Chest pain Qualified Codes: R07.9 - Chest pain, unspecified ER Course 70 yo female with chest wall pain Signs stable Afebrile, well-appearing Patient has had extensive workup on admission, was just discharged yesterday. This is unlikely ACS, pain is very reproducible with palpation and with movement There is also a significant portion of anxiety related to this atypical chest pain ECG is nonischemic There are no peak T waves she is unlikely to have metabolic abnormalities requiring acute intervention or admission given that she just had dialysis yesterday She was given Tylenol for her pain Will discharge ER course: Patient has remained stable during ED stay. Disposition: Patient is to be discharged to home. Patient is instructed to follow up with their primary care doctor within 5 days. Strict return precautions discussed with patient such as fever, chills, worsening/severe pain, nausea, vomiting, which may indicate severe illness. Patient verbalizes understanding and agrees with plan. Please note that this Emergency Department Report was dictated using QRcaotutoring clinician technology software, occasionally this can lead to erroneous entry secondary to interpretation by the dictation equipment EKG Diagnostic Results Rate: other - PACs Rhythm: NSR ST Segments: no acute changes Other Impression No peaked Twaves ASA given to the pt in ED: No Rhythm Strip Diag. Results EP Interpretation: yes Rate: 95 Rhythm: NSR, no PVC's, no ectopy Last Vital Signs Date Time Temp Pulse Resp B/P (MAP) Pulse Ox O2 Delivery O2 Flow Rate FiO2 03/12/17 19:34 97.9 102 16 153/128 97 Room Air Status: improved Disposition: HOME, SELF-CARE VINCENT ELLISON M.D. Mar 12, 2017 19:53
[2017-03-12] MEDS ORDERED: TYLENOL325 MG ORAL (19:55)
[2017-03-12] MEDS: LORazepam 0.5mg tab ORAL ONE ×2 (19:59→20:09)
[2017-03-12] MEDS ORDERED: Haloperidol 5mg/ml Inj IM ONE (20:30)
[2017-03-12 22:34] VITALS: BP 142/95
[2017-03-12 22:39] VITALS: BP 142/95
--- NOTE | 2017-03-13 12:38 | Cardiology Report ---
APPROVED REPORT EKG Measurement Heart [id number] VT 160P59 [id number] Sinus rhythm with premature atrial complexes Nonspecific ST and T wave abnormality Prolonged QT Abnormal ECG
== END 2017-03-12 22:41 | disposition home or self-care (01) ==
LOC: EMR 20:00
DX: R07.89 Other chest pain (principal); E11.9 Type 2 diabetes mellitus without complications; I12.0 Hypertensive chronic kidney disease with stage 5 chronic kidney disease or end stage renal disease; N18.6 End stage renal disease; Z99.2 Dependence on renal dialysis; Z86.73 Personal history of transient ischemic attack (TIA), and cerebral infarction without residual deficits
CPT/HCPCS: 93005; 96372; 99284; J1630

== ENCOUNTER 2017-04-19 00:05 | Emergency (ER) | payer MEDICARE, MEDICAID ==
[~2017-04-19] VITALS: Ht 157.5 cm; Wt 45.4 kg
[~2017-04-19 00:05] MED LIST changes: +TYLENOL325 MG ORAL
[2017-04-19 00:10] VITALS: BP 185/126
--- NOTE | 2017-04-19 00:13 | Emergency Room Report ---
History of Present Illness General Source: Patient, Medical Record, EMS Present Illness HPI This is a 72-year-old female with history of high blood pressure, renal failure on hemodialysis. Hemodialysis days on Friday, , and Friday. She presents with chest pain. She's been here numerous times for the same thing. Pain came on suddenly. To the left-sided chest and sharp in nature. Same areas pain as before. She took clonidine and aspirin and called 911. EMS gave her nitroglycerin and aspirin and did not eat the pain any better. The nausea no vomiting. No fever chills but no radiation. No diaphoresis. Denies any other complaint. Allergies: Coded Allergies: No Known Allergies (Unverified , 10/24/14) Patient History Past Medical History: see triage record, old chart reviewed, HTN, renal disease , dialysis Past Surgical History: other Pertinent Family History: none Social History: Denies: smoking Now: No Immunizations: other Reviewed Nursing Documentation: PMH: Agreed, PSxH: Agreed Nursing Documentation-PMH Hx Cardiac Problems: Yes - Acute coronary syndrome Hx Hypertension: Yes Hx Pacemaker: No Hx Asthma: No Hx COPD: No Hx Diabetes: Yes Hx Cancer: Yes Hx Gastrointestinal Problems: No Hx Dialysis: Yes - T,,S Hx Neurological Problems: Yes Hx Cerebrovascular Accident: Yes Hx Transient Ischemic Attacks: Yes Hx Seizures: No Hx Speech Problem: Yes - Tongue protrusion Hx Dizziness: Yes Hx Syncope: Yes Hx Headaches: Yes Hx Weakness: Yes - BILATERAL LOWER EXTREMITIES Hx Fatigue: Yes Hx Neurologic Surgery: No Hx Brain Shunt: No Review of Systems Eye: Denies: eye pain, blurred vision ENT: Denies: ear pain, nose congestion, throat swelling Respiratory: Denies: cough, shortness of breath Cardiovascular: Reports: chest pain, Denies: palpitations Gastrointestinal: Denies: abdominal pain, diarrhea, nausea, vomiting Musculoskeletal: Denies: back pain, joint pain Skin: Denies: rash Neurological: Denies: headache, numbness Endocrine: Denies: increased thirst, increased urine Hematologic/Lymphatic: Denies: easy bruising All Other Systems: negative except mentioned in HPI Physical Exam Sp02 EP Interpretation: reviewed, normal General Appearance: well appearing, no apparent distress, alert Head: normocephalic, atraumatic Eyes: bilateral eye PERRL, bilateral eye EOMI ENT: hearing grossly normal, normal pharynx Neck: full range of motion, supple, no meningismus Respiratory: chest non-tender, lungs clear, normal breath sounds Cardiovascular #1: regular rate, rhythm, no murmur Gastrointestinal: normal bowel sounds, non tender, no mass, no organomegaly, no bruit, non-distended Musculoskeletal: back normal, gait/station normal, normal range of motion Neurologic: alert, oriented x3 Psychiatric: mood/affect normal Skin: warm/dry Medical Decision Making Diagnostic Impression: Primary Impression: Chest pain Qualified Codes: R07.9 - Chest pain, unspecified Additional Impression: Hypertension Qualified Codes: I10 - Essential (primary) hypertension ER Course Patient presents with chest pain. His atypical in nature. His workup been negative. Blood pressure improved. Pain control with Dilaudid. She felt better now. I see no evidence of ACS, PE, dissection to name a few. We'll discharge home. Patient is scheduled for dialysis at 7 AM. I will keep her here and arranged transport to cloth picker at 6 AM to go to dialysis. It is the same transportation people that she gets at home. He agreed to pick her up at 6 AM. EKG Diagnostic Results Rate: normal Rhythm: NSR ST Segments: no acute changes Rhythm Strip Diag. Results Rhythm Strip Time: 01:48 EP Interpretation: yes Rate: 81 Rhythm: NSR, no PVC's, no ectopy Chest X-Ray Diagnostic Results Chest X-Ray Diagnostic Results : Chest X-Ray Ordered: Yes # of Views/Limited/Complete: 1 View Indication: Chest Pain EP Interpretation: Yes Interpretation: no consolidation, no effusion, no pneumothorax, no acute cardiopulmonary disease Impression: No acute disease Electronically Signed by: Fortunato Artis MD Status: improved Disposition: HOME, SELF-CARE Condition: Stable Patient Instructions: Nonspecific Chest Pain Additional Instructions: Followup with your dialysis later on today. Followup with your Dr. in 2-3 days. Return if worse. FORTUNATO ARTIS M.D. Apr 19, 2017 00:13
[2017-04-19] MEDS ORDERED: HYDROmorphone 1mg/ml Carpuject IVP ONE (00:15)
[2017-04-19 00:52] LABS: BASOPHILS % (AUTO) 1.2 % (0.0-2.0); EOSINOPHILS % (AUTO) 3.9 % (0.0-3.0); HEMATOCRIT 35.8 % (37.0-47.0); HEMOGLOBIN 11.4 G/DL (12.0-16.0); LYMPHOCYTES % (AUTO) 25.9 % (20.0-45.0); MEAN CORPUSCULAR VOLUME 103 FL (80-99); MONOCYTES % (AUTO) 16.7 % (1.0-10.0); NEUTROPHILS % (AUTO) 52.3 % (45.0-75.0); PLATELET COUNT 169 K/UL (150-450); RED BLOOD COUNT 3.48 M/UL (4.20-5.40); RED CELL DISTRIBUTION WIDTH 15.5 % (11.6-14.8); WHITE BLOOD COUNT 4.4 K/UL (4.8-10.8)
[2017-04-19 01:03] LABS: ANION GAP 12 mmol/L (5-15); BLOOD UREA NITROGEN 32 mg/dL (7-18); CALCIUM 10.3 MG/DL (8.5-10.1); CARBON DIOXIDE 28 MMOL/L (21-32); CHLORIDE 99 MMOL/L (98-107); CREATININE 6.8 MG/DL (0.55-1.30); POTASSIUM 4.7 MMOL/L (3.5-5.1); SODIUM 139 MMOL/L (136-145)
[2017-04-19 01:26] VITALS: BP 186/80
[2017-04-19] MEDS ORDERED: cloNIDine 0.2mg Tab ORAL ONE (01:45)
[2017-04-19 03:23] VITALS: BP 185/76
[2017-04-19 04:55] VITALS: BP 189/78
[2017-04-19 05:00] VITALS: BP 185/76
--- NOTE | 2017-04-19 08:33 | Diagnostic Imaging Report ---
Indication: Shortness of breath Technique: XRAY Chest 1v Comparison:None Findings: The heart is enlarged. The aorta is elongated and calcified. There is a left jugular permacath with the tip in the right atrium. Clips are noted in the right arm and right upper quadrant from previous surgeries. There is a stent in the right arm. Ulnar vascularity appears slightly increased. No pleural fluid. There is linear density in the left lung base. Impression: Cardiomegaly. Mild prominence of pulmonary vascularity is consistent with mild congestive heart failure. Stent in the right arm with evidence of right arm surgery, likely dialysis access. Clips in the right upper quadrant from previous surgery, likely cholecystectomy. Scarring or atelectasis left base. Atherosclerotic change.
--- NOTE | 2017-04-20 16:24 | Cardiology Report ---
APPROVED REPORT EKG Measurement Heart [id number] [place] 164P51 [id number] Sinus rhythm with premature atrial complexes T wave abnormality, consider anterior ischemia Abnormal ECG
== END 2017-04-19 05:00 | disposition home or self-care (01) ==
LOC: EDBD 00:05 → EMR 00:42
DX: R07.89 Other chest pain (principal); I12.0 Hypertensive chronic kidney disease with stage 5 chronic kidney disease or end stage renal disease; N18.6 End stage renal disease; Z99.2 Dependence on renal dialysis; E11.9 Type 2 diabetes mellitus without complications; Z86.73 Personal history of transient ischemic attack (TIA), and cerebral infarction without residual deficits; I51.7 Cardiomegaly
CPT/HCPCS: 36415; 71045; 80048; 84484; 85025; 93005; 96374; 96375; 99284; J0360; J1170; J2405

== ENCOUNTER 2017-06-25 05:48 | Inpatient (IN) | payer MEDICARE, MEDICAID ==
[~2017-06-25] VITALS: Ht 157.5 cm; Wt 48.1 kg
[2017-06-25] MEDS ORDERED: Morphine Sulfate 4mg/ml Inj IVP ONE (06:00)
[2017-06-25 06:47] VITALS: BP 179/81
[2017-06-25 06:57] LABS: BASOPHILS % (AUTO) 0.7 % (0.0-2.0); EOSINOPHILS % (AUTO) 0.1 % (0.0-3.0); HEMATOCRIT 39.4 % (37.0-47.0); HEMOGLOBIN 12.8 G/DL (12.0-16.0); MEAN CORPUSCULAR VOLUME 99 FL (80-99); MONOCYTES % (AUTO) 7.4 % (1.0-10.0); NEUTROPHILS % (AUTO) 80.9 % (45.0-75.0); PLATELET COUNT 211 K/UL (150-450); RED BLOOD COUNT 3.99 M/UL (4.20-5.40); RED CELL DISTRIBUTION WIDTH 17.4 % (11.6-14.8); WHITE BLOOD COUNT 6.7 K/UL (4.8-10.8)
[2017-06-25 07:14] LABS: ALANINE AMINOTRANSFERASE 17 U/L (12-78); ALBUMIN 4.2 G/DL (3.4-5.0); ALBUMIN/GLOBULIN RATIO 0.9 (1.0-2.7); ALKALINE PHOSPHATASE 95 U/L (46-116); ANION GAP 25 mmol/L (5-15); ASPARTATE AMINO TRANSFERASE 35 U/L (15-37); BILIRUBIN,TOTAL 0.6 MG/DL (0.2-1.0); BLOOD UREA NITROGEN 70 mg/dL (7-18); CALCIUM 10.2 MG/DL (8.5-10.1); CARBON DIOXIDE 17 MMOL/L (21-32); CHLORIDE 97 MMOL/L (98-107); CREATININE 10.7 MG/DL (0.55-1.30); SODIUM 138 MMOL/L (136-145)
[2017-06-25] MEDS ORDERED: Vancomycin 1 GM in NS 275 ML IVPB ONE (07:15)
[2017-06-25] MEDS ORDERED: Sodium Polystyrene Sulfonate 15gm Powder ORAL ONE (07:30)
[2017-06-25] MEDS ORDERED: Sodium Bicarbonate 50ml Carp IV ONE (07:30)
[2017-06-25] MEDS ORDERED: Piperacillin/Tazobactam 3.375 GM in NS 110 ML IVPB ONE (07:30)
[2017-06-25] MEDS ORDERED: Piperacillin/Tazobactam 3.375 GM in D5W 110 ML IVPB ONE (07:30)
[2017-06-25] MEDS ORDERED: Albuterol ud Inhalation HHN ONE (07:30)
[2017-06-25 07:42] VITALS: BP 171/75
--- NOTE | 2017-06-25 08:02 | Emergency Room Report ---
History of Present Illness General Chief Complaint: Abdominal Pain Source: Patient Present Illness HPI Patient presents emergency department today complaining of abdominal discomfort. Patient has a history of renal failure on dialysis. Patient's last dialysis was yesterday. Patient presents emergency department today with abdominal discomfort and hypothermia. Patient currently stays at [facility]. Patient's primary care physician is Dr. Tigre Fuller No further history is available as patient is a very poor historian and poor IV access. Symptoms noted to be moderate to severe. Review medical records show the patient has had multiple CAT scans in the past. However because patient's hypothermic this makes it complicated and more difficult. No other modifying factors. No other associated signs and symptoms. No other complaints were noted. Allergies: Coded Allergies: No Known Allergies (Unverified , 10/24/14) Patient History Past Medical History: DM, HTN, CAD, CVA/TIA, dementia, renal disease, dialysis PSxH Narrative [facility] for [facility] Social History: Denies: smoking, alcohol use, drug use Reviewed Nursing Documentation: PMH: Agreed; PSxH: Agreed Nursing Documentation-PMH Hx Cardiac Problems: Yes - Acute coronary syndrome Hx Hypertension: Yes Hx Pacemaker: No Hx Asthma: No Hx COPD: No Hx Diabetes: Yes Hx Cancer: Yes Hx Gastrointestinal Problems: No Hx Dialysis: Yes - T,TH,S Hx Neurological Problems: Yes Hx Cerebrovascular Accident: Yes Hx Transient Ischemic Attacks: Yes Hx Seizures: No Hx Speech Problem: Yes - Tongue protrusion Hx Dizziness: Yes Hx Syncope: Yes Hx Headaches: Yes Hx Weakness: Yes - BILATERAL LOWER EXTREMITIES Hx Fatigue: Yes Hx Neurologic Surgery: No Hx Brain Shunt: No Review of Systems All Other Systems: limited - Patient is a poor historian. Physical Exam Vital Signs Date Time Temp Pulse Resp B/P (MAP) Pulse Ox O2 Delivery O2 Flow Rate FiO2 06/25/17 05:45 94.5 73 16 175/95 98 Room Air 94.5 06/25/17 07:44 21 Sp02 EP Interpretation: reviewed, normal General Appearance: mild distress, thin, Chronically Ill Head: atraumatic Eyes: bilateral eye normal inspection ENT: dry mucus membranes Neck: normal inspection, full range of motion, supple Respiratory: normal inspection, lungs clear, normal breath sounds, no respiratory distress, no retraction, no wheezing Cardiovascular #1: regular rate, rhythm, no edema Gastrointestinal: other - Diffusely tender to palpation in the abdomen. Genitourinary: no CVA tenderness Musculoskeletal: normal inspection, normal range of motion Neurologic: alert, responsive, motor strength/tone normal Psychiatric: depressed affect Skin: normal inspection, normal color, no rash Procedures Critical Care Time Critical Care Time Patient had a critical medical condition which untreated could potentially result in life or limb threatening injury. Total critical care time excluding procedures was approximately 45 minutes. Additional Procedure Procedure Narrative procedure note:external jugular venous access: external jugular venous access placed on patient's left neck. no complications associated with the procedure. Procedure performed sterilely. There was good flush of blood. Patient tolerated the procedure without difficulty. Medical Decision Making Diagnostic Impression: Primary Impression: Hypothermia Qualified Codes: T68.XXXA - Hypothermia, initial encounter Additional Impressions: Hyperkalemia Abdominal pain Qualified Codes: R10.84 - Generalized abdominal pain ER Course Patient presents in emergency department with generalized weakness and hypothermia. Patient's last dialysis was yesterday.Given the severity of the patient's presentation I felt this is a highly complex patient. This patient required extensive workup. Patient's laboratory workup shows an elevated potassium and patient is also significantly hypothermic. Blood cultures are obtained and patient started on IV antibiotics for possible sepsis. Although patient did not having elevated white blood cell count. Case will be discussed with Dr. Tigre Fuller for admission. We'll admit to telemetry for further treatment.Patient also having abdominal CT scan performed. Case was discussed with radiologist. It was felt the patient could have some mass in the pylorus. Patient will likely require GI consultation. There is no evidence of active bleeding. There was some density of material in the stomach. There was concerning maybe for blood but clinically patient does not have evidence GI bleeding. However recommend admission and valuation by GI physician. Labs Test 06/25/17 06:35 White Blood Count 6.7 K/UL (4.8-10.8) Red Blood Count 3.99 M/UL (4.20-5.40) Hemoglobin 12.8 G/DL (12.0-16.0) Hematocrit 39.4 % (37.0-47.0) Mean Corpuscular Volume 99 FL (80-99) Mean Corpuscular Hemoglobin 32.2 PG (27.0-31.0) Mean Corpuscular Hemoglobin Concent 32.6 G/DL (32.0-36.0) Red Cell Distribution Width 17.4 % (11.6-14.8) Platelet Count 211 K/UL (150-450) Mean Platelet Volume 7.2 FL (6.5-10.1) Neutrophils (%) (Auto) 80.9 % (45.0-75.0) Lymphocytes (%) (Auto) 11.0 % (20.0-45.0) Monocytes (%) (Auto) 7.4 % (1.0-10.0) Eosinophils (%) (Auto) 0.1 % (0.0-3.0) Basophils (%) (Auto) 0.7 % (0.0-2.0) Sodium Level 138 MMOL/L (136-145) Potassium Level 8.0 MMOL/L (3.5-5.1) Chloride Level 97 MMOL/L (98-107) Carbon Dioxide Level 17 MMOL/L (21-32) Anion Gap 25 mmol/L (5-15) Blood Urea Nitrogen 70 mg/dL (7-18) Creatinine 10.7 MG/DL (0.55-1.30) Estimat Glomerular Filtration Rate mL/min (>60) Glucose Level 40 MG/DL (74-106) Calcium Level 10.2 MG/DL (8.5-10.1) Total Bilirubin 0.6 MG/DL (0.2-1.0) Aspartate Amino Transf (AST/SGOT) 35 U/L (15-37) Alanine Aminotransferase (ALT/SGPT) 17 U/L (12-78) Alkaline Phosphatase 95 U/L (46-116) Troponin I 0.025 ng/mL (0.000-0.056) Total Protein 8.8 G/DL (6.4-8.2) Albumin 4.2 G/DL (3.4-5.0) Globulin 4.6 g/dL Albumin/Globulin Ratio 0.9 (1.0-2.7) Lipase 123 U/L (73-393) EKG Diagnostic Results Rate: normal Rhythm: NSR ST Segments: no acute changes Other Impression hyperacute T waves Rhythm Strip Diag. Results EP Interpretation: yes Rate: 68 Rhythm: NSR, no PVC's, no ectopy Chest X-Ray Diagnostic Results Chest X-Ray Diagnostic Results : Chest X-Ray Ordered: Yes # of Views/Limited/Complete: 1 View Indication: Chest Pain Interpretation: no consolidation, no effusion, no pneumothorax, no acute cardiopulmonary disease Impression: No acute disease Electronically Signed by: Electronically signed by Joe Beckman MD Last Vital Signs Date Time Temp Pulse Resp B/P (MAP) Pulse Ox O2 Delivery O2 Flow Rate FiO2 06/25/17 07:44 21 06/25/17 07:44 69 13 100 Room Air 06/25/17 07:42 93.2 171/75 93.2 Status: improved Disposition: ADMITTED INPATIENT Condition: Serious Referrals: TIGRE FULLER (PCP) JOE BECKMAN M.D. June 25, 2017 08:02
[2017-06-25 09:25] VITALS: BP 151/70
--- NOTE | 2017-06-25 13:09 | Cardiac Electrophysiology PN ---
Subjective Subjective [id number] Objective Last 24 Hour Vital Signs Date Time Temp Pulse Resp B/P (MAP) Pulse Ox O2 Delivery O2 Flow Rate FiO2 06/25/17 10:45 96.1 70 15 151/70 100 Room Air 21 96.1 06/25/17 09:25 96.1 70 15 151/70 100 Room Air 96.1 06/25/17 07:58 72 16 98 Room Air 21 06/25/17 07:44 21 06/25/17 07:44 69 13 100 Room Air 21 06/25/17 07:44 74 14 Room Air 21 06/25/17 07:42 93.2 95 24 171/75 100 Room Air 93.2 06/25/17 06:59 94.5 06/25/17 06:47 94.5 83 18 179/81 100 Room Air 94.5 06/25/17 05:45 94.5 73 16 175/95 98 Room Air 94.5 Laboratory Tests Test 06/25/17 06:35 White Blood Count 6.7 K/UL (4.8-10.8) Red Blood Count 3.99 M/UL (4.20-5.40) L Hemoglobin 12.8 G/DL (12.0-16.0) Hematocrit 39.4 % (37.0-47.0) Mean Corpuscular Volume 99 FL (80-99) Mean Corpuscular Hemoglobin 32.2 PG (27.0-31.0) H Mean Corpuscular Hemoglobin Concent 32.6 G/DL (32.0-36.0) Red Cell Distribution Width 17.4 % (11.6-14.8) H Platelet Count 211 K/UL (150-450) Mean Platelet Volume 7.2 FL (6.5-10.1) Neutrophils (%) (Auto) 80.9 % (45.0-75.0) H Lymphocytes (%) (Auto) 11.0 % (20.0-45.0) L Monocytes (%) (Auto) 7.4 % (1.0-10.0) Eosinophils (%) (Auto) 0.1 % (0.0-3.0) Basophils (%) (Auto) 0.7 % (0.0-2.0) Sodium Level 138 MMOL/L (136-145) Potassium Level 8.0 MMOL/L (3.5-5.1) *H Chloride Level 97 MMOL/L (98-107) L Carbon Dioxide Level 17 MMOL/L (21-32) L Anion Gap 25 mmol/L (5-15) H Blood Urea Nitrogen 70 mg/dL (7-18) H Creatinine 10.7 MG/DL (0.55-1.30) H Estimat Glomerular Filtration Rate mL/min (>60) Glucose Level 40 MG/DL (74-106) L Calcium Level 10.2 MG/DL (8.5-10.1) H Total Bilirubin 0.6 MG/DL (0.2-1.0) Aspartate Amino Transf (AST/SGOT) 35 U/L (15-37) Alanine Aminotransferase (ALT/SGPT) 17 U/L (12-78) Alkaline Phosphatase 95 U/L (46-116) Troponin I 0.025 ng/mL (0.000-0.056) Total Protein 8.8 G/DL (6.4-8.2) H Albumin 4.2 G/DL (3.4-5.0) Globulin 4.6 g/dL Albumin/Globulin Ratio 0.9 (1.0-2.7) L Lipase 123 U/L (73-393) Nate Magallanes MD June 25, 2017 13:09
[2017-06-25] MEDS ORDERED: HydrALAZINE 50mg tab ORAL SCH (14:00)
--- NOTE | 2017-06-25 14:10 | Infectious Diseases Prog Note ---
Assessment/Plan Problems: (1) Hypothermia Assessment & Plan: rule out sepsis in HD patient, will start vancomycin and zosyn pending blood culture which was sent from ED (2) Abdominal pain Assessment & Plan: eiteology? CT abdomen is pending, recommend GI consult for further eval and management (3) DM (diabetes mellitus) Assessment & Plan: recommend tight glycemic control to keep blood glucose between 100-140 (4) ESRD (end stage renal disease) on dialysis Assessment & Plan: missed HD, will need HD today for hyperkalemia, nephrology is following (5) Hyperkalemia Assessment & Plan: due to renal failure and missing HD, she will need HD today Subjective Allergies: Coded Allergies: No Known Allergies (Unverified , 10/24/14) Objective Vital Signs Last 24 Hour Vital Signs Date Time Temp Pulse Resp B/P (MAP) Pulse Ox O2 Delivery O2 Flow Rate FiO2 06/25/17 10:45 96.1 70 15 151/70 100 Room Air 21 96.1 06/25/17 09:25 96.1 70 15 151/70 100 Room Air 96.1 06/25/17 07:58 72 16 98 Room Air 21 06/25/17 07:44 21 06/25/17 07:44 69 13 100 Room Air 21 06/25/17 07:44 74 14 Room Air 21 06/25/17 07:42 93.2 95 24 171/75 100 Room Air 93.2 06/25/17 06:59 94.5 06/25/17 06:47 94.5 83 18 179/81 100 Room Air 94.5 06/25/17 05:45 94.5 73 16 175/95 98 Room Air 94.5 Height (Feet): 5 Height (Inches): 2.00 Weight (Pounds): 110 Laboratory Tests Test 06/25/17 06:35 White Blood Count 6.7 K/UL (4.8-10.8) Red Blood Count 3.99 M/UL (4.20-5.40) L Hemoglobin 12.8 G/DL (12.0-16.0) Hematocrit 39.4 % (37.0-47.0) Mean Corpuscular Volume 99 FL (80-99) Mean Corpuscular Hemoglobin 32.2 PG (27.0-31.0) H Mean Corpuscular Hemoglobin Concent 32.6 G/DL (32.0-36.0) Red Cell Distribution Width 17.4 % (11.6-14.8) H Platelet Count 211 K/UL (150-450) Mean Platelet Volume 7.2 FL (6.5-10.1) Neutrophils (%) (Auto) 80.9 % (45.0-75.0) H Lymphocytes (%) (Auto) 11.0 % (20.0-45.0) L Monocytes (%) (Auto) 7.4 % (1.0-10.0) Eosinophils (%) (Auto) 0.1 % (0.0-3.0) Basophils (%) (Auto) 0.7 % (0.0-2.0) Sodium Level 138 MMOL/L (136-145) Potassium Level 8.0 MMOL/L (3.5-5.1) *H Chloride Level 97 MMOL/L (98-107) L Carbon Dioxide Level 17 MMOL/L (21-32) L Anion Gap 25 mmol/L (5-15) H Blood Urea Nitrogen 70 mg/dL (7-18) H Creatinine 10.7 MG/DL (0.55-1.30) H Estimat Glomerular Filtration Rate mL/min (>60) Glucose Level 40 MG/DL (74-106) L Calcium Level 10.2 MG/DL (8.5-10.1) H Total Bilirubin 0.6 MG/DL (0.2-1.0) Aspartate Amino Transf (AST/SGOT) 35 U/L (15-37) Alanine Aminotransferase (ALT/SGPT) 17 U/L (12-78) Alkaline Phosphatase 95 U/L (46-116) Troponin I 0.025 ng/mL (0.000-0.056) Total Protein 8.8 G/DL (6.4-8.2) H Albumin 4.2 G/DL (3.4-5.0) Globulin 4.6 g/dL Albumin/Globulin Ratio 0.9 (1.0-2.7) L Lipase 123 U/L (73-393) Current Medications Medications (Trade) Dose Ordered Sig/Sarwat Route PRN Reason Start Time Stop Time Status Last Admin Dose Admin Acetaminophen (Tylenol) 650 mg Q6H PRN ORAL Mild Pain/Headache/Temp > 101 06/25/17 13:15 07/25/17 13:14 Amlodipine Besylate (Norvasc) 10 mg DAILY ORAL 06/26/17 09:00 07/26/17 08:59 Amlodipine Besylate (Norvasc) 10 mg DAILY ORAL 06/26/17 09:00 07/26/17 08:59 Aspirin (Ecotrin) 81 mg DAILY ORAL 06/26/17 09:00 07/26/17 08:59 Clonidine HCl (Catapres Tab) 0.1 mg Q6H PRN ORAL SBP > 160mmHg 06/25/17 13:15 07/25/17 13:14 Clopidogrel Bisulfate (Plavix) 75 mg DAILY ORAL 06/26/17 09:00 07/26/17 08:59 Hydralazine HCl (Apresoline) 25 mg Q12HR ORAL 06/25/17 21:00 07/25/17 20:59 Metoprolol Tartrate (Lopressor) 50 mg Q12HR ORAL 06/25/17 21:00 07/25/17 20:59 Sitagliptin Phosphate (Januvia) 25 mg DAILY ORAL 06/26/17 09:00 07/26/17 08:59 Delma Braga M.D. June 25, 2017 14:10
[2017-06-25] MEDS ORDERED: Vancomycin 1gm/D5W 275ml IVPB ONE ×2 (15:30)
--- NOTE | 2017-06-25 15:41 | Cardiology Report ---
APPROVED REPORT EKG Measurement Heart [id number] Sinus rhythm with 1st degree AV block with premature atrial complexes Nonspecific intraventricular conduction delay Borderline ECG
--- NOTE | 2017-06-25 18:00 | Consultation ---
DATE OF CONSULTATION: 06/25/2017 APPROXIMATE TIME: 1 p.m. CONSULTING PHYSICIAN: Lavell Santana D.O. REFERRING PHYSICIAN: Blaze Plascencia M.D. CHIEF COMPLAINT: Weakness, lethargy, hyperkalemia, hypothermia. BRIEF HISTORY: This 72-year-old female who lives at home with history of ESRD presents to [place] last night with history of weakness and lethargy, found to have hyperkalemia and hypothermia admitted to telemetry for further care. Currently, calm in bed, slight nausea and vomiting, no complaint otherwise. REVIEW OF SYSTEMS: No chest pain. No shortness of breath. Slight nausea and vomiting. No diarrhea. PAST MEDICAL HISTORY: Hypertension, diabetes, seizure, ESRD, failure to thrive. PAST SURGICAL HISTORY: Graft on the right arm. MEDICATIONS: Include Norvasc, Ecotrin, Plavix, Januvia, , Lopressor, Tylenol, Catapres, insulin, albuterol, Zosyn, vancomycin, morphine. ALLERGIES: Denies. SOCIAL HISTORY: No smoking. No alcohol. No intravenous drug abuse. FAMILY HISTORY: Noncontributory. PHYSICAL EXAMINATION: GENERAL: Calm in bed, oriented x2, in no acute distress. VITAL SIGNS: Temperature 96, pulse 70, respiratory rate 15, blood pressure 151/70. CARDIOVASCULAR: No murmur. LUNGS: Distant. Poor exchange. ABDOMEN: Bowel sounds positive. Nontender. Nondistended. EXTREMITIES: No cyanosis, clubbing, or edema. NEUROLOGIC: The patient moves all extremities, slightly weak. LABORATORY AND DIAGNOSTIC DATA: CBC is normal. BMP show potassium 8.0, chloride 97, CO2 17, BUN and creatinine 78 and 10.7, glucose . Troponin 0.025. ASSESSMENT: 1. Hypothermia. 2. Hyperkalemia. 3. Diabetes. 4. Hypertension. 5. Seizure. 6. ESRD. 7. Failure to thrive. PLAN: 1. Continue premeds. 2. Blood pressure and blood sugar control. 3. Dialysis as needed. 4. Dietary followup. 5. Seizure control. 6. OT/PT. 7. Dietary evaluation. 8. CBC and BMP morning. 9. Dialysis as needed. 10. We will continue to follow the patient medically. Lavell Santana D.O. DR: Lizeth JOB#: [id number] CC:
[2017-06-25 20:00] VITALS: BP 160/76
--- NOTE | 2017-06-25 20:30 | Consultation ---
DATE OF CONSULTATION: 06/25/2017 INFECTIOUS DISEASE CONSULTATION CONSULTING PHYSICIAN: Delma Braga M.D. REQUESTING PHYSICIAN: Blaze Plascencia M.D. REASON FOR CONSULTATION: Hypothermia, sepsis, and hemodialysis patient, recommendation for antibiotics treatment. HISTORY OF PRESENT ILLNESS: The patient is a 72-year-old female with past medical history of end-stage renal disease, on hemodialysis, diabetes, hypertension, coronary artery disease, CVA and dementia, presented to [facility] emergency room with chief complaint of abdominal pain, which started Friday. Her pain was dull, deep, ache, localized in the epigastric area, and no radiation to the back or to the chest. She is not aware of anything makes it better or worse. The patient missed her hemodialysis yesterday and she decided to come into the emergency room today for further evaluation. Her abdominal pain, which has not since Friday. She described the pain as 10/10 in intensity, never had previous abdominal pain like this before. In the emergency room, the patient had temperature of 94.5 degrees and she was saturating 98% on room air. Her labs showed evidence of hyperkalemia. Chest x-ray showed no evidence of infiltration. CT scan of the abdomen has been pending so far. Infectious Disease consultation was requested for possible sepsis in hemodialysis patient with hypothermia. As of note, the patient had left tunneled hemodialysis catheter left in her chest since last year around December and she has right arm fistula, which has been used for hemodialysis. Her left hemodialysis tunneled catheter could be the source of her infection or sepsis of this presentation. PAST MEDICAL HISTORY: Significant for diabetes with complication, hypertension, coronary artery disease, CVA, dementia, and end-stage renal disease, on hemodialysis. PAST SURGICAL HISTORY: She had a Jean [place] catheter for hemodialysis placed last year. MEDICATIONS: The patient received vancomycin and Zosyn in the emergency room. For the rest of her medications, please refer to [facility]. ALLERGIES: She has no known drug allergy. SOCIAL HISTORY: The patient lives at home. Denied using any drugs, tobacco, or alcohol. She is unemployed, lives with family. FAMILY HISTORY: Not contributory. REVIEW OF SYSTEMS: A 14-point of system review were all negative apart from the one I mentioned above in my history and physical. PHYSICAL EXAMINATION: GENERAL: Elderly female, lying in bed, getting hemodialysis. Awake, alert, and responsive, not in acute distress. Dialysis nurse at the bedside. VITAL SIGNS: Temperature 93.2 degrees, pulse 95, respirations 24, blood pressure 171/75, and saturation 100% on room air. HEENT: Normocephalic and atraumatic. Pupils reactive to light. Moist oral mucosa. No exudate or thrush. NECK: Supple. No lymphadenopathy. CARDIOVASCULAR: Regular rate and rhythm. Systolic murmur in the mitral valve. LUNGS: Clear bilaterally. Diminished breathing sounds at the bases. Normal breathing efforts. ABDOMEN: Soft with generalized tenderness. No organomegaly. No ascites. No distention. No rebound. EXTREMITIES: No edema. No cyanosis. SKIN: No rash. No hives. No ulceration. LABORATORY AND DIAGNOSTIC DATA: Labs showed white count of 6.7, hemoglobin of 12.8, and platelet count of 211. BUN of 70 and creatinine of 10.7. AST of 35 and ALT of 17. Imaging, chest x-ray reviewed personally, no acute infiltration. CT abdomen and pelvis pending. ASSESSMENT AND RECOMMENDATION: 1. Hypothermia, rule out sepsis in hemodialysis patient. We will start vancomycin and Zosyn empiric coverage pending blood culture, which has been sent from the emergency room already. Monitor vitals closely. 2. Abdominal pain, etiology unclear at this point. Rule out gastroparesis versus colitis. CT abdomen and pelvis is pending. Recommend GI consult for further evaluation and management. May need EGD. 3. Diabetes. Recommend tight glycemic control to keep blood glucose between 100 to 140. 4. End-stage renal disease, missed hemodialysis. The patient will need hemodialysis today for hyperkalemia. Nephrology team is following. 5. Hyperkalemia due to missing hemodialysis. The patient already on hemodialysis now. Nephrology team is following. Thank you for the consult. ID will continue to follow. Please feel free to call with any question. Delma Braga M.D. DR: OREN JOB#: [id number] CC:
[2017-06-25] MEDS: Metoprolol Tartrate 50mg tab ORAL SCH (20:37)
[2017-06-25] MEDS: HydrALAZINE 25mg tab ORAL SCH (20:38)
[2017-06-25] MEDS: Piperacillin/Tazobactam 2.25 GM in D5W 55 ML IVPB SCH (22:08)
[2017-06-26] VITALS: BP 150/68
--- NOTE | 2017-06-26 00:15 | Consultation ---
DATE OF CONSULTATION: 06/25/2017 CARDIOLOGY CONSULTATION CONSULTING PHYSICIAN: Nate Magallanes M.D. REFERRING PHYSICIAN: Blaze Aldana M.D. REASON FOR CONSULTATION: Management of hypertension and severe hyperkalemia. HISTORY OF PRESENT ILLNESS: The patient is a 72-year-old lady with history of hypertension; end-stage renal disease, on hemodialysis who was admitted recently with atypical chest pain. The patient was ruled out for myocardial infarction. The patient presented to the emergency room with abdominal discomfort and hypothermia. She resides currently at a snf. The patient apparently was unable to get hemodialysis and came to the emergency room, was found to be severely hyperkalemic. Her blood pressure in the ER was as high as 175/95. The patient was admitted and a Cardiology consultation was obtained for further evaluation and management. At the time of my evaluation, the patient denies any chest pain, palpitation, or shortness of breath. PAST MEDICAL HISTORY: 1. Hypertension. 2. End-stage renal disease, on hemodialysis. 3. History of chest pain. FAMILY HISTORY: Noncontributory. SOCIAL HISTORY: She lives in a snf. Does not smoke or drink alcohol. REVIEW OF SYSTEMS: Review of systems was performed and was negative other than what was mentioned in the history of present illness. PHYSICAL EXAMINATION: VITAL SIGNS: Blood pressure is 131/70, pulse is 70, respirations 18, and she is afebrile. HEAD AND NECK: Mild JVD. LUNGS: Decreased breath sounds. CARDIOVASCULAR: Regular S1 and S2 with no gallop. ABDOMEN: Soft. EXTREMITIES: A 1+ pitting edema. LABORATORY AND DIAGNOSTIC DATA: EKG showed sinus rhythm with first-degree AV block, premature atrial contraction with more of peaked T-wave. The MS interval is 162 milliseconds. Labs show white count of 6.7, hemoglobin of 12.8, hematocrit 39.4, and platelet count of 211. Sodium is 138, potassium is 8, BUN of 70, creatinine of 10.7, and glucose of 140. Troponin is negative. ASSESSMENT AND PLAN: 1. Severe hyperkalemia, potassium of 8. EKG showed prominent T-wave, but no cardiac arrhythmia. Dr. Plascencia has already been contacted. The patient will be undergoing hemodialysis as soon as possible. In the meantime, the patient received Kayexalate, glucose, and sodium bicarbonate in the emergency room. 2. Hypertension. The patient is on hemodialysis. On the previous admission, the patient was on hydralazine 50 mg every 8 hours, Norvasc 10 mg daily, and metoprolol 50 mg b.i.d. At this time, I will just put her back on hydralazine in view of hyperkalemia after dialysis and put her back on the beta-alfie and Norvasc as well. 3. History of coffee-ground emesis. Underwent EGD by Dr. Ortiz, which showed gastritis on her previous admission. 4. History of atypical chest pain, was ruled out for myocardial infarction in the past with a stress test, which showed no evidence of ischemia. An echocardiogram showed ejection fraction of 60%. The patient was on aspirin and Plavix . Thank you very much, Dr. Plascencia, for allowing me to participate in the care of this patient. Please do not hesitate to contact me for any questions regarding my evaluation. Nate Magallanes M.D. DR: PRINCESS JOB#: [id number] CC:
[2017-06-26 04:00] VITALS: BP 152/62
[2017-06-26 05:42] LABS: BASOPHILS % (AUTO) 0.8 % (0.0-2.0); EOSINOPHILS % (AUTO) 0.2 % (0.0-3.0); HEMATOCRIT 33.9 % (37.0-47.0); HEMOGLOBIN 11.4 G/DL (12.0-16.0); LYMPHOCYTES % (AUTO) 17.7 % (20.0-45.0); MEAN CORPUSCULAR VOLUME 96 FL (80-99); MONOCYTES % (AUTO) 14.4 % (1.0-10.0); NEUTROPHILS % (AUTO) 66.9 % (45.0-75.0); PLATELET COUNT 144 K/UL (150-450); RED BLOOD COUNT 3.53 M/UL (4.20-5.40); RED CELL DISTRIBUTION WIDTH 17.2 % (11.6-14.8)
[2017-06-26] MEDS: Piperacillin/Tazobactam 2.25 GM in D5W 55 ML IVPB SCH ×3 (05:42→21:50)
[2017-06-26 05:48] LABS: ANION GAP 13 mmol/L (5-15); BLOOD UREA NITROGEN 39 mg/dL (7-18); CALCIUM 9.6 MG/DL (8.5-10.1); CARBON DIOXIDE 32 MMOL/L (21-32); CHLORIDE 95 MMOL/L (98-107); CREATININE 7.1 MG/DL (0.55-1.30); POTASSIUM 4.7 MMOL/L (3.5-5.1); SODIUM 140 MMOL/L (136-145)
[2017-06-26 08:00] VITALS: BP 150/70
[2017-06-26] MEDS ORDERED: Lidocaine 2% 20mg/ml/EPI 0.01mg/ml 20ml INJ PRN (08:30)
[2017-06-26] MEDS: Aspirin EC 81mg tab ORAL SCH (08:33)
[2017-06-26] MEDS: sitaGLIPtin 25mg tab ORAL SCH (08:41)
[2017-06-26] MEDS: HydrALAZINE 25mg tab ORAL SCH ×2 (08:42→21:50)
[2017-06-26] MEDS: Metoprolol Tartrate 50mg tab ORAL SCH ×2 (08:42→21:00)
[2017-06-26 10:06] LABS: INR 1.7 (0.9-1.1)
[2017-06-26 11:31] VITALS: BP 126/65
[2017-06-26] MEDS ORDERED: Vancomycin 500mg/D5W 110ml IVPB ONE ×2 (12:00)
--- NOTE | 2017-06-26 12:25 | GI Initial Consult Note ---
SteffChrissie Singhoi N.PLu 06/26/17 1225: History of Present Illness General Date patient seen: June 26, 2017 Time patient seen: 10:00 Reason for Hospitalization: Abdominal Pain Referring physician: BLAZE FULLER Reason for Consultation: ABDOMINAL PAIN Present Illness HPI Patient presents emergency department today complaining of abdominal discomfort. Patient has a history of renal failure on dialysis. Patient's last dialysis was yesterday. Patient presents emergency department today with abdominal discomfort and hypothermia. Patient currently stays at a assisted. Patient's primary care physician is Dr. Blaze Fuller No further history is available as patient is a very poor historian and poor IV access. Symptoms noted to be moderate to severe. Review medical records show the patient has had multiple CAT scans in the past. However because patient's hypothermic this makes it complicated and more difficult. No other modifying factors. No other associated signs and symptoms. No other complaints were noted. GI consulted for anemia HPI noted above. Pt seen on floor, awake A&Ox4 NAD with no active s/sx of N/V/D. Per RN report, the patient had multiple episodes of coffee ground emesis and was placed NPO. Unknown history of endoscopies / colonoscopies. Home Meds Active Scripts Acetaminophen (Tylenol) 325 Mg Tablet, 650 MG ORAL Q6H PRN for Prn Pain/Headache /Temp > 101 for 7 Days, #30 TAB 0 Refills Prov:VINCENT ELLISON M.D. 03/12/17 Metoprolol Tartrate* (METOPROLOL TARTRATE*) 50 Mg Tablet, 50 MG ORAL BID, #60 TAB Prov:Monica Estrada NP (Vanchtein) 12/04/16 Hydralazine HCl (Hydralazine HCl) 50 Mg Tablet, 50 MG ORAL Q8HR, #90 TAB Prov:Monica Estrada NP (Vanchtein) 12/04/16 Reported Medications Clonidine Hcl (CLONIDINE HCL) 0.1 Mg Tablet, 0.1 MG PO EVERY 6 HOURS PRN for For High Blood Pressure, TAB 11/30/16 Sitagliptin* (JANUVIA*) 25 Mg Tablet, 25 MG ORAL DAILY, TAB 09/03/16 Loratadine (LORATADINE) 10 Mg Tab.rapdis, 10 MG PO DAILY PRN for Itching, TAB 09/03/16 Clopidogrel* (CLOPIDOGREL*) 75 Mg Tablet, 75 MG ORAL DAILY, TAB 09/03/16 Aspirin* (ASPIR 81*) 81 Mg Tablet.dr, 81 MG ORAL DAILY, TAB 03/24/16 Amlodipine Besylate (Norvasc) 10 Mg Tablet, 10 MG ORAL DAILY, TAB 08/19/15 Hydrochlorothiazide* (HYDROCHLOROTHIAZIDE*) 12.5 Mg Capsule, ORAL DAILY, CAP 08/19/15 Med list reviewed/reconciled: Yes Allergies: Coded Allergies: No Known Allergies (Unverified , 10/24/14) Patient History History Provided By: Patient, Medical Record PMH Narrative Past Medical History: DM, HTN, CAD, CVA/TIA, dementia, renal disease, dialysis PSxH Narrative right [place] for dialysis Social History: Denies: smoking, alcohol use, drug use Reviewed Nursing Documentation: PMH: Agreed; PSxH: Agreed Nursing Documentation-PMH Hx Cardiac Problems: Yes - Acute coronary syndrome Hx Hypertension: Yes Hx Pacemaker: No Hx Asthma: No Hx COPD: No Hx Diabetes: Yes Hx Cancer: Yes Hx Gastrointestinal Problems: No Hx Dialysis: Yes - T,TH,S Hx Neurological Problems: Yes Hx Cerebrovascular Accident: Yes Hx Transient Ischemic Attacks: Yes Hx Seizures: No Hx Speech Problem: Yes - Tongue protrusion Hx Dizziness: Yes Hx Syncope: Yes Hx Headaches: Yes Hx Weakness: Yes - BILATERAL LOWER EXTREMITIES Hx Fatigue: Yes Hx Neurologic Surgery: No Hx Brain Shunt: No Physical Exam Vital Signs Date Time Temp Pulse Resp B/P (MAP) Pulse Ox O2 Delivery O2 Flow Rate FiO2 06/25/17 05:45 94.5 73 16 175/95 98 Room Air 94.5 06/25/17 07:44 21 Labs Laboratory Tests Test 06/26/17 05:10 06/26/17 09:30 White Blood Count 6.0 K/UL (4.8-10.8) Red Blood Count 3.53 M/UL (4.20-5.40) L Hemoglobin 11.4 G/DL (12.0-16.0) L Hematocrit 33.9 % (37.0-47.0) L Mean Corpuscular Volume 96 FL (80-99) Mean Corpuscular Hemoglobin 32.3 PG (27.0-31.0) H Mean Corpuscular Hemoglobin Concent 33.6 G/DL (32.0-36.0) Red Cell Distribution Width 17.2 % (11.6-14.8) H Platelet Count 144 K/UL (150-450) L Mean Platelet Volume 6.4 FL (6.5-10.1) L Neutrophils (%) (Auto) 66.9 % (45.0-75.0) Lymphocytes (%) (Auto) 17.7 % (20.0-45.0) L Monocytes (%) (Auto) 14.4 % (1.0-10.0) H Eosinophils (%) (Auto) 0.2 % (0.0-3.0) Basophils (%) (Auto) 0.8 % (0.0-2.0) Sodium Level 140 MMOL/L (136-145) Potassium Level 4.7 MMOL/L (3.5-5.1) Chloride Level 95 MMOL/L (98-107) L Carbon Dioxide Level 32 MMOL/L (21-32) Anion Gap 13 mmol/L (5-15) Blood Urea Nitrogen 39 mg/dL (7-18) H Creatinine 7.1 MG/DL (0.55-1.30) H Estimat Glomerular Filtration Rate mL/min (>60) Glucose Level 66 MG/DL (74-106) L Calcium Level 9.6 MG/DL (8.5-10.1) Troponin I 0.063 ng/mL (0.000-0.056) Random Vancomycin Level 16.4 ug/mL Prothrombin Time 17.9 SEC (9.30-11.50) H Prothromb Time International Ratio 1.7 (0.9-1.1) H Activated Partial Thromboplast Time 29 SEC (23-33) Current Medications Current Medications Medications (Trade) Dose Ordered Sig/Sarwat Route PRN Reason Start Time Stop Time Status Last Admin Dose Admin Acetaminophen (Tylenol) 650 mg Q6H PRN ORAL Mild Pain/Headache/Temp > 101 06/25/17 13:15 07/25/17 13:14 Amlodipine Besylate (Norvasc) 10 mg DAILY ORAL 06/26/17 09:00 07/26/17 08:59 06/26/17 08:42 Aspirin (Ecotrin) 81 mg DAILY ORAL 06/26/17 09:00 07/26/17 08:59 Clonidine HCl (Catapres Tab) 0.1 mg Q6H PRN ORAL SBP > 160mmHg 06/25/17 13:15 07/25/17 13:14 06/25/17 18:49 Clopidogrel Bisulfate (Plavix) 75 mg DAILY ORAL 06/26/17 09:00 07/26/17 08:59 Hydralazine HCl (Apresoline) 25 mg Q12HR ORAL 06/25/17 21:00 07/25/17 20:59 06/26/17 08:42 Metoprolol Tartrate (Lopressor) 50 mg Q12HR ORAL 06/25/17 21:00 07/25/17 20:59 06/26/17 08:42 Ondansetron HCl (Zofran) 4 mg Q6H PRN IVP Nausea & Vomiting 06/25/17 15:00 07/25/17 14:59 06/25/17 20:47 Piperacillin Sod/ Tazobactam Sod 2.25 gm/Dextrose 55 ml @ 110 mls/hr Q8HR IVPB 06/25/17 22:00 06/30/17 21:59 06/26/17 05:42 Sitagliptin Phosphate (Januvia) 25 mg DAILY ORAL 06/26/17 09:00 07/26/17 08:59 06/26/17 08:41 Vancomycin HCl (Vanco rx to dose) 1 ea DAILY PRN MISC Per rx protocol 06/25/17 14:15 07/25/17 14:14 Vancomycin HCl 500 mg/Dextrose 110 ml @ 110 mls/hr ONCE ONCE IVPB 06/26/17 12:00 06/26/17 12:59 06/26/17 11:45 GI: Plan Problems: (1) Failure to thrive in adult (2) Generalized weakness (3) Abdominal pain (4) DM (diabetes mellitus) (5) Abdominal pain (6) Coffee ground emesis (7) Nausea (8) Abdominal pain Plan Procedures Performed: EGD 03/10/17 Operative Findings/Diagnosis: GASTRITIS fu abdominal U/S >> Suspected chronic liver disease. CT AP reviewed >> - Distended stomach with a question of blood within the stomach lumen. - Thickening of the wall of the antrum and pyloric region with questionable mass. defer GI procedures given recent history of endoscopy, will consider EGD if necessary but will require cardiac clearance. OB stool r/o GI bleed monitor H&H, prn transfusions ppi fu labs Discussed with Dr. English. Thank you for this patient referral, we will follow. CESAR ENGLISH 07/01/17 1256: History of Present Illness General Reason for Hospitalization: Abdominal Pain Present Illness Home Meds Active Scripts Acetaminophen (Tylenol) 325 Mg Tablet, 650 MG ORAL Q6H PRN for Prn Pain/Headache /Temp > 101 for 7 Days, #30 TAB 0 Refills Prov:VINCENT ELLISON M.D. 03/12/17 Metoprolol Tartrate* (METOPROLOL TARTRATE*) 50 Mg Tablet, 50 MG ORAL BID, #60 TAB Prov:Sean (Duyhtein)Monica NP 12/04/16 Hydralazine HCl (Hydralazine HCl) 50 Mg Tablet, 50 MG ORAL Q8HR, #90 TAB Prov:Sean (Jessyein)Monica NP 12/04/16 Reported Medications Clonidine Hcl (CLONIDINE HCL) 0.1 Mg Tablet, 0.1 MG PO EVERY 6 HOURS PRN for For High Blood Pressure, TAB 11/30/16 Sitagliptin* (JANUVIA*) 25 Mg Tablet, 25 MG ORAL DAILY, TAB 09/03/16 Loratadine (LORATADINE) 10 Mg Tab.rapdis, 10 MG PO DAILY PRN for Itching, TAB 09/03/16 Clopidogrel* (CLOPIDOGREL*) 75 Mg Tablet, 75 MG ORAL DAILY, TAB 09/03/16 Aspirin* (ASPIR 81*) 81 Mg Tablet.dr, 81 MG ORAL DAILY, TAB 03/24/16 Amlodipine Besylate (Norvasc) 10 Mg Tablet, 10 MG ORAL DAILY, TAB 08/19/15 Hydrochlorothiazide* (HYDROCHLOROTHIAZIDE*) 12.5 Mg Capsule, ORAL DAILY, CAP 08/19/15 Allergies: Coded Allergies: No Known Allergies (Unverified , 10/24/14) GI: Plan Plan The patient was seen and examined at bedside and all new and available data was reviewed in the patients chart. I agree with the above findings, impression and plan. (Patient seen earlier today. Signature stamp does not reflect patient encounter time.). - MD Steff Shepherd,[facility] Roberto N.PLu June 26, 2017 12:25 CESAR ENGLISH July 01, 2017 12:56
--- NOTE | 2017-06-26 14:16 | General Progress Note ---
Assessment/Plan Problem List: (1) Renal failure ICD Codes: N19 - Unspecified kidney failure SNOMED: 66510262 (2) Hypertension ICD Codes: I10 - Hypertension SNOMED: 04214420 (3) Failure to thrive in adult ICD Codes: R62.7 - Adult failure to thrive SNOMED: 152004186 (4) Generalized weakness ICD Codes: R53.1 - Weakness SNOMED: 19852092 (5) ESRD (end stage renal disease) on dialysis ICD Codes: N18.6 - ESRD (end stage renal disease) on dialysis; Z99.2 - Dependence on renal dialysis SNOMED: 209385616 Status: stable, progressing, tolerating diet Assessment/Plan ot pt diet bp bs seizure pain control dialysis cbc bmp am Subjective Constitutional: Reports: weakness Allergies: Coded Allergies: No Known Allergies (Unverified , 10/24/14) All Systems: reviewed and negative except above Subjective sleepy calm Objective Last 24 Hour Vital Signs Date Time Temp Pulse Resp B/P (MAP) Pulse Ox O2 Delivery O2 Flow Rate FiO2 06/26/17 12:00 63 06/26/17 11:31 97.3 67 20 126/65 94 Room Air 97.3 06/26/17 08:42 70 150/70 06/26/17 08:42 70 150/70 06/26/17 08:42 150/70 06/26/17 08:00 70 06/26/17 08:00 97.0 70 20 150/70 94 Room Air 97.0 06/26/17 04:00 72 06/26/17 04:00 98.0 73 18 152/62 92 Room Air 98.0 06/26/17 00:00 69 06/26/17 00:00 98.3 73 17 150/68 96 Room Air 98.3 06/25/17 20:38 160/76 06/25/17 20:37 75 160/76 06/25/17 20:00 87 06/25/17 20:00 97.4 65 20 160/76 97 Room Air 97.4 06/25/17 18:49 196/81 06/25/17 16:00 65 06/25/17 16:00 65 06/25/17 15:52 Room Air Intake and Output 06/25/17 06/26/17 19:00 07:00 Intake Total 110 ml 185 ml Output Total 2300 ml 50 ml Balance -2190 ml 135 ml Intake Oral 0 ml 75 ml IV Total 110 ml 110 ml Output Urine Total 0 ml Emesis 50 ml Hemodialysis UF 2300 ml # Bowel Movements 1 Laboratory Tests 06/26/17 05:10: White Blood Count 6.0, Red Blood Count 3.53L, Hemoglobin 11.4L, Hematocrit 33.9L , Mean Corpuscular Volume 96, Mean Corpuscular Hemoglobin 32.3H, Mean Corpuscular Hemoglobin Concent 33.6, Red Cell Distribution Width 17.2H, Platelet Count 144L, Mean Platelet Volume 6.4L, Neutrophils (%) (Auto) 66.9, Lymphocytes (%) (Auto) 17.7L, Monocytes (%) (Auto) 14.4H, Eosinophils (%) (Auto ) 0.2, Basophils (%) (Auto) 0.8, Sodium Level 140, Potassium Level 4.7, Chloride Level 95L, Carbon Dioxide Level 32, Anion Gap 13, Blood Urea Nitrogen 39H, Creatinine 7.1H, Estimat Glomerular Filtration Rate , Glucose Level 66L, Calcium Level 9.6, Troponin I 0.063H, Random Vancomycin Level 16.4 06/26/17 09:30: Prothrombin Time 17.9H, Prothromb Time International Ratio 1.7H, Activated Partial Thromboplast Time 29 Height (Feet): 5 Height (Inches): 2.00 Weight (Pounds): 110 General Appearance: lethargic EENT: normal ENT inspection Neck: normal alignment Cardiovascular: normal peripheral pulses, normal rate, regular rhythm Respiratory/Chest: chest wall non-tender, decreased breath sounds Abdomen: normal bowel sounds, non tender, soft Extremities: normal inspection Edema: no edema noted Arm (L), no edema noted Arm (R), no edema noted Leg (L), no edema noted Leg (R), no edema noted Pedal (L), no edema noted Pedal (R), no edema noted Generalized Neurologic: responsive, motor weakness Skin: normal pigmentation, warm/dry SHIELA GALEANA June 26, 2017 14:16
--- NOTE | 2017-06-26 14:25 | Diagnostic Imaging Report ---
Indication:Abdominal pain Technique: Grayscale and duplex Doppler imaging of the abdomen performed. Comparison: None Findings: The gallbladder is absent. Liver is slightly heterogeneous. CBD is 6 mm in diameter. The pancreas is unremarkable. Aorta is calcified. Portal vein is patent by Doppler examination. There are multiple bilateral renal cysts. The kidneys appear abnormally echogenic consistent with the given history of chronic renal disease. There is a fairly large cyst about 4 cm noted in the left-sided abdomen anterior to the left kidney. This is probably arising from the kidney but this is not for certain. Spleen is normal size. No obvious ascites seen. IMPRESSION: Suspected chronic liver disease. Medical renal disease with multiple bilateral renal cysts. Status post cholecystectomy. Atherosclerotic disease.
--- NOTE | 2017-06-26 14:27 | Diagnostic Imaging Report ---
Indication: Abdominal pain Technique: Continuous helical transaxial imaging of the abdomen and pelvis was obtained from the lung bases to the pubic symphysis. No intravenous contrast was administered. Coronal 2-D reformats were also obtained. Automatic Exposure Control was utilized. Total Dose length Product (DLP): 469.[address] Dose Index Volume (CTDIvol): 9.03 mGy Comparison: none Findings: Generalized cardiomegaly is present. Coronary stent and extensive coronary vascular calcification and callus patient of the aorta demonstrated. Mild bronchiectasis is demonstrated at the right lung base. Curvilinear parenchymal opacities may be atelectasis or scar in noted within the visualized part of the lung bases. There is a trace amount of ascites demonstrated. Within the stomach lumen which is primarily fluid-filled there is a focus of increased attenuation within the fundal region in the dependent part of the fluid. Query whether this is blood. Correlate clinically. Suggest the passage of a nasogastric tube for further evaluation. Further evaluation with endoscopy may be needed. The study is limited with regard to evaluation of the stomach and enteric tract as no oral contrast was given. There is question of some thickening of the wall in the area of the antrum of the stomach and pylorus region and soft tissue prominence (image [id number], cysts series 10). There is no evidence of bowel obstruction. There is no evidence of perforation or free air. There is generalized retroperitoneal soft tissue stranding and some mesenteric stranding particularly in the epigastric region the abdomen nature of which is not known. Peptic ulcer disease, duodenitis/gastritis are considerations. Would also consider pancreatitis in the head of the pancreas region. Please correlate clinically. The kidneys are atrophic. There are innumerable low-density lesions within the kidneys likely cysts. There is one dominant cyst anterior to the left kidney measuring between 4 and 5 cm. This is residing between the tail the pancreas and the anterior margin of the left kidney and is probably renal in origin. There is no hydronephrosis. Calcifications within the spleen may be due to old granulomatous disease. Cholecystectomy noted. Few diverticula noted within the colon. No obvious diverticulitis. There is a left inguinal hernia containing fat. There are multiple masses some with dense calcification within the uterus consistent with fibroids. Urinary bladder is nondistended. The appendix is normal. Bones are diffusely osteopenic. IMPRESSION: Limited evaluation due to the lack of intravenous and oral contrast material. Distended stomach with a question of blood within the stomach lumen. Correlate for upper GI bleed. Nasogastric tube in gastric fluid sampling may be of benefit in this regard. Thickening of the wall of the antrum and pyloric region with questionable mass. Consider EGD. Mesenteric and retroperitoneal stranding in the epigastric region. Consider gastritis/duodenitis or pancreatitis in the head of the pancreas region. No evidence of free air or perforation. Trace ascites Status post cholecystectomy. Atrophic kidneys. Multiple cysts suspected. Diverticulosis of the colon. Enlarged uterus due to innumerable fibroids some heavily calcified. Small left inguinal hernia containing fat. Osteoporosis. Cardiomegaly and moderate to severe atherosclerotic disease. The CT scanner at [facility] is accredited by the [employer] and the scans are performed using dose optimization techniques as appropriate to a performed exam including Automatic Exposure control.
--- NOTE | 2017-06-26 14:27 | Diagnostic Imaging Report ---
Indication: Cough Comparison: 04/19/2017 A single view chest radiograph was obtained. Findings: No definite infiltrate or pulmonary vascular congestion identified. There is an SVC stent present. There is a left jugular permacath in good position with the tip in the right atrium. The heart is enlarged. The aorta is mildly enlarged consistent with atherosclerotic vascular disease. The bones are osteopenic. Impression: No acute disease
[2017-06-26 16:00] VITALS: BP 116/58
--- NOTE | 2017-06-26 16:03 | Cardiac Electrophysiology PN ---
Assessment/Plan Assessment/Plan 1. Severe hyperkalemia, potassium of 8. EKG showed prominent T-wave, but no cardiac arrhythmia. Resolved after hemodialysis 2. Hypertension. The patient is on hemodialysis, hydralazine 25 mg bid, Norvasc 10 mg daily, and metoprolol 50 mg b.i.d. 3. History of coffee-ground emesis. Underwent EGD by Dr. Ortiz, which showed gastritis on her previous admission. 4. History of atypical chest pain, was ruled out for myocardial infarction in the past with a stress test, which showed no evidence of ischemia. An echocardiogram showed ejection fraction of 60%. Subjective Subjective Feeling much better after HD. K is normal now. Objective Last 24 Hour Vital Signs Date Time Temp Pulse Resp B/P (MAP) Pulse Ox O2 Delivery O2 Flow Rate FiO2 06/26/17 12:00 63 06/26/17 11:31 97.3 67 20 126/65 94 Room Air 97.3 06/26/17 08:42 70 150/70 06/26/17 08:42 70 150/70 06/26/17 08:42 150/70 06/26/17 08:00 70 06/26/17 08:00 97.0 70 20 150/70 94 Room Air 97.0 06/26/17 04:00 72 06/26/17 04:00 98.0 73 18 152/62 92 Room Air 98.0 06/26/17 00:00 69 06/26/17 00:00 98.3 73 17 150/68 96 Room Air 98.3 06/25/17 20:38 160/76 06/25/17 20:37 75 160/76 06/25/17 20:00 87 06/25/17 20:00 97.4 65 20 160/76 97 Room Air 97.4 06/25/17 18:49 196/81 06/25/17 16:00 65 06/25/17 16:00 65 Intake and Output 06/25/17 06/26/17 19:00 07:00 Intake Total 110 ml 185 ml Output Total 2300 ml 50 ml Balance -2190 ml 135 ml Intake Oral 0 ml 75 ml IV Total 110 ml 110 ml Output Urine Total 0 ml Emesis 50 ml Hemodialysis UF 2300 ml # Bowel Movements 1 Laboratory Tests Test 06/26/17 05:10 06/26/17 09:30 White Blood Count 6.0 K/UL (4.8-10.8) Red Blood Count 3.53 M/UL (4.20-5.40) L Hemoglobin 11.4 G/DL (12.0-16.0) L Hematocrit 33.9 % (37.0-47.0) L Mean Corpuscular Volume 96 FL (80-99) Mean Corpuscular Hemoglobin 32.3 PG (27.0-31.0) H Mean Corpuscular Hemoglobin Concent 33.6 G/DL (32.0-36.0) Red Cell Distribution Width 17.2 % (11.6-14.8) H Platelet Count 144 K/UL (150-450) L Mean Platelet Volume 6.4 FL (6.5-10.1) L Neutrophils (%) (Auto) 66.9 % (45.0-75.0) Lymphocytes (%) (Auto) 17.7 % (20.0-45.0) L Monocytes (%) (Auto) 14.4 % (1.0-10.0) H Eosinophils (%) (Auto) 0.2 % (0.0-3.0) Basophils (%) (Auto) 0.8 % (0.0-2.0) Sodium Level 140 MMOL/L (136-145) Potassium Level 4.7 MMOL/L (3.5-5.1) Chloride Level 95 MMOL/L (98-107) L Carbon Dioxide Level 32 MMOL/L (21-32) Anion Gap 13 mmol/L (5-15) Blood Urea Nitrogen 39 mg/dL (7-18) H Creatinine 7.1 MG/DL (0.55-1.30) H Estimat Glomerular Filtration Rate mL/min (>60) Glucose Level 66 MG/DL (74-106) L Calcium Level 9.6 MG/DL (8.5-10.1) Troponin I 0.063 ng/mL (0.000-0.056) Random Vancomycin Level 16.4 ug/mL Prothrombin Time 17.9 SEC (9.30-11.50) H Prothromb Time International Ratio 1.7 (0.9-1.1) H Activated Partial Thromboplast Time 29 SEC (23-33) Objective HEAD AND NECK: Mild JVD. LUNGS: Decreased breath sounds. CARDIOVASCULAR: Regular S1 and S2 with no gallop. ABDOMEN: Soft. EXTREMITIES: A 1+ pitting edema. Nate Magallanes MD June 26, 2017 16:03
[2017-06-26] MEDS ORDERED: Tubing IV Secondary IV ONE (16:48)
[2017-06-26] MEDS ORDERED: NS 275ml ONE (16:48)
--- NOTE | 2017-06-26 17:45 | History and Physical Report ---
DATE OF ADMISSION: 06/25/2017 REASON FOR ADMISSION: 1. Hyperkalemia. 2. Weakness. 3. End-stage renal disease, on hemodialysis. HISTORY OF PRESENT ILLNESS: The patient is a 72-year-old female, who I have recently started assuming care as an outpatient dialysis management. The patient undergoes hemodialysis Friday, , and Friday. On Friday, the patient did not present to her regular set hemodialysis session. We made several calls and could not locate the patient. I was told that the patient had another physician office visit and would return Friday. The patient did not return Friday and then presented to the emergency room for further evaluation and care with weakness and lethargy. When it was noted that the patient was severely hyperkalemic with a potassium of 8 and BUN of 70, she underwent emergent hemodialysis and today her potassium is 4.7 and her BUN is down to 39. She is undergoing an echocardiogram. She is breathing better and feels improved. PAST MEDICAL HISTORY: 1. End-stage renal disease, on hemodialysis. 2. Anemia of chronic kidney disease. 3. Hypertension. 4. Seizure disorder. 5. Secondary hyperparathyroidism. PAST SURGICAL HISTORY: AV graft. HOME MEDICATIONS: Reviewed. FAMILY HISTORY: Positive for hypertension and diabetes. REVIEW OF SYSTEMS: NEUROLOGIC: The patient denies headache, change in vision, syncope, or presyncopal episodes. CARDIOVASCULAR: No current chest pain, palpitations, or angina. PULMONARY: Mild shortness of breath. Nonproductive cough. GASTROINTESTINAL/GENITOURINARY: No changes in urinary or bowel habits. No nausea, vomiting, or diarrhea. ENDOCRINOLOGY: No night sweats, fevers, or chills. LABORATORY AND DIAGNOSTIC DATA: Labs dated 06/26/2017, sodium 140, potassium 4.7, BUN 39, creatinine 7.1, calcium 9.6. Hemoglobin 11.4, white cell count 6, and platelet count 144. ASSESSMENT AND PLAN: 1. End-stage renal disease, on hemodialysis. The patient will undergo her second hemodialysis session today, then be placed on her regular set Friday, , and Friday. 2. Hyperkalemia, severe in nature, potassium of 8. This has been corrected with emergent hemodialysis yesterday. She will undergo another 3-hour dialysis session today. 3. Shortness of breath. The patient feeling much better after 2 liters of ultrafiltration. We will order another 1.5 liters of ultrafiltration today. 4. Hypertension. We will adjust medications as deemed appropriate. Cardiology has been consulted. Echocardiogram being conducted, defer to their management. Marin Ramachandran MD DR: CHAVA JOB#: [id number] CC:
--- NOTE | 2017-06-26 19:17 | Infectious Diseases Prog Note ---
Assessment/Plan Problems: (1) Hypothermia Assessment & Plan: rule out sepsis in HD patient, continue vancomycin and zosyn empiric coverage pending blood culture (2) Abdominal pain Assessment & Plan: with antrum and pyloric wall thickening rule out tumor or hypertrophy, or gastroparesis , recommend GI consult for further eval and management with an EGD (3) DM (diabetes mellitus) Assessment & Plan: recommend tight glycemic control to keep blood glucose between 100-140 (4) ESRD (end stage renal disease) on dialysis Assessment & Plan: on HD, nephrology is following (5) Hyperkalemia Assessment & Plan: due to renal failure and missing HD, improved, continue HD as per renal Subjective Constitutional: Reports: no symptoms HEENT: Reports: no symptoms Respiratory: Reports: no symptoms Breasts: Reports: no symptoms Cardiovascular: Reports: no symptoms Gastrointestinal/Abdominal: Reports: bloating Genitourinary: Reports: no symptoms Neurologic: Reports: no symptoms Psychiatric: Reports: no symptoms Skin: Reports: no symptoms Endocrine: Reports: no symptoms Hematologic: Reports: no symptoms Musculoskeletal: Reports: no symptoms Allergies: Coded Allergies: No Known Allergies (Unverified , 10/24/14) Objective Vital Signs Last 24 Hour Vital Signs Date Time Temp Pulse Resp B/P (MAP) Pulse Ox O2 Delivery O2 Flow Rate FiO2 06/26/17 16:00 97.1 60 20 116/58 93 Room Air 97.1 06/26/17 16:00 61 06/26/17 12:00 63 06/26/17 11:31 97.3 67 20 126/65 94 Room Air 97.3 06/26/17 08:42 70 150/70 06/26/17 08:42 70 150/70 06/26/17 08:42 150/70 06/26/17 08:00 70 06/26/17 08:00 97.0 70 20 150/70 94 Room Air 97.0 06/26/17 04:00 72 06/26/17 04:00 98.0 73 18 152/62 92 Room Air 98.0 06/26/17 00:00 69 06/26/17 00:00 98.3 73 17 150/68 96 Room Air 98.3 06/25/17 20:38 160/76 06/25/17 20:37 75 160/76 06/25/17 20:00 87 06/25/17 20:00 97.4 65 20 160/76 97 Room Air 97.4 Height (Feet): 5 Height (Inches): 2.00 Weight (Pounds): 110 General Appearance: WD/WN, no acute distress HEENT: normocephalic, atraumatic, anicteric, mucous membranes moist, PERRL Respiratory/Chest: chest wall non-tender, lungs clear, normal breath sounds, no respiratory distress, no accessory muscle use Cardiovascular: normal peripheral pulses, normal rate, regular rhythm, no gallop/murmur, no JVD Abdomen: normal bowel sounds, no organomegaly, non distended, no mass, no scars , hypoactive bowel sounds, distended, tender Extremities: no cyanosis, no clubbing Skin: no rash, no lesions, no ulcers Neurologic/Psychiatric: alert, oriented x 3, responsive Laboratory Tests Test 06/26/17 05:10 06/26/17 09:30 White Blood Count 6.0 K/UL (4.8-10.8) Red Blood Count 3.53 M/UL (4.20-5.40) L Hemoglobin 11.4 G/DL (12.0-16.0) L Hematocrit 33.9 % (37.0-47.0) L Mean Corpuscular Volume 96 FL (80-99) Mean Corpuscular Hemoglobin 32.3 PG (27.0-31.0) H Mean Corpuscular Hemoglobin Concent 33.6 G/DL (32.0-36.0) Red Cell Distribution Width 17.2 % (11.6-14.8) H Platelet Count 144 K/UL (150-450) L Mean Platelet Volume 6.4 FL (6.5-10.1) L Neutrophils (%) (Auto) 66.9 % (45.0-75.0) Lymphocytes (%) (Auto) 17.7 % (20.0-45.0) L Monocytes (%) (Auto) 14.4 % (1.0-10.0) H Eosinophils (%) (Auto) 0.2 % (0.0-3.0) Basophils (%) (Auto) 0.8 % (0.0-2.0) Sodium Level 140 MMOL/L (136-145) Potassium Level 4.7 MMOL/L (3.5-5.1) Chloride Level 95 MMOL/L (98-107) L Carbon Dioxide Level 32 MMOL/L (21-32) Anion Gap 13 mmol/L (5-15) Blood Urea Nitrogen 39 mg/dL (7-18) H Creatinine 7.1 MG/DL (0.55-1.30) H Estimat Glomerular Filtration Rate mL/min (>60) Glucose Level 66 MG/DL (74-106) L Calcium Level 9.6 MG/DL (8.5-10.1) Troponin I 0.063 ng/mL (0.000-0.056) Random Vancomycin Level 16.4 ug/mL Prothrombin Time 17.9 SEC (9.30-11.50) H Prothromb Time International Ratio 1.7 (0.9-1.1) H Activated Partial Thromboplast Time 29 SEC (23-33) Current Medications Medications (Trade) Dose Ordered Sig/Sarwat Route PRN Reason Start Time Stop Time Status Last Admin Dose Admin Acetaminophen (Tylenol) 650 mg Q6H PRN ORAL Mild Pain/Headache/Temp > 101 06/25/17 13:15 07/25/17 13:14 Amlodipine Besylate (Norvasc) 10 mg DAILY ORAL 06/26/17 09:00 07/26/17 08:59 06/26/17 08:42 Aspirin (Ecotrin) 81 mg DAILY ORAL 06/26/17 09:00 07/26/17 08:59 Clonidine HCl (Catapres Tab) 0.1 mg Q6H PRN ORAL SBP > 160mmHg 06/25/17 13:15 07/25/17 13:14 06/25/17 18:49 Clopidogrel Bisulfate (Plavix) 75 mg DAILY ORAL 06/26/17 09:00 07/26/17 08:59 Hydralazine HCl (Apresoline) 25 mg Q12HR ORAL 06/25/17 21:00 07/25/17 20:59 06/26/17 08:42 Metoprolol Tartrate (Lopressor) 50 mg Q12HR ORAL 06/25/17 21:00 07/25/17 20:59 06/26/17 08:42 Ondansetron HCl (Zofran) 4 mg Q6H PRN IVP Nausea & Vomiting 06/25/17 15:00 07/25/17 14:59 06/25/17 20:47 Piperacillin Sod/ Tazobactam Sod 2.25 gm/Dextrose 55 ml @ 110 mls/hr Q8HR IVPB 06/25/17 22:00 06/30/17 21:59 06/26/17 13:29 Sitagliptin Phosphate (Januvia) 25 mg DAILY ORAL 06/26/17 09:00 07/26/17 08:59 06/26/17 08:41 Vancomycin HCl (Vanco rx to dose) 1 ea DAILY PRN MISC Per rx protocol 06/25/17 14:15 07/25/17 14:14 Delma Braga M.D. June 26, 2017 19:17
[2017-06-26 20:00] VITALS: BP 119/54
[2017-06-27] VITALS: BP 111/50
[2017-06-27 04:00] VITALS: BP 116/60
[2017-06-27] MEDS: Piperacillin/Tazobactam 2.25 GM in D5W 55 ML IVPB SCH ×6 (06:49→22:01)
[2017-06-27 08:00] VITALS: BP 115/60
[2017-06-27] MEDS: Aspirin EC 81mg tab ORAL SCH (08:55)
[2017-06-27] MEDS: sitaGLIPtin 25mg tab ORAL SCH (08:55)
[2017-06-27] MEDS: Metoprolol Tartrate 50mg tab ORAL SCH ×2 (09:00→22:00)
[2017-06-27] MEDS: HydrALAZINE 25mg tab ORAL SCH ×2 (09:00→22:01)
--- NOTE | 2017-06-27 09:27 | Nephrology Progress Note ---
Assessment/Plan Assessment/Plan 1. ESRD- Patient to have HD today and tomorrow - If cleared by all consultants will plan for DC Friday or Friday 2. Hyperkalemia- severe. Resolved post HD 3. Anemia of CKD- EPO if HGb <10. Goal 10-11 3. GI Bleed- appreciate GI assistance. No interventions at this time. Last EGD in Feb 2017 4. HTN- stable , adjust medications as deemed appropriate 5. DVT prophylaxsis- with heparing sub q q 8hr 6. SOB- ECHO noted. Appreciate cardiology assistance 7. Disposition- PT/OT evaluation Subjective Date patient seen: June 27, 2017 Time patient seen: 09:19 ROS Limited/Unobtainable: No HEENT: Reports: no symptoms Cardiovascular: Reports: no symptoms Respiratory: Reports: no symptoms Genitourinary: Reports: no symptoms Endocrine: Reports: no symptoms Allergies: Coded Allergies: No Known Allergies (Unverified , 10/24/14) Subjective Patient is feeling better. Had permacath removed yesterday. set for HD today and tomorrow. Poss DC tomorrow post HD if cleared by consultants Objective Last 24 Hour Vital Signs Date Time Temp Pulse Resp B/P (MAP) Pulse Ox O2 Delivery O2 Flow Rate FiO2 06/27/17 09:00 60 115/60 06/27/17 09:00 60 115/60 06/27/17 09:00 115/60 06/27/17 08:00 97.0 60 20 115/60 95 Room Air 97.0 06/27/17 04:00 97.7 68 20 116/60 94 Room Air 97.7 06/27/17 04:00 65 06/27/17 00:00 63 06/27/17 00:00 97.5 67 20 111/50 93 Room Air 97.5 06/26/17 21:50 119/54 06/26/17 21:00 60 119/54 06/26/17 20:00 97.8 62 20 119/54 95 Room Air 97.8 06/26/17 20:00 60 06/26/17 16:00 97.1 60 20 116/58 93 Room Air 97.1 06/26/17 16:00 61 06/26/17 12:00 63 06/26/17 11:31 97.3 67 20 126/65 94 Room Air 97.3 Intake and Output 06/26/17 06/27/17 19:00 07:00 Intake Total 365 ml 50 ml Output Total 0 ml Balance 365 ml 50 ml Intake Oral 200 ml 50 ml IV Total 165 ml Output Urine Total 0 ml Laboratory Tests 06/26/17 09:30: Prothrombin Time 17.9H, Prothromb Time International Ratio 1.7H, Activated Partial Thromboplast Time 29 Height (Feet): 5 Height (Inches): 2.00 Weight (Pounds): 104 General Appearance: other - Fatigued EENT: PERRL/EOMI Neck: non-tender Cardiovascular: normal rate Respiratory/Chest: lungs clear Abdomen: normal bowel sounds Extremities: non-tender Edema: no edema noted Arm (L), no edema noted Arm (R), no edema noted Leg (L), no edema noted Leg (R), no edema noted Pedal (L), no edema noted Pedal (R), no edema noted Generalized Marin Ramachandran M.D. June 27, 2017 09:27
--- NOTE | 2017-06-27 10:27 | GI Progress Note ---
Assessment/Plan Problems: (1) Failure to thrive in adult ICD Codes: R62.7 - Adult failure to thrive SNOMED: 776675993 (2) Generalized weakness ICD Codes: R53.1 - Weakness SNOMED: 07242156 (3) DM (diabetes mellitus) ICD Codes: E11.9 - Type 2 diabetes mellitus without complications SNOMED: 99367945 (4) Abdominal pain (5) ESRD (end stage renal disease) on dialysis ICD Codes: N18.6 - End stage renal disease; Z99.2 - Dependence on renal dialysis SNOMED: 443762308 Status: stable Status Narrative Discussed with Dr. Ortiz. Assessment/Plan Procedures Performed: EGD 03/10/17 Operative Findings/Diagnosis: GASTRITIS fu abdominal U/S >> Suspected chronic liver disease. CT AP reviewed >> - Distended stomach with a question of blood within the stomach lumen. - Thickening of the wall of the antrum and pyloric region with questionable mass. defer GI procedures given recent history of endoscopy and stable Hgb monitor H&H, prn transfusions ADA diet ppi OB stool r/o GI bleed fu labs outpatient Hep C treatment Subjective Subjective denies any abdominal pain Objective Last 24 Hour Vital Signs Date Time Temp Pulse Resp B/P (MAP) Pulse Ox O2 Delivery O2 Flow Rate FiO2 06/27/17 09:00 60 115/60 06/27/17 09:00 60 115/60 06/27/17 09:00 115/60 06/27/17 08:00 97.0 60 20 115/60 95 Room Air 97.0 06/27/17 04:00 97.7 68 20 116/60 94 Room Air 97.7 06/27/17 04:00 65 06/27/17 00:00 63 06/27/17 00:00 97.5 67 20 111/50 93 Room Air 97.5 06/26/17 21:50 119/54 06/26/17 21:00 60 119/54 06/26/17 20:00 97.8 62 20 119/54 95 Room Air 97.8 06/26/17 20:00 60 06/26/17 16:00 97.1 60 20 116/58 93 Room Air 97.1 06/26/17 16:00 61 06/26/17 12:00 63 06/26/17 11:31 97.3 67 20 126/65 94 Room Air 97.3 Intake and Output 06/26/17 06/27/17 19:00 07:00 Intake Total 365 ml 50 ml Output Total 0 ml Balance 365 ml 50 ml Intake Oral 200 ml 50 ml IV Total 165 ml Output Urine Total 0 ml Height (Feet): 5 Height (Inches): 2.00 Weight (Pounds): 104 General Appearance: WD/WN, no apparent distress, alert, thin Cardiovascular: normal rate Respiratory/Chest: normal breath sounds, no respiratory distress Abdominal Exam: normal bowel sounds, non tender, soft Extremities: non-tender Chrissie Artis N.P. June 27, 2017 10:27
[2017-06-27 12:00] VITALS: BP 138/71
--- NOTE | 2017-06-27 12:09 | Consultation ---
History of Present Illness General Date patient seen: June 27, 2017 Chief Complaint: Abdominal Pain Referring physician: TIGRE FULLER Reason for Consultation: ABDOMINAL PAIN Present Illness HPI 72-year-old female with past medical history of end-stage renal disease, on hemodialysis, diabetes, hypertension, coronary artery disease , CVA and dementia, presented to [facility] emergency room with chief complaint of abdominal pain. the pt has episodes of anxiety. Allergies: Coded Allergies: No Known Allergies (Unverified , 10/24/14) Medication History Scheduled Amlodipine Besylate (Norvasc), 10 MG ORAL DAILY, (Reported) Aspirin* (Aspir 81*), 81 MG ORAL DAILY, (Reported) Clopidogrel* (Clopidogrel*), 75 MG ORAL DAILY, (Reported) Hydralazine HCl (Hydralazine HCl), 50 MG ORAL Q8HR Hydrochlorothiazide* (Hydrochlorothiazide*), Unknown Dose ORAL DAILY, (Reported) Metoprolol Tartrate* (Metoprolol Tartrate*), 50 MG ORAL BID Sitagliptin* (Januvia*), 25 MG ORAL DAILY, (Reported) Scheduled PRN Acetaminophen (Tylenol), 650 MG ORAL Q6H PRN for Prn Pain/Headache/Temp > 101 Clonidine Hcl (Clonidine Hcl), 0.1 MG PO EVERY 6 HOURS PRN for For High Blood Pressure, (Reported) Loratadine (Loratadine), 10 MG PO DAILY PRN for Itching, (Reported) Patient History Limited by: medical condition History Provided By: Patient, Medical Record, PMD Healthcare decision maker Nancy (Daughter)) Resuscitation status Full Code Advanced Directive on File Past Medical/Surgical History Past Medical/Surgical History: (1) Sinusitis (2) Headache (3) Headache (4) Chest pain (5) Hypertension (6) Pancytopenia (7) Nausea (8) Vomiting (9) Arrhythmia (10) Arrhythmia (11) Generalized weakness (12) Pulmonary edema (13) Pulmonary edema (14) Syncope (15) Syncope (16) Accelerated hypertension (17) Accelerated hypertension (18) Cerebral vascular disease (19) Cerebral vascular disease (20) AV fistula infection (21) AV fistula infection (22) Hypertension (23) ESRD (end stage renal disease) on dialysis (24) ESRD (end stage renal disease) on dialysis (25) Failure to thrive in adult (26) Dizziness (27) Dizziness (28) Dizziness (29) Dizziness (30) Cellulitis (31) Cellulitis (32) Cellulitis (33) Cellulitis (34) Diabetes (35) Diabetes (36) Diverticulosis (37) Diverticulosis (38) Dyspnea (39) Dyspnea (40) Gastritis (41) Gastritis (42) Gastritis (43) Headache (44) Headache (45) Headache (46) Headache (47) Headache (48) Headache (49) Headache (50) Headache (51) Headache (52) Headache (53) Pancytopenia (54) Pancytopenia (55) Renal failure (56) Renal failure (57) Renal failure (58) Renal failure (59) Renal failure (60) Renal failure (61) Sinusitis (62) Sinusitis (63) Thrombocytopenia (64) Thrombocytopenia (65) Weakness (66) Weakness (67) Weakness (68) Weakness (69) Abdominal pain (70) Hypertension (71) Hypertension (72) Hypertension (73) Hypertension (74) Hypertension (75) Hypertension (76) Hypertension (77) Hypotension (78) Hypotension (79) General medical exam (80) General medical exam (81) Head trauma (82) Head trauma (83) Internal hemorrhoid (84) Internal hemorrhoid (85) Seizure disorder, complex partial (86) Seizure disorder, complex partial (87) Injury of upper extremity (88) Injury of upper extremity (89) Tubular adenoma of colon (90) Tubular adenoma of colon (91) ESRD (end stage renal disease) on dialysis (92) ESRD (end stage renal disease) on dialysis (93) ESRD (end stage renal disease) on dialysis (94) ESRD (end stage renal disease) on dialysis (95) Unable to ambulate (96) Unable to ambulate (97) Hypertensive urgency, malignant (98) Hypertensive urgency, malignant (99) Hypertensive urgency, malignant (100) Hypertensive urgency, malignant (101) 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, not intractable, without status epilepticus (102) 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, not intractable, without status epilepticus (103) Elevated lipase (104) Elevated lipase (105) Infection of arteriovenous fistula (106) Infection of arteriovenous fistula (107) Infection of arteriovenous fistula (108) Infection of arteriovenous fistula (109) [id number] (110) [id number] (111) [id number] (112) [id number] (113) Anemia in chronic kidney disease (CKD) (114) Anemia in chronic kidney disease (CKD) (115) ACS (acute coronary syndrome) (116) ACS (acute coronary syndrome) (117) ESRD (end stage renal disease) on dialysis (118) ESRD (end stage renal disease) on dialysis (119) Chest pain (120) Chest pain (121) Chest pain (122) Hypertension (123) DM (diabetes mellitus) (124) DM (diabetes mellitus) (125) Congestive heart failure (CHF) (126) ESRD (end stage renal disease) on dialysis (127) Hypertension (128) Congestive heart failure (CHF) (129) Vomiting (130) Hyperkalemia (131) Hypertension (132) ESRD (end stage renal disease) on dialysis (133) Generalized weakness (134) Abdominal pain (135) Gastritis (136) Chest pain (137) Hypertension (138) Hyperkalemia (139) Hypothermia (140) Abdominal pain (141) DM (diabetes mellitus) (142) ESRD (end stage renal disease) on dialysis (143) Generalized weakness (144) Renal failure (145) Hypertension (146) Failure to thrive in adult (147) ESRD (end stage renal disease) on dialysis (148) Abdominal pain (149) Abdominal pain (150) Nausea (151) Nausea (152) Coffee ground emesis (153) Failure to thrive in adult (154) ESRD (end stage renal disease) on dialysis (155) HCV infection Review of Systems Psychiatric: Reports: prior hx, anxiety, depressed feelings, emotional problems Physical Exam General Appearance: WD/WN, no apparent distress, alert Neurologic: oriented x 3, responsive, normal mood/affect Last 24 Hour Vital Signs Date Time Temp Pulse Resp B/P (MAP) Pulse Ox O2 Delivery O2 Flow Rate FiO2 06/27/17 10:38 97.0 06/27/17 09:00 60 115/60 06/27/17 09:00 60 115/60 06/27/17 09:00 115/60 06/27/17 08:00 63 06/27/17 08:00 97.0 60 20 115/60 95 Room Air 97.0 06/27/17 04:00 97.7 68 20 116/60 94 Room Air 97.7 06/27/17 04:00 65 06/27/17 00:00 63 06/27/17 00:00 97.5 67 20 111/50 93 Room Air 97.5 06/26/17 21:50 119/54 06/26/17 21:00 60 119/54 06/26/17 20:00 97.8 62 20 119/54 95 Room Air 97.8 06/26/17 20:00 60 06/26/17 16:00 97.1 60 20 116/58 93 Room Air 97.1 06/26/17 16:00 61 Intake and Output 06/26/17 06/27/17 19:00 07:00 Intake Total 365 ml 50 ml Output Total 0 ml Balance 365 ml 50 ml Intake Oral 200 ml 50 ml IV Total 165 ml Output Urine Total 0 ml Height (Feet): 5 Height (Inches): 2.00 Weight (Pounds): 104 Medications Current Medications Medications (Trade) Dose Ordered Sig/Sarwat Route PRN Reason Start Time Stop Time Status Last Admin Dose Admin Acetaminophen (Tylenol) 650 mg Q6H PRN ORAL Mild Pain/Headache/Temp > 101 06/25/17 13:15 07/25/17 13:14 06/27/17 10:38 Amlodipine Besylate (Norvasc) 10 mg DAILY ORAL 06/26/17 09:00 07/26/17 08:59 06/26/17 08:42 Aspirin (Ecotrin) 81 mg DAILY ORAL 06/26/17 09:00 07/26/17 08:59 06/27/17 08:55 Clonidine HCl (Catapres Tab) 0.1 mg Q6H PRN ORAL SBP > 160mmHg 06/25/17 13:15 07/25/17 13:14 06/25/17 18:49 Clopidogrel Bisulfate (Plavix) 75 mg DAILY ORAL 06/26/17 09:00 07/26/17 08:59 06/27/17 08:55 Heparin Sodium (Porcine) (Heparin 5000 units/ml) 5,000 units EVERY 8 HOURS SUBQ 06/27/17 14:00 07/27/17 13:59 Hydralazine HCl (Apresoline) 25 mg Q12HR ORAL 06/25/17 21:00 07/25/17 20:59 06/26/17 21:50 Metoprolol Tartrate (Lopressor) 50 mg Q12HR ORAL 06/25/17 21:00 07/25/17 20:59 06/26/17 08:42 Ondansetron HCl (Zofran) 4 mg Q6H PRN IVP Nausea & Vomiting 06/25/17 15:00 07/25/17 14:59 06/25/17 20:47 Piperacillin Sod/ Tazobactam Sod 2.25 gm/Dextrose 55 ml @ 110 mls/hr Q8HR IVPB 06/25/17 22:00 06/30/17 21:59 06/27/17 06:49 Sitagliptin Phosphate (Januvia) 25 mg DAILY ORAL 06/26/17 09:00 07/26/17 08:59 06/27/17 08:55 Vancomycin HCl (Vanco rx to dose) 1 ea DAILY PRN MISC Per rx protocol 06/25/17 14:15 07/25/17 14:14 Assessment/Plan Status: stable, progressing Assessment/Plan mDD anxiety cont current meds provided coty/Maritza Tomlinson M.D. June 27, 2017 12:09
[2017-06-27] MEDS ORDERED: LORazepam 1mg tab ORAL PRN (12:15)
[2017-06-27 13:08] LABS: BASOPHILS % (AUTO) 1.2 % (0.0-2.0); EOSINOPHILS % (AUTO) 0.6 % (0.0-3.0); HEMATOCRIT 35.7 % (37.0-47.0); HEMOGLOBIN 11.5 G/DL (12.0-16.0); INR 1.5 (0.9-1.1); LYMPHOCYTES % (AUTO) 21.7 % (20.0-45.0); MEAN CORPUSCULAR VOLUME 97 FL (80-99); MONOCYTES % (AUTO) 17.7 % (1.0-10.0); NEUTROPHILS % (AUTO) 58.8 % (45.0-75.0); PLATELET COUNT 146 K/UL (150-450); RED BLOOD COUNT 3.67 M/UL (4.20-5.40); RED CELL DISTRIBUTION WIDTH 16.7 % (11.6-14.8); WHITE BLOOD COUNT 4.7 K/UL (4.8-10.8)
[2017-06-27 13:12] LABS: ANION GAP 21 mmol/L (5-15); BLOOD UREA NITROGEN 61 mg/dL (7-18); CALCIUM 10.3 MG/DL (8.5-10.1); CARBON DIOXIDE 26 MMOL/L (21-32); CHLORIDE 92 MMOL/L (98-107); CREATININE 9.6 MG/DL (0.55-1.30); SODIUM 139 MMOL/L (136-145)
--- NOTE | 2017-06-27 13:17 | Infectious Diseases Prog Note ---
Assessment/Plan Problems: (1) Hypothermia Assessment & Plan: rule out sepsis in HD patient, continue vancomycin and zosyn empiric coverage pending blood culture . will stop antibiotics if blood culture is negative for 48 hours (2) Abdominal pain Assessment & Plan: with antrum and pyloric wall thickening rule out tumor or hypertrophy, or gastroparesis , GI is consulted for further eval and management (3) DM (diabetes mellitus) Assessment & Plan: recommend tight glycemic control to keep blood glucose between 100-140 (4) ESRD (end stage renal disease) on dialysis Assessment & Plan: on HD, nephrology is following. will screen for HCV and check viral load (5) Hyperkalemia Assessment & Plan: due to renal failure and missing HD, improved, continue HD as per renal Subjective Constitutional: Reports: no symptoms HEENT: Reports: no symptoms Respiratory: Reports: no symptoms Breasts: Reports: no symptoms Cardiovascular: Reports: no symptoms Gastrointestinal/Abdominal: Reports: no symptoms Genitourinary: Reports: no symptoms Neurologic: Reports: no symptoms Psychiatric: Reports: no symptoms Skin: Reports: no symptoms Endocrine: Reports: no symptoms Hematologic: Reports: no symptoms Allergies: Coded Allergies: No Known Allergies (Unverified , 10/24/14) Subjective she was awake and comfortable, up in bed, tolerated antibiotics well Objective Vital Signs Last 24 Hour Vital Signs Date Time Temp Pulse Resp B/P (MAP) Pulse Ox O2 Delivery O2 Flow Rate FiO2 06/27/17 12:50 Room Air 21 06/27/17 12:00 97.2 63 19 138/71 95 Room Air 97.2 06/27/17 12:00 59 06/27/17 10:38 97.0 06/27/17 09:00 60 115/60 06/27/17 09:00 60 115/60 06/27/17 09:00 115/60 06/27/17 08:00 63 06/27/17 08:00 97.0 60 20 115/60 95 Room Air 97.0 06/27/17 04:00 97.7 68 20 116/60 94 Room Air 97.7 06/27/17 04:00 65 06/27/17 00:00 63 06/27/17 00:00 97.5 67 20 111/50 93 Room Air 97.5 06/26/17 21:50 119/54 06/26/17 21:00 60 119/54 06/26/17 20:00 97.8 62 20 119/54 95 Room Air 97.8 06/26/17 20:00 60 06/26/17 16:00 97.1 60 20 116/58 93 Room Air 97.1 06/26/17 16:00 61 Height (Feet): 5 Height (Inches): 2.00 Weight (Pounds): 104 General Appearance: WD/WN, no acute distress HEENT: normocephalic, atraumatic, anicteric, mucous membranes moist, PERRL Respiratory/Chest: chest wall non-tender, lungs clear, normal breath sounds, no respiratory distress, no accessory muscle use Cardiovascular: normal peripheral pulses, normal rate, regular rhythm, no gallop/murmur, no JVD Abdomen: normal bowel sounds, soft, non tender, no organomegaly, non distended , no mass, no scars Extremities: no cyanosis, no clubbing Skin: no rash, no lesions, no ulcers Neurologic/Psychiatric: alert, oriented x 3, responsive Lymphatic: no neck adenopathy, no groin adenopathy Microbiology Date/Time Source Procedure Growth Status 06/25/17 07:13 Blood Blood Culture - Preliminary NO GROWTH AFTER 24 HOURS Resulted 06/25/17 07:00 Blood Blood Culture - Preliminary NO GROWTH AFTER 24 HOURS Resulted 06/25/17 09:18 Nasal Nares Left MRSA Culture - Final NO METHICILLIN RESISTANT STAPH AUREUS... Complete 06/25/17 09:18 Rectum VRE Culture - Final NO VANCOMYCIN RESISTANT ENTEROCOCCUS ... Complete Laboratory Tests Test 06/27/17 12:40 White Blood Count 4.7 K/UL (4.8-10.8) L Red Blood Count 3.67 M/UL (4.20-5.40) L Hemoglobin 11.5 G/DL (12.0-16.0) L Hematocrit 35.7 % (37.0-47.0) L Mean Corpuscular Volume 97 FL (80-99) Mean Corpuscular Hemoglobin 31.2 PG (27.0-31.0) H Mean Corpuscular Hemoglobin Concent 32.1 G/DL (32.0-36.0) Red Cell Distribution Width 16.7 % (11.6-14.8) H Platelet Count 146 K/UL (150-450) L Mean Platelet Volume 7.0 FL (6.5-10.1) Neutrophils (%) (Auto) 58.8 % (45.0-75.0) Lymphocytes (%) (Auto) 21.7 % (20.0-45.0) Monocytes (%) (Auto) 17.7 % (1.0-10.0) H Eosinophils (%) (Auto) 0.6 % (0.0-3.0) Basophils (%) (Auto) 1.2 % (0.0-2.0) Reticulocyte Count Pending Prothrombin Time 16.1 SEC (9.30-11.50) H Prothromb Time International Ratio 1.5 (0.9-1.1) H Activated Partial Thromboplast Time 28 SEC (23-33) Sodium Level Pending Potassium Level Pending Chloride Level Pending Carbon Dioxide Level Pending Blood Urea Nitrogen Pending Creatinine Pending Estimat Glomerular Filtration Rate Pending Glucose Level Pending Calcium Level Pending Phosphorus Level Pending Iron Level Pending Unsaturated Iron Binding Pending Ferritin Pending Vitamin B12 Level Pending Folate Pending Thyroid Stimulating Hormone (TSH) Pending Free Thyroxine Pending Hepatitis C Antibody Pending Hepatitis C RNA (PCR) IUs/ml Pending Hepatitis C RNA (PCR) log IUs/ml Pending Current Medications Medications (Trade) Dose Ordered Sig/Sarwat Route PRN Reason Start Time Stop Time Status Last Admin Dose Admin Acetaminophen (Tylenol) 650 mg Q6H PRN ORAL Mild Pain/Headache/Temp > 101 06/25/17 13:15 07/25/17 13:14 06/27/17 10:38 Amlodipine Besylate (Norvasc) 10 mg DAILY ORAL 06/26/17 09:00 07/26/17 08:59 06/26/17 08:42 Aspirin (Ecotrin) 81 mg DAILY ORAL 06/26/17 09:00 07/26/17 08:59 06/27/17 08:55 Clonidine HCl (Catapres Tab) 0.1 mg Q6H PRN ORAL SBP > 160mmHg 06/25/17 13:15 07/25/17 13:14 06/25/17 18:49 Clopidogrel Bisulfate (Plavix) 75 mg DAILY ORAL 06/26/17 09:00 07/26/17 08:59 06/27/17 08:55 Heparin Sodium (Porcine) (Heparin 5000 units/ml) 5,000 units EVERY 8 HOURS SUBQ 06/27/17 14:00 07/27/17 13:59 Hydralazine HCl (Apresoline) 25 mg Q12HR ORAL 06/25/17 21:00 07/25/17 20:59 06/26/17 21:50 Lorazepam (Ativan) 1 mg Q6H PRN ORAL For Anxiety 06/27/17 12:15 07/04/17 12:14 Metoprolol Tartrate (Lopressor) 50 mg Q12HR ORAL 06/25/17 21:00 07/25/17 20:59 06/26/17 08:42 Ondansetron HCl (Zofran) 4 mg Q6H PRN IVP Nausea & Vomiting 06/25/17 15:00 07/25/17 14:59 06/25/17 20:47 Piperacillin Sod/ Tazobactam Sod 2.25 gm/Dextrose 55 ml @ 110 mls/hr Q8HR IVPB 06/25/17 22:00 06/30/17 21:59 06/27/17 06:49 Sitagliptin Phosphate (Januvia) 25 mg DAILY ORAL 06/26/17 09:00 07/26/17 08:59 06/27/17 08:55 Vancomycin HCl (Vanco rx to dose) 1 ea DAILY PRN MISC Per rx protocol 06/25/17 14:15 07/25/17 14:14 Delma Braga M.D. June 27, 2017 13:17
--- NOTE | 2017-06-27 13:25 | General Progress Note ---
Assessment/Plan Problem List: (1) Renal failure ICD Codes: N19 - Unspecified kidney failure SNOMED: 98486561 (2) Hypertension ICD Codes: I10 - Hypertension SNOMED: 79744969 (3) Failure to thrive in adult ICD Codes: R62.7 - Adult failure to thrive SNOMED: 344333641 (4) Generalized weakness ICD Codes: R53.1 - Weakness SNOMED: 29060054 (5) ESRD (end stage renal disease) on dialysis ICD Codes: N18.6 - ESRD (end stage renal disease) on dialysis; Z99.2 - Dependence on renal dialysis SNOMED: 923397471 Status: unchanged Assessment/Plan ot pt diet bp bs seizure pain control dialysis cbc bmp am Subjective Constitutional: Reports: weakness Allergies: Coded Allergies: No Known Allergies (Unverified , 10/24/14) All Systems: reviewed and negative except above Subjective sleepy calm Objective Last 24 Hour Vital Signs Date Time Temp Pulse Resp B/P (MAP) Pulse Ox O2 Delivery O2 Flow Rate FiO2 06/27/17 12:50 Room Air 21 06/27/17 12:00 97.2 63 19 138/71 95 Room Air 97.2 06/27/17 12:00 59 06/27/17 10:38 97.0 06/27/17 09:00 60 115/60 06/27/17 09:00 60 115/60 06/27/17 09:00 115/60 06/27/17 08:00 63 06/27/17 08:00 97.0 60 20 115/60 95 Room Air 97.0 06/27/17 04:00 97.7 68 20 116/60 94 Room Air 97.7 06/27/17 04:00 65 06/27/17 00:00 63 06/27/17 00:00 97.5 67 20 111/50 93 Room Air 97.5 06/26/17 21:50 119/54 06/26/17 21:00 60 119/54 06/26/17 20:00 97.8 62 20 119/54 95 Room Air 97.8 06/26/17 20:00 60 06/26/17 16:00 97.1 60 20 116/58 93 Room Air 97.1 06/26/17 16:00 61 Intake and Output 06/26/17 06/27/17 19:00 07:00 Intake Total 365 ml 50 ml Output Total 0 ml Balance 365 ml 50 ml Intake Oral 200 ml 50 ml IV Total 165 ml Output Urine Total 0 ml Laboratory Tests 06/27/17 12:40: White Blood Count 4.7L, Red Blood Count 3.67L, Hemoglobin 11.5L, Hematocrit 35.7L, Mean Corpuscular Volume 97, Mean Corpuscular Hemoglobin 31.2H, Mean Corpuscular Hemoglobin Concent 32.1, Red Cell Distribution Width 16.7H, Platelet Count 146L, Mean Platelet Volume 7.0, Neutrophils (%) (Auto) 58.8, Lymphocytes (%) (Auto) 21.7, Monocytes (%) (Auto) 17.7H, Eosinophils (%) (Auto) 0.6, Basophils (%) (Auto) 1.2, Reticulocyte Count [Pending], Prothrombin Time 16.1H, Prothromb Time International Ratio 1.5H, Activated Partial Thromboplast Time 28, Sodium Level 139, Potassium Level 5.0, Chloride Level 92L, Carbon Dioxide Level 26, Anion Gap 21H, Blood Urea Nitrogen 61H, Creatinine 9.6H, Estimat Glomerular Filtration Rate , Glucose Level 94, Calcium Level 10.3H, Phosphorus Level [Pending], Iron Level [Pending], Unsaturated Iron Binding [ Pending], Ferritin [Pending], Vitamin B12 Level [Pending], Folate [Pending], Thyroid Stimulating Hormone (TSH) [Pending], Free Thyroxine [Pending], Hepatitis C Antibody [Pending], Hepatitis C RNA (PCR) IUs/ml [Pending], Hepatitis C RNA (PCR) log IUs/ml [Pending] Height (Feet): 5 Height (Inches): 2.00 Weight (Pounds): 104 General Appearance: alert EENT: normal ENT inspection Neck: normal alignment Cardiovascular: normal peripheral pulses, normal rate, regular rhythm Respiratory/Chest: chest wall non-tender, lungs clear, normal breath sounds Abdomen: normal bowel sounds, non tender, soft Extremities: normal inspection Edema: no edema noted Arm (L), no edema noted Arm (R), no edema noted Leg (L), no edema noted Leg (R), no edema noted Pedal (L), no edema noted Pedal (R), no edema noted Generalized Neurologic: responsive Skin: normal pigmentation, warm/dry SHIELA GALEANA June 27, 2017 13:24
[2017-06-27 13:32] LABS: % IRON SATURATION 41 % (15-50); IRON 71 ug/dL (50-175); TOTAL IRON BINDING CAPACITY 173 ug/dL (250-450)
[2017-06-27] MEDS: Heparin 5000 units/ml inj SUBQ SCH ×2 (14:43→22:00)
[2017-06-27 14:49] LABS: FERRITIN > 2000 NG/ML (8-388); PHOSPHORUS > 9.0 MG/DL (2.5-4.9)
--- NOTE | 2017-06-27 15:19 | Cardiology Report ---
APPROVED REPORT EKG Measurement Heart [id number] Sinus rhythm with premature atrial complexes Left ventricular hypertrophy with repolarization abnormality Prolonged QT Abnormal ECG
--- NOTE | 2017-06-27 15:24 | Cardiac Electrophysiology PN ---
Assessment/Plan Assessment/Plan 1. Severe hyperkalemia, potassium of 8. Resolved after hemodialysis 2. Hypertension. The patient is on hemodialysis, hydralazine 25 mg bid, Norvasc 10 mg daily, and metoprolol 50 mg b.i.d. 3. History of coffee-ground emesis. Underwent EGD by Dr. Ortiz, which showed gastritis on her previous admission. 4. History of atypical chest pain, was ruled out for myocardial infarction in the past with a stress test, which showed no evidence of ischemia. An echocardiogram showed ejection fraction of 60%. Subjective Subjective Feeling much better . Getting HD. Objective Last 24 Hour Vital Signs Date Time Temp Pulse Resp B/P (MAP) Pulse Ox O2 Delivery O2 Flow Rate FiO2 06/27/17 12:50 Room Air 21 06/27/17 12:00 97.2 63 19 138/71 95 Room Air 97.2 06/27/17 12:00 59 06/27/17 10:38 97.0 06/27/17 09:00 60 115/60 06/27/17 09:00 60 115/60 06/27/17 09:00 115/60 06/27/17 08:00 63 06/27/17 08:00 97.0 60 20 115/60 95 Room Air 97.0 06/27/17 04:00 97.7 68 20 116/60 94 Room Air 97.7 06/27/17 04:00 65 06/27/17 00:00 63 06/27/17 00:00 97.5 67 20 111/50 93 Room Air 97.5 06/26/17 21:50 119/54 06/26/17 21:00 60 119/54 06/26/17 20:00 97.8 62 20 119/54 95 Room Air 97.8 06/26/17 20:00 60 06/26/17 16:00 97.1 60 20 116/58 93 Room Air 97.1 06/26/17 16:00 61 Intake and Output 06/26/17 06/27/17 19:00 07:00 Intake Total 365 ml 50 ml Output Total 0 ml Balance 365 ml 50 ml Intake Oral 200 ml 50 ml IV Total 165 ml Output Urine Total 0 ml Laboratory Tests Test 06/27/17 12:40 White Blood Count 4.7 K/UL (4.8-10.8) L Red Blood Count 3.67 M/UL (4.20-5.40) L Hemoglobin 11.5 G/DL (12.0-16.0) L Hematocrit 35.7 % (37.0-47.0) L Mean Corpuscular Volume 97 FL (80-99) Mean Corpuscular Hemoglobin 31.2 PG (27.0-31.0) H Mean Corpuscular Hemoglobin Concent 32.1 G/DL (32.0-36.0) Red Cell Distribution Width 16.7 % (11.6-14.8) H Platelet Count 146 K/UL (150-450) L Mean Platelet Volume 7.0 FL (6.5-10.1) Neutrophils (%) (Auto) 58.8 % (45.0-75.0) Lymphocytes (%) (Auto) 21.7 % (20.0-45.0) Monocytes (%) (Auto) 17.7 % (1.0-10.0) H Eosinophils (%) (Auto) 0.6 % (0.0-3.0) Basophils (%) (Auto) 1.2 % (0.0-2.0) Reticulocyte Count 1.6 % (0.0-2.0) Prothrombin Time 16.1 SEC (9.30-11.50) H Prothromb Time International Ratio 1.5 (0.9-1.1) H Activated Partial Thromboplast Time 28 SEC (23-33) Sodium Level 139 MMOL/L (136-145) Potassium Level 5.0 MMOL/L (3.5-5.1) Chloride Level 92 MMOL/L (98-107) L Carbon Dioxide Level 26 MMOL/L (21-32) Anion Gap 21 mmol/L (5-15) H Blood Urea Nitrogen 61 mg/dL (7-18) H Creatinine 9.6 MG/DL (0.55-1.30) H Estimat Glomerular Filtration Rate mL/min (>60) Glucose Level 94 MG/DL (74-106) Calcium Level 10.3 MG/DL (8.5-10.1) H Phosphorus Level > 9.0 MG/DL (2.5-4.9) H Iron Level 71 ug/dL (50-175) Total Iron Binding Capacity 173 ug/dL (250-450) L Percent Iron Saturation 41 % (15-50) Unsaturated Iron Binding 102 ug/dL (112-346) L Ferritin > 2000 NG/ML (8-388) H Vitamin B12 Level 1945 PG/ML (193-986) H Folate 12.2 NG/ML (8.6-58.9) Thyroid Stimulating Hormone (TSH) 0.873 uiU/mL (0.358-3.740) Free Thyroxine 1.17 NG/DL (0.76-1.46) Hepatitis C Antibody Pending Hepatitis C RNA (PCR) IUs/ml Pending Hepatitis C RNA (PCR) log IUs/ml Pending Microbiology Date/Time Source Procedure Growth Status 06/25/17 07:13 Blood Blood Culture - Preliminary NO GROWTH AFTER 24 HOURS Resulted 06/25/17 07:00 Blood Blood Culture - Preliminary NO GROWTH AFTER 24 HOURS Resulted 06/25/17 09:18 Nasal Nares Left MRSA Culture - Final NO METHICILLIN RESISTANT STAPH AUREUS... Complete 06/25/17 09:18 Rectum VRE Culture - Final NO VANCOMYCIN RESISTANT ENTEROCOCCUS ... Complete Objective HEAD AND NECK: Mild JVD. LUNGS: Decreased breath sounds. CARDIOVASCULAR: Regular S1 and S2 with no gallop. ABDOMEN: Soft. EXTREMITIES: A 1+ pitting edema. Nate Magallanes MD June 27, 2017 15:24
[2017-06-27 16:00] VITALS: BP 152/69
[2017-06-27 20:00] VITALS: BP 151/57
[2017-06-28] VITALS (7 sets, daily range): BP systolic 114–145; BP diastolic 50–65
[2017-06-28] MEDS: Heparin 5000 units/ml inj SUBQ SCH ×3 (05:36→22:00)
[2017-06-28] MEDS: Piperacillin/Tazobactam 2.25 GM in D5W 55 ML IVPB SCH (06:03)
--- NOTE | 2017-06-28 07:26 | Nephrology Progress Note ---
Assessment/Plan Assessment/Plan 1. ESRD- Patient to have HD today again and then plan for DC tomorrow - If cleared by all consultants will plan for DC Friday 2. Hyperkalemia- Resolved post HD 3. Anemia of CKD- EPO if HGb <10. Goal 10-11 3. GI Bleed- appreciate GI assistance. Hgb stable 4. HTN- stable , HD today 5. DVT prophylaxsis- with heparing sub q q 8hr 6. SOB- ECHO noted. Appreciate cardiology assistance 7. Disposition- PT/OT evaluation for Dc tomorrow home Subjective Date patient seen: June 28, 2017 Time patient seen: 07:24 ROS Limited/Unobtainable: No Constitutional: Reports: weakness, other Allergies: Coded Allergies: No Known Allergies (Unverified , 10/24/14) All Systems: reviewed and negative except above Subjective Patient is feeling better. Plan for DC carlos after HD today and if patient stable Objective Last 24 Hour Vital Signs Date Time Temp Pulse Resp B/P (MAP) Pulse Ox O2 Delivery O2 Flow Rate FiO2 06/28/17 04:00 71 06/28/17 00:00 98.0 67 20 117/56 94 Room Air 98.0 06/28/17 00:00 67 06/27/17 22:01 151/57 06/27/17 22:00 78 151/57 06/27/17 20:00 98.4 78 20 151/57 94 Room Air 98.4 06/27/17 20:00 72 06/27/17 16:00 97.7 69 19 152/69 96 Room Air 97.7 06/27/17 16:00 55 06/27/17 15:59 Room Air 21 06/27/17 12:50 Room Air 21 06/27/17 12:00 97.2 63 19 138/71 95 Room Air 97.2 06/27/17 12:00 59 06/27/17 10:38 97.0 06/27/17 09:00 60 115/60 06/27/17 09:00 60 115/60 06/27/17 09:00 115/60 06/27/17 08:00 63 06/27/17 08:00 97.0 60 20 115/60 95 Room Air 97.0 Intake and Output 06/27/17 06/28/17 19:00 07:00 Output Total 2300 ml 0 ml Balance -2300 ml 0 ml Output Urine Total 0 ml Hemodialysis UF 2300 ml Laboratory Tests 06/27/17 12:40: White Blood Count 4.7L, Red Blood Count 3.67L, Hemoglobin 11.5L, Hematocrit 35.7L, Mean Corpuscular Volume 97, Mean Corpuscular Hemoglobin 31.2H, Mean Corpuscular Hemoglobin Concent 32.1, Red Cell Distribution Width 16.7H, Platelet Count 146L, Mean Platelet Volume 7.0, Neutrophils (%) (Auto) 58.8, Lymphocytes (%) (Auto) 21.7, Monocytes (%) (Auto) 17.7H, Eosinophils (%) (Auto) 0.6, Basophils (%) (Auto) 1.2, Reticulocyte Count 1.6, Prothrombin Time 16.1H, Prothromb Time International Ratio 1.5H, Activated Partial Thromboplast Time 28 , Sodium Level 139, Potassium Level 5.0, Chloride Level 92L, Carbon Dioxide Level 26, Anion Gap 21H, Blood Urea Nitrogen 61H, Creatinine 9.6H, Estimat Glomerular Filtration Rate , Glucose Level 94, Calcium Level 10.3H, Phosphorus Level > 9.0H, Iron Level 71, Total Iron Binding Capacity 173L, Percent Iron Saturation 41, Unsaturated Iron Binding 102L, Ferritin > 2000H, Vitamin B12 Level 1945H, Folate 12.2, Thyroid Stimulating Hormone (TSH) 0.873, Free Thyroxine 1.17, Hepatitis C Antibody [Pending], Hepatitis C RNA (PCR) IUs/ml [ Pending], Hepatitis C RNA (PCR) log IUs/ml [Pending] Height (Feet): 5 Height (Inches): 2.00 Weight (Pounds): 105 Marin Ramachandran M.D. June 28, 2017 07:26
[2017-06-28 08:37] LABS: BASOPHILS % (AUTO) 0.8 % (0.0-2.0); HEMATOCRIT 33.7 % (37.0-47.0); HEMOGLOBIN 11.6 G/DL (12.0-16.0); MEAN CORPUSCULAR VOLUME 96 FL (80-99); MONOCYTES % (AUTO) 16.8 % (1.0-10.0); NEUTROPHILS % (AUTO) 62.4 % (45.0-75.0); PLATELET COUNT 127 K/UL (150-450); RED BLOOD COUNT 3.51 M/UL (4.20-5.40); RED CELL DISTRIBUTION WIDTH 16.5 % (11.6-14.8); WHITE BLOOD COUNT 5.2 K/UL (4.8-10.8)
[2017-06-28] MEDS: sitaGLIPtin 25mg tab ORAL SCH (08:51)
[2017-06-28] MEDS: Aspirin EC 81mg tab ORAL SCH (08:51)
[2017-06-28] MEDS: Metoprolol Tartrate 50mg tab ORAL SCH ×2 (08:52→22:39)
[2017-06-28] MEDS: HydrALAZINE 25mg tab ORAL SCH ×2 (08:52→22:38)
--- NOTE | 2017-06-28 09:01 | General Progress Note ---
Assessment/Plan Problem List: (1) Renal failure ICD Codes: N19 - Unspecified kidney failure SNOMED: 63367070 (2) Hypertension ICD Codes: I10 - Hypertension SNOMED: 68270564 (3) Failure to thrive in adult ICD Codes: R62.7 - Adult failure to thrive SNOMED: 279968798 (4) Generalized weakness ICD Codes: R53.1 - Weakness SNOMED: 15542019 (5) ESRD (end stage renal disease) on dialysis ICD Codes: N18.6 - ESRD (end stage renal disease) on dialysis; Z99.2 - Dependence on renal dialysis SNOMED: 528968712 Status: stable, progressing, tolerating diet Assessment/Plan ot pt diet bp bs seizure pain control dialysis cbc bmp am Subjective Constitutional: Reports: weakness Allergies: Coded Allergies: No Known Allergies (Unverified , 10/24/14) All Systems: reviewed and negative except above Subjective sleepy calm Objective Last 24 Hour Vital Signs Date Time Temp Pulse Resp B/P (MAP) Pulse Ox O2 Delivery O2 Flow Rate FiO2 06/28/17 08:52 68 144/65 06/28/17 08:52 68 144/65 06/28/17 08:52 144/65 06/28/17 04:00 71 06/28/17 00:00 98.0 67 20 117/56 94 Room Air 98.0 06/28/17 00:00 67 06/27/17 22:01 151/57 06/27/17 22:00 78 151/57 06/27/17 20:00 98.4 78 20 151/57 94 Room Air 98.4 06/27/17 20:00 72 06/27/17 16:00 97.7 69 19 152/69 96 Room Air 97.7 06/27/17 16:00 55 06/27/17 15:59 Room Air 21 06/27/17 12:50 Room Air 21 06/27/17 12:00 97.2 63 19 138/71 95 Room Air 97.2 06/27/17 12:00 59 06/27/17 10:38 97.0 Intake and Output 06/27/17 06/28/17 19:00 07:00 Output Total 2300 ml 0 ml Balance -2300 ml 0 ml Output Urine Total 0 ml Hemodialysis UF 2300 ml Laboratory Tests 06/27/17 12:40: White Blood Count 4.7L, Red Blood Count 3.67L, Hemoglobin 11.5L, Hematocrit 35.7L, Mean Corpuscular Volume 97, Mean Corpuscular Hemoglobin 31.2H, Mean Corpuscular Hemoglobin Concent 32.1, Red Cell Distribution Width 16.7H, Platelet Count 146L, Mean Platelet Volume 7.0, Neutrophils (%) (Auto) 58.8, Lymphocytes (%) (Auto) 21.7, Monocytes (%) (Auto) 17.7H, Eosinophils (%) (Auto) 0.6, Basophils (%) (Auto) 1.2, Reticulocyte Count 1.6, Prothrombin Time 16.1H, Prothromb Time International Ratio 1.5H, Activated Partial Thromboplast Time 28 , Sodium Level 139, Potassium Level 5.0, Chloride Level 92L, Carbon Dioxide Level 26, Anion Gap 21H, Blood Urea Nitrogen 61H, Creatinine 9.6H, Estimat Glomerular Filtration Rate , Glucose Level 94, Calcium Level 10.3H, Phosphorus Level > 9.0H, Iron Level 71, Total Iron Binding Capacity 173L, Percent Iron Saturation 41, Unsaturated Iron Binding 102L, Ferritin > 2000H, Vitamin B12 Level 1945H, Folate 12.2, Thyroid Stimulating Hormone (TSH) 0.873, Free Thyroxine 1.17, Hepatitis C Antibody [Pending], Hepatitis C RNA (PCR) IUs/ml [ Pending], Hepatitis C RNA (PCR) log IUs/ml [Pending] 06/28/17 06:55: White Blood Count 5.2, Red Blood Count 3.51L, Hemoglobin 11.6L, Hematocrit 33.7L , Mean Corpuscular Volume 96, Mean Corpuscular Hemoglobin 33.0H, Mean Corpuscular Hemoglobin Concent 34.4, Red Cell Distribution Width 16.5H, Platelet Count 127L, Mean Platelet Volume 7.8, Neutrophils (%) (Auto) 62.4, Lymphocytes (%) (Auto) 18.0L, Monocytes (%) (Auto) 16.8H, Eosinophils (%) (Auto ) 2.0, Basophils (%) (Auto) 0.8, Sodium Level [Pending], Potassium Level [ Pending], Chloride Level [Pending], Carbon Dioxide Level [Pending], Blood Urea Nitrogen [Pending], Creatinine [Pending], Estimat Glomerular Filtration Rate [ Pending], Glucose Level [Pending], Calcium Level [Pending], Total Bilirubin [ Pending], Aspartate Amino Transf (AST/SGOT) [Pending], Alanine Aminotransferase (ALT/SGPT) [Pending], Alkaline Phosphatase [Pending], Total Protein [Pending], Albumin [Pending], Globulin [Pending] Height (Feet): 5 Height (Inches): 2.00 Weight (Pounds): 105 General Appearance: lethargic EENT: normal ENT inspection Neck: normal alignment Cardiovascular: normal peripheral pulses, normal rate, regular rhythm Respiratory/Chest: chest wall non-tender, lungs clear, normal breath sounds Abdomen: normal bowel sounds, non tender, soft Extremities: normal inspection Edema: no edema noted Arm (L), no edema noted Arm (R), no edema noted Leg (L), no edema noted Leg (R), no edema noted Pedal (L), no edema noted Pedal (R), no edema noted Generalized Neurologic: motor weakness Skin: normal pigmentation, warm/dry SHIELA GALEANA June 28, 2017 09:01
[2017-06-28 09:09] LABS: ALANINE AMINOTRANSFERASE 30 U/L (12-78); ALBUMIN 3.2 G/DL (3.4-5.0); ALBUMIN/GLOBULIN RATIO 0.8 (1.0-2.7); ALKALINE PHOSPHATASE 62 U/L (46-116); ANION GAP 14 mmol/L (5-15); ASPARTATE AMINO TRANSFERASE 30 U/L (15-37); BILIRUBIN,TOTAL 0.5 MG/DL (0.2-1.0); BLOOD UREA NITROGEN 37 mg/dL (7-18); CALCIUM 9.9 MG/DL (8.5-10.1); CARBON DIOXIDE 30 MMOL/L (21-32); CHLORIDE 95 MMOL/L (98-107); CREATININE 6.6 MG/DL (0.55-1.30); POTASSIUM 3.3 MMOL/L (3.5-5.1); SODIUM 139 MMOL/L (136-145)
--- NOTE | 2017-06-28 12:19 | Infectious Diseases Prog Note ---
Assessment/Plan Problems: (1) Hypothermia Assessment & Plan: resolved with no evidence of sepsis and negative blood culture x2 , will stop vancomycin and zosyn empiric coverage , old HD catheter was removed (2) Abdominal pain Assessment & Plan: with antrum and pyloric wall thickening rule out tumor or hypertrophy, or gastroparesis , follow up with GI for further eval and management (3) DM (diabetes mellitus) Assessment & Plan: recommend tight glycemic control to keep blood glucose between 100-140 (4) ESRD (end stage renal disease) on dialysis Assessment & Plan: on HD, nephrology is following. will screen for HCV and check viral load (5) Hyperkalemia Assessment & Plan: due to renal failure and missing HD, improved, continue HD as per renal (6) HCV infection Assessment & Plan: will need referral for treatment as an outpatient , await viral load and antibody to confirm Subjective Constitutional: Reports: no symptoms HEENT: Reports: no symptoms Respiratory: Reports: no symptoms Breasts: Reports: no symptoms Cardiovascular: Reports: no symptoms Gastrointestinal/Abdominal: Reports: no symptoms Genitourinary: Reports: no symptoms Neurologic: Reports: no symptoms Psychiatric: Reports: no symptoms Skin: Reports: no symptoms Endocrine: Reports: no symptoms Hematologic: Reports: no symptoms Musculoskeletal: Reports: no symptoms Allergies: Coded Allergies: No Known Allergies (Unverified , 10/24/14) Subjective she was awake and comfortable, up in bed, tolerated antibiotics well, had diarrhea yesterday , but resolved today Objective Vital Signs Last 24 Hour Vital Signs Date Time Temp Pulse Resp B/P (MAP) Pulse Ox O2 Delivery O2 Flow Rate FiO2 06/28/17 08:52 68 144/65 06/28/17 08:52 68 144/65 06/28/17 08:52 144/65 06/28/17 08:00 62 06/28/17 08:00 97.7 63 20 144/65 99 Room Air 97.7 06/28/17 04:00 71 06/28/17 00:00 98.0 67 20 117/56 94 Room Air 98.0 06/28/17 00:00 67 06/27/17 22:01 151/57 06/27/17 22:00 78 151/57 06/27/17 20:00 98.4 78 20 151/57 94 Room Air 98.4 5/4/18 20:00 72 06/27/17 16:00 97.7 69 19 152/69 96 Room Air 97.7 06/27/17 16:00 55 06/27/17 15:59 Room Air 21 06/27/17 12:50 Room Air 21 Height (Feet): 5 Height (Inches): 2.00 Weight (Pounds): 105 General Appearance: WD/WN, no acute distress HEENT: normocephalic, atraumatic, anicteric, mucous membranes moist Respiratory/Chest: chest wall non-tender, lungs clear, normal breath sounds, no respiratory distress, no accessory muscle use Cardiovascular: normal peripheral pulses, normal rate, regular rhythm, no gallop/murmur, no JVD Abdomen: normal bowel sounds, soft, non tender, no organomegaly, non distended , no mass, no scars Extremities: no cyanosis, no clubbing Skin: no rash, no lesions, no ulcers Neurologic/Psychiatric: alert, oriented x 3, responsive Lymphatic: no neck adenopathy, no groin adenopathy Laboratory Tests Test 06/27/17 12:40 06/28/17 06:55 White Blood Count 4.7 K/UL (4.8-10.8) L 5.2 K/UL (4.8-10.8) Red Blood Count 3.67 M/UL (4.20-5.40) L 3.51 M/UL (4.20-5.40) L Hemoglobin 11.5 G/DL (12.0-16.0) L 11.6 G/DL (12.0-16.0) L Hematocrit 35.7 % (37.0-47.0) L 33.7 % (37.0-47.0) L Mean Corpuscular Volume 97 FL (80-99) 96 FL (80-99) Mean Corpuscular Hemoglobin 31.2 PG (27.0-31.0) H 33.0 PG (27.0-31.0) H Mean Corpuscular Hemoglobin Concent 32.1 G/DL (32.0-36.0) 34.4 G/DL (32.0-36.0) Red Cell Distribution Width 16.7 % (11.6-14.8) H 16.5 % (11.6-14.8) H Platelet Count 146 K/UL (150-450) L 127 K/UL (150-450) L Mean Platelet Volume 7.0 FL (6.5-10.1) 7.8 FL (6.5-10.1) Neutrophils (%) (Auto) 58.8 % (45.0-75.0) 62.4 % (45.0-75.0) Lymphocytes (%) (Auto) 21.7 % (20.0-45.0) 18.0 % (20.0-45.0) L Monocytes (%) (Auto) 17.7 % (1.0-10.0) H 16.8 % (1.0-10.0) H Eosinophils (%) (Auto) 0.6 % (0.0-3.0) 2.0 % (0.0-3.0) Basophils (%) (Auto) 1.2 % (0.0-2.0) 0.8 % (0.0-2.0) Reticulocyte Count 1.6 % (0.0-2.0) Prothrombin Time 16.1 SEC (9.30-11.50) H Prothromb Time International Ratio 1.5 (0.9-1.1) H Activated Partial Thromboplast Time 28 SEC (23-33) Sodium Level 139 MMOL/L (136-145) 139 MMOL/L (136-145) Potassium Level 5.0 MMOL/L (3.5-5.1) 3.3 MMOL/L (3.5-5.1) L Chloride Level 92 MMOL/L (98-107) L 95 MMOL/L (98-107) L Carbon Dioxide Level 26 MMOL/L (21-32) 30 MMOL/L (21-32) Anion Gap 21 mmol/L (5-15) H 14 mmol/L (5-15) Blood Urea Nitrogen 61 mg/dL (7-18) H 37 mg/dL (7-18) H Creatinine 9.6 MG/DL (0.55-1.30) H 6.6 MG/DL (0.55-1.30) H Estimat Glomerular Filtration Rate mL/min (>60) mL/min (>60) Glucose Level 94 MG/DL (74-106) 103 MG/DL (74-106) Calcium Level 10.3 MG/DL (8.5-10.1) H 9.9 MG/DL (8.5-10.1) Phosphorus Level > 9.0 MG/DL (2.5-4.9) H Iron Level 71 ug/dL (50-175) Total Iron Binding Capacity 173 ug/dL (250-450) L Percent Iron Saturation 41 % (15-50) Unsaturated Iron Binding 102 ug/dL (112-346) L Ferritin > 2000 NG/ML (8-388) H Vitamin B12 Level 1945 PG/ML (193-986) H Folate 12.2 NG/ML (8.6-58.9) Thyroid Stimulating Hormone (TSH) 0.873 uiU/mL (0.358-3.740) Free Thyroxine 1.17 NG/DL (0.76-1.46) Hepatitis C Antibody Pending Hepatitis C RNA (PCR) IUs/ml Pending Hepatitis C RNA (PCR) log IUs/ml Pending Total Bilirubin 0.5 MG/DL (0.2-1.0) Aspartate Amino Transf (AST/SGOT) 30 U/L (15-37) Alanine Aminotransferase (ALT/SGPT) 30 U/L (12-78) Alkaline Phosphatase 62 U/L (46-116) Total Protein 7.2 G/DL (6.4-8.2) Albumin 3.2 G/DL (3.4-5.0) L Globulin 4.0 g/dL Albumin/Globulin Ratio 0.8 (1.0-2.7) L Current Medications Medications (Trade) Dose Ordered Sig/[place] Route PRN Reason Start Time Stop Time Status Last Admin Dose Admin Acetaminophen (Tylenol) 650 mg Q6H PRN ORAL Mild Pain/Headache/Temp > 101 06/25/17 13:15 07/25/17 13:14 06/27/17 10:38 Amlodipine Besylate (Norvasc) 10 mg DAILY ORAL 06/26/17 09:00 07/26/17 08:59 06/28/17 08:52 Aspirin (Ecotrin) 81 mg DAILY ORAL 06/26/17 09:00 07/26/17 08:59 06/28/17 08:51 Clonidine HCl (Catapres Tab) 0.1 mg Q6H PRN ORAL SBP > 160mmHg 06/25/17 13:15 07/25/17 13:14 06/25/17 18:49 Clopidogrel Bisulfate (Plavix) 75 mg DAILY ORAL 06/26/17 09:00 07/26/17 08:59 06/28/17 08:51 Heparin Sodium (Porcine) (Heparin 5000 units/ml) 5,000 units EVERY 8 HOURS SUBQ 06/27/17 14:00 07/27/17 13:59 06/27/17 14:43 Hydralazine HCl (Apresoline) 25 mg Q12HR ORAL 06/25/17 21:00 07/25/17 20:59 06/28/17 08:52 Lorazepam (Ativan) 1 mg Q6H PRN ORAL For Anxiety 06/27/17 12:15 07/04/17 12:14 Metoprolol Tartrate (Lopressor) 50 mg Q12HR ORAL 06/25/17 21:00 07/25/17 20:59 06/28/17 08:52 Ondansetron HCl (Zofran) 4 mg Q6H PRN IVP Nausea & Vomiting 06/25/17 15:00 07/25/17 14:59 06/25/17 20:47 Piperacillin Sod/ Tazobactam Sod 2.25 gm/Dextrose 55 ml @ 110 mls/hr Q8HR IVPB 06/27/17 16:30 07/04/17 16:29 06/28/17 06:03 Sitagliptin Phosphate (Januvia) 25 mg DAILY ORAL 06/26/17 09:00 07/26/17 08:59 06/28/17 08:51 Vancomycin HCl (Vanco rx to dose) 1 ea DAILY PRN MISC Per rx protocol 06/25/17 14:15 07/25/17 14:14 Delma Braga M.D. June 28, 2017 12:19
--- NOTE | 2017-06-28 13:53 | General Progress Note ---
Assessment/Plan Assessment/Plan Assessment (1) Failure to thrive in adult ICD Codes: R62.7 - Adult failure to thrive SNOMED: 728000714 (2) Generalized weakness ICD Codes: R53.1 - Weakness SNOMED: 47049858 (3) DM (diabetes mellitus) ICD Codes: E11.9 - Type 2 diabetes mellitus without complications SNOMED: 31129568 (4) Abdominal pain (5) ESRD (end stage renal disease) on dialysis ICD Codes: N18.6 - End stage renal disease; Z99.2 - Dependence on renal dialysis Plan Procedures Performed: EGD 03/10/17 Operative Findings/Diagnosis: GASTRITIS fu abdominal U/S >> Suspected chronic liver disease. CT AP reviewed >> - Distended stomach with a question of blood within the stomach lumen. - Thickening of the wall of the antrum and pyloric region with questionable mass. defer GI procedures given recent history of endoscopy and stable Hgb monitor H&H, prn transfusions ADA diet ppi OB stool r/o GI bleed fu labs outpatient Hep C treatment Subjective Allergies: Coded Allergies: No Known Allergies (Unverified , 10/24/14) Subjective Feels OK no abd pain wants regular consistency diet, not pureed Objective Last 24 Hour Vital Signs Date Time Temp Pulse Resp B/P (MAP) Pulse Ox O2 Delivery O2 Flow Rate FiO2 06/28/17 12:00 97.5 58 20 117/51 100 Room Air 97.5 06/28/17 12:00 61 06/28/17 08:52 68 144/65 06/28/17 08:52 68 144/65 06/28/17 08:52 144/65 06/28/17 08:00 62 06/28/17 08:00 97.7 63 20 144/65 99 Room Air 97.7 06/28/17 04:00 71 06/28/17 00:00 98.0 67 20 117/56 94 Room Air 98.0 06/28/17 00:00 67 06/27/17 22:01 151/57 06/27/17 22:00 78 151/57 06/27/17 20:00 98.4 78 20 151/57 94 Room Air 98.4 06/27/17 20:00 72 06/27/17 16:00 97.7 69 19 152/69 96 Room Air 97.7 06/27/17 16:00 55 5/4/18 15:59 Room Air 21 Intake and Output 06/27/17 06/28/17 19:00 07:00 Output Total 2300 ml 0 ml Balance -2300 ml 0 ml Output Urine Total 0 ml Hemodialysis UF 2300 ml Laboratory Tests 06/28/17 06:55: White Blood Count 5.2, Red Blood Count 3.51L, Hemoglobin 11.6L, Hematocrit 33.7L , Mean Corpuscular Volume 96, Mean Corpuscular Hemoglobin 33.0H, Mean Corpuscular Hemoglobin Concent 34.4, Red Cell Distribution Width 16.5H, Platelet Count 127L, Mean Platelet Volume 7.8, Neutrophils (%) (Auto) 62.4, Lymphocytes (%) (Auto) 18.0L, Monocytes (%) (Auto) 16.8H, Eosinophils (%) (Auto ) 2.0, Basophils (%) (Auto) 0.8, Sodium Level 139, Potassium Level 3.3L, Chloride Level 95L, Carbon Dioxide Level 30, Anion Gap 14, Blood Urea Nitrogen 37H, Creatinine 6.6H, Estimat Glomerular Filtration Rate , Glucose Level 103, Calcium Level 9.9, Total Bilirubin 0.5, Aspartate Amino Transf (AST/SGOT) 30, Alanine Aminotransferase (ALT/SGPT) 30, Alkaline Phosphatase 62, Total Protein 7.2, Albumin 3.2L, Globulin 4.0, Albumin/Globulin Ratio 0.8L Height (Feet): 5 Height (Inches): 2.00 Weight (Pounds): 105 Objective elderly AA woman NCAT supple CTA RRR Abd soft ND NT no edema Neuro nonfocal JEANMARIE BARNHART June 28, 2017 13:53
--- NOTE | 2017-06-28 16:08 | Cardiac Electrophysiology PN ---
Assessment/Plan Assessment/Plan 1. Severe hyperkalemia, potassium of 8. Resolved after hemodialysis 2. Hypertension.On hydralazine 25 mg bid, Norvasc 10 mg daily, metoprolol 50 mg b.i.d. and HD 3. History of coffee-ground emesis. Underwent EGD by Dr. Ortiz, which showed gastritis on her previous admission. 4. Atypical chest pain, was ruled out for myocardial infarction in the past with a stress test, which showed no evidence of ischemia. An echocardiogram showed ejection fraction of 60%. 5. ESRD on HD Subjective Subjective Comfortable in NAD . Getting HD. Objective Last 24 Hour Vital Signs Date Time Temp Pulse Resp B/P (MAP) Pulse Ox O2 Delivery O2 Flow Rate FiO2 06/28/17 14:30 97.5 60 20 125/58 Room Air 97.5 06/28/17 14:30 Room Air 06/28/17 12:00 97.5 58 20 117/51 100 Room Air 97.5 06/28/17 12:00 61 06/28/17 08:52 68 144/65 06/28/17 08:52 68 144/65 06/28/17 08:52 144/65 06/28/17 08:00 62 06/28/17 08:00 97.7 63 20 144/65 99 Room Air 97.7 06/28/17 04:00 71 06/28/17 00:00 98.0 67 20 117/56 94 Room Air 98.0 06/28/17 00:00 67 06/27/17 22:01 151/57 06/27/17 22:00 78 151/57 06/27/17 20:00 98.4 78 20 151/57 94 Room Air 98.4 06/27/17 20:00 72 Intake and Output 06/27/17 06/28/17 19:00 07:00 Output Total 2300 ml 0 ml Balance -2300 ml 0 ml Output Urine Total 0 ml Hemodialysis UF 2300 ml Laboratory Tests Test 06/28/17 06:55 White Blood Count 5.2 K/UL (4.8-10.8) Red Blood Count 3.51 M/UL (4.20-5.40) L Hemoglobin 11.6 G/DL (12.0-16.0) L Hematocrit 33.7 % (37.0-47.0) L Mean Corpuscular Volume 96 FL (80-99) Mean Corpuscular Hemoglobin 33.0 PG (27.0-31.0) H Mean Corpuscular Hemoglobin Concent 34.4 G/DL (32.0-36.0) Red Cell Distribution Width 16.5 % (11.6-14.8) H Platelet Count 127 K/UL (150-450) L Mean Platelet Volume 7.8 FL (6.5-10.1) Neutrophils (%) (Auto) 62.4 % (45.0-75.0) Lymphocytes (%) (Auto) 18.0 % (20.0-45.0) L Monocytes (%) (Auto) 16.8 % (1.0-10.0) H Eosinophils (%) (Auto) 2.0 % (0.0-3.0) Basophils (%) (Auto) 0.8 % (0.0-2.0) Sodium Level 139 MMOL/L (136-145) Potassium Level 3.3 MMOL/L (3.5-5.1) L Chloride Level 95 MMOL/L (98-107) L Carbon Dioxide Level 30 MMOL/L (21-32) Anion Gap 14 mmol/L (5-15) Blood Urea Nitrogen 37 mg/dL (7-18) H Creatinine 6.6 MG/DL (0.55-1.30) H Estimat Glomerular Filtration Rate mL/min (>60) Glucose Level 103 MG/DL (74-106) Calcium Level 9.9 MG/DL (8.5-10.1) Total Bilirubin 0.5 MG/DL (0.2-1.0) Aspartate Amino Transf (AST/SGOT) 30 U/L (15-37) Alanine Aminotransferase (ALT/SGPT) 30 U/L (12-78) Alkaline Phosphatase 62 U/L (46-116) Total Protein 7.2 G/DL (6.4-8.2) Albumin 3.2 G/DL (3.4-5.0) L Globulin 4.0 g/dL Albumin/Globulin Ratio 0.8 (1.0-2.7) L Objective HEAD AND NECK: Mild JVD. LUNGS: Clear CARDIOVASCULAR: Regular S1 and S2 with no gallop. ABDOMEN: Soft. EXTREMITIES: A 1+ pitting edema. Nate Magallanes MD June 28, 2017 16:07
[2017-06-29] VITALS: BP 144/59
[2017-06-29] MEDS ORDERED: Loperamide 2mg cap ORAL SCH (01:15)
--- NOTE | 2017-06-29 02:00 | Consultation ---
DATE OF CONSULTATION: 06/28/2017 VASCULAR SURGERY CONSULTATION CONSULTING PHYSICIAN: Sim Vickers M.D. REFERRING PHYSICIAN: Blaze Fuller M.D. & Omi Del Toro REASON FOR EVALUATION: Right arm AV shunt access evaluation. HISTORY OF PRESENT ILLNESS: This is a 72-year-old female, who is well known to our vascular service. The patient has a history of right arm AV shunt and central vein occlusion with a previous history of central vein stent. The patient has had dialysis through her right arm AV shunt without difficulty. There is some atypical bleeding post dialysis. Her left chest Perma catheter has been removed. Vascular Surgery is consulted for further evaluation. PAST MEDICAL HISTORY: As above. History of hepatitis C, hypertension, end-stage renal failure, on hemodialysis, diabetes mellitus, central vein occlusion, history of gastroparesis and abdominal pain, and hypothermia. MEDICATIONS: See attached MAR. ALLERGIES: No known drug allergies. SOCIAL HISTORY: No history of smoking, drugs, or alcohol abuse. FAMILY HISTORY: Unremarkable. REVIEW OF SYSTEMS: CARDIOVASCULAR: No history of chest pain or palpitations. PULMONARY: No cough or hemoptysis. GASTROINTESTINAL: No history of abdominal pain, constipation, or diarrhea. GENITOURINARY: No urinary symptoms. NEUROLOGIC: No history of strokes or seizures. PHYSICAL EXAMINATION: VITAL SIGNS: The patient is afebrile at temperature 97.7, heart rate 68, blood pressure 144/65, respirations 20, and saturation 99%. She has palpable radial pulses. Right arm AV shunt has a palpable thrill. LUNGS: Clear to auscultation. No edema. HEART: Regular rate and rhythm. ABDOMEN: Soft and nontender. EXTREMITIES: She has palpable femoral pulses. Feet are warm with intact pedal pulses bilaterally. LABORATORY AND DIAGNOSTIC DATA: Revealed a WBC of 5.2, hemoglobin 11.6, and platelet count is 127. INR 1.5, sodium 139, potassium 3.3, chloride 95, CO2 30, BUN is 37, creatinine is 6.6, and glucose 103. IMPRESSION: 1. End-stage renal failure, on hemodialysis with a functional right arm AV shunt. 2. History of right-sided central vein occlusion. Prior history of stent placement with a history of edema. 3. Diabetes. 4. Hepatitis C. 5. Hypertension. PLAN AND RECOMMENDATIONS: 1. Continue dialysis through a right arm AV shunt. We will follow the patient as an outpatient with duplex and fistulogram to assess the central vein. 2. The patient can just continue on aspirin and statin therapy. Okay to discontinue Plavix. The above was discussed at length with the patient and nurse. Sim Vickers M.D. DR: ARPITA JOB#: [id number] CC: Sim Vickers M.D.; Fax#: [phone] BLAZE FULLER M.D. ; FAX#: [phone] [facility] Del Toro [facility]
[2017-06-29 04:00] VITALS: BP 118/60
[2017-06-29 05:31] LABS: BASOPHILS % (AUTO) 0.7 % (0.0-2.0); EOSINOPHILS % (AUTO) 2.7 % (0.0-3.0); HEMOGLOBIN 11.4 G/DL (12.0-16.0); LYMPHOCYTES % (AUTO) 16.1 % (20.0-45.0); MEAN CORPUSCULAR VOLUME 97 FL (80-99); MONOCYTES % (AUTO) 13.9 % (1.0-10.0); NEUTROPHILS % (AUTO) 66.6 % (45.0-75.0); PLATELET COUNT 116 K/UL (150-450); RED BLOOD COUNT 3.59 M/UL (4.20-5.40); RED CELL DISTRIBUTION WIDTH 17.2 % (11.6-14.8); WHITE BLOOD COUNT 5.5 K/UL (4.8-10.8)
[2017-06-29 05:56] LABS: ANION GAP 10 mmol/L (5-15); BLOOD UREA NITROGEN 27 mg/dL (7-18); CALCIUM 10.2 MG/DL (8.5-10.1); CARBON DIOXIDE 35 MMOL/L (21-32); CHLORIDE 96 MMOL/L (98-107); CREATININE 4.8 MG/DL (0.55-1.30); POTASSIUM 3.4 MMOL/L (3.5-5.1); SODIUM 140 MMOL/L (136-145)
[2017-06-29] MEDS: Heparin 5000 units/ml inj SUBQ SCH ×3 (05:56→22:00)
--- NOTE | 2017-06-29 06:56 | General Progress Note ---
Assessment/Plan Problem List: (1) Renal failure ICD Codes: N19 - Unspecified kidney failure SNOMED: 66163059 (2) Hypertension ICD Codes: I10 - Hypertension SNOMED: 32071010 (3) Failure to thrive in adult ICD Codes: R62.7 - Adult failure to thrive SNOMED: 421728948 (4) Generalized weakness ICD Codes: R53.1 - Weakness SNOMED: 36314258 (5) ESRD (end stage renal disease) on dialysis ICD Codes: N18.6 - ESRD (end stage renal disease) on dialysis; Z99.2 - Dependence on renal dialysis SNOMED: 427680655 Status: stable, progressing, tolerating diet Assessment/Plan ot pt diet bp bs seizure pain control dialysis cbc bmp am dc plan Subjective Constitutional: Reports: weakness Allergies: Coded Allergies: No Known Allergies (Unverified , 10/24/14) All Systems: reviewed and negative except above Subjective sleepy calm Objective Last 24 Hour Vital Signs Date Time Temp Pulse Resp B/P (MAP) Pulse Ox O2 Delivery O2 Flow Rate FiO2 06/29/17 04:00 61 06/29/17 04:00 97.3 80 20 118/60 93 Room Air 97.3 06/29/17 00:00 98.4 70 22 144/59 92 Room Air 98.4 06/29/17 00:00 71 06/28/17 22:39 68 127/50 06/28/17 22:38 127/50 06/28/17 20:00 63 06/28/17 20:00 97.8 68 23 127/50 92 Room Air 97.8 06/28/17 18:15 98.0 66 20 145/62 Room Air 98.0 06/28/17 16:00 62 06/28/17 16:00 97.5 57 20 119/59 95 Room Air 97.5 06/28/17 14:30 97.5 60 20 125/58 Room Air 97.5 06/28/17 14:30 Room Air 06/28/17 12:00 97.5 58 20 117/51 100 Room Air 97.5 06/28/17 12:00 61 06/28/17 08:52 68 144/65 06/28/17 08:52 68 144/65 06/28/17 08:52 144/65 06/28/17 08:00 62 06/28/17 08:00 97.7 63 20 144/65 99 Room Air 97.7 Intake and Output 06/28/17 06/29/17 19:00 07:00 Intake Total 360 ml Output Total 1500 ml Balance -1140 ml Intake Oral 360 ml Hemodialysis UF 1500 ml # Bowel Movements 2 Laboratory Tests 06/28/17 18:15: Stool Occult Blood [Pending] 06/29/17 04:45: White Blood Count 5.5, Red Blood Count 3.59L, Hemoglobin 11.4L, Hematocrit 35.0L , Mean Corpuscular Volume 97, Mean Corpuscular Hemoglobin 31.8H, Mean Corpuscular Hemoglobin Concent 32.6, Red Cell Distribution Width 17.2H, Platelet Count 116L, Mean Platelet Volume 7.5, Neutrophils (%) (Auto) 66.6, Lymphocytes (%) (Auto) 16.1L, Monocytes (%) (Auto) 13.9H, Eosinophils (%) (Auto ) 2.7, Basophils (%) (Auto) 0.7, Sodium Level 140, Potassium Level 3.4L, Chloride Level 96L, Carbon Dioxide Level 35H, Anion Gap 10, Blood Urea Nitrogen 27H, Creatinine 4.8H, Estimat Glomerular Filtration Rate , Glucose Level 111H, Calcium Level 10.2H Height (Feet): 5 Height (Inches): 2.00 Weight (Pounds): 105 General Appearance: lethargic EENT: normal ENT inspection Neck: normal alignment Cardiovascular: normal peripheral pulses, normal rate, regular rhythm Respiratory/Chest: chest wall non-tender, lungs clear, normal breath sounds Abdomen: normal bowel sounds, non tender, soft Extremities: normal inspection Edema: no edema noted Arm (L), no edema noted Arm (R), no edema noted Leg (L), no edema noted Leg (R), no edema noted Pedal (L), no edema noted Pedal (R), no edema noted Generalized Neurologic: motor weakness Skin: normal pigmentation, warm/dry SHIELA GALEANA June 29, 2017 06:56
[2017-06-29 08:00] VITALS: BP 161/76
--- NOTE | 2017-06-29 08:40 | Nephrology Progress Note ---
Assessment/Plan Assessment/Plan 1. ESRD- HD TTS 2. Hyperkalemia- Resolved post HD. Stable. No K+ replacement today 3. Anemia of CKD- EPO if HGb <10. Goal 10-11 3. GI Bleed- appreciate GI assistance. - patient with diarrhea. Check CDiff and request GI for any further recc's 4. HTN- stable 5. DVT prophylaxsis- with heparing sub q q 8hr 6. SOB- ECHO noted. Appreciate cardiology assistance. Stable 7. Disposition- DC home with HH once cleared by GI Subjective Date patient seen: June 29, 2017 Time patient seen: 08:37 ROS Limited/Unobtainable: No Gastrointestinal/Abdominal: Reports: diarrhea Allergies: Coded Allergies: No Known Allergies (Unverified , 10/24/14) Subjective Patient is feeling better, however says diarrhea started over past day Objective Last 24 Hour Vital Signs Date Time Temp Pulse Resp B/P (MAP) Pulse Ox O2 Delivery O2 Flow Rate FiO2 06/29/17 04:00 61 06/29/17 04:00 97.3 80 20 118/60 93 Room Air 97.3 06/29/17 00:00 98.4 70 22 144/59 92 Room Air 98.4 06/29/17 00:00 71 06/28/17 22:39 68 127/50 06/28/17 22:38 127/50 06/28/17 20:00 63 06/28/17 20:00 97.8 68 23 127/50 92 Room Air 97.8 06/28/17 18:15 98.0 66 20 145/62 Room Air 98.0 06/28/17 16:00 62 06/28/17 16:00 97.5 57 20 119/59 95 Room Air 97.5 06/28/17 14:30 97.5 60 20 125/58 Room Air 97.5 06/28/17 14:30 Room Air 06/28/17 12:00 97.5 58 20 117/51 100 Room Air 97.5 06/28/17 12:00 61 06/28/17 08:52 68 144/65 06/28/17 08:52 68 144/65 06/28/17 08:52 144/65 Intake and Output 06/28/17 06/29/17 19:00 07:00 Intake Total 360 ml 500 ml Output Total 1500 ml Balance -1140 ml 500 ml Intake Oral 360 ml 500 ml Hemodialysis UF 1500 ml # Bowel Movements 4 Laboratory Tests 06/28/17 18:15: Stool Occult Blood [Pending] 06/29/17 04:45: White Blood Count 5.5, Red Blood Count 3.59L, Hemoglobin 11.4L, Hematocrit 35.0L , Mean Corpuscular Volume 97, Mean Corpuscular Hemoglobin 31.8H, Mean Corpuscular Hemoglobin Concent 32.6, Red Cell Distribution Width 17.2H, Platelet Count 116L, Mean Platelet Volume 7.5, Neutrophils (%) (Auto) 66.6, Lymphocytes (%) (Auto) 16.1L, Monocytes (%) (Auto) 13.9H, Eosinophils (%) (Auto ) 2.7, Basophils (%) (Auto) 0.7, Sodium Level 140, Potassium Level 3.4L, Chloride Level 96L, Carbon Dioxide Level 35H, Anion Gap 10, Blood Urea Nitrogen 27H, Creatinine 4.8H, Estimat Glomerular Filtration Rate , Glucose Level 111H, Calcium Level 10.2H Height (Feet): 5 Height (Inches): 2.00 Weight (Pounds): 104 General Appearance: WD/WN, no apparent distress EENT: PERRL/EOMI, normal ENT inspection Neck: non-tender, normal alignment Cardiovascular: normal peripheral pulses, normal rate, regular rhythm Respiratory/Chest: chest wall non-tender, lungs clear Abdomen: normal bowel sounds, non tender Edema: no edema noted Arm (L), no edema noted Arm (R), no edema noted Leg (L), no edema noted Leg (R), no edema noted Pedal (L), no edema noted Pedal (R), no edema noted Generalized Marin Ramachandran M.D. June 29, 2017 08:40
[2017-06-29] MEDS: sitaGLIPtin 25mg tab ORAL SCH (09:28)
[2017-06-29] MEDS: Aspirin EC 81mg tab ORAL SCH (09:28)
[2017-06-29] MEDS: HydrALAZINE 25mg tab ORAL SCH ×2 (09:29→20:51)
[2017-06-29] MEDS: Metoprolol Tartrate 50mg tab ORAL SCH ×2 (09:29→20:50)
[2017-06-29 11:37] LABS: HEMATOCRIT 33.6 % (37.0-47.0); HEMOGLOBIN 10.6 G/DL (12.0-16.0); MEAN CORPUSCULAR VOLUME 98 FL (80-99); PLATELET COUNT 92 K/UL (150-450); RED BLOOD COUNT 3.42 M/UL (4.20-5.40); RED CELL DISTRIBUTION WIDTH 17.6 % (11.6-14.8); WHITE BLOOD COUNT 4.5 K/UL (4.8-10.8)
--- NOTE | 2017-06-29 11:43 | General Progress Note ---
Assessment/Plan Assessment/Plan Assessment (1) Failure to thrive in adult ICD Codes: R62.7 - Adult failure to thrive SNOMED: 883601182 (2) Generalized weakness ICD Codes: R53.1 - Weakness SNOMED: 56011328 (3) DM (diabetes mellitus) ICD Codes: E11.9 - Type 2 diabetes mellitus without complications SNOMED: 25060475 (4) Abdominal pain (5) ESRD (end stage renal disease) on dialysis ICD Codes: N18.6 - End stage renal disease; Z99.2 - Dependence on renal dialysis Plan Procedures Performed: EGD 03/10/17 Operative Findings/Diagnosis: GASTRITIS fu abdominal U/S >> Suspected chronic liver disease. CT AP reviewed >> - Distended stomach with a question of blood within the stomach lumen. - Thickening of the wall of the antrum and pyloric region with questionable mass. defer GI procedures given recent history of endoscopy and stable Hgb monitor H&H, prn transfusions ADA diet ppi OB stool r/o GI bleed fu labs outpatient Hep C treatment Subjective Allergies: Coded Allergies: No Known Allergies (Unverified , 10/24/14) Subjective Feels OK no abd pain d/w staff assistant Objective Last 24 Hour Vital Signs Date Time Temp Pulse Resp B/P (MAP) Pulse Ox O2 Delivery O2 Flow Rate FiO2 06/29/17 09:29 66 161/76 06/29/17 09:29 66 161/76 06/29/17 09:29 161/76 06/29/17 04:00 61 06/29/17 04:00 97.3 80 20 118/60 93 Room Air 97.3 06/29/17 00:00 98.4 70 22 144/59 92 Room Air 98.4 06/29/17 00:00 71 06/28/17 22:39 68 127/50 06/28/17 22:38 127/50 06/28/17 20:00 63 06/28/17 20:00 97.8 68 23 127/50 92 Room Air 97.8 06/28/17 18:15 98.0 66 20 145/62 Room Air 98.0 06/28/17 16:00 62 06/28/17 16:00 97.5 57 20 119/59 95 Room Air 97.5 06/28/17 14:30 97.5 60 20 125/58 Room Air 97.5 06/28/17 14:30 Room Air 06/28/17 12:00 97.5 58 20 117/51 100 Room Air 97.5 06/28/17 12:00 61 Intake and Output 06/28/17 06/29/17 19:00 07:00 Intake Total 360 ml 500 ml Output Total 1500 ml Balance -1140 ml 500 ml Intake Oral 360 ml 500 ml Hemodialysis UF 1500 ml # Bowel Movements 4 Laboratory Tests 06/28/17 18:15: Stool Occult Blood [Pending] 06/29/17 04:45: White Blood Count 5.5, Red Blood Count 3.59L, Hemoglobin 11.4L, Hematocrit 35.0L , Mean Corpuscular Volume 97, Mean Corpuscular Hemoglobin 31.8H, Mean Corpuscular Hemoglobin Concent 32.6, Red Cell Distribution Width 17.2H, Platelet Count 116L, Mean Platelet Volume 7.5, Neutrophils (%) (Auto) 66.6, Lymphocytes (%) (Auto) 16.1L, Monocytes (%) (Auto) 13.9H, Eosinophils (%) (Auto ) 2.7, Basophils (%) (Auto) 0.7, Sodium Level 140, Potassium Level 3.4L, Chloride Level 96L, Carbon Dioxide Level 35H, Anion Gap 10, Blood Urea Nitrogen 27H, Creatinine 4.8H, Estimat Glomerular Filtration Rate , Glucose Level 111H, Calcium Level 10.2H 06/29/17 10:50: White Blood Count 4.5L, Red Blood Count 3.42L, Hemoglobin 10.6L, Hematocrit 33.6L, Mean Corpuscular Volume 98, Mean Corpuscular Hemoglobin 31.1H, Mean Corpuscular Hemoglobin Concent 31.6L, Red Cell Distribution Width 17.6H, Platelet Count 92L, Mean Platelet Volume 8.0, Neutrophils (%) (Auto) , Lymphocytes (%) (Auto) , Monocytes (%) (Auto) , Eosinophils (%) (Auto) , Basophils (%) (Auto) , Sodium Level [Pending], Potassium Level [Pending], Chloride Level [Pending], Carbon Dioxide Level [Pending], Blood Urea Nitrogen [ Pending], Creatinine [Pending], Estimat Glomerular Filtration Rate [Pending], Glucose Level [Pending], Calcium Level [Pending], Neutrophils % (Manual) [ Pending], Lymphocytes % (Manual) [Pending], Platelet Estimate [Pending], Platelet Morphology [Pending] Height (Feet): 5 Height (Inches): 2.00 Weight (Pounds): 104 Objective elderly AA woman NCAT supple CTA RRR Abd soft ND NT no edema Neuro nonfocal JEANMARIE BARNHART June 29, 2017 11:43
[2017-06-29 11:47] LABS: ANION GAP 11 mmol/L (5-15); BLOOD UREA NITROGEN 29 mg/dL (7-18); CALCIUM 10.1 MG/DL (8.5-10.1); CARBON DIOXIDE 31 MMOL/L (21-32); CHLORIDE 96 MMOL/L (98-107); CREATININE 5.2 MG/DL (0.55-1.30); POTASSIUM 3.2 MMOL/L (3.5-5.1); SODIUM 138 MMOL/L (136-145)
[2017-06-29 12:00] VITALS: BP 142/59
--- NOTE | 2017-06-29 13:16 | Cardiac Electrophysiology PN ---
Assessment/Plan Assessment/Plan 1. Severe hyperkalemia, potassium of 8. Resolved after hemodialysis 2. Hypertension.On hydralazine 25 mg bid, Norvasc 10 mg daily, metoprolol 50 mg b.i.d. and HD 3. History of coffee-ground emesis. Underwent EGD by Dr. Ortiz, which showed gastritis on her previous admission. 4. Atypical chest pain, was ruled out for myocardial infarction in the past with a stress test, which showed no evidence of ischemia. An echocardiogram showed ejection fraction of 60%. 5. ESRD on HD 6. Diarrhea. C Diff pending. JOHN RN Subjective Subjective Comfortable in NAD . Has been having diarrhea. C Diff sample sent Objective Last 24 Hour Vital Signs Date Time Temp Pulse Resp B/P (MAP) Pulse Ox O2 Delivery O2 Flow Rate FiO2 06/29/17 12:00 98.2 65 19 142/59 95 Room Air 98.2 06/29/17 12:00 63 06/29/17 09:29 66 161/76 06/29/17 09:29 66 161/76 06/29/17 09:29 161/76 06/29/17 08:00 66 06/29/17 08:00 97.7 66 20 161/76 96 Room Air 97.7 06/29/17 04:00 61 06/29/17 04:00 97.3 80 20 118/60 93 Room Air 97.3 06/29/17 00:00 98.4 70 22 144/59 92 Room Air 98.4 06/29/17 00:00 71 06/28/17 22:39 68 127/50 06/28/17 22:38 127/50 06/28/17 20:00 63 06/28/17 20:00 97.8 68 23 127/50 92 Room Air 97.8 06/28/17 18:15 98.0 66 20 145/62 Room Air 98.0 06/28/17 16:00 62 06/28/17 16:00 97.5 57 20 119/59 95 Room Air 97.5 06/28/17 14:30 97.5 60 20 125/58 Room Air 97.5 06/28/17 14:30 Room Air Intake and Output 06/28/17 06/29/17 19:00 07:00 Intake Total 360 ml 500 ml Output Total 1500 ml Balance -1140 ml 500 ml Intake Oral 360 ml 500 ml Hemodialysis UF 1500 ml # Bowel Movements 4 Laboratory Tests Test 06/28/17 18:15 06/29/17 04:45 06/29/17 10:50 Stool Occult Blood Positive (NEGATIVE) White Blood Count 5.5 K/UL (4.8-10.8) 4.5 K/UL (4.8-10.8) L Red Blood Count 3.59 M/UL (4.20-5.40) L 3.42 M/UL (4.20-5.40) L Hemoglobin 11.4 G/DL (12.0-16.0) L 10.6 G/DL (12.0-16.0) L Hematocrit 35.0 % (37.0-47.0) L 33.6 % (37.0-47.0) L Mean Corpuscular Volume 97 FL (80-99) 98 FL (80-99) Mean Corpuscular Hemoglobin 31.8 PG (27.0-31.0) H 31.1 PG (27.0-31.0) H Mean Corpuscular Hemoglobin Concent 32.6 G/DL (32.0-36.0) 31.6 G/DL (32.0-36.0) L Red Cell Distribution Width 17.2 % (11.6-14.8) H 17.6 % (11.6-14.8) H Platelet Count 116 K/UL (150-450) L 92 K/UL (150-450) L Mean Platelet Volume 7.5 FL (6.5-10.1) 8.0 FL (6.5-10.1) Neutrophils (%) (Auto) 66.6 % (45.0-75.0) % (45.0-75.0) Lymphocytes (%) (Auto) 16.1 % (20.0-45.0) L % (20.0-45.0) Monocytes (%) (Auto) 13.9 % (1.0-10.0) H % (1.0-10.0) Eosinophils (%) (Auto) 2.7 % (0.0-3.0) % (0.0-3.0) Basophils (%) (Auto) 0.7 % (0.0-2.0) % (0.0-2.0) Sodium Level 140 MMOL/L (136-145) 138 MMOL/L (136-145) Potassium Level 3.4 MMOL/L (3.5-5.1) L 3.2 MMOL/L (3.5-5.1) L Chloride Level 96 MMOL/L (98-107) L 96 MMOL/L (98-107) L Carbon Dioxide Level 35 MMOL/L (21-32) H 31 MMOL/L (21-32) Anion Gap 10 mmol/L (5-15) 11 mmol/L (5-15) Blood Urea Nitrogen 27 mg/dL (7-18) H 29 mg/dL (7-18) H Creatinine 4.8 MG/DL (0.55-1.30) H 5.2 MG/DL (0.55-1.30) H Estimat Glomerular Filtration Rate mL/min (>60) mL/min (>60) Glucose Level 111 MG/DL (74-106) H 209 MG/DL (74-106) H Calcium Level 10.2 MG/DL (8.5-10.1) H 10.1 MG/DL (8.5-10.1) Neutrophils % (Manual) Pending Lymphocytes % (Manual) Pending Platelet Estimate Pending Platelet Morphology Pending Objective HEAD AND NECK: Mild JVD. LUNGS: Clear CARDIOVASCULAR: Regular S1 and S2 with no gallop. ABDOMEN: Soft. EXTREMITIES: A 1+ pitting edema. Nate Magallanes MD June 29, 2017 13:16
[2017-06-29 16:00] VITALS: BP 120/51
--- NOTE | 2017-06-29 18:18 | Infectious Diseases Prog Note ---
Assessment/Plan Problems: (1) Hypothermia Assessment & Plan: resolved with no evidence of sepsis and negative blood culture x2 , monitor off antibiotics , old HD catheter was removed (2) Abdominal pain Assessment & Plan: with antrum and pyloric wall thickening rule out tumor or hypertrophy, or gastroparesis , follow up with GI for further eval and management (3) DM (diabetes mellitus) Assessment & Plan: recommend tight glycemic control to keep blood glucose between 100-140 (4) ESRD (end stage renal disease) on dialysis Assessment & Plan: on HD, nephrology is following. will screen for HCV and check viral load (5) Hyperkalemia Assessment & Plan: due to renal failure and missing HD, improved, continue HD as per renal (6) HCV infection Assessment & Plan: will need referral for treatment as an outpatient , await viral load and antibody to confirm Subjective Constitutional: Reports: no symptoms HEENT: Reports: no symptoms Respiratory: Reports: no symptoms Breasts: Reports: no symptoms Cardiovascular: Reports: no symptoms Gastrointestinal/Abdominal: Reports: no symptoms Genitourinary: Reports: no symptoms Neurologic: Reports: no symptoms Psychiatric: Reports: no symptoms Skin: Reports: no symptoms Endocrine: Reports: no symptoms Hematologic: Reports: no symptoms Musculoskeletal: Reports: no symptoms Allergies: Coded Allergies: No Known Allergies (Unverified , 10/24/14) Subjective she was awake and comfortable, up in bed, tolerated antibiotics well, had diarrhea yesterday , but resolved today Objective Vital Signs Last 24 Hour Vital Signs Date Time Temp Pulse Resp B/P (MAP) Pulse Ox O2 Delivery O2 Flow Rate FiO2 06/29/17 16:00 98.6 64 20 120/51 96 Room Air 98.6 06/29/17 16:00 67 06/29/17 12:00 98.2 65 19 142/59 95 Room Air 98.2 06/29/17 12:00 63 06/29/17 09:29 66 161/76 06/29/17 09:29 66 161/76 06/29/17 09:29 161/76 06/29/17 08:00 66 06/29/17 08:00 97.7 66 20 161/76 96 Room Air 97.7 06/29/17 04:00 61 06/29/17 04:00 97.3 80 20 118/60 93 Room Air 97.3 06/29/17 00:00 98.4 70 22 144/59 92 Room Air 98.4 06/29/17 00:00 71 06/28/17 22:39 68 127/50 06/28/17 22:38 127/50 06/28/17 20:00 63 06/28/17 20:00 97.8 68 23 127/50 92 Room Air 97.8 Height (Feet): 5 Height (Inches): 2.00 Weight (Pounds): 104 General Appearance: WD/WN, no acute distress HEENT: normocephalic, atraumatic, anicteric, mucous membranes moist Respiratory/Chest: chest wall non-tender, lungs clear, normal breath sounds, no respiratory distress, no accessory muscle use Cardiovascular: normal peripheral pulses, normal rate, regular rhythm, no gallop/murmur Abdomen: normal bowel sounds, soft, non tender, no organomegaly, non distended , no mass, no scars Genitourinary: normal external genitalia Extremities: no cyanosis, no clubbing Skin: no rash, no lesions, no ulcers Neurologic/Psychiatric: alert, oriented x 3, responsive Laboratory Tests Test 06/29/17 04:45 06/29/17 10:50 White Blood Count 5.5 K/UL (4.8-10.8) 4.5 K/UL (4.8-10.8) L Red Blood Count 3.59 M/UL (4.20-5.40) L 3.42 M/UL (4.20-5.40) L Hemoglobin 11.4 G/DL (12.0-16.0) L 10.6 G/DL (12.0-16.0) L Hematocrit 35.0 % (37.0-47.0) L 33.6 % (37.0-47.0) L Mean Corpuscular Volume 97 FL (80-99) 98 FL (80-99) Mean Corpuscular Hemoglobin 31.8 PG (27.0-31.0) H 31.1 PG (27.0-31.0) H Mean Corpuscular Hemoglobin Concent 32.6 G/DL (32.0-36.0) 31.6 G/DL (32.0-36.0) L Red Cell Distribution Width 17.2 % (11.6-14.8) H 17.6 % (11.6-14.8) H Platelet Count 116 K/UL (150-450) L 92 K/UL (150-450) L Mean Platelet Volume 7.5 FL (6.5-10.1) 8.0 FL (6.5-10.1) Neutrophils (%) (Auto) 66.6 % (45.0-75.0) % (45.0-75.0) Lymphocytes (%) (Auto) 16.1 % (20.0-45.0) L % (20.0-45.0) Monocytes (%) (Auto) 13.9 % (1.0-10.0) H % (1.0-10.0) Eosinophils (%) (Auto) 2.7 % (0.0-3.0) % (0.0-3.0) Basophils (%) (Auto) 0.7 % (0.0-2.0) % (0.0-2.0) Sodium Level 140 MMOL/L (136-145) 138 MMOL/L (136-145) Potassium Level 3.4 MMOL/L (3.5-5.1) L 3.2 MMOL/L (3.5-5.1) L Chloride Level 96 MMOL/L (98-107) L 96 MMOL/L (98-107) L Carbon Dioxide Level 35 MMOL/L (21-32) H 31 MMOL/L (21-32) Anion Gap 10 mmol/L (5-15) 11 mmol/L (5-15) Blood Urea Nitrogen 27 mg/dL (7-18) H 29 mg/dL (7-18) H Creatinine 4.8 MG/DL (0.55-1.30) H 5.2 MG/DL (0.55-1.30) H Estimat Glomerular Filtration Rate mL/min (>60) mL/min (>60) Glucose Level 111 MG/DL (74-106) H 209 MG/DL (74-106) H Calcium Level 10.2 MG/DL (8.5-10.1) H 10.1 MG/DL (8.5-10.1) Differential Total Cells Counted 100 Neutrophils % (Manual) 67 % (45-75) Lymphocytes % (Manual) 19 % (20-45) L Monocytes % (Manual) 12 % (1-10) H Eosinophils % (Manual) 2 % (0-3) Basophils % (Manual) 0 % (0-2) Band Neutrophils 0 % (0-8) Platelet Estimate Decreased L Platelet Morphology Normal Hypochromasia 1+ Anisocytosis 1+ Current Medications Medications (Trade) Dose Ordered Sig/Sarwat Route PRN Reason Start Time Stop Time Status Last Admin Dose Admin Acetaminophen (Tylenol) 650 mg Q6H PRN ORAL Mild Pain/Headache/Temp > 101 06/25/17 13:15 07/25/17 13:14 06/27/17 10:38 Amlodipine Besylate (Norvasc) 10 mg DAILY ORAL 06/26/17 09:00 07/26/17 08:59 06/29/17 09:29 Aspirin (Ecotrin) 81 mg DAILY ORAL 06/26/17 09:00 07/26/17 08:59 06/29/17 09:28 Atorvastatin Calcium (Lipitor) 10 mg BEDTIME ORAL 06/28/17 21:00 07/28/17 20:59 06/28/17 22:37 Clonidine HCl (Catapres Tab) 0.1 mg Q6H PRN ORAL SBP > 160mmHg 06/25/17 13:15 07/25/17 13:14 06/25/17 18:49 Heparin Sodium (Porcine) (Heparin 5000 units/ml) 5,000 units EVERY 8 HOURS SUBQ 06/27/17 14:00 07/27/17 13:59 06/27/17 14:43 Hydralazine HCl (Apresoline) 25 mg Q12HR ORAL 06/25/17 21:00 07/25/17 20:59 06/29/17 09:29 Lorazepam (Ativan) 1 mg Q6H PRN ORAL For Anxiety 06/27/17 12:15 07/04/17 12:14 Metoprolol Tartrate (Lopressor) 50 mg Q12HR ORAL 06/25/17 21:00 07/25/17 20:59 06/29/17 09:29 Ondansetron HCl (Zofran) 4 mg Q6H PRN IVP Nausea & Vomiting 06/25/17 15:00 07/25/17 14:59 06/25/17 20:47 Sevelamer Carbonate (Renvela) 1,600 mg THREE TIMES A DAY ORAL 06/29/17 13:00 07/29/17 12:59 06/29/17 13:42 Sitagliptin Phosphate (Januvia) 25 mg DAILY ORAL 06/26/17 09:00 07/26/17 08:59 06/29/17 09:28 Delma Braga M.D. June 29, 2017 18:18
[2017-06-29 20:00] VITALS: BP 141/73
[2017-06-30] VITALS: BP 165/100
[2017-06-30 04:00] VITALS: BP 141/73
[2017-06-30] MEDS: Heparin 5000 units/ml inj SUBQ SCH (06:00)
[2017-06-30 08:00] VITALS: BP 174/65
[2017-06-30] MEDS: Aspirin EC 81mg tab ORAL SCH (08:42)
[2017-06-30] MEDS: HydrALAZINE 25mg tab ORAL SCH (08:42)
[2017-06-30] MEDS: sitaGLIPtin 25mg tab ORAL SCH (08:42)
[2017-06-30 08:43] VITALS: BP 174/65
[2017-06-30] MEDS: Metoprolol Tartrate 50mg tab ORAL SCH (08:43)
[2017-06-30 09:51] LABS: BASOPHILS % (AUTO) 0.5 % (0.0-2.0); HEMATOCRIT 37.8 % (37.0-47.0); HEMOGLOBIN 12.2 G/DL (12.0-16.0); LYMPHOCYTES % (AUTO) 17.8 % (20.0-45.0); MEAN CORPUSCULAR VOLUME 98 FL (80-99); MONOCYTES % (AUTO) 12.2 % (1.0-10.0); NEUTROPHILS % (AUTO) 64.5 % (45.0-75.0); PLATELET COUNT 119 K/UL (150-450); RED BLOOD COUNT 3.87 M/UL (4.20-5.40); RED CELL DISTRIBUTION WIDTH 17.3 % (11.6-14.8); WHITE BLOOD COUNT 5.9 K/UL (4.8-10.8)
--- NOTE | 2017-06-30 10:02 | Diagnostic Imaging Report ---
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 The venous outflow is widely patent. There is no evidence of significant stenosis, occlusion, pseudo-aneurysm or abscess. Velocities obtained from the fistula are as follows: Proximal brachial artery: 128 cm/s Mid AVF: 7.5 mm; 142 cm/s Anastomosis: 4.4 mm, 287 cm/s Brachial artery distal 140 cm/s and Radial artery: 60 cm/s Deep venous system of the left upper extremity is within normal limits.
[2017-06-30 10:07] LABS: ANION GAP 14 mmol/L (5-15); BLOOD UREA NITROGEN 47 mg/dL (7-18); CARBON DIOXIDE 29 MMOL/L (21-32); CHLORIDE 94 MMOL/L (98-107); CREATININE 6.7 MG/DL (0.55-1.30); POTASSIUM 3.7 MMOL/L (3.5-5.1); SODIUM 137 MMOL/L (136-145)
--- NOTE | 2017-06-30 10:07 | Diagnostic Imaging Report ---
APPROVED REPORT CPT Code: 87308 Present Symptoms Comments: BILATERAL LEGS PAIN. BILATERAL: Imaging reveals a patent deep venous system bilaterally. There is no evidence of thrombus within the femoral, popliteal or tibial segments. The greater saphenous veins are also within normal limits. Doppler indicates normal spontaneous flow within these segments.
--- NOTE | 2017-06-30 10:30 | GI Progress Note ---
Assessment/Plan Problems: (1) Failure to thrive in adult ICD Codes: R62.7 - Adult failure to thrive SNOMED: 588978968 (2) Generalized weakness ICD Codes: R53.1 - Weakness SNOMED: 25197143 (3) DM (diabetes mellitus) ICD Codes: E11.9 - Type 2 diabetes mellitus without complications SNOMED: 23304749 (4) Abdominal pain (5) ESRD (end stage renal disease) on dialysis ICD Codes: N18.6 - End stage renal disease; Z99.2 - Dependence on renal dialysis SNOMED: 121600661 Status: stable Status Narrative Discussed with Dr. Ortiz. Assessment/Plan Procedures Performed: EGD 03/10/17 Operative Findings/Diagnosis: GASTRITIS fu abdominal U/S >> Suspected chronic liver disease. CT AP reviewed >> - Distended stomach with a question of blood within the stomach lumen. - Thickening of the wall of the antrum and pyloric region with questionable mass. defer GI procedures given recent history of endoscopy and stable Hgb monitor H&H, prn transfusions ADA diet ppi OB stool r/o GI bleed fu labs outpatient Hep C treatment Subjective Subjective denies any abdominal pain Objective Last 24 Hour Vital Signs Date Time Temp Pulse Resp B/P (MAP) Pulse Ox O2 Delivery O2 Flow Rate FiO2 06/30/17 08:43 73 174/65 06/30/17 08:42 73 174/65 06/30/17 08:42 174/65 06/30/17 08:00 98.3 73 19 174/65 95 Room Air 98.3 06/30/17 08:00 79 06/30/17 04:00 98.2 71 18 141/73 95 Room Air 98.2 06/30/17 04:00 71 06/30/17 01:29 165/102 06/30/17 00:00 98.4 74 22 165/100 92 Room Air 98.4 06/30/17 00:00 68 06/29/17 20:51 120/51 06/29/17 20:50 68 120/51 06/29/17 20:00 69 06/29/17 20:00 98.4 71 22 141/73 92 Room Air 98.4 06/29/17 16:00 98.6 64 20 120/51 96 Room Air 98.6 06/29/17 16:00 67 06/29/17 12:00 98.2 65 19 142/59 95 Room Air 98.2 06/29/17 12:00 63 Intake and Output 06/29/17 06/30/17 19:00 07:00 Intake Total 420 ml 240 ml Balance 420 ml 240 ml Intake Oral 420 ml 240 ml # Voids 2 # Bowel Movements 7 1 Laboratory Tests Test 06/29/17 10:50 06/30/17 07:35 White Blood Count 4.5 K/UL (4.8-10.8) L 5.9 K/UL (4.8-10.8) Red Blood Count 3.42 M/UL (4.20-5.40) L 3.87 M/UL (4.20-5.40) L Hemoglobin 10.6 G/DL (12.0-16.0) L 12.2 G/DL (12.0-16.0) Hematocrit 33.6 % (37.0-47.0) L 37.8 % (37.0-47.0) Mean Corpuscular Volume 98 FL (80-99) 98 FL (80-99) Mean Corpuscular Hemoglobin 31.1 PG (27.0-31.0) H 31.5 PG (27.0-31.0) H Mean Corpuscular Hemoglobin Concent 31.6 G/DL (32.0-36.0) L 32.2 G/DL (32.0-36.0) Red Cell Distribution Width 17.6 % (11.6-14.8) H 17.3 % (11.6-14.8) H Platelet Count 92 K/UL (150-450) L 119 K/UL (150-450) L Mean Platelet Volume 8.0 FL (6.5-10.1) 7.9 FL (6.5-10.1) Neutrophils (%) (Auto) % (45.0-75.0) 64.5 % (45.0-75.0) Lymphocytes (%) (Auto) % (20.0-45.0) 17.8 % (20.0-45.0) L Monocytes (%) (Auto) % (1.0-10.0) 12.2 % (1.0-10.0) H Eosinophils (%) (Auto) % (0.0-3.0) 5.0 % (0.0-3.0) H Basophils (%) (Auto) % (0.0-2.0) 0.5 % (0.0-2.0) Differential Total Cells Counted 100 Neutrophils % (Manual) 67 % (45-75) Lymphocytes % (Manual) 19 % (20-45) L Monocytes % (Manual) 12 % (1-10) H Eosinophils % (Manual) 2 % (0-3) Basophils % (Manual) 0 % (0-2) Band Neutrophils 0 % (0-8) Platelet Estimate Decreased L Platelet Morphology Normal Hypochromasia 1+ Anisocytosis 1+ Sodium Level 138 MMOL/L (136-145) 137 MMOL/L (136-145) Potassium Level 3.2 MMOL/L (3.5-5.1) L 3.7 MMOL/L (3.5-5.1) Chloride Level 96 MMOL/L (98-107) L 94 MMOL/L (98-107) L Carbon Dioxide Level 31 MMOL/L (21-32) 29 MMOL/L (21-32) Anion Gap 11 mmol/L (5-15) 14 mmol/L (5-15) Blood Urea Nitrogen 29 mg/dL (7-18) H 47 mg/dL (7-18) H Creatinine 5.2 MG/DL (0.55-1.30) H 6.7 MG/DL (0.55-1.30) H Estimat Glomerular Filtration Rate mL/min (>60) mL/min (>60) Glucose Level 209 MG/DL (74-106) H 100 MG/DL (74-106) # Calcium Level 10.1 MG/DL (8.5-10.1) 11.0 MG/DL (8.5-10.1) H Height (Feet): 5 Height (Inches): 2.00 Weight (Pounds): 106 General Appearance: no apparent distress Cardiovascular: normal rate Respiratory/Chest: normal breath sounds, no respiratory distress Abdominal Exam: soft Chrissie Artis NChiki June 30, 2017 10:30
--- NOTE | 2017-06-30 13:13 | Infectious Diseases Prog Note ---
Assessment/Plan Problems: (1) Hypothermia Assessment & Plan: resolved with no evidence of sepsis and negative blood culture x 2 , keep off antibiotics , old HD catheter was removed (2) Abdominal pain Assessment & Plan: with antrum and pyloric wall thickening rule out tumor or hypertrophy, or gastroparesis , follow up with GI for further eval and management (3) DM (diabetes mellitus) Assessment & Plan: recommend tight glycemic control to keep blood glucose between 100-140 (4) ESRD (end stage renal disease) on dialysis Assessment & Plan: on HD, nephrology is following. will screen for HCV and check viral load (5) Hyperkalemia Assessment & Plan: due to renal failure and missing HD, improved, continue HD as per renal (6) HCV infection Assessment & Plan: chronic, with elevated antibodies , will need referral for treatment as an outpatient , await viral load Subjective Constitutional: Reports: no symptoms HEENT: Reports: no symptoms Respiratory: Reports: no symptoms Breasts: Reports: no symptoms Cardiovascular: Reports: no symptoms Gastrointestinal/Abdominal: Reports: no symptoms Genitourinary: Reports: no symptoms Neurologic: Reports: no symptoms Psychiatric: Reports: no symptoms Skin: Reports: no symptoms Endocrine: Reports: no symptoms Hematologic: Reports: no symptoms Musculoskeletal: Reports: no symptoms Allergies: Coded Allergies: No Known Allergies (Unverified , 10/24/14) Subjective she was awake and comfortable, lying in bed, denied any fever or chills, no cough or SOB, no nausea or vomiting , no diarrhea Objective Vital Signs Last 24 Hour Vital Signs Date Time Temp Pulse Resp B/P (MAP) Pulse Ox O2 Delivery O2 Flow Rate FiO2 06/30/17 08:43 73 174/65 06/30/17 08:42 73 174/65 06/30/17 08:42 174/65 06/30/17 08:00 98.3 73 19 174/65 95 Room Air 98.3 06/30/17 08:00 79 06/30/17 04:00 98.2 71 18 141/73 95 Room Air 98.2 06/30/17 04:00 71 06/30/17 01:29 165/102 06/30/17 00:00 98.4 74 22 165/100 92 Room Air 98.4 06/30/17 00:00 68 06/29/17 20:51 120/51 06/29/17 20:50 68 120/51 06/29/17 20:00 69 06/29/17 20:00 98.4 71 22 141/73 92 Room Air 98.4 06/29/17 16:00 98.6 64 20 120/51 96 Room Air 98.6 06/29/17 16:00 67 Height (Feet): 5 Height (Inches): 2.00 Weight (Pounds): 106 General Appearance: WD/WN, no acute distress HEENT: normocephalic, atraumatic, anicteric, mucous membranes moist, PERRL Respiratory/Chest: chest wall non-tender, lungs clear, normal breath sounds, no respiratory distress, no accessory muscle use Cardiovascular: normal peripheral pulses, normal rate, regular rhythm, no gallop/murmur, no JVD Abdomen: normal bowel sounds, soft, non tender, no organomegaly, non distended , no mass, no scars Extremities: no cyanosis, no clubbing Skin: no rash, no lesions, no ulcers Neurologic/Psychiatric: alert, oriented x 3, responsive Microbiology Date/Time Source Procedure Growth Status 06/29/17 09:40 Stool Clostridium difficile Toxin Assay - Final Complete Laboratory Tests Test 06/30/17 07:35 White Blood Count 5.9 K/UL (4.8-10.8) Red Blood Count 3.87 M/UL (4.20-5.40) L Hemoglobin 12.2 G/DL (12.0-16.0) Hematocrit 37.8 % (37.0-47.0) Mean Corpuscular Volume 98 FL (80-99) Mean Corpuscular Hemoglobin 31.5 PG (27.0-31.0) H Mean Corpuscular Hemoglobin Concent 32.2 G/DL (32.0-36.0) Red Cell Distribution Width 17.3 % (11.6-14.8) H Platelet Count 119 K/UL (150-450) L Mean Platelet Volume 7.9 FL (6.5-10.1) Neutrophils (%) (Auto) 64.5 % (45.0-75.0) Lymphocytes (%) (Auto) 17.8 % (20.0-45.0) L Monocytes (%) (Auto) 12.2 % (1.0-10.0) H Eosinophils (%) (Auto) 5.0 % (0.0-3.0) H Basophils (%) (Auto) 0.5 % (0.0-2.0) Sodium Level 137 MMOL/L (136-145) Potassium Level 3.7 MMOL/L (3.5-5.1) Chloride Level 94 MMOL/L (98-107) L Carbon Dioxide Level 29 MMOL/L (21-32) Anion Gap 14 mmol/L (5-15) Blood Urea Nitrogen 47 mg/dL (7-18) H Creatinine 6.7 MG/DL (0.55-1.30) H Estimat Glomerular Filtration Rate mL/min (>60) Glucose Level 100 MG/DL (74-106) # Calcium Level 11.0 MG/DL (8.5-10.1) H Current Medications Medications (Trade) Dose Ordered Sig/Sarwat Route PRN Reason Start Time Stop Time Status Last Admin Dose Admin Acetaminophen (Tylenol) 650 mg Q6H PRN ORAL Mild Pain/Headache/Temp > 101 06/25/17 13:15 07/25/17 13:14 06/27/17 10:38 Amlodipine Besylate (Norvasc) 10 mg DAILY ORAL 06/26/17 09:00 07/26/17 08:59 06/30/17 08:42 Aspirin (Ecotrin) 81 mg DAILY ORAL 06/26/17 09:00 07/26/17 08:59 06/30/17 08:42 Atorvastatin Calcium (Lipitor) 10 mg BEDTIME ORAL 06/28/17 21:00 07/28/17 20:59 06/29/17 20:51 Clonidine HCl (Catapres Tab) 0.1 mg Q6H PRN ORAL SBP > 160mmHg 06/25/17 13:15 07/25/17 13:14 06/30/17 01:29 Heparin Sodium (Porcine) (Heparin 5000 units/ml) 5,000 units EVERY 8 HOURS SUBQ 06/27/17 14:00 07/27/17 13:59 06/27/17 14:43 Hydralazine HCl (Apresoline) 25 mg Q12HR ORAL 06/25/17 21:00 07/25/17 20:59 06/30/17 08:42 Lorazepam (Ativan) 1 mg Q6H PRN ORAL For Anxiety 06/27/17 12:15 07/04/17 12:14 Metoprolol Tartrate (Lopressor) 50 mg Q12HR ORAL 06/25/17 21:00 07/25/17 20:59 06/30/17 08:43 Ondansetron HCl (Zofran) 4 mg Q6H PRN IVP Nausea & Vomiting 06/25/17 15:00 07/25/17 14:59 06/25/17 20:47 Sevelamer Carbonate (Renvela) 1,600 mg THREE TIMES A DAY ORAL 06/29/17 13:00 07/29/17 12:59 06/29/17 13:42 Sitagliptin Phosphate (Januvia) 25 mg DAILY ORAL 06/26/17 09:00 07/26/17 08:59 06/30/17 08:42 Delma Braga M.D. June 30, 2017 13:13
--- NOTE | 2017-06-30 14:26 | General Progress Note ---
Assessment/Plan Problem List: (1) Renal failure ICD Codes: N19 - Unspecified kidney failure SNOMED: 71640685 (2) Hypertension ICD Codes: I10 - Hypertension SNOMED: 82856122 (3) Failure to thrive in adult ICD Codes: R62.7 - Adult failure to thrive SNOMED: 249578625 (4) Generalized weakness ICD Codes: R53.1 - Weakness SNOMED: 15782842 (5) ESRD (end stage renal disease) on dialysis ICD Codes: N18.6 - ESRD (end stage renal disease) on dialysis; Z99.2 - Dependence on renal dialysis SNOMED: 337285271 Status: stable, progressing, tolerating diet Assessment/Plan ot pt diet bp bs seizure pain control dialysis dc home Subjective Constitutional: Reports: weakness Allergies: Coded Allergies: No Known Allergies (Unverified , 10/24/14) All Systems: reviewed and negative except above Subjective calm in wc leaving Objective Last 24 Hour Vital Signs Date Time Temp Pulse Resp B/P (MAP) Pulse Ox O2 Delivery O2 Flow Rate FiO2 06/30/17 08:43 73 174/65 06/30/17 08:42 73 174/65 06/30/17 08:42 174/65 06/30/17 08:00 98.3 73 19 174/65 95 Room Air 98.3 06/30/17 08:00 79 06/30/17 04:00 98.2 71 18 141/73 95 Room Air 98.2 06/30/17 04:00 71 06/30/17 01:29 165/102 06/30/17 00:00 98.4 74 22 165/100 92 Room Air 98.4 06/30/17 00:00 68 06/29/17 20:51 120/51 06/29/17 20:50 68 120/51 06/29/17 20:00 69 06/29/17 20:00 98.4 71 22 141/73 92 Room Air 98.4 06/29/17 16:00 98.6 64 20 120/51 96 Room Air 98.6 06/29/17 16:00 67 Intake and Output 06/29/17 06/30/17 19:00 07:00 Intake Total 420 ml 240 ml Balance 420 ml 240 ml Intake Oral 420 ml 240 ml # Voids 2 # Bowel Movements 7 1 Laboratory Tests 06/30/17 07:35: White Blood Count 5.9, Red Blood Count 3.87L, Hemoglobin 12.2, Hematocrit 37.8, Mean Corpuscular Volume 98, Mean Corpuscular Hemoglobin 31.5H, Mean Corpuscular Hemoglobin Concent 32.2, Red Cell Distribution Width 17.3H, Platelet Count 119L , Mean Platelet Volume 7.9, Neutrophils (%) (Auto) 64.5, Lymphocytes (%) (Auto) 17.8L, Monocytes (%) (Auto) 12.2H, Eosinophils (%) (Auto) 5.0H, Basophils (%) ( Auto) 0.5, Sodium Level 137, Potassium Level 3.7, Chloride Level 94L, Carbon Dioxide Level 29, Anion Gap 14, Blood Urea Nitrogen 47H, Creatinine 6.7H, Estimat Glomerular Filtration Rate , Glucose Level 100#, Calcium Level 11.0H Height (Feet): 5 Height (Inches): 2.00 Weight (Pounds): 106 General Appearance: alert EENT: normal ENT inspection Neck: normal alignment Cardiovascular: normal peripheral pulses, normal rate, regular rhythm Respiratory/Chest: chest wall non-tender, lungs clear, normal breath sounds Abdomen: normal bowel sounds, non tender, soft Extremities: normal inspection Edema: no edema noted Arm (L), no edema noted Arm (R), no edema noted Leg (L), no edema noted Leg (R), no edema noted Pedal (L), no edema noted Pedal (R), no edema noted Generalized Neurologic: responsive, motor weakness Skin: normal pigmentation, warm/dry SHIELA GALEANA June 30, 2017 14:26
--- NOTE | 2017-07-01 09:47 | Cardiology Report ---
APPROVED REPORT EXAM: Two-dimensional and M-mode echocardiogram with Doppler and color Doppler. INDICATION Chest Pain M-Mode DIMENSIONS IVSd1.1 (0.7-1.1cm)Left Atrium (MM)3.8 (1.6-4.0cm) LVDd4.4 (3.5-5.6cm)Aortic Root3.5 (2.0-3.7cm) PWd1.3 (0.7-1.1cm)Aortic Cusp Exc.1.7 (1.5-2.0cm) IVSs1.3 cm LVDs2.9 (2.5-4.0cm) PWs1.4 cm Normal left ventricular chamber size, systolic function and wall motion. Left ventricular ejection fraction estimated to be 60%. Mild left ventricular hypertrophy by 2-D. Small posterior pericardial effusion. Left atrial cardiac chamber sizes are within normal limits. Right cardiac chamber sizes are within upper normal limits. Focal aortic valve sclerosis with adequate cusp excursion. Moderatly Thickened mitral valve leaflets with normal excursion. Moderatly Mitral annulus and aortic root calcification. Normal pulmonic valve structure. Normal tricuspid valve structure. IVC dialated at size 2.4 without physiologic collapse suggestive of increased RA pressure. A color flow and spectral Doppler study was performed and revealed: Trace aortic regurgitation. Trace mitral regurgitation. Mitral diastolic velocities suggest reduced left ventricular relaxation c/w mild LV diastolic dysfunction (Grade I ). Moderate to severe tricuspid regurgitation. Tricuspid systolic velocities suggests peak right ventricular systolic pressure of 83mmHg, consistent with severe pulmonary hypertension. No Pulmonic regurgitation present.
--- NOTE | 2017-07-01 15:28 | Psych Consult Progress Note ---
Psych Consult Progress Note Consult 06/28/17 mDD anxiety cont current meds provided coty/Maritza Tomlinson M.D. July 01, 2017 15:28
--- NOTE | 2017-07-01 15:28 | General Progress Note ---
Assessment/Plan Status: stable, progressing Assessment/Plan mDD anxiety cont current meds provided ro/st Subjective Date patient seen: June 30, 2017 Neurologic/Psychiatric: Reports: anxiety, depressed, emotional problems Allergies: Coded Allergies: No Known Allergies (Unverified , 10/24/14) Objective Height (Feet): 5 Height (Inches): 2.00 Weight (Pounds): 106 General Appearance: no apparent distress, alert Neurologic: depressed affect Maritza López M.D. July 01, 2017 15:28
--- NOTE | 2017-07-01 15:29 | Geriatric Progress Note ---
Assessment/Plan Assessment/Plan mDD anxiety cont current meds provided ro/st Discussed with: patient Subjective Interval Events 06/29/17 Geriatric Geriatric Height (Feet): 5 Height (Inches): 2.00 Weight (Pounds): 106 Neurologic: alert, oriented x3, responsive Psychiatric Orientation: person, place, time, situation Affect: appropriate Insight: poor Maritza López M.D. July 01, 2017 15:29
--- NOTE | 2017-07-01 16:00 | Discharge Summary ---
DATE OF ADMISSION: 06/26/2017 REASON FOR ADMISSION: 1. Hyperkalemia. 2. Weakness. 3. Shortness of breath. HOSPITAL COURSE: The patient is a pleasant 72-year-old female with a history of noncompliance with dialysis sessions. Prior to her admission, the patient had missed two hemodialysis sessions and presented to the emergency room feeling tired, weak, fatigue. When it was noted that she had severe hyperkalemia with a potassium of 8, the patient was emergently hemodialyzed and dramatically improved. The patient remained here for the last four days with extra dialysis session and ultrafiltration. The patient is doing very well. Antibiotics were discontinued. Her tunneled hemodialysis catheter was removed and her AV graft is now being used. The patient did have mild diarrhea. Yesterday C. diff was negative. She is feeling better and is ready for discharge. The patient does have home health established already with and will be discharged in stable condition. DISCHARGE MEDICATIONS: At this time, the patient is to continue all her home medications with no changes at time of discharge. DISCHARGE DISPOSITION: Stable. DISCHARGE FOLLOWUP: 1. The patient to follow up with Gastroenterology. 2. The patient to follow up and maintain home health care. 3. The patient to continue her hemodialysis at her . [facility] on Friday, , and Friday. DISCHARGE DIAGNOSIS 1. Hyperkalemia 2. ESRD 3. Weakness 4. Volume Overload Marin Ramachandran MD DR: ALONSO/CORONA JOB#: [id number] CC: MAHIN
== END 2017-06-30 13:05 | disposition home health service (06) | DRG 640 ==
LOC: EDBD 05:48 → EMR 06:19 → 2E 07:47 → EDBEDREQSVC 08:18 → EDBEDREQ 10:03 → 2E 10:31
PROC: 5A1D70Z Performance of Urinary Filtration, Intermittent, Less than 6 Hours Per Day (ICD-10-PCS; principal; 2017-06-25)
PROC: 5A1D70Z Performance of Urinary Filtration, Intermittent, Less than 6 Hours Per Day (ICD-10-PCS; 2017-06-27)
PROC: 5A1D70Z Performance of Urinary Filtration, Intermittent, Less than 6 Hours Per Day (ICD-10-PCS; 2017-06-28)
PROC: 0JPVXXZ Removal of Tunneled Vascular Access Device from Upper Extremity Subcutaneous Tissue and Fascia, External Approach (ICD-10-PCS; 2017-06-28)
DX: E87.5 Hyperkalemia (principal); N18.6 End stage renal disease; I12.0 Hypertensive chronic kidney disease with stage 5 chronic kidney disease or end stage renal disease; D63.1 Anemia in chronic kidney disease; R06.02 Shortness of breath; Z99.2 Dependence on renal dialysis; R68.0 Hypothermia, not associated with low environmental temperature; Z79.02 Long term (current) use of antithrombotics/antiplatelets; Z79.4 Long term (current) use of insulin; R62.7 Adult failure to thrive; E11.22 Type 2 diabetes mellitus with diabetic chronic kidney disease; I25.10 Atherosclerotic heart disease of native coronary artery without angina pectoris; Z86.73 Personal history of transient ischemic attack (TIA), and cerebral infarction without residual deficits; Z86.19 Personal history of other infectious and parasitic diseases; R10.9 Unspecified abdominal pain; F32.9 Major depressive disorder, single episode, unspecified; F41.9 Anxiety disorder, unspecified; Z91.15 Patient's noncompliance with renal dialysis
CPT/HCPCS: 36415; 36590; 71045; 74176; 76700; 80048; 80053; 80202; 82270; 82378; 82607; 82728; 82746; 82962; 83540; 83550; 83690; 84100; 84439; 84443; 84484; 85007; 85025; 85044; 85610; 85730; 86803; 87040; 87081; 87324; 87522; 93005; 93306; 93970; 93990; 94640; 94664; 97803; 99291; J2405

== ENCOUNTER 2018-11-05 15:08 | Inpatient (IN) | payer MEDICARE, MEDICAID ==
[~2018-11-05] VITALS: Ht 157.5 cm; Wt 45.8 kg
[2018-11-05 15:33] VITALS: BP 181/83
--- NOTE | 2018-11-05 15:36 | NUR ---
ED Nurse Note: Patient came from doctor's office due to Rt upper arm AV shunt malfunctioning. pt went to dialysis center and the shunt was not working and was not able to receive it today. Rt upper shunt edema noted. per pt, that is not normal for her. pt aao x4 and ambulatory with a FWW. calm and cooperative. skin dry but intact. pt is in gown. no pressure ulcer noted. no acute distress noted at this time.
[2018-11-05 16:41] LABS: ANION GAP 14 mmol/L (5-15); BLOOD UREA NITROGEN 50 mg/dL (7-18); CALCIUM 7.9 MG/DL (8.5-10.1); CARBON DIOXIDE 25 MMOL/L (21-32); CHLORIDE 103 MMOL/L (98-107); CREATININE 6.5 MG/DL (0.55-1.30); POTASSIUM 4.3 MMOL/L (3.5-5.1); SODIUM 142 MMOL/L (136-145)
[2018-11-05 16:47] LABS: ALANINE AMINOTRANSFERASE 15 U/L (12-78); ALBUMIN 3.3 G/DL (3.4-5.0); ALBUMIN/GLOBULIN RATIO 0.8 (1.0-2.7); ALKALINE PHOSPHATASE 83 U/L (46-116); ASPARTATE AMINO TRANSFERASE 25 U/L (15-37); BILIRUBIN,TOTAL 0.4 MG/DL (0.2-1.0)
[2018-11-05 16:49] LABS: HEMATOCRIT 32.6 % (37.0-47.0); HEMOGLOBIN 11.1 G/DL (12.0-16.0); MEAN CORPUSCULAR VOLUME 87 FL (80-99); PLATELET COUNT 86 K/UL (150-450); RED BLOOD COUNT 3.73 M/UL (4.20-5.40); RED CELL DISTRIBUTION WIDTH 15.7 % (11.6-14.8); WHITE BLOOD COUNT 3.8 K/UL (4.8-10.8)
--- NOTE | 2018-11-05 17:00 | Emergency Room Report ---
History of Present Illness General Chief Complaint: General Complaint Source: Patient Present Illness HPI This patient has a history of end-stage renal disease. She had dialysis on November 03. She was due for dialysis today. When she went to the dialysis clinic today, she was sent here to the emergency department because she has swelling of her right arm which is where her AV fistula is located and also the dialysis nurse was unable to access her AV fistula. There is concern for a malfunctioning AV fistula/clotted fistula. The patient denies injury or pain. She has no other complaints. Allergies: Coded Allergies: No Known Allergies (Unverified , 10/24/14) Patient History Past Medical History: see triage record, HTN, ME, CAD, CVA/TIA, renal disease, dialysis Social History: Denies: smoking, alcohol use, drug use Reviewed Nursing Documentation: PMH: Agreed; PSxH: Agreed Nursing Documentation-PMH Past Medical History: No History, Except For Hx Cardiac Problems: Yes - Acute coronary syndrome Hx Hypertension: Yes Hx Pacemaker: No Hx Asthma: No Hx COPD: No Hx Diabetes: Yes Hx Cancer: Yes Hx Gastrointestinal Problems: No Hx Dialysis: Yes - T,TH,S Hx Neurological Problems: Yes Hx Cerebrovascular Accident: Yes Hx Transient Ischemic Attacks: Yes Hx Seizures: No Hx Speech Problem: Yes - Tongue protrusion Hx Dizziness: Yes Hx Syncope: Yes Hx Headaches: Yes Hx Weakness: Yes - BILATERAL LOWER EXTREMITIES Hx Fatigue: Yes Hx Neurologic Surgery: No Hx Brain Shunt: No Review of Systems All Other Systems: negative except mentioned in HPI Physical Exam Vital Signs Date Time Temp Pulse Resp B/P (MAP) Pulse Ox O2 Delivery O2 Flow Rate FiO2 11/05/18 15:19 98.2 87 20 181/83 (115) 96 Room Air Sp02 EP Interpretation: reviewed, normal General Appearance: no apparent distress, alert, GCS 15, non-toxic Head: normocephalic, atraumatic Eyes: bilateral eye normal inspection, bilateral eye PERRL ENT: hearing grossly normal, normal pharynx, no angioedema, normal voice, other - Tongue protruding (baseline for this patient) Neck: full range of motion, supple/symm/no masses Respiratory: chest non-tender, lungs clear, normal breath sounds, no respiratory distress, no retraction, no accessory muscle use, speaking full sentences Cardiovascular #1: regular rate, rhythm, no edema Gastrointestinal: normal bowel sounds, non tender, soft, non-distended, no guarding, no rebound Rectal: deferred Musculoskeletal: back normal, normal range of motion, non-tender, swelling - RUE swelling Neurologic: alert, oriented x3, responsive, motor strength/tone normal, sensory intact, speech normal Psychiatric: judgement/insight normal, memory normal, mood/affect normal, no suicidal/homicidal ideation Skin: no rash, normal color Medical Decision Making Diagnostic Impression: Primary Impression: Dialysis AV fistula malfunction ER Course This patient has AV fistula malfunction. She is dialysis dependent. Laboratory work-up today is stable. She is admitted for further evaluation by nephrology for dialysis. Laboratory Tests Test 11/05/18 16:00 White Blood Count 3.8 K/UL (4.8-10.8) L Red Blood Count 3.73 M/UL (4.20-5.40) L Hemoglobin 11.1 G/DL (12.0-16.0) L Hematocrit 32.6 % (37.0-47.0) L Mean Corpuscular Volume 87 FL (80-99) Mean Corpuscular Hemoglobin 29.9 PG (27.0-31.0) Mean Corpuscular Hemoglobin Concent 34.1 G/DL (32.0-36.0) Red Cell Distribution Width 15.7 % (11.6-14.8) H Platelet Count 86 K/UL (150-450) L Mean Platelet Volume 6.6 FL (6.5-10.1) Neutrophils (%) (Auto) % (45.0-75.0) Lymphocytes (%) (Auto) % (20.0-45.0) Monocytes (%) (Auto) % (1.0-10.0) Eosinophils (%) (Auto) % (0.0-3.0) Basophils (%) (Auto) % (0.0-2.0) Neutrophils % (Manual) Pending Lymphocytes % (Manual) Pending Platelet Estimate Pending Platelet Morphology Pending Sodium Level 142 MMOL/L (136-145) Potassium Level 4.3 MMOL/L (3.5-5.1) Chloride Level 103 MMOL/L (98-107) Carbon Dioxide Level 25 MMOL/L (21-32) Anion Gap 14 mmol/L (5-15) Blood Urea Nitrogen 50 mg/dL (7-18) H Creatinine 6.5 MG/DL (0.55-1.30) H Estimate Glomerular Filtration Rate mL/min (>60) Glucose Level 93 MG/DL (74-106) Calcium Level 7.9 MG/DL (8.5-10.1) L Total Bilirubin 0.4 MG/DL (0.2-1.0) Aspartate Amino Transferase (AST) 25 U/L (15-37) Alanine Aminotransferase (ALT) 15 U/L (12-78) Alkaline Phosphatase 83 U/L (46-116) Total Protein 7.3 G/DL (6.4-8.2) Albumin 3.3 G/DL (3.4-5.0) L Globulin 4.0 g/dL Albumin/Globulin Ratio 0.8 (1.0-2.7) L Last Vital Signs Date Time Temp Pulse Resp B/P (MAP) Pulse Ox O2 Delivery O2 Flow Rate FiO2 11/05/18 15:33 98.2 89 20 181/83 96 Room Air Disposition: ADMITTED INPATIENT Condition: Serious Bhavya Brito DO Nov 05, 2018 17:00
--- NOTE | 2018-11-05 17:09 | NUR ---
ED Nurse Note: lab was called for PT/PTT drawn.
--- NOTE | 2018-11-05 17:25 | NUR ---
ED Nurse Note: lab technitian attempting to draw PT/PTT.
[2018-11-05 17:55] LABS: INR 1.1 (0.9-1.1)
--- NOTE | 2018-11-05 18:28 | NUR ---
ED Nurse Note: belonging list done. pt's own medication given to pharmacy. Valentin received it.
--- NOTE | 2018-11-05 19:06 | NUR ---
ED Nurse Note: Received report from Carlin MUNGUIA.
--- NOTE | 2018-11-05 19:07 | NUR ---
HAND-OFF: Report given to EZRA Lujan. swabs need to be done. no orders to carry at this time.
[2018-11-05 19:12] VITALS: BP 160/75
--- NOTE | 2018-11-05 21:00 | NUR ---
TRANSFER TO FLOOR: Patient transferred to [facility] unit. Report given to Meseret MUNGUIA. alert and oriented x4, verbally responsive. Afebrile. Has IV line on left forearm 22g. Breathing even and unlabored. VSS.
[2018-11-05 21:30] VITALS: BP 177/97
--- NOTE | 2018-11-05 22:14 | NUR ---
NURSE NOTES: Received report from EZRA Cespedes from ER. Patient arrived by margarette at 2105. Patient is awake and alert x3. Belongings list signed and went over with patient. Patient has no c/o pain at this time. On room air with no signs of distress or SOB. Skin is intact, but right upper arm swollen with some scabbing on the AV fistula site. IV is intact, Bed is locked and in lowest position with bed alarm activated. Contacted Dr. Alford for admission orders. Waiting for call back. VS: BP-177/97 HR-83 02-96% Temp-97.8 RR-20 Will continue to monitor the patient.
[2018-11-05] MEDS ORDERED: HYDROcodone/Acetamin 10/325 tab ORAL PRN (23:45)
[2018-11-06] VITALS (33 sets, daily range): BP systolic 132–169; BP diastolic 69–88
--- NOTE | 2018-11-06 | NUR ---
NURSE NOTES: Spoke with Dr. Alford regarding admission orders. Orders in and carried out.
--- NOTE | 2018-11-06 01:19 | NUR ---
NURSE NOTES: Patient's blood pressure noted to be 169/84. Administered Clonidine PRN 0.1mg. Will continue to monitor the patient.
[2018-11-06] MEDS: HydrALAZINE 50mg tab ORAL SCH ×3 (06:05→22:00)
[2018-11-06 07:14] LABS: HEMATOCRIT 30.6 % (37.0-47.0); HEMOGLOBIN 9.7 G/DL (12.0-16.0); MEAN CORPUSCULAR VOLUME 93 FL (80-99); PLATELET COUNT 103 K/UL (150-450); RED CELL DISTRIBUTION WIDTH 16.5 % (11.6-14.8); WHITE BLOOD COUNT 3.4 K/UL (4.8-10.8)
--- NOTE | 2018-11-06 07:30 | NUR ---
NURSE NOTES: Received pt from EZRA ORTEGA. pt is alert and orient x4. pt is in RA, no SOB or acute respiratory distress noted. pt has intact iv access L wrist 22g SL. Pt is complaining of pureed food, Dr RODRIGUES notified and changed diet to Renal diet with no modification. noted and carried out. pt has R arm is swollen. all needs attended, bed is locked and is in the lowest position. call light within easy reach. will continue to monitor.
--- NOTE | 2018-11-06 07:39 | NUR ---
HAND-OFF: Report given to EZRA Steele.
[2018-11-06 07:43] LABS: ALANINE AMINOTRANSFERASE 14 U/L (12-78); ALBUMIN 2.9 G/DL (3.4-5.0); ALBUMIN/GLOBULIN RATIO 0.8 (1.0-2.7); ALKALINE PHOSPHATASE 70 U/L (46-116); ANION GAP 14 mmol/L (5-15); ASPARTATE AMINO TRANSFERASE 19 U/L (15-37); BILIRUBIN,TOTAL 0.4 MG/DL (0.2-1.0); BLOOD UREA NITROGEN 56 mg/dL (7-18); CALCIUM 7.6 MG/DL (8.5-10.1); CARBON DIOXIDE 24 MMOL/L (21-32); CHLORIDE 103 MMOL/L (98-107); CREATININE 7.2 MG/DL (0.55-1.30); PHOSPHORUS 3.6 MG/DL (2.5-4.9); POTASSIUM 4.4 MMOL/L (3.5-5.1); SODIUM 141 MMOL/L (136-145)
[2018-11-06 07:45] LABS: INR 1.1 (0.9-1.1)
[2018-11-06] MEDS: Aspirin Baby 81mg ORAL SCH (08:43)
[2018-11-06] MEDS: Metoprolol Tartrate 50mg tab ORAL SCH ×2 (08:43→18:12)
--- NOTE | 2018-11-06 12:35 | Consultation ---
History of Present Illness General Date patient seen: Nov 06, 2018 Chief Complaint: General Complaint Reason for Consultation: inpatient management Present Illness HPI 73 year old female with hx of end-stage renal disease, DM, HTN, frailty presented to ER swelling of her right arm. She was due for dialysis today. When she went to the dialysis clinic today, she was sent here to the emergency department because she has swelling of her right arm which is where her AV fistula is located and also the dialysis nurse was unable to access her AV fistula. There is concern for a malfunctioning AV fistula/clotted fistula. Pt is admitted for further management. Allergies: Coded Allergies: No Known Allergies (Unverified , 10/24/14) Medication History Scheduled Amlodipine Besylate (Norvasc), 10 MG ORAL DAILY, (Reported) Aspirin* (Aspir 81*), 81 MG ORAL DAILY, (Reported) Clopidogrel* (Clopidogrel*), 75 MG ORAL DAILY, (Reported) Hydralazine HCl (Hydralazine HCl), 50 MG ORAL Q8HR Metoprolol Tartrate* (Metoprolol Tartrate*), 50 MG ORAL BID Scheduled PRN Acetaminophen (Tylenol), 650 MG ORAL Q6H PRN for Prn Pain/Headache/Temp > 101 Clonidine Hcl (Clonidine Hcl), 0.1 MG PO EVERY 6 HOURS PRN for For High Blood Pressure, (Reported) Discontinued Medications Hydrochlorothiazide* (Hydrochlorothiazide*), Unknown Dose ORAL DAILY, (Reported) Discontinued Reason: Therapy completed Loratadine (Loratadine), 10 MG PO DAILY PRN for Itching, (Reported) Discontinued Reason: Therapy completed Sitagliptin* (Januvia*), 25 MG ORAL DAILY, (Reported) Discontinued Reason: Therapy completed Patient History Healthcare decision maker Resuscitation status Advanced Directive on File Past Medical/Surgical History Past Medical/Surgical History: (1) DM (diabetes mellitus) (2) ESRD (end stage renal disease) on dialysis (3) Hypertension (4) Failure to thrive in adult (5) Seizure disorder, complex partial (6) Internal hemorrhoid (7) Tubular adenoma of colon (8) Unable to ambulate (9) Congestive heart failure (CHF) Review of Systems All Other Systems: negative except mentioned in HPI Physical Exam General Appearance: WD/WN, no apparent distress Lines, tubes and drains: peripheral HEENT: normocephalic, atraumatic Neck: non-tender, normal alignment Respiratory/Chest: chest wall non-tender, lungs clear Cardiovascular/Chest: normal peripheral pulses, normal rate Genitourinary/Rectal: normal genital exam Extremities: normal range of motion Last 24 Hour Vital Signs Date Time Temp Pulse Resp B/P (MAP) Pulse Ox O2 Delivery O2 Flow Rate FiO2 11/06/18 12:00 98.4 89 19 135/82 (99) 98 11/06/18 08:43 80 154/82 11/06/18 08:43 80 154/82 11/06/18 08:00 98.1 80 19 154/82 (106) 96 11/06/18 06:05 156/87 11/06/18 04:00 97.8 67 20 145/78 (100) 95 11/06/18 01:16 169/84 11/06/18 00:00 97.9 81 20 169/84 (112) 95 11/06/18 00:00 97.9 81 20 169/84 (112) 95 11/05/18 21:39 Room Air 11/05/18 21:30 97.8 83 20 177/97 (123) 99 11/05/18 21:00 78 19 140/88 99 Room Air 11/05/18 19:12 98.4 90 19 160/75 97 Room Air 11/05/18 15:33 98.2 89 20 181/83 96 Room Air 11/05/18 15:33 87 20 Room Air 11/05/18 15:19 98.2 87 20 181/83 (115) 96 Room Air Intake and Output 11/05/18 11/06/18 19:00 07:00 Intake Total 0 ml Balance 0 ml Intake Oral 0 ml # Bowel Movements 1 Laboratory Tests Test 11/05/18 16:00 11/05/18 17:40 11/06/18 05:24 White Blood Count 3.8 K/UL (4.8-10.8) L 3.4 K/UL (4.8-10.8) L Red Blood Count 3.73 M/UL (4.20-5.40) L 3.30 M/UL (4.20-5.40) L Hemoglobin 11.1 G/DL (12.0-16.0) L 9.7 G/DL (12.0-16.0) L Hematocrit 32.6 % (37.0-47.0) L 30.6 % (37.0-47.0) L Mean Corpuscular Volume 87 FL (80-99) 93 FL (80-99) Mean Corpuscular Hemoglobin 29.9 PG (27.0-31.0) 29.5 PG (27.0-31.0) Mean Corpuscular Hemoglobin Concent 34.1 G/DL (32.0-36.0) 31.8 G/DL (32.0-36.0) L Red Cell Distribution Width 15.7 % (11.6-14.8) H 16.5 % (11.6-14.8) H Platelet Count 86 K/UL (150-450) L 103 K/UL (150-450) L Mean Platelet Volume 6.6 FL (6.5-10.1) 8.1 FL (6.5-10.1) Neutrophils (%) (Auto) % (45.0-75.0) % (45.0-75.0) Lymphocytes (%) (Auto) % (20.0-45.0) % (20.0-45.0) Monocytes (%) (Auto) % (1.0-10.0) % (1.0-10.0) Eosinophils (%) (Auto) % (0.0-3.0) % (0.0-3.0) Basophils (%) (Auto) % (0.0-2.0) % (0.0-2.0) Differential Total Cells Counted 100 100 Neutrophils % (Manual) 65 % (45-75) 56 % (45-75) Lymphocytes % (Manual) 24 % (20-45) 32 % (20-45) Monocytes % (Manual) 7 % (1-10) 7 % (1-10) Eosinophils % (Manual) 4 % (0-3) H 5 % (0-3) H Basophils % (Manual) 0 % (0-2) 0 % (0-2) Band Neutrophils 0 % (0-8) 0 % (0-8) Platelet Estimate Decreased L Decreased L Platelet Morphology Normal Normal Hypochromasia 1+ Anisocytosis 1+ 1+ Sodium Level 142 MMOL/L (136-145) 141 MMOL/L (136-145) Potassium Level 4.3 MMOL/L (3.5-5.1) 4.4 MMOL/L (3.5-5.1) Chloride Level 103 MMOL/L (98-107) 103 MMOL/L (98-107) Carbon Dioxide Level 25 MMOL/L (21-32) 24 MMOL/L (21-32) Anion Gap 14 mmol/L (5-15) 14 mmol/L (5-15) Blood Urea Nitrogen 50 mg/dL (7-18) H 56 mg/dL (7-18) H Creatinine 6.5 MG/DL (0.55-1.30) H 7.2 MG/DL (0.55-1.30) H Estimat Glomerular Filtration Rate mL/min (>60) mL/min (>60) Glucose Level 93 MG/DL (74-106) 65 MG/DL (74-106) L Calcium Level 7.9 MG/DL (8.5-10.1) L 7.6 MG/DL (8.5-10.1) L Total Bilirubin 0.4 MG/DL (0.2-1.0) 0.4 MG/DL (0.2-1.0) Aspartate Amino Transf (AST/SGOT) 25 U/L (15-37) 19 U/L (15-37) Alanine Aminotransferase (ALT/SGPT) 15 U/L (12-78) 14 U/L (12-78) Alkaline Phosphatase 83 U/L (46-116) 70 U/L (46-116) Total Protein 7.3 G/DL (6.4-8.2) 6.5 G/DL (6.4-8.2) Albumin 3.3 G/DL (3.4-5.0) L 2.9 G/DL (3.4-5.0) L Globulin 4.0 g/dL 3.6 g/dL Albumin/Globulin Ratio 0.8 (1.0-2.7) L 0.8 (1.0-2.7) L Prothrombin Time 12.1 SEC (9.30-11.50) H 12.0 SEC (9.30-11.50) H Prothromb Time International Ratio 1.1 (0.9-1.1) 1.1 (0.9-1.1) Activated Partial Thromboplast Time 38 SEC (23-33) H Phosphorus Level 3.6 MG/DL (2.5-4.9) Magnesium Level 1.9 MG/DL (1.8-2.4) Microbiology Date/Time Source Procedure Growth Status 11/05/18 21:41 Rectum Received Height (Feet): 5 Height (Inches): 2.00 Weight (Pounds): 100 Medications Current Medications Medications (Trade) Dose Ordered Sig/Sarwat Route PRN Reason Start Time Stop Time Status Last Admin Dose Admin Acetaminophen (Tylenol) 650 mg Q6H PRN ORAL Mild Pain/Temp > 100.5 11/05/18 23:45 12/05/18 23:44 Acetaminophen/ Hydrocodone Bitart ([place] 10/325) 1 tab Q6H PRN ORAL Pain Scale (6-10) 11/05/18 23:45 11/12/18 23:44 Amlodipine Besylate (Norvasc) 10 mg DAILY ORAL 11/06/18 09:00 12/06/18 08:59 11/06/18 08:43 Aspirin (ASA) 81 mg DAILY ORAL 11/06/18 09:00 12/06/18 08:59 11/06/18 08:43 Clonidine HCl (Catapres Tab) 0.1 mg Q6H PRN ORAL For High Blood Pressure 11/05/18 23:45 12/05/18 23:44 11/06/18 01:16 Hydralazine HCl (Apresoline) 50 mg Q8HR ORAL 11/06/18 06:00 12/06/18 05:59 11/06/18 06:05 Metoprolol Tartrate (Lopressor) 50 mg BID ORAL 11/06/18 09:00 12/06/18 08:59 11/06/18 08:43 Ondansetron HCl (Zofran) 4 mg Q4H PRN IVP Nausea & Vomiting 11/05/18 23:45 12/05/18 23:44 Assessment/Plan Problem List: (1) Dialysis AV fistula malfunction ICD Codes: T82.590A - Other mechanical complication of surgically created arteriovenous fistula, initial encounter SNOMED: 324135997 (2) Seizure disorder, complex partial ICD Codes: G40.209 - Seizure disorder, complex partial SNOMED: 550565582 (3) Diverticulosis ICD Codes: K57.90 - Diverticulosis SNOMED: 368974374 (4) Hypertension ICD Codes: I10 - Hypertension SNOMED: 59764095 (5) ESRD (end stage renal disease) on dialysis ICD Codes: N18.6 - ESRD (end stage renal disease) on dialysis; Z99.2 - Dependence on renal dialysis SNOMED: 645637453 (6) DM (diabetes mellitus) ICD Codes: E11.9 - Type 2 diabetes mellitus without complications SNOMED: 60031574 Assessment/Plan: vascular evaluation renal to see sliding scale diabetic and renal diet monitor BP and BS symptomatic treatment dvt prophylaxis Prasad Lopes MD Nov 06, 2018 12:35
--- NOTE | 2018-11-06 13:16 | NUR ---
NURSE NOTES: RN pulled out HYDRALAZINE from [facility]xes but pt refused med at this moment. HYDRALAZINE returned to [facility].
[2018-11-06] MEDS ORDERED: Heparin Sod 1000 units/ml 10ml INJ PRN ×2 (13:42→14:40)
[2018-11-06] MEDS ORDERED: Lidocaine 2% 20mg/ml/Epi 0.005mg/ml 20ml vial INJ PRN (13:42)
[2018-11-06] MEDS ORDERED: Heparin1,000 units/500ml Premix(Conc:2 units/ml) INJ PRN ×2 (13:42→14:40)
[2018-11-06] MEDS ORDERED: ceFAZolin sod 1 GM in D5W 55 ML IVPB SCH (13:48)
[2018-11-06] MEDS ORDERED: Lidocaine 2% 20mg/ml/EPI 0.01mg/ml 20ml INJ ONE (14:00)
--- NOTE | 2018-11-06 14:13 | Consultation ---
Consult Note Consult Note Full nephrology consult to follow Braeden Garcia MD Nov 06, 2018 14:12
[2018-11-06] MEDS ORDERED: Heparin Sod 1000 units/ml 10ml IV PRN (14:15)
[2018-11-06] MEDS ORDERED: Omnipaue 350mg/ml 100ml vial INJ PRN (14:42)
--- NOTE | 2018-11-06 14:52 | Pre-Procedure Note/Attestation ---
Pre-Procedure Note/Attestation Complete Prior to Procedure Planned Procedure: not applicable Procedure Narrative: RUE fistuologram and possible intervention. L chest permacath exchange if necessary Attestation I attest that I discussed the nature of the procedure; its benefits; risks and complications; and alternatives (and the risks and benefits of such alternatives ), prior to the procedure, with the patient (or the patient's legal title insurance sales representative). I attest that, if there was a reasonable possibility of needing a blood transfusion, the patient (or the patient's legal title insurance sales representative) was given the [facility] standardized written summary, pursuant to the [employer] Blood Safety Act ([place] Health and Safety Code # 1645, as amended). I attest that I re-evaluated the patient just prior to the surgery and that there has been no change in the patient's H&P, except as documented below: James Arambula MD Nov 06, 2018 14:52
--- NOTE | 2018-11-06 14:55 | NUR ---
RD ASSESSMENT & RECOMMENDATIONS SEE CARE ACTIVITY FOR COMPLETE ASSESSMENT DAILY ESTIMATED NEEDS: Needs based on DM, ESRD on HD, Cardiac (50kg) 30-35 kcals/kg 9828-8888 total kcals 1.2-1.8 g protein/kg 60-90 g total protein 20-25 mL/kg 4579-8635 total fluid mLs NUTRITION DIAGNOSIS: Increased kcal & protein needs R/T kidney dysfunction as evidenced by ESRD dx, on HD. CURRENT DIET:RENAL PO DIET RECOMMENDATIONS: RENAL (Texture as tolerated) ADDITIONAL RECOMMENDATIONS: * Obtain dry wt post HD * Nephrovite 1 tab daily on HD * Monitor for hypoglycemia -> Rec HS snack to prevent hypoglycemia * Monitor lytes adn renal fxn
--- NOTE | 2018-11-06 15:15 | NUR ---
NURSE NOTES: Received dialysis order from Dr GONZALEZ for today, called [facility] but they refused to come and stated they don't work with [facility] any more. Dr GONZALEZ notified and ordered to call [facility] dialysis, called and spoke with APOLINAR, answering service. will continue to monitor.
--- NOTE | 2018-11-06 15:16 | NUR ---
FINISHER SPECIAL STOCKSENTRY LEVEL RECEPTIONIST 73 YO FEMALE FROM DOCTORS OFFICE TO ER CC HD ACCESS NOT WORKING SI: MALFUNCTION HD ACCESS T. 98.3 HR 81 RR 20 B/P 181/83 WBC 3.8 PLT 86 BUN 50 CR. 6.5 DOPPLER STUDY IS: ADMITTED TO MED/SURG MED/SURG STATUS DCP PENDING HOSPITAL STAY
--- NOTE | 2018-11-06 16:39 | Brief Operative Note ---
Immediate Post Operative Note Operative Note Chief Complaint: R arm swelling Pre-op Diagnosis: Malfunctioning AV fistula Procedure: 1. RUE fistuoloram and R subclavian vein angioplasty 2. Exchange L chest permacath Post-op Diagnosis: same Findings: consistent w/pre-op dx studies Surgeon: Rosamaria Cui Anesthesia: local Specimen: yes - Old permacath sent to pathology for gross Complications: none Condition: stable Fluids: none Implant(s) used?: No James Cui MD Nov 06, 2018 16:39
--- NOTE | 2018-11-06 17:00 | NUR ---
NURSE NOTES: pt backed, is stable. dressing is intact. BP is high will give BP meds. will continue to monitor.
--- NOTE | 2018-11-06 17:33 | Diagnostic Imaging Report ---
INDICATION: Right upper extremity swelling and malfunctioning AV fistula TECHNIQUE: Informed consent obtained prior to commencement of the procedure. Procedure timeout performed. Total sterile technique, including sterile gloves and hand hygiene, hat, mask, sterile gown, large sterile drape, and preparation with 2% chlorhexidine utilized. Ultrasound yielded patent compressible right upper extremity AV fistula. Local anesthesia with 1% lidocaine. Antegrade puncture juxta anastomotic segment using 21-gauge needle, passage 0.018 guidewire, insertion 4 Angolan micropuncture introducer. Multistation digital mammography performed. This demonstrates and approximately 50% diameter stenosis at the subclavian vein. A 0.035 guidewire was inserted, followed by insertion of a 6 Angolan sheath. A [facility] catheter was used to manipulate a guidewire across the subclavian stenosis. Care was taken to avoid going through the lumen of the previously placed stent and not through the struts. The catheter and guidewire were then directed into the inferior vena cava. 8 mm by 40 mm Bard Willard balloon catheter was then used to dilate the subclavian stenosis. The balloon did not fully deflated, and could not successfully removed through the sheath. The deflated balloon and sheath were removed as a unit and due to the larger pole created by the withdrawn balloon, the sheath was replaced by a 7 Angolan sheath. This was still of insufficient size to prevent bleeding so it was replaced by a 9 Angolan sheath. Follow-up fistulography performed, demonstrating some improvement and decreased collateral flow. However, some residual stenosis was noted, so the lesion was redilated with a 10 mm balloon. Aorta then optimal to place an open cell stent, but none was available at the time of the procedure. Nonetheless, flow appeared somewhat improved through the subclavian vein. This was deemed acceptable. The catheters and guidewires were withdrawn. The puncture site was closed with a monofilament U suture. The patient tolerated the procedure well, without immediate complication. Fluoroscopy time: 340.4 seconds Total dose: 0.78774 mGym2 Total number of images: 7 COMPARISON: None FINDINGS: Initial fistulogram demonstrates widely patent central fistula and outflow. A stent is seen in the outflow vein which appears patent except for very minimal stenoses at the proximal and distal ends. As mentioned earlier, there is approximately 50% diameter stenosis of the junction of the subclavian and trachea cephalic veins. A stent is seen within the brachiocephalic vein, with the largest degree of stenosis at the proximal end of the stent. The brachiocephalic vein and superior vena cava are otherwise widely patent. A tunneled dialysis catheter comes in from the left side. Completion imaging demonstrates improved appearance of the brachiocephalic stenosis, with decreased collateral flow as compared to the predilatation images. 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 Successful angioplasty of such using 10 mm balloon catheter. Recommend attempting to use fistula for dialysis. If unable to use then recommend dialysis using permacath Procedure and findings discussed by phone with Dr. Garcia at the conclusion of the procedure
--- NOTE | 2018-11-06 17:37 | Diagnostic Imaging Report ---
INDICATION: Malfunctioning permacath. Patient status post angioplasty for malfunctioning right upper extremity AV fistula. Permacath replacement performed should fistula access remain unsuccessful TECHNIQUE: Informed consent obtained prior to commencement of the procedure. Procedure timeout previously performed. Total sterile technique, including sterile gloves and hand hygiene, hat, mask, sterile gown, large sterile drape, and preparation with 2% chlorhexidine utilized. Using blunt dissection, the cuff of the previous catheter was freed from the surrounding tissue. A hydrophilic guidewire was inserted under fluoroscopic supervision and the previous catheter was removed. A new 28 cm length palindrome catheter was then inserted over the guidewire and positioned appropriately, tip in the high right atrium. The guidewire and stiffeners were removed. The catheter was fixed to the skin The patient tolerated the procedure well, without immediate complication. . Fluoroscopy time: 162 seconds Total dose: 0.66306 mGym2 Total number of images: 13 COMPARISON: None FINDINGS: Conclusion image demonstrates satisfactory position of the new tunneled dialysis catheter, tip at the level of the high right atrium, no kinking at the insertion site. IMPRESSION: Successful replacement of malfunctioning tunneled dialysis catheter, as described Please note that catheter was placed as a backup should cannulation of the right upper extremity AV fistula continue to be unsuccessful. Should the fistula function adequately for dialysis, this catheter could be removed
--- NOTE | 2018-11-06 17:44 | History & Physical ---
History and Physical History & Physicial Fidel Alford MD Nov 06, 2018 17:44
--- NOTE | 2018-11-06 19:52 | NUR ---
NURSE NOTES: Pt received in bed, permacath on left upper chest, Dialysis starting and fistula is being used, no c/o pain or signs of distress, will continue to monitor.
--- NOTE | 2018-11-06 20:00 | History and Physical Report ---
DATE OF ADMISSION: 11/05/2018 CHIEF COMPLAINT: Right upper extremity AV fistula malfunction. HISTORY OF PRESENT ILLNESS: This is a 73-year-old, very delightful female with past medical significant for hypertension, coronary artery disease with prior history of myocardial infarction, history of CVA with TIA, end-stage renal disease on hemodialysis, status post AV fistula placement on the right upper extremity, who presented to the hospital from dialysis unit after was noted to have AV fistula malfunctioning. The patient's last dialysis was 11/03/2018 two days prior to admission and the patient noted that the right AV fistula was malfunctioning and subsequently the patient was referred to the emergency room for admission and possible AV fistulogram and declotting. PAST MEDICAL HISTORY/PAST SURGICAL HISTORY: As above history of coronary artery disease with prior history of myocardial infarction, CVA, TIA, end-stage renal disease on hemodialysis, hypertension. Also, she has a history of diabetes type 2. MEDICATIONS AT HOME: Amlodipine 10 mg daily, aspirin 81 mg daily, Plavix 75 mg daily, hydralazine 50 mg q.8 hours, metoprolol 50 mg daily. ALLERGIES: No known drug allergies. SOCIAL HISTORY: No smoking, alcohol, or drugs. Lives at home with family member. FAMILY HISTORY: Noncontributory. REVIEW OF SYSTEMS: Mostly as above. Denies any dysuria, frequency, hematuria. The patient has a history of failure to thrive in the past as well as internal hemorrhoids. Denies any hemoptysis or hematochezia. Denies any bright red blood per rectum. Denies any loss of consciousness. PHYSICAL EXAMINATION: VITAL SIGNS: On admission, temperature 98.2, pulse of 87, respirations 20, blood pressure 180/83, repeat one is 135/82. GENERAL: The patient is awake, responsive, no acute distress. HEAD AND NECK: Pupils are reactive to light. Extraocular movements intact. NECK: Supple. No JVD. LUNGS: Good air entry. No wheezing or rales. HEART: S1, S2. Regular rhythm. Systolic ejection murmur at the left sternal border. ABDOMEN: Soft, nondistended, nontender. Positive bowel sounds. EXTREMITIES: No cyanosis, clubbing, edema. Right upper extremity has AV fistula without a thrill, malfunction. NEUROLOGIC: Cranial nerves II through XII grossly normal. Motor is 5/5 in all extremities. Gait is intact. RECTAL: Refused and deferred. GENITOURINARY: Refused and deferred. PSYCHIATRIC: Mood and affect is intact. LABORATORY DATA: On admission WBC of 3.8, hemoglobin 11, hematocrit 32, platelets is 86. The patient's sodium 142, potassium 4.3, chloride 103, bicarb 25, BUN 50, creatinine 6.5, calcium 7.9, glucose 93, albumin is 3.3. PT of 12, INR 1.1, PTT of 38. ASSESSMENT: 1. Right upper extremity AV fistula malfunctioning, clotted. 2. End-stage renal disease, on hemodialysis. 3. Coronary artery disease with prior history of myocardial infarction. 4. Hypertension. 5. Diabetes type 2. 6. Thrombocytopenia. PLAN: Admit the patient to medical floor. We will follow up with Dr. Braeden Garcia from Nephrology and Dr. Lopes from Pulmonary Critical Care. The patient scheduled for fistulogram to be done by Interventional Radiology. Code status Full code. DVT prophylaxis, heparin subcutaneous. Fidel Alford M.D. DR: BREANNE JOB#: [id number] CC:
--- NOTE | 2018-11-06 21:00 | Consultation ---
DATE OF CONSULTATION: 11/06/2018 NEPHROLOGY CONSULTATION CONSULTING PHYSICIAN: Braeden Garcia M.D. REFERRING PHYSICIAN: Fidel Alford M.D. REASON FOR CONSULTATION: End-stage renal disease. HISTORY OF PRESENT ILLNESS: This is a very pleasant 73-year-old female patient of Dr. Blaze Plascencia that I am covering for her end-stage renal disease, for which she is getting dialyzed 3 days a week. The last dialysis was on November 03, 2018 and she presented to the dialysis unit on November 05, 2018. Her right arm where her AV fistula is situated is very swollen and apparently, they could not do dialysis because the venous pressures on the machine were high. Subsequently, she was transferred to [facility] for further evaluation. In the emergency room, she denied any chest pain or shortness of breath. She did not seem to be in any fluid overload and electrolytes seemed to be okay. She was subsequently admitted to be able to have either AV fistula situated or having a PermCath put in place. She already has a left internal jugular PermCath, which apparently has some trouble with it. Apparently, the arterial line is bulging each time that the dialysis is made. I have been asked to see her and assess her for her hemodialysis needs. She denies, however, any chest pain or shortness of breath. No orthopnea at this point. PAST MEDICAL HISTORY: Significant for end-stage renal disease, type 2 diabetes mellitus, accelerated hypertension, anemia, pulmonary edema, hepatitis C, previous acute pancreatitis, iron-deficiency anemia, and secondary hyperparathyroidism. PAST SURGICAL HISTORY: Status post cholecystectomy, status post right arm AV fistula creation, and status post multiple PermCath placements. She currently has a left internal jugular PermCath in place. FAMILY HISTORY: Noncontributory. SOCIAL HISTORY: She is . Does not smoke. Does not drink alcohol. MEDICATIONS: Prior to admission has been on amlodipine 10 mg p.o. daily, aspirin 81 mg p.o. daily, clonidine 0.1 mg p.o. q.8 hours, hydralazine 50 mg p.o. b.i.d., metoprolol-XL 50 mg p.o. daily, and Januvia 25 mg p.o. daily. SYSTEM REVIEW: GENERAL: She denies any chills or fever. CARDIOVASCULAR: Denies any chest pain, dyspnea with exertion, or orthopnea. SKIN: Denies any rash or photosensitivity. MUSCULOSKELETAL: Denies any arthralgia or myalgia. GENITOURINARY: She is anuric, on hemodialysis. GASTROINTESTINAL: Denies any nausea, vomiting, melena, or hematochezia. SKIN: Denies any rash or photosensitivity. HEMATOLOGICAL: Denies any easy bruising or easy bleeding. NEUROLOGIC: Denies any paresthesia, muscle weakness, diplopia or seizure. ENDOCRINE: Blood sugars in the range of 150. RESPIRATORY: Denies any cough, purulent sputum production, hemoptysis, or wheezing. The remainder of the review of the systems has been essentially negative. PHYSICAL EXAMINATION: GENERAL: She does not seem to be in much acute distress, lying down in bed flat. VITAL SIGNS: Blood pressure 80s 154/82, pulse of 80, respirations 19, and temperature 98.4. HEENT: Head is atraumatic. Eyes, pupils reactive to light. No evidence of papilledema. Ears, canals are clear. Tympanic membranes are intact. Nose, nares are patent without any nasal discharge. Throat without inflammation or exudate. NECK: Supple. Jugular venous distention is mildly increased. No cervical adenopathy. No thyromegaly. HEART: Regular rhythm. No gallop. LUNGS: Clear to auscultation. ABDOMEN: Supple. Bowel sounds positive. No hepatosplenomegaly. EXTREMITIES: Lower extremity shows no cyanosis or clubbing. 1+ pedal edema. The right arm is very swollen, however, the AV fistula has a good thrill and bruit on it. NEUROLOGICAL: Cranial nerves are intact. Deep tendon reflexes are symmetrically decreased in both lower extremities. LABORATORY DATA: Showing sodium of 141, potassium 4.4, chloride 103, carbon dioxide 24, BUN is 56, creatinine 7.2, glucose is 65, calcium 7.6. LFTs within normal range. Albumin is 2.9. CBC shows WBC of 3.4, hemoglobin 9.7, hematocrit 30.6, and platelets of 103,000. IMPRESSION: 1. Malfunctioning right arm AV fistula with swelling of the arm. I am suspecting venous anastomosis and stenosis. 2. End-stage renal disease. 3. She does not seem to be in CHF at this point. 4. Hypertension. 5. Type 2 diabetes mellitus. PLAN: I talked with the Interventional Radiology here at the [facility]. She is going to have her AV fistulogram and possible angioplasty of the venous anastomosis of the right arm AV fistula and eventually arrange for hemodialysis today with some fluid removal about 2.5 liter is going to be removed. In the case that the fistula is not able to be repaired, probably a PermCath needs to be exchanged since the preexisting PermCath is apparently also not functional. Braeden Garcia M.D. DR: MARTIN JOB#: [id number] CC:
[2018-11-07] VITALS: BP 151/71
[2018-11-07 04:00] VITALS: BP 158/81
[2018-11-07] MEDS: HydrALAZINE 50mg tab ORAL SCH ×3 (05:29→21:04)
--- NOTE | 2018-11-07 06:20 | NUR ---
NURSE NOTES: Set up SCDs to put on patient and she refused to have them put on her legs.
--- NOTE | 2018-11-07 07:23 | NUR ---
HAND-OFF: Report given to EZRA Steele.
--- NOTE | 2018-11-07 07:30 | NUR ---
NURSE NOTES: Received pt from EZRA MAGAÑA. pt is alert and orient x4. pt is in RA, no SOB or acute respiratory distress noted. pt has intact iv access L wrist 22g SL. Pt is eating breakfast independently. pt' R arm is swollen. all needs attended, bed is locked and is in the lowest position. call light within easy reach. will continue to monitor.
[2018-11-07 08:00] VITALS: BP 131/63
[2018-11-07] MEDS: Metoprolol Tartrate 50mg tab ORAL SCH ×2 (08:37→17:17)
[2018-11-07] MEDS: Aspirin Baby 81mg ORAL SCH (08:37)
--- NOTE | 2018-11-07 09:15 | Pulmonology Progress Note ---
Assessment/Plan Assessment/Plan ASSESSMENT malfunctioning AV fistual, s/p fistulogram and Perma cath exchange ESRD, on HD DM HTN thrombocytopenia anemia of chronic kidney disease seizure disorder CAD with hx of [place] [facility] CARE [place] floor s/p fistulogram and perm catheter exchange ( in case AV fistula not works) HD done last night, AV fistula functioning Duplex RUE- no DVT HD as per nephro monitor volumes, renal parameters, lytes BP management with BBB, CCB. Hydralazine and optimize further as needed continue ASA SCD , no heparin due to thrombocytopenia, PLT count improving seizure precautions, BS management monitor HH with goal to keep Hgb above 7 dc plan case discussed and evaluated by supervising physician Subjective Allergies: Coded Allergies: No Known Allergies (Unverified , 10/24/14) Subjective had HD last night via RUE fistula ( working after fistulogram) no SOB, no chest pain Objective Last 24 Hour Vital Signs Date Time Temp Pulse Resp B/P (MAP) Pulse Ox O2 Delivery O2 Flow Rate FiO2 11/07/18 08:37 75 131/63 11/07/18 08:37 75 131/63 11/07/18 08:00 98.7 75 17 131/63 (85) 100 11/07/18 05:29 145/68 11/07/18 04:00 97.6 71 20 158/81 (106) 99 11/07/18 00:00 97.3 65 20 151/71 (97) 96 11/06/18 22:00 120/60 11/06/18 19:00 157/75 (102) 11/06/18 18:12 76 169/88 11/06/18 18:12 169/88 11/06/18 16:40 66 19 157/73 (101) 97 11/06/18 16:35 66 19 156/74 (101) 96 11/06/18 16:30 66 19 156/80 (105) 97 11/06/18 16:25 66 19 156/77 (103) 98 11/06/18 16:20 66 19 153/77 (102) 98 11/06/18 16:15 67 19 151/77 (101) 97 11/06/18 16:10 66 19 151/69 (96) 98 11/06/18 16:05 71 19 157/82 (107) 98 11/06/18 16:00 69 20 150/77 (101) 99 11/06/18 16:00 98.1 76 18 169/88 (115) 99 11/06/18 15:55 65 19 146/72 (96) 100 11/06/18 15:50 63 20 156/78 (104) 99 11/06/18 15:45 62 19 153/77 (102) 97 11/06/18 15:40 64 18 154/73 (100) 98 11/06/18 15:35 63 20 164/87 (112) 97 11/06/18 15:30 65 19 149/78 (101) 99 11/06/18 15:25 65 20 148/77 (100) 98 11/06/18 15:20 65 19 145/73 (97) 97 11/06/18 15:15 68 18 152/80 (104) 96 11/06/18 15:10 67 20 138/74 (95) 96 11/06/18 15:05 84 18 134/82 (99) 99 11/06/18 15:00 85 20 137/84 (101) 99 11/06/18 14:55 81 22 140/87 (104) 98 11/06/18 14:50 76 20 135/84 (101) 97 11/06/18 14:45 85 19 136/81 (99) 98 11/06/18 14:40 80 20 138/79 (98) 99 11/06/18 14:35 79 18 133/81 (98) 98 11/06/18 14:30 77 18 132/80 (97) 99 11/06/18 13:50 66 18 11/06/18 12:00 98.4 89 19 135/82 (99) 98 Intake and Output 11/06/18 11/07/18 18:59 06:59 Output Total 5000 ml Balance -5000 ml Output Hemodialysis UF 5000 ml General Appearance: no acute distress, cachetic, other - bedridxen AA female HEENT: normocephalic, atraumatic, anicteric, mucous membranes moist Respiratory/Chest: lungs clear - with moderate air exchange , other - left chest perma cath Cardiovascular: normal peripheral pulses, normal rate, other - RUE AV fistual+ bruit/thrill Abdomen: normal bowel sounds, soft, non tender Extremities: no edema, pedal pulses normal Neurologic/Psychiatric: alert, responsive Musculoskeletal: atrophy Microbiology Date/Time Source Procedure Growth Status 11/05/18 21:41 Rectum Received Current Medications Medications (Trade) Dose Ordered Sig/Sarwat Route PRN Reason Start Time Stop Time Status Last Admin Dose Admin Acetaminophen (Tylenol) 650 mg Q6H PRN ORAL Mild Pain/Temp > 100.5 11/05/18 23:45 12/05/18 23:44 Acetaminophen/ Hydrocodone Bitart ([place] 10/325) 1 tab Q6H PRN ORAL Pain Scale (6-10) 11/05/18 23:45 11/12/18 23:44 Amlodipine Besylate (Norvasc) 10 mg DAILY ORAL 11/06/18 09:00 12/06/18 08:59 11/07/18 08:37 Aspirin (ASA) 81 mg DAILY ORAL 11/06/18 09:00 12/06/18 08:59 11/07/18 08:37 Clonidine HCl (Catapres Tab) 0.1 mg Q6H PRN ORAL For High Blood Pressure 11/05/18 23:45 12/05/18 23:44 11/06/18 18:12 Heparin Sodium (Porcine) (Heparin Sod 1000 units/ml 10ml) 2,000 unit ONCE PRN IV FOR HD USE ONLY 11/06/18 14:15 11/08/18 23:59 Hydralazine HCl (Apresoline) 50 mg Q8HR ORAL 11/06/18 06:00 12/06/18 05:59 11/07/18 05:29 Metoprolol Tartrate (Lopressor) 50 mg BID ORAL 11/06/18 09:00 12/06/18 08:59 11/07/18 08:37 Ondansetron HCl (Zofran) 4 mg Q4H PRN IVP Nausea & Vomiting 11/05/18 23:45 12/05/18 23:44 Monica Estrada NP Nov 07, 2018 09:15
--- NOTE | 2018-11-07 10:00 | NUR ---
NURSE NOTES: Dr GONZALEZ called and cleared pt to D/C. RN called Dr RODRIGUES left massage regarding D/C waiting to call back. will continue to monitor.
[2018-11-07 12:00] VITALS: BP 145/75
--- NOTE | 2018-11-07 15:03 | Internal Med Progress Note ---
Subjective Date of Service: Nov 07, 2018 Physician Name Bernard Mckeon Attending Physician Fidel Alford MD Current Medications Medications (Trade) Dose Ordered Sig/[place]wat Route PRN Reason Start Time Stop Time Status Last Admin Dose Admin Acetaminophen (Tylenol) 650 mg Q6H PRN ORAL Mild Pain/Temp > 100.5 11/05/18 23:45 12/05/18 23:44 Acetaminophen/ Hydrocodone Bitart ([place] 10/325) 1 tab Q6H PRN ORAL Pain Scale (6-10) 11/05/18 23:45 11/12/18 23:44 Amlodipine Besylate (Norvasc) 10 mg DAILY ORAL 11/06/18 09:00 12/06/18 08:59 11/07/18 08:37 Aspirin (ASA) 81 mg DAILY ORAL 11/06/18 09:00 12/06/18 08:59 11/07/18 08:37 Clonidine HCl (Catapres Tab) 0.1 mg Q6H PRN ORAL For High Blood Pressure 11/05/18 23:45 12/05/18 23:44 11/06/18 18:12 Heparin Sodium (Porcine) (Heparin Sod 1000 units/ml 10ml) 2,000 unit ONCE PRN IV FOR HD USE ONLY 11/06/18 14:15 11/08/18 23:59 Hydralazine HCl (Apresoline) 50 mg Q8HR ORAL 11/06/18 06:00 12/06/18 05:59 11/07/18 13:12 Metoprolol Tartrate (Lopressor) 50 mg BID ORAL 11/06/18 09:00 12/06/18 08:59 11/07/18 08:37 Ondansetron HCl (Zofran) 4 mg Q4H PRN IVP Nausea & Vomiting 11/05/18 23:45 12/05/18 23:44 Allergies: Coded Allergies: No Known Allergies (Unverified , 10/24/14) ROS Limited/Unobtainable: No Constitutional: Reports: no symptoms HEENT: Reports: no symptoms Cardiovascular: Reports: no symptoms Respiratory: Reports: no symptoms Gastrointestinal/Abdominal: Reports: no symptoms Genitourinary: Reports: no symptoms Neurologic/Psychiatric: Reports: no symptoms Subjective 73 YO F With end stage renal failure admitted with dialysis catheter malfunction. S/P exchange left chest port-a-cath 11/06/18. Cover for Int Med- Dr Alford, Objective Last Vital Signs Date Time Temp Pulse Resp B/P (MAP) Pulse Ox O2 Delivery O2 Flow Rate FiO2 11/07/18 13:12 145/75 11/07/18 12:00 98.6 68 18 98 11/05/18 21:39 Room Air Microbiology Date/Time Source Procedure Growth Status 11/05/18 21:41 Rectum Received Intake and Output 11/06/18 11/07/18 18:59 06:59 Output Total 5000 ml Balance -5000 ml Output Hemodialysis UF 5000 ml Objective PHYSICAL EXAMINATION: GENERAL: The patient is awake, responsive, no acute distress. HEAD AND NECK: Pupils are reactive to light. Extraocular movements intact. NECK: Supple. No JVD. LUNGS: Good air entry. No wheezing or rales. HEART: S1, S2. Regular rhythm. Systolic ejection murmur at the left sternal border. ABDOMEN: Soft, nondistended, nontender. Positive bowel sounds. EXTREMITIES: No cyanosis, clubbing, edema. Right upper extremity has AV fistula without a thrill, malfunction. NEUROLOGIC: Cranial nerves II through XII grossly normal. Motor is 5/5 in all extremities. Gait is intact. RECTAL: Refused and deferred. GENITOURINARY: Refused and deferred. PSYCHIATRIC: Mood and affect is intact. Assessment/Plan Assessment/Plan ASSESSMENT: 1. Right upper extremity AV fistula malfunctioning, clotted. 2. End-stage renal disease, on hemodialysis. 3. Coronary artery disease with prior history of myocardial infarction. 4. Hypertension. 5. Diabetes type 2. 6. Thrombocytopenia. PLAN: 1. Admit the patient to medical floor. 2. We will follow up with Dr. Braeden Garcia from Nephrology and 3. Dr. Lopes from Pulmonary Critical Care. 4. The patient S/P fistulogram and exchange left chest permacath by Interventional Radiology. 5. Code status Full code. 6. DVT prophylaxis, heparin subcutaneous. 7. D/C home today Bernard Mckeon MD Nov 07, 2018 15:03
[2018-11-07 16:00] VITALS: BP 130/60
--- NOTE | 2018-11-07 17:35 | NUR ---
NURSE NOTES: Dr SALAS visited pt and discharge pt. all discharge assessments and instructions done and pt verbally confirmed to understand all. pt is stable. V/S stable. called pt's daughter JEISON and brother ANNA MARIE ARRIAGA x10 but no body answered. Dr RODRIGUES notified and ordered to D/C pt, he stated no problem no body answer, just D/C pt. pt is notified and arranged ambulance 1830. pt is eating dinner independently. all belongings are with pt and belongings paper was signed by pt. pt's medications received from pharmacy and given to pt. waiting for ambulance to peanut picker pt. will continue to monitor. Addendum: 11/07/18 at 1814 by Cedric Urban RN pt insist that some body is at home and she wants to go home. Dr RODRIGUES is notified and ordered to send pt home.
--- NOTE | 2018-11-07 18:37 | NUR ---
NURSE NOTES: Before ambulance arranged for pt, RN verified home address with pt from face sheet and pt stated it is her home address but after pt signed instructions and belongings paper, again RN read address for pt but this time pt said this address is her previous address and she doesn't know her new address. RN called family again but no body answered. Dr mcnair is called and left massage, waiting to call back. Ambulance is cancelled. will continue to monitor.
--- NOTE | 2018-11-07 19:18 | NUR ---
NURSE NOTES: Pt ambulating with walker asking about leaving and stating that her doctor Max knows her new address, was endorsed by the AM shift nurse to contact her MD Santana, the pt is able to make needs known, call light within reach, will continue to monitor.
--- NOTE | 2018-11-07 19:25 | NUR ---
HAND-OFF: Report given to ARCHANA MUNGUIA. Endorsed RN to F/U for pt's address and if couldn't find address return meds to pharmacy.
--- NOTE | 2018-11-07 19:56 | NUR ---
NURSE NOTES: Left voicemail for pt brother regarding pt new address, waiting air conditioning unit tester back. called pt daughter but no answer. will take meds to the pharmacy
[2018-11-07 20:00] VITALS: BP 158/80
--- NOTE | 2018-11-07 21:49 | NUR ---
NURSE NOTES: Spoke with Kendymi Orellana pt daughter, she states pt does not live at the address on the face sheet and lives in [place] and that they will pick her up tomorrow around 12 or 1pm, she left her correct phone number [phone]
[2018-11-08] VITALS: BP 149/68
[2018-11-08 04:00] VITALS: BP 163/77
[2018-11-08] MEDS: HydrALAZINE 50mg tab ORAL SCH ×2 (05:00→14:47)
--- NOTE | 2018-11-08 07:15 | NUR ---
NURSE NOTES: Received report from Radha MUNGUIA. Pt awake and oriented x3. Sitting in bed and eating breakfast. No c/o pain and no acute distress noted. IV in left wrist SL patent and asymptomatic. Pt is auric. Afebrile. Bed in its lowest position and locked. Side rails x2 up for safety. Will continue to plan of care.
--- NOTE | 2018-11-08 07:15 | NUR ---
HAND-OFF: Report given to EZRA Crystal.
[2018-11-08 07:39] LABS: BASOPHILS % (AUTO) 1.4 % (0.0-2.0); EOSINOPHILS % (AUTO) 8.3 % (0.0-3.0); HEMATOCRIT 32.3 % (37.0-47.0); HEMOGLOBIN 10.4 G/DL (12.0-16.0); LYMPHOCYTES % (AUTO) 21.9 % (20.0-45.0); MEAN CORPUSCULAR VOLUME 90 FL (80-99); MONOCYTES % (AUTO) 15.6 % (1.0-10.0); NEUTROPHILS % (AUTO) 52.8 % (45.0-75.0); PLATELET COUNT 113 K/UL (150-450); RED BLOOD COUNT 3.57 M/UL (4.20-5.40); RED CELL DISTRIBUTION WIDTH 16.1 % (11.6-14.8); WHITE BLOOD COUNT 4.3 K/UL (4.8-10.8)
[2018-11-08 08:00] VITALS: BP 152/68
[2018-11-08 08:12] LABS: ANION GAP 15 mmol/L (5-15); BLOOD UREA NITROGEN 57 mg/dL (7-18); CALCIUM 8.2 MG/DL (8.5-10.1); CARBON DIOXIDE 24 MMOL/L (21-32); CHLORIDE 102 MMOL/L (98-107); CREATININE 7.2 MG/DL (0.55-1.30); POTASSIUM 4.3 MMOL/L (3.5-5.1); SODIUM 141 MMOL/L (136-145)
[2018-11-08] MEDS: Aspirin Baby 81mg ORAL SCH (09:28)
[2018-11-08] MEDS: Metoprolol Tartrate 50mg tab ORAL SCH (09:28)
--- NOTE | 2018-11-08 10:00 | NUR ---
NURSE NOTES: Spoke to daughterEsteban regarding the patient's condition and extra clothes when discharged home.
--- NOTE | 2018-11-08 10:24 | Pulmonology Progress Note ---
Assessment/Plan Assessment/Plan ASSESSMENT malfunctioning AV fistula, s/p fistulogram and Perma cath exchange ESRD, on HD DM HTN thrombocytopenia anemia of chronic kidney disease seizure disorder CAD with hx of [place] PLAN OF CARE [place] floor s/p fistulogram and perm catheter exchange ( in case AV fistula not works) HD done 11/06 at night , AV fistula functioning Duplex RUE- no DVT HD as per nephro monitor volumes, renal parameters, lytes BP management with BBB, CCB. Hydralazine and optimize further as needed continue ASA SCD , no heparin due to thrombocytopenia, PLT count improving seizure precautions, BS management monitor HH with goal to keep Hgb above 7 dc plan case discussed and evaluated by supervising physician Subjective Allergies: Coded Allergies: No Known Allergies (Unverified , 10/24/14) Subjective had HD 11/06 at last night via RUE fistula ( working after fistulogram) no SOB, no chest pain Objective Last 24 Hour Vital Signs Date Time Temp Pulse Resp B/P (MAP) Pulse Ox O2 Delivery O2 Flow Rate FiO2 11/08/18 09:28 76 152/68 11/08/18 09:28 76 152/68 11/08/18 08:00 99.0 76 22 152/68 (96) 99 11/08/18 05:00 163/77 11/08/18 04:00 98.7 76 20 163/77 (105) 97 11/08/18 00:00 97.0 71 19 149/68 (95) 97 11/07/18 21:04 158/80 11/07/18 20:00 98.8 19 158/80 (106) 97 11/07/18 17:17 71 130/60 11/07/18 16:00 98.1 71 17 130/60 (83) 98 11/07/18 13:12 145/75 11/07/18 12:00 98.6 68 18 145/75 (98) 98 Intake and Output 11/07/18 11/08/18 19:00 07:00 Intake Total 400 ml Balance 400 ml Intake Oral 400 ml # Voids 2 Objective General Appearance: no acute distress, cachetic, bedridden AA female HEENT: normocephalic, atraumatic, anicteric, mucous membranes moist Respiratory/Chest: lungs clear - with moderate air exchange , left chest Perma cath Cardiovascular: normal peripheral pulses, normal rate, other - RUE AV fistula+ bruit/thrill Abdomen: normal bowel sounds, soft, non tender Extremities: no edema, pedal pulses normal Neurologic/Psychiatric: alert, responsive Musculoskeletal: atrophy Microbiology Date/Time Source Procedure Growth Status 11/05/18 21:41 Nasal Nares MRSA Culture - Final NO METHICILLIN RESISTANT STAPH AUREUS... Complete 11/05/18 21:41 Rectum - Final NO CARBAPENEM-RESISTANT ENTEROBACTERI... Complete 11/05/18 21:41 Rectum VRE Culture - Final NO VANCOMYCIN RESISTANT ENTEROCOCCUS ... Complete Laboratory Tests 11/08/18 07:10: White Blood Count 4.3L, Red Blood Count 3.57L, Hemoglobin 10.4L, Hematocrit 32.3L, Mean Corpuscular Volume 90, Mean Corpuscular Hemoglobin 29.1, Mean Corpuscular Hemoglobin Concent 32.2, Red Cell Distribution Width 16.1H, Platelet Count 113L, Mean Platelet Volume 7.4, Neutrophils (%) (Auto) 52.8, Lymphocytes (%) (Auto) 21.9, Monocytes (%) (Auto) 15.6H, Eosinophils (%) (Auto) 8.3H, Basophils (%) (Auto) 1.4, Sodium Level 141, Potassium Level 4.3, Chloride Level 102, Carbon Dioxide Level 24, Anion Gap 15, Blood Urea Nitrogen 57H, Creatinine 7.2H, Estimat Glomerular Filtration Rate , Glucose Level 90, Calcium Level 8.2L Current Medications Medications (Trade) Dose Ordered Sig/[place] Route PRN Reason Start Time Stop Time Status Last Admin Dose Admin Acetaminophen (Tylenol) 650 mg Q6H PRN ORAL Mild Pain/Temp > 100.5 11/05/18 23:45 12/05/18 23:44 Acetaminophen/ Hydrocodone Bitart ([place] 10/325) 1 tab Q6H PRN ORAL Pain Scale (6-10) 11/05/18 23:45 11/12/18 23:44 Amlodipine Besylate (Norvasc) 10 mg DAILY ORAL 11/06/18 09:00 12/06/18 08:59 11/08/18 09:28 Aspirin (ASA) 81 mg DAILY ORAL 11/06/18 09:00 12/06/18 08:59 11/08/18 09:28 Clonidine HCl (Catapres Tab) 0.1 mg Q6H PRN ORAL For High Blood Pressure 11/05/18 23:45 12/05/18 23:44 11/06/18 18:12 Heparin Sodium (Porcine) (Heparin Sod 1000 units/ml 10ml) 2,000 unit ONCE PRN IV FOR HD USE ONLY 11/06/18 14:15 11/08/18 23:59 Hydralazine HCl (Apresoline) 50 mg Q8HR ORAL 11/06/18 06:00 12/06/18 05:59 11/08/18 05:00 Metoprolol Tartrate (Lopressor) 50 mg BID ORAL 11/06/18 09:00 12/06/18 08:59 11/08/18 09:28 Ondansetron HCl (Zofran) 4 mg Q4H PRN IVP Nausea & Vomiting 11/05/18 23:45 12/05/18 23:44 Monica Estrada NP Nov 08, 2018 10:24
[2018-11-08 12:00] VITALS: BP 135/58
[2018-11-08 14:44] VITALS: BP 139/79
[2018-11-08 14:47] VITALS: BP 139/79
--- NOTE | 2018-11-08 15:00 | Internal Med Progress Note ---
Subjective Date of Service: Nov 08, 2018 Physician Name Bernard Mckeon Attending Physician Fidel Alford MD Current Medications Medications (Trade) Dose Ordered Sig/[place] Route PRN Reason Start Time Stop Time Status Last Admin Dose Admin Acetaminophen (Tylenol) 650 mg Q6H PRN ORAL Mild Pain/Temp > 100.5 11/05/18 23:45 12/05/18 23:44 Acetaminophen/ Hydrocodone Bitart ([place] 10/325) 1 tab Q6H PRN ORAL Pain Scale (6-10) 11/05/18 23:45 11/12/18 23:44 Amlodipine Besylate (Norvasc) 10 mg DAILY ORAL 11/06/18 09:00 12/06/18 08:59 11/08/18 09:28 Aspirin (ASA) 81 mg DAILY ORAL 11/06/18 09:00 12/06/18 08:59 11/08/18 09:28 Clonidine HCl (Catapres Tab) 0.1 mg Q6H PRN ORAL For High Blood Pressure 11/05/18 23:45 12/05/18 23:44 11/06/18 18:12 Heparin Sodium (Porcine) (Heparin Sod 1000 units/ml 10ml) 2,000 unit ONCE PRN IV FOR HD USE ONLY 11/06/18 14:15 11/08/18 23:59 Hydralazine HCl (Apresoline) 50 mg Q8HR ORAL 11/06/18 06:00 12/06/18 05:59 11/08/18 14:47 Metoprolol Tartrate (Lopressor) 50 mg BID ORAL 11/06/18 09:00 12/06/18 08:59 11/08/18 09:28 Ondansetron HCl (Zofran) 4 mg Q4H PRN IVP Nausea & Vomiting 11/05/18 23:45 12/05/18 23:44 Allergies: Coded Allergies: No Known Allergies (Unverified , 10/24/14) ROS Limited/Unobtainable: No Constitutional: Reports: no symptoms HEENT: Reports: no symptoms Cardiovascular: Reports: no symptoms Respiratory: Reports: no symptoms Gastrointestinal/Abdominal: Reports: no symptoms Genitourinary: Reports: no symptoms Neurologic/Psychiatric: Reports: no symptoms Subjective 73 YO F With end stage renal failure admitted with dialysis catheter malfunction. S/P exchange left chest port-a-cath 11/06/18. Cover for Int Med- Dr Alford, Discharge held yesterday-no one home to accept patient Objective Last Vital Signs Date Time Temp Pulse Resp B/P (MAP) Pulse Ox O2 Delivery O2 Flow Rate FiO2 11/08/18 14:47 139/79 11/08/18 12:00 97.5 66 21 99 11/08/18 09:00 Room Air Laboratory Tests Test 11/08/18 07:10 White Blood Count 4.3 K/UL (4.8-10.8) L Red Blood Count 3.57 M/UL (4.20-5.40) L Hemoglobin 10.4 G/DL (12.0-16.0) L Hematocrit 32.3 % (37.0-47.0) L Mean Corpuscular Volume 90 FL (80-99) Mean Corpuscular Hemoglobin 29.1 PG (27.0-31.0) Mean Corpuscular Hemoglobin Concent 32.2 G/DL (32.0-36.0) Red Cell Distribution Width 16.1 % (11.6-14.8) H Platelet Count 113 K/UL (150-450) L Mean Platelet Volume 7.4 FL (6.5-10.1) Neutrophils (%) (Auto) 52.8 % (45.0-75.0) Lymphocytes (%) (Auto) 21.9 % (20.0-45.0) Monocytes (%) (Auto) 15.6 % (1.0-10.0) H Eosinophils (%) (Auto) 8.3 % (0.0-3.0) H Basophils (%) (Auto) 1.4 % (0.0-2.0) Sodium Level 141 MMOL/L (136-145) Potassium Level 4.3 MMOL/L (3.5-5.1) Chloride Level 102 MMOL/L (98-107) Carbon Dioxide Level 24 MMOL/L (21-32) Anion Gap 15 mmol/L (5-15) Blood Urea Nitrogen 57 mg/dL (7-18) H Creatinine 7.2 MG/DL (0.55-1.30) H Estimat Glomerular Filtration Rate mL/min (>60) Glucose Level 90 MG/DL (74-106) Calcium Level 8.2 MG/DL (8.5-10.1) L Microbiology Date/Time Source Procedure Growth Status 11/05/18 21:41 Nasal Nares MRSA Culture - Final NO METHICILLIN RESISTANT STAPH AUREUS... Complete 11/05/18 21:41 Rectum - Final NO CARBAPENEM-RESISTANT ENTEROBACTERI... Complete 11/05/18 21:41 Rectum VRE Culture - Final NO VANCOMYCIN RESISTANT ENTEROCOCCUS ... Complete Intake and Output 11/07/18 11/08/18 18:59 06:59 Intake Total 400 ml Balance 400 ml Intake Oral 400 ml # Voids 2 Objective PHYSICAL EXAMINATION: GENERAL: The patient is awake, responsive, no acute distress. HEAD AND NECK: Pupils are reactive to light. Extraocular movements intact. NECK: Supple. No JVD. LUNGS: Good air entry. No wheezing or rales. HEART: S1, S2. Regular rhythm. Systolic ejection murmur at the left sternal border. ABDOMEN: Soft, nondistended, nontender. Positive bowel sounds. EXTREMITIES: No cyanosis, clubbing, edema. Right upper extremity has AV fistula without a thrill, malfunction. NEUROLOGIC: Cranial nerves II through XII grossly normal. Motor is 5/5 in all extremities. Gait is intact. RECTAL: Refused and deferred. GENITOURINARY: Refused and deferred. PSYCHIATRIC: Mood and affect is intact. Assessment/Plan Assessment/Plan ASSESSMENT: 1. Right upper extremity AV fistula malfunctioning, clotted. 2. End-stage renal disease, on hemodialysis. 3. Coronary artery disease with prior history of myocardial infarction. 4. Hypertension. 5. Diabetes type 2. 6. Thrombocytopenia. PLAN: 1. Admit the patient to medical floor. 2. We will follow up with Dr. Braeden Garcia from Nephrology and 3. Dr. Lopes from Pulmonary Critical Care. 4. The patient S/P fistulogram and exchange left chest permacath by Interventional Radiology. 5. Code status Full code. 6. DVT prophylaxis, heparin subcutaneous. 7. D/C home held-patient does not know her address and no one home to accept patient Bernard Mckeon MD Nov 08, 2018 15:00
--- NOTE | 2018-11-08 16:10 | NUR ---
Discharge: Patient is being discharged from medical care. Awake, alert and oriented x3. After care instructions, including referral to community resources were given. Patient verbalized understanding of After care instructions; at this time patient does not request equipment or placement. She is picked up by her daughter, Esteban via private car. No c/o pain and no acute distress noted. Dr. Mckeon will call the [facility] ([phone]) for the patient's meds. Patient signed patient consent in the medical record for patient destination upon discharge. All medical devices such as IV and ID band were removed. Patient ambulated out with all personal belongings with steady gait.
--- NOTE | 2018-11-09 08:53 | Discharge Summary ---
Discharge Summary Discharge Summary _ DATE OF ADMISSION: 11/05/2018 DATE OF DISCHARGE: 11/08/2018 DISCHARGED BY: Dr. Alford REASON FOR ADMISSION: 73 years old female with past medical history of end-stage renal disease, on hemodialysis, hypertension, diabetes mellitus type 2, history of coronary artery disease with prior history of VA, CVA, TIA, status post AV fistula placement on the right upper extremity, presented to the hospital from the outpatient dialysis unit for malfunctioning AV fistula. Patient was noted to have malfunctioning right AV fistula. Subsequently patient was referred to emergency room for evaluation and management. Last dialysis was on 11/03. Laboratory work-up revealed WBC 3.8, hemoglobin 11.1 hematocrit 32.6 platelet count 86. BUN 50, creatinine 6.5. [employer] consulted. Patient subsequently admitted for further management. CONSULTANTS: hospitalist Dr Lopes slope hoist operator Dr Savage [facility] COURSE: Patient admitted to medical surgical floor. [employer] Painter suspected that malfunctioning of AV fistula was due to venous anastomosis and stenosis. Patient was scheduled for fistulogram with probable angioplasty as well as left chest permanent catheter exchange, in case that fistulogram will not work. 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 Patient undergone successful angioplasty, using 10 mm balloon catheter. Hemodialysis was done on 11/06 later at night , and AV fistula was functioning. Hemodialysis provided as per slope hoist operator recommendations with close monitoring of volumes , renal parameters , and electrolytes. Venous Duplex right upper extremity revealed no evidence of DVT. Blood pressure was managed with beta-alfie, calcium channel alfie and hydralazine. Antiplatelet therapy with aspirin continued. DVT prophylaxis provided with SCD , given thrombocytopenia. Platelet count was closely monitored and improved . Prior to discharge platelet count 113. Blood sugar was monitored, and remained stable. Seizure precaution maintained. Hemoglobin and hematocrit were closely monitored with goal to keep hemoglobin above 7. Prior to discharge hemoglobin 10.4 , hematocrit 32.3. Supportive care provided. Patient clinically stabilized and was ready for discharge. 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 DISCHARGE INSTRUCTIONS: Patient was discharged home. Follow up with primary care provider in one week. Follow-up with outpatient hemodialysis as scheduled. Monica Estrada NP Nov 09, 2018 08:53
--- NOTE | 2018-11-09 23:21 | Diagnostic Imaging Report ---
APPROVED REPORT CPT Code: 31649 Present Symptoms Comments: Edema and Pain Stent in proximal basilic vein RIGHT UPPER EXTREMITY: Venous imaging reveals patency of the internal jugular, subclavian, axillary and brachial veins. The cephalic vein is within normal limits. The basilic vein at forarm level is patent. Doppler indicates normal spontaneous flow within these venous segments. Imaging reveals an arterio-venous fistula at the upper mid arm level. Mild non-occlusive thrombus is seen in the proximal and distal segment of the fistula. An elevated velocity indicate a stenosis at the proximal segment of the fistula (468 cm/s). There is no evidence of pseudo-aneurysm or abscess. RN was notified of abnormal results at 1320 hours.
== END 2018-11-08 17:10 | disposition home or self-care (01) | DRG 252 ==
LOC: EMR 16:02 → 4E 17:23 → EDBEDREQ 20:25
PROC: 02H633Z Insertion of Infusion Device into Right Atrium, Percutaneous Approach (ICD-10-PCS; principal; 2018-11-06)
PROC: 05793ZZ Dilation of Right Brachial Vein, Percutaneous Approach (ICD-10-PCS; principal; 2018-11-06)
PROC: 0JH63XZ Insertion of Tunneled Vascular Access Device into Chest Subcutaneous Tissue and Fascia, Percutaneous Approach (ICD-10-PCS; principal; 2018-11-06)
PROC: 5A1D70Z Performance of Urinary Filtration, Intermittent, Less than 6 Hours Per Day (ICD-10-PCS; principal; 2018-11-06)
PROC: 05PYX3Z Removal of Infusion Device from Upper Vein, External Approach (ICD-10-PCS; principal; 2018-11-06)
DX: T82.858A Stenosis of other vascular prosthetic devices, implants and grafts, initial encounter (principal); N18.6 End stage renal disease; I12.0 Hypertensive chronic kidney disease with stage 5 chronic kidney disease or end stage renal disease; G40.209 Localization-related (focal) (partial) symptomatic epilepsy and epileptic syndromes with complex partial seizures, not intractable, without status epilepticus; T82.41XA Breakdown (mechanical) of vascular dialysis catheter, initial encounter; Y83.2 Surgical operation with anastomosis, bypass or graft as the cause of abnormal reaction of the patient, or of later complication, without mention of misadventure at the time of the procedure; I25.10 Atherosclerotic heart disease of native coronary artery without angina pectoris; Z86.73 Personal history of transient ischemic attack (TIA), and cerebral infarction without residual deficits; E11.22 Type 2 diabetes mellitus with diabetic chronic kidney disease; Z99.2 Dependence on renal dialysis; Z79.02 Long term (current) use of antithrombotics/antiplatelets; Z79.82 Long term (current) use of aspirin; I25.2 Old myocardial infarction; D69.6 Thrombocytopenia, unspecified; D63.8 Anemia in other chronic diseases classified elsewhere; K57.90 Diverticulosis of intestine, part unspecified, without perforation or abscess without bleeding; Y83.8 Other surgical procedures as the cause of abnormal reaction of the patient, or of later complication, without mention of misadventure at the time of the procedure; Z86.19 Personal history of other infectious and parasitic diseases
CPT/HCPCS: 20501; 36415; 76000; 76080; 80048; 80053; 83735; 84100; 85007; 85025; 85610; 85730; 87081; 93971; 99285